=== PATIENT | male | born 1965 | race Caucasian/White ===

== ENCOUNTER → 2016-03-13 | Outpatient (CLI) | payer BC ==
[2016-03-13 12:47] LABS: Basophils % (A) 0 %; CH 30.4; CHCM 32.1; Eosinophils # (A) 0.2 k/uL (0-0.7); Eosinophils % (A) 2 %; HCT 40.6 % (39.0-53.0); HDW 2.16; HGB 12.8 gm/dL (13.0-17.5); Luc # (Auto) 0.16; Luc % (Auto) 2; Lymphocytes # (A) 2.3 k/uL (1.0-4.8); Lymphocytes % (A) 24 %; MCH 30.1 pg (25.0-35.0); MCHC 31.7 g/dL (31.0-37.0); Mean Platelet Volume 6.8; Monocytes # (A) 0.3 k/uL (0-1.0); Monocytes % (A) 4 %; Neutrophils # (A) 6.6 k/uL (1.3-7.7); Neutrophils % (A) 69 %; RBC 4.27 m/uL (4.30-5.90); RDW 13.8 % (11.5-15.5); WBC 9.5 k/uL (3.8-10.6); WBC (Perox) 9.94
[2016-03-13 13:08] LABS: Potassium 4.6 mmol/L (3.5-5.1)
== END | disposition home or self-care (01) ==
LOC: LABPAT 12:22
PROVIDERS: ATTEND Orthopaedic Surgery
DX: Z01.812 Encounter for preprocedural laboratory examination (principal); Z01.810 Encounter for preprocedural cardiovascular examination
CPT/HCPCS: 80051; 85025

== ENCOUNTER 2016-04-05 07:19 | Day surgery (SDC) | payer BC ==
[2016-04-02 15:26] VITALS: BMI 21.1
--- NOTE | 2016-04-04 15:24 | HP ---
DATE OF ADMISSION: 04/05/2016 Jonathan Rider is a 51-year-old patient seen with progressive right knee pain. After having treatment options discussed, he elected to proceed with right knee arthroscopy. Consent was obtained. Clearance provided by Dr. Fried. Past medical history is hypertension, cardiovascular disease, asthma. PAST SURGICAL HISTORY: Herniorrhaphy, left knee arthroscopy. DAILY MEDICATIONS: 1. Atenolol. 2. Flomax. 3. Loratadine. 4. Singulair. 5. [place]. Allergies are SULFA and MORPHINE SULFATE. SOCIAL HISTORY: Patient smokes cigarettes. Physical evaluation of the right knee: Range of motion is 0 to 120 degrees, there is a mild intra-articular effusion. Tenderness medial joint line. Positive medial Ninoska's. Ligaments are stable. Hip rotation is without pain. Distal neurovascular exam is intact. Radiographs of the right knee revealed mild medial compartment osteoarthritis. MRI right knee revealed medial meniscal tear and joint effusion. IMPRESSION: Internal derangement of right knee with medial meniscal tear. PLAN: Right knee arthroscopy with partial meniscectomy and debridement.
[~2016-04-05 07:19] MED LIST: DEXAMETHASONE SOD PHOSPHATE 10 MG/ML 1 ML VIAL IV ONE; HYDROmorphone 1 MG/ML 1 ML SYRINGE IVP PRN; LACTATED RINGERS 1,000 ML IV SCH; MIDAZOLAM 2 MG/2 ML VIAL IV PRN; ONDANSETRON 4 MG/2 ML VIAL IVP ONE; SCOPOLAMINE 1.5MG/72HR PATCH TRANSDERM ONE; ceFAZolin 2 GM in SODIUM CHLORIDE 0.9% 100 ML IVPB ONE
[2016-04-05 07:46] VITALS: RESP 16
[2016-04-05] MEDS ORDERED: LIDOCAINE 1% 20 ML VIAL (10MG/ML) FOR IV START INTRADERMA ONE (07:52)
[2016-04-05] MEDS ORDERED: MIDAZOLAM 2 MG/2 ML VIAL ONE (08:42)
[2016-04-05] MEDS ORDERED: fentaNYL (PF) 50 MCG/ML 2 ML AMP ONE (08:42)
[2016-04-05] MEDS ORDERED: PROPOFOL 10 MG/ML 20 ML VIAL IV ONE (08:42)
[2016-04-05] MEDS ORDERED: LIDOCAINE 1% INJ 10MG/ML (20 ML MDV) ONE (08:42)
[2016-04-05] MEDS ORDERED: SUCCINYLCHOLINE CHLORIDE 100 MG/5 ML SYR IV ONE (08:42)
[2016-04-05] MEDS ORDERED: BUPIVACAIN-EPI 0.25%-1:200,000 30 ML VIAL INTRAARTIC ONE (08:42)
--- NOTE | 2016-04-05 09:54 | P.OP ---
Date of Procedure: 04/05/16 Preoperative Diagnosis: Internal derangement right knee Postoperative Diagnosis: 1. Tear medial meniscus right knee 2. 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 Medial plica right knee 4. Reactive synovitis medial and suprapatellar compartments right knee Procedure(s) Performed: 1. Arthroscopic partial medial meniscectomy right knee 2. Arthroscopic chondroplasty medial femoral condyle right knee 3. Arthroscopic resection medial plica right knee 4. Arthroscopic partial synovectomy medial and suprapatellar compartments right knee Anesthesia: LILLYA, local Surgeon: Reza Olguin Estimated Blood Loss (ml): 10 Pathology: none sent Condition: stable Disposition: PACU Indications for Procedure: 51-year-old patient seen with progressive right knee pain. After treatment options were discussed, he elected to proceed with right knee arthroscopy. Operative Findings: See description of procedure Description of Procedure: Patient was taken to the operative suite. Patient underwent a general anesthetic by the department of anesthesia. Patient was given preoperative antibiotics. The right lower extremity was placed in a well-padded arthroscopic leg yadav. The right leg was prepped and draped in the normal sterile orthopedic fashion. A lateral parapatellar and suprapatellar incision was made. Trochars were inserted. Arthroscopy was initiated. Suprapatellar pouch revealed thick reactive synovitis. The patellofemoral joint appeared to articulate congruently with grade 1 chondromalacia changes. The scope was guided into the medial gutter. There was a medial plica noted which did impinge along the medial femoral condyle with range of motion. The scope was then guided into the medial compartment. A medial parapatellar incision was made. Trocar inserted followed by probe. There was a large tear involving the posterior horn of the medial meniscus. Grade 1 and 2 chondromalacia changes of the medial femoral condyle with some small osteochondral tears. Thick synovitis anteriorly. A partial medial meniscectomy was performed down to stable tissue. I performed a chondroplasty of the medial femoral condyle and partial synovectomy. The residual meniscus was stable. The residual osteochondral surface was stable. Scope and probe were then guided into the intercondylar notch. Cruciates were identified, probed and found to be stable. The scope and probe were then guided into lateral compartment. The lateral meniscus was probed and found to be stable. There was no chondromalacia, no loose bodies or reactive synovitis. The scope was in guided back into the suprapatellar compartment. I introduced a motorized shaver into the suprapatellar compartment. I resected that medial plica. I debrided some piecemeal fragments of meniscus I encountered. I performed a partial synovectomy. The shaver was removed. I took one more look around the entire knee, no residual debris. Instruments were now removed from the joint. The joint was infiltrated with .25% Marcaine. Steri-Strips were applied to the portal sites. Sterile dressings were applied. The patient was placed into a HILARY hose. No tourniquet was utilized. The patient was awakened, transferred to a bed and taken to recovery stable satisfactory condition.
[2016-04-05 10:02] VITALS: TEMP 97.4
[2016-04-05] MEDS: MEPERIDINE 50 MG/ML SYRINGE IVP ONE ×2 (10:16→10:26)
[2016-04-05] MEDS ORDERED: HYDROcodone/APAP 5-325MG 1 EACH TAB PO ONE (10:50)
[2016-04-05 11:56] VITALS: BP 102/62; PULSE 69
== END 2016-04-05 12:03 | disposition home or self-care (01) ==
LOC: OR 07:19
PROVIDERS: ATTEND Orthopaedic Surgery
DX: S83.241A Other tear of medial meniscus, current injury, right knee, initial encounter (principal); X58.XXXA Exposure to other specified factors, initial encounter; M94.261 Chondromalacia, right knee; M67.51 Plica syndrome, right knee; M65.861 Other synovitis and tenosynovitis, right lower leg; I10 Essential (primary) hypertension; J45.909 Unspecified asthma, uncomplicated; F17.210 Nicotine dependence, cigarettes, uncomplicated; I47.2 Ventricular tachycardia; I71.2 Thoracic aortic aneurysm, without rupture; I35.1 Nonrheumatic aortic (valve) insufficiency; Z79.899 Other long term (current) drug therapy; Z88.5 Allergy status to narcotic agent; Z88.2 Allergy status to sulfonamides
CPT/HCPCS: 29881; J2250; J1100; J2175; J0690; J2405; J2001; J3010; J0330; J2704

== ENCOUNTER 2016-08-03 15:30 | Emergency (ER) | payer BC ==
[2016-08-03 16:01] VITALS: BP 157/82; PULSE 60; RESP 18; TEMP 96.7
--- NOTE | 2016-08-03 16:10 | ED ---
General Adult HPI - General Chief complaint: Chest Pain Stated complaint: Shoulder Pain Time Seen by Provider: 08/03/16 16:03 Source: patient, RN notes reviewed Mode of arrival: ambulatory Limitations: no limitations - History of Present Illness Initial comments: 51-year-old male presents emergency Department for right shoulder, right chest wall pain. Patient states has been month last to 3 days. Patient states when he picks up parts of the been to put on the line states he has increased pain. Patient states when he bends over he has pain in his shoulder, axilla region. Patient states that he also feels pain along his ribs especially when he coughs. Patient states he has chronic sinus issues and the drainage; cough. He denies any shortness of breath at rest. Denies any exertional shortness breath. The patient does have some pain with deep inspiration on his ribs. Patient did not have a fall. He just notices increased pain with movement. - Related Data Home Medications Medication Instructions Recorded Confirmed Atenolol [Tenormin] 25 mg PO DAILY 01/14/14 04/05/16 Glucosam/Ion-Msm1/C/Daryn/Bosw 2 each PO DAILY 10/11/15 04/02/16 [Glucosamine-Chondroitin Tablet] Loratadine [Claritin] 10 mg PO DAILY 10/11/15 04/05/16 Montelukast [Singulair] 10 mg PO HS 10/11/15 04/05/16 Multivitamins, Thera [Multivitamin] 1 tab PO DAILY 10/11/15 04/02/16 Fish Oil (Unknown Dose) 1 cap PO DAILY 04/02/16 04/02/16 HYDROcodone/APAP 5-325MG [[place] 1 tab PO Q6HR PRN 04/02/16 04/05/16 5-325] Previous Rx's Medication Instructions Recorded Hydrocodone/Acetaminophen [[place] 1 each PO Q6HR PRN #20 tab 04/05/16 5-325] Hydrocodone/Acetaminophen [[place] 1 tab PO Q6HR PRN #15 tab 08/03/16 5-325] Allergies Allergy/AdvReac Type Severity Reaction Status Date / Time itraconazole [From Sporanox] Allergy Rash/Hives Verified 08/03/16 16:01 morphine Allergy Nausea & Verified 08/03/16 16:01 Vomiting Sulfa (Sulfonamide Allergy Unknown Verified 08/03/16 16:01 Antibiotics) Review of Systems ROS Statement: Those systems with pertinent positive or pertinent negative responses have been documented in the HPI. ROS Other: All systems not noted in ROS Statement are negative. Past Medical History Past Medical History: Osteoarthritis (OA) Additional Past Medical History / Comment(s): States hx "rapid heart rate, leaking heart valve, enlarged heart." History of Any Multi-Drug Resistant Organisms: None Reported Past Surgical History: Heart Catheterization, Hernia Repair, Orthopedic Surgery Additional Past Surgical History / Comment(s): Hernia repair X2, jaw surgery, left knee surgery. r knee surg Past Anesthesia/Blood Transfusion Reactions: No Reported Reaction Past Psychological History: No Psychological Hx Reported Smoking Status: Current every day smoker Past Alcohol Use History: None Reported Additional Past Alcohol Use History / Comment(s): smokes 1/2 PPD for 20 yrs Past Drug Use History: None Reported - Past Family History Father Family Medical History: Cancer Additional Family Medical History / Comment(s): colon Mother Family Medical History: Cancer General Exam Limitations: no limitations General appearance: alert, in no apparent distress Head exam: Present: atraumatic, normocephalic, normal inspection Neck exam: Present: normal inspection, full ROM. Absent: tenderness, meningismus, lymphadenopathy Respiratory exam: Present: normal lung sounds bilaterally, chest wall tenderness (Moderate tenderness with palpation over the anterior lateral mid ribs.). Absent: respiratory distress, wheezes, rales, rhonchi, stridor Cardiovascular Exam: Present: regular rate, normal rhythm, normal heart sounds. Absent: systolic murmur, diastolic murmur, rubs, gallop, clicks GI/Abdominal exam: Present: soft, normal bowel sounds. Absent: distended, tenderness, guarding, rebound, rigid Neurological exam: Present: alert, oriented X3, CN II-XII intact Skin exam: Present: warm, dry, intact, normal color. Absent: rash Course Vital Signs 08/03/16 15:58 Temperature 96.7 F L Pulse Rate 60 Respiratory 18 Rate Blood Pressure 157/82 O2 Sat by Pulse 96 Oximetry Medical Decision Making - Medical Decision Making 51-year-old male present emergency department for right rib pain. Patient has musculoskeletal strain. Patient has no obvious rib fractures and no other acute abnormality as per radiology reading. Disposition Clinical Impression: Muscle strain of chest wall, Shoulder pain Disposition: HOME SELF-CARE Condition: Stable Instructions: Chest Wall Pain (ED) Additional Instructions: Please return to the Emergency Department if symptoms worsen or any other concerns. Prescriptions: Hydrocodone/Acetaminophen [[place] 5-325] 1 tab PO Q6HR PRN #15 tab PRN Reason: Pain Referrals: Sammy Phillips MD [Primary Care Provider] - 1-2 days Time of Disposition: 16:35
--- NOTE | 2016-08-03 16:29 | XR ---
EXAMINATION TYPE: XR ribs RT w pa chest x-ray DATE OF EXAM: 08/03/2016 CLINICAL HISTORY: Right-sided pain. TECHNIQUE: Single frontal view of the chest is obtained. A frontal and oblique images of the right-si ded ribs are acquired. COMPARISON: Chest x-ray January 13, 2014. FINDINGS: There is chronic parenchymal change with right basilar linear scarring redemonstrated. Ther e is no new focal air space opacity, pleural effusion, or pneumothorax seen. The cardiac silhouette size is within normal limits. The osseous structures are intact. Dedicated images of right-sided ribs show no acute displaced fracture. Overlying soft tissue is unrem arkable. IMPRESSION: 1. No acute cardiopulmonary process. 2. No acute displaced right-sided rib fractures are seen.
== END 2016-08-03 16:43 | disposition home or self-care (01) ==
LOC: EC 15:30
DX: S29.011A Strain of muscle and tendon of front wall of thorax, initial encounter (principal); M25.511 Pain in right shoulder; F17.200 Nicotine dependence, unspecified, uncomplicated; Z88.5 Allergy status to narcotic agent; Z88.2 Allergy status to sulfonamides; Z88.8 Allergy status to other drugs, medicaments and biological substances; Z79.899 Other long term (current) drug therapy; X50.9XXA Other and unspecified overexertion or strenuous movements or postures, initial encounter
CPT/HCPCS: 99283

== ENCOUNTER → 2016-09-04 | Outpatient (CLI) | payer BC ==
[2016-09-04 11:58] LABS: Basophils % (A) 1 %; CH 30.3; CHCM 33.3; Eosinophils # (A) 0.2 k/uL (0-0.7); Eosinophils % (A) 2 %; HCT 38.8 % (39.0-53.0); HGB 13.1 gm/dL (13.0-17.5); Luc # (Auto) 0.11; Luc % (Auto) 1; Lymphocytes # (A) 1.8 k/uL (1.0-4.8); Lymphocytes % (A) 21 %; MCH 30.8 pg (25.0-35.0); MCHC 33.6 g/dL (31.0-37.0); MCV 91.6 fL (80.0-100.0); Mean Platelet Volume 6.8; Monocytes # (A) 0.5 k/uL (0-1.0); Monocytes % (A) 5 %; Neutrophils % (A) 70 %; RBC 4.24 m/uL (4.30-5.90); RDW 14.2 % (11.5-15.5); WBC 8.6 k/uL (3.8-10.6); WBC (Perox) 8.72
[2016-09-04 12:14] LABS: ALT 29 U/L (21-72); AST 16 U/L (17-59); Alkaline Phosphatase 70 U/L (38-126); Anion Gap 9 mmol/L; Blood Urea Nitrogen 11 mg/dL (9-20); Calcium 9.4 mg/dL (8.4-10.2); Carbon Dioxide 26 mmol/L (22-30); Chloride 107 mmol/L (98-107); Cholesterol 159 mg/dL (<200); Glucose 84 mg/dL (74-99); HDL Cholesterol 51 mg/dL (40-60); Non-African American GFR(MDRD) >60 (>60 ml/min/1.73 sqM); Potassium 4.2 mmol/L (3.5-5.1); Sodium 142 mmol/L (137-145); Total Bilirubin 0.5 mg/dL (0.2-1.3); Total Protein 6.1 g/dL (6.3-8.2); Triglycerides 56 mg/dL (<150)
[2016-09-04 12:45] LABS: Prostate Specific Antigen 0.55 ng/mL (0.00-4.00)
== END | disposition home or self-care (01) ==
LOC: LABWHC1 11:21
PROVIDERS: ATTEND Family Medicine
DX: Z00.00 Encounter for general adult medical examination without abnormal findings (principal); M13.0 Polyarthritis, unspecified; R51 Headache; Z98.1 Arthrodesis status
CPT/HCPCS: 36415; 80053; 80061; 84153; 84439; 84443; 85025

== ENCOUNTER → 2016-12-18 | Outpatient (CLI) | payer BC ==
--- NOTE | 2016-12-18 11:57 | XR ---
EXAMINATION TYPE: XR thoracic spine 2V DATE OF EXAM: 12/18/2016 CLINICAL HISTORY: pain TECHNIQUE: Frontal, lateral, and swimmer's view of thoracic spine are obtained. COMPARISON: None. FINDINGS: There is mild curvature convex to the left. Vertebral body heights are preserved. Disc spac es demonstrate a moderate degenerative disc space narrowing at multiple levels. Visualized ribs are unremarkable. IMPRESSION: No acute fracture or dislocation is seen in the thoracic spine. ICD 10 NO FRACTURE, INIT IAL EVALUATION
== END | disposition home or self-care (01) ==
LOC: RADXRMAIN 11:33
PROVIDERS: ATTEND Family Medicine
DX: M54.6 Pain in thoracic spine (principal)
CPT/HCPCS: 72070

== ENCOUNTER → 2017-01-04 | Outpatient (CLI) | payer BC ==
--- NOTE | 2017-01-04 16:26 | US ---
EXAMINATION TYPE: US scrotum with doppler. Grayscale and color Doppler Duplex imaging performed of vidhya armstrong scrotum. DATE OF EXAM: 01/04/2017 COMPARISON: NONE CLINICAL HISTORY: N50.811 Right Testicular Pain. Pain in right scrotum since lifting cement blocks 1- 2 weeks ago. Pain radiates up pelvis and down right leg, but patient said symptoms are subsiding. EXAM MEASUREMENTS: TESTICLES: Right Testicle: 4.0 x 2.6 x 2.0 cm Left Testicle: 4.6 x 2.7 x 2.8 cm EPIDIDYMIS HEAD: Right Epididymis: 1.1 x 1.1 x 0.7cm cm Left Epididymis: 0.8 x 1.6 x 1.1 cm Doppler performed to assess for testicular vascularity; good bilateral color flow and waveforms are s een. There is no evidence of testicular torsion. Right epididymal head cyst is noted = 0.4 x 0.4 x 0.3cm. Left epididymal head cyst is imaged = 0.9 x 0.6 x 0.5cm. Couple of hyperechoic round foci (scrotal p migel) approximately each = 0.1 x 0.1 x 0.1cm are noted in lower left hydrocele fluid. Left hydrocele is noted = 7.2 x 4.4 x 1.4cm. Homogeneous echo texture is noted bilateral testicle. IMPRESSION: 1. Epididymal cysts. 2. Mild hydrocele left side
== END | disposition home or self-care (01) ==
LOC: RADUSWWP 12:09
PROVIDERS: ATTEND Family Medicine
DX: N50.3 Cyst of epididymis (principal); N43.3 Hydrocele, unspecified; N50.811 Right testicular pain; Z88.2 Allergy status to sulfonamides; Z88.5 Allergy status to narcotic agent
CPT/HCPCS: 76870; 93975

== ENCOUNTER → 2017-05-13 | Outpatient (CLI) | payer BC ==
[2017-05-13 16:32] LABS: Thyroid Peroxidase Antibodies 3188.9 U/mL (0.0-60.0)
[2017-05-13 16:33] LABS: Thyroglobulin <0.20 ng/mL (1.60-59.90)
== END | disposition home or self-care (01) ==
LOC: LABWHC1 11:30
PROVIDERS: ATTEND Family Medicine
DX: R94.6 Abnormal results of thyroid function studies (principal)
CPT/HCPCS: 36415; 84432; 84439; 84481; 86376; 86800

== ENCOUNTER 2017-07-07 14:36 | Emergency (ER) | payer BC ==
[2017-07-07 14:43] VITALS: BP 106/72; PULSE 78; RESP 20; TEMP 96.8
[2017-07-07] MEDS ORDERED: MUPIROCIN 2% OINT 22 GM TUBE TOPICAL STA (15:08)
[2017-07-07] MEDS ORDERED: ACET/COD 300 MG/30 MG STARTER PACK 6 TAB BTL PO STA (15:09)
[2017-07-07] MEDS ORDERED: IBUPROFEN 600 MG STARTER PACK 4 TAB BTL PO STA (15:09)
--- NOTE | 2017-07-07 15:14 | ED ---
General Adult HPI - General Chief complaint: Burn/Smoke Inhalation Stated complaint: burn left hand Time Seen by Provider: 07/07/17 14:53 Source: patient, RN notes reviewed, old records reviewed Mode of arrival: ambulatory Limitations: no limitations - History of Present Illness Initial comments: This patient's a 52-year-old male presents emergency Department chief complaint of left palm pain. He reports that he tripped and caught himself by cutting himself on the Rototiller. He reports he caught himself on the muffler of the which was hot. He complains of a first-degree burn on the left palm. Full range of motion noted of the fingers. No blistering. He denies any other areas of pain or injury. - Related Data Home Medications Medication Instructions Recorded Confirmed Atenolol [Tenormin] 25 mg PO DAILY 01/14/14 04/05/16 Glucosam/Ion-Msm1/C/Daryn/Bosw 2 each PO DAILY 10/11/15 04/02/16 [Glucosamine-Chondroitin Tablet] Loratadine [Claritin] 10 mg PO DAILY 10/11/15 04/05/16 Montelukast [Singulair] 10 mg PO HS 10/11/15 04/05/16 Multivitamins, Thera [Multivitamin] 1 tab PO DAILY 10/11/15 04/02/16 Fish Oil (Unknown Dose) 1 cap PO DAILY 04/02/16 04/02/16 HYDROcodone/APAP 5-325MG [[place] 1 tab PO Q6HR PRN 04/02/16 04/05/16 5-325] Previous Rx's Medication Instructions Recorded Hydrocodone/Acetaminophen [[place] 1 each PO Q6HR PRN #20 tab 04/05/16 5-325] Hydrocodone/Acetaminophen [[place] 1 tab PO Q6HR PRN #15 tab 08/03/16 5-325] Acetaminophen-Codeine 300-30mg 1 tab PO Q6H PRN 3 Days #12 tablet 07/07/17 [Tylenol w/codeine #3] Mupirocin [Mupirocin 2%] 1 applic TOPICAL BID #1 tube 07/07/17 Allergies Allergy/AdvReac Type Severity Reaction Status Date / Time itraconazole [From Sporanox] Allergy Rash/Hives Verified 07/07/17 14:44 morphine Allergy Nausea & Verified 07/07/17 14:44 Vomiting Sulfa (Sulfonamide Allergy Unknown Verified 07/07/17 14:44 Antibiotics) Review of Systems ROS Statement: Those systems with pertinent positive or pertinent negative responses have been documented in the HPI. ROS Other: All systems not noted in ROS Statement are negative. Past Medical History Past Medical History: Osteoarthritis (OA) Additional Past Medical History / Comment(s): States hx "rapid heart rate, leaking heart valve, enlarged heart." History of Any Multi-Drug Resistant Organisms: None Reported Past Surgical History: Heart Catheterization, Hernia Repair, Orthopedic Surgery Additional Past Surgical History / Comment(s): Hernia repair X2, jaw surgery, left knee surgery. r knee surg Past Anesthesia/Blood Transfusion Reactions: No Reported Reaction Past Psychological History: No Psychological Hx Reported Smoking Status: Current every day smoker Past Alcohol Use History: None Reported Past Drug Use History: None Reported - Past Family History Father Family Medical History: Cancer Additional Family Medical History / Comment(s): colon Mother Family Medical History: Cancer General Exam - General Exam Comments Initial Comments: 52-year-old male. Alert and oriented. No acute distress. General: Well appearing, well nourished, in no distress. Oriented x 3, normal mood and affect . Ambulating without difficulty. Skin: Good turgor, no rash, unusual bruising or prominent lesions Hair: Normal texture and distribution. Pharynx: Mucosa non-inflamed, no tonsillar hypertrophy or exudate Neck: Supple, without lesions, bruits, or adenopathy, thyroid non-enlarged and non-tender Heart: No cardiomegaly or thrills; regular rate and rhythm, no murmur or gallop Lungs: Clear to auscultation and percussion Abdomen: Bowel sounds normal, no tenderness, organomegaly, masses, or hernia Back: Spine normal without deformity or tenderness, no CVA tenderness Extremities: Patient is a first-degree burn over the left palm. Musculoskeletal: Normal gait and station. No misalignment, asymmetry, crepitation, defects, tenderness, masses, effusions, decreased range of motion, instability, atrophy or abnormal strength or tone in the head, neck, spine, ribs , pelvis or extremities. Neurologic: CN 2-12 normal. Sensation to pain, touch, and proprioception normal. DTRs normal in upper and lower extremities. No pathologic reflexes. Psychiatric: Oriented X3, intact recent and remote memory, judgment and insight , normal mood and affect. Limitations: no limitations Course Vital Signs 07/07/17 14:41 Temperature 96.8 F L Pulse Rate 78 Respiratory 20 Rate Blood Pressure 106/72 O2 Sat by Pulse 99 Oximetry Medical Decision Making - Medical Decision Making 52-year-old male with a first-degree burn over the left palm. Less than 1% body surface area. No blistering. Patient's wound will be covered with mupirocin. He is ALLERGIC to sulfa. Will not give him Silvadene cream. She has full range of motion of fingers. Normal capillary refill. Reports it feels like a sunburn. Patient was given pain medication. Given a note for work. Discussed dressing changes. There is blistering later on to let him remain. Discussed following up with primary care provider. All questions answered and return parameters were discussed. Disposition Clinical Impression: Burn of hand, left, first degree Disposition: HOME SELF-CARE Condition: Good Instructions: Superficial Burn (ED) Additional Instructions: Patient denies significant Motrin Tylenol for pain. Patient should apply antibiotic ointment and change dressing 2 times a day. Drink plenty of water. Return to the emergency department if any alarming signs or symptoms occur. Prescriptions: Acetaminophen-Codeine 300-30mg [Tylenol w/codeine #3] 1 tab PO Q6H PRN 3 Days # 12 tablet PRN Reason: Pain Mupirocin [Mupirocin 2%] 1 applic TOPICAL BID #1 tube Is patient prescribed a controlled substance at d/c from ED?: No If prescribed controlled substance>3 days was MAPS reviewed?: No When asked, does pt state using other controlled substances?: No Referrals: Sammy Phillips MD [Primary Care Provider] - 1-2 days Time of Disposition: 15:20
== END 2017-07-07 15:59 | disposition home or self-care (01) ==
LOC: EC 14:36
DX: T23.152A Burn of first degree of left palm, initial encounter (principal); T31.0 Burns involving less than 10% of body surface; M19.90 Unspecified osteoarthritis, unspecified site; F17.200 Nicotine dependence, unspecified, uncomplicated; Z95.5 Presence of coronary angioplasty implant and graft; Z88.1 Allergy status to other antibiotic agents; Z88.2 Allergy status to sulfonamides; Z88.5 Allergy status to narcotic agent; Z79.899 Other long term (current) drug therapy; X19.XXXA Contact with other heat and hot substances, initial encounter
CPT/HCPCS: 16020; 99284

== ENCOUNTER → 2017-11-11 | Outpatient (CLI) | payer BC ==
[2017-11-11 07:47] LABS: Basophils % (A) 1 %; Eosinophils # (A) 0.2 k/uL (0-0.7); Eosinophils % (A) 3 %; HCT 39.9 % (39.0-53.0); HGB 13.2 gm/dL (13.0-17.5); Lymphocytes # (A) 1.9 k/uL (1.0-4.8); Lymphocytes % (A) 23 %; MCH 30.9 pg (25.0-35.0); MCHC 32.9 g/dL (31.0-37.0); MCV 93.8 fL (80.0-100.0); Mean Platelet Volume 7.1; Monocytes # (A) 0.5 k/uL (0-1.0); Monocytes % (A) 6 %; Neutrophils # (A) 5.6 k/uL (1.3-7.7); Neutrophils % (A) 67 %; Platelet Count 262 k/uL (150-450); RBC 4.26 m/uL (4.30-5.90); WBC 8.4 k/uL (3.8-10.6)
[2017-11-11 08:10] LABS: ALT 18 U/L (21-72); AST 23 U/L (17-59); Albumin 3.9 g/dL (3.5-5.0); Alkaline Phosphatase 57 U/L (38-126); Anion Gap 8 mmol/L; Blood Urea Nitrogen 14 mg/dL (9-20); Carbon Dioxide 28 mmol/L (22-30); Chloride 105 mmol/L (98-107); Cholesterol 202 mg/dL (<200); Glucose 101 mg/dL (74-99); HDL Cholesterol 60 mg/dL (40-60); LDL Cholesterol,Calculated 124 mg/dL (0-99); Potassium 4.6 mmol/L (3.5-5.1); Sodium 141 mmol/L (137-145); Total Bilirubin 0.5 mg/dL (0.2-1.3); Total Protein 6.4 g/dL (6.3-8.2); Triglycerides 90 mg/dL (<150)
[2017-11-11 08:19] LABS: T4, Free (Free Thyroxine) 1.07 ng/dL (0.78-2.19)
== END ==
LOC: LABWHC1 07:20
PROVIDERS: ATTEND Family Medicine
DX: Z00.00 Encounter for general adult medical examination without abnormal findings (principal); E07.9 Disorder of thyroid, unspecified
CPT/HCPCS: 36415; 80053; 80061; 84439; 84443; 85025

== ENCOUNTER 2017-11-30 07:47 | Observation (INO) | payer BC ==
--- NOTE | 2017-11-30 08:11 | ED ---
General Adult HPI - General Chief complaint: Chest Pain Stated complaint: Chest pain Time Seen by Provider: 11/30/17 07:50 Source: patient, RN notes reviewed Mode of arrival: ambulatory Limitations: no limitations - History of Present Illness Initial comments: This is a 52-year-old male who presents emergency Department with a past history of tachycardia and a leaky valve. Patient comes in this morning because she's had a week and a half long history of some burning sensation in his left chest for which she is seen his primary medical care doctor twice. Patient states it is worsened with leaning forward and coughing or taking a deep breath but it is always there even at rest. Patient states today he was driving to work and he still had the pain and then he got a little lightheaded and decided to come to the emergency department because he didn't want to be at work being lightheaded. Patient denies any radiation of the pain. Patient denies any shortness of breath though it hurts take a deep breath. Patient denies any diaphoresis. Patient denies any nausea vomiting. Patient's been treated for some ALLERGIES and postnasal drip by his primary because of this pain. Patient denies any recent trips or travel. Patient denies any calf pain or any leg swelling. Patient denies any recent fever chills or cough. Patient is a daily smoker. - Related Data Home Medications Medication Instructions Recorded Confirmed Loratadine [Claritin] 10 mg PO DAILY 10/11/15 11/30/17 Montelukast [Singulair] 10 mg PO HS 10/11/15 11/30/17 Fluticasone Propionate [Flonase 50 mcg NASAL DAILY 11/30/17 11/30/17 Allergy Relief] Levothyroxine Sodium [Synthroid] 50 mcg PO DAILY 11/30/17 11/30/17 Metoprolol Tartrate 25 mg PO BID 11/30/17 11/30/17 Allergies Allergy/AdvReac Type Severity Reaction Status Date / Time itraconazole [From Sporanox] Allergy Rash/Hives Verified 11/30/17 07:50 morphine Allergy Nausea & Verified 11/30/17 07:50 Vomiting Sulfa (Sulfonamide Allergy Unknown Verified 11/30/17 07:50 Antibiotics) Review of Systems ROS Statement: Those systems with pertinent positive or pertinent negative responses have been documented in the HPI. ROS Other: All systems not noted in ROS Statement are negative. Past Medical History Past Medical History: Osteoarthritis (OA) Additional Past Medical History / Comment(s): States hx "rapid heart rate, leaking heart valve, enlarged heart." History of Any Multi-Drug Resistant Organisms: None Reported Past Surgical History: Heart Catheterization, Hernia Repair, Orthopedic Surgery Additional Past Surgical History / Comment(s): Hernia repair X2, jaw surgery, left knee surgery. r knee surg Past Anesthesia/Blood Transfusion Reactions: No Reported Reaction Past Psychological History: No Psychological Hx Reported Smoking Status: Current every day smoker Past Alcohol Use History: None Reported Past Drug Use History: None Reported - Past Family History Father Family Medical History: Cancer Additional Family Medical History / Comment(s): colon Mother Family Medical History: Cancer General Exam - General Exam Comments Initial Comments: GENERAL: Patient is well-developed and well-nourished. Patient is nontoxic and well- hydrated and is in mild distress. ENT: Neck is soft and supple. No significant lymphadenopathy is noted. Oropharynx is clear. Moist mucous membranes. Neck has full range of motion without eliciting any pain. EYES: The sclera were anicteric and conjunctiva were pink and moist. Extraocular movements were intact and pupils were equal round and reactive to light. Eyelids were unremarkable. PULMONARY: Unlabored respirations. Good breath sounds bilaterally. No audible rales rhonchi or wheezing was noted. CARDIOVASCULAR: There is a regular rate and rhythm without any murmurs gallops or rubs. ABDOMEN: Soft and nontender with normal bowel sounds. No palpable organomegaly was noted. There is no palpable pulsatile mass. SKIN: Skin is clear with no lesions or rashes and otherwise unremarkable. NEUROLOGIC: Patient is alert and oriented x3. Cranial nerves II through XII are grossly intact. Motor and sensory are also intact. Normal speech, volume and content. Symmetrical smile. MUSCULOSKELETAL: Normal extremities with adequate strength and full range of motion. No lower extremity swelling or edema. No calf tenderness. LYMPHATICS: No significant lymphadenopathy is noted PSYCHIATRIC: Normal psychiatric evaluation. Normal interpersonal interactions appears functionally intact in deals appropriately with others. No signs of depression. No signs of anxiety. Limitations: no limitations Course Vital Signs 11/30/17 11/30/17 07:49 09:14 Temperature 98.0 F Pulse Rate 60 49 L Respiratory 20 18 Rate Blood Pressure 130/84 106/77 O2 Sat by Pulse 99 100 Oximetry Medical Decision Making - Medical Decision Making EKG shows sinus bradycardia with occasional PVCs at a rate of 56 bpm MN interval is 182 QRS is 92 QT interval 436 QTC is 420. Patient's EKG shows no ST segment elevation or depression or T wave abnormalities are noted. Chest x-ray shows no acute abnormality. I was in the room talking the patient his heart rate dipped down to 38 and 39 bpm. I spoke with the patient's primary medical care doctor they agreed to admit the patient admitted the patient wrote admitting orders. - Lab Data Result diagrams: 11/30/17 08:06 11/30/17 08:06 Lab Results 11/30/17 11/30/17 11/30/17 Range/Units 08:06 08:06 08:06 WBC 8.8 (3.8-10.6) k/uL RBC 4.13 L (4.30-5.90) m/uL Hgb 12.7 L (13.0-17.5) gm/dL Hct 37.4 L (39.0-53.0) % MCV 90.7 (80.0-100.0) fL MCH 30.9 (25.0-35.0) pg MCHC 34.0 (31.0-37.0) g/dL RDW 13.6 (11.5-15.5) % Plt Count 267 (150-450) k/uL Neutrophils % 68 % Lymphocytes % 24 % Monocytes % 4 % Eosinophils % 2 % Basophils % 1 % Neutrophils # 6.0 (1.3-7.7) k/uL Lymphocytes # 2.1 (1.0-4.8) k/uL Monocytes # 0.3 (0-1.0) k/uL Eosinophils # 0.2 (0-0.7) k/uL Basophils # 0.0 (0-0.2) k/uL PT (9.0-12.0) sec INR (<1.2) APTT (22.0-30.0) sec D-Dimer (<0.60) mg/L FEU Sodium 138 (137-145) mmol/L Potassium 4.3 (3.5-5.1) mmol/L Chloride 106 (98-107) mmol/L Carbon Dioxide 24 (22-30) mmol/L Anion Gap 8 mmol/L BUN 15 (9-20) mg/dL Creatinine 0.79 (0.66-1.25) mg/dL Est GFR (CKD-EPI)AfAm >90 (>60 ml/min/1.73 sqM) Est GFR (CKD-EPI)NonAf >90 (>60 ml/min/1.73 sqM) Glucose 102 H (74-99) mg/dL Calcium 9.1 (8.4-10.2) mg/dL Magnesium 2.1 (1.6-2.3) mg/dL Total Bilirubin 0.4 (0.2-1.3) mg/dL AST 24 (17-59) U/L ALT 18 L (21-72) U/L Alkaline Phosphatase 60 (38-126) U/L Total Creatine Kinase 144 (55-170) U/L CK-MB (CK-2) 1.7 (0.0-2.4) ng/mL CK-MB (CK-2) Rel Index 1.2 Troponin I <0.012 (0.000-0.034) ng/mL Total Protein 6.5 (6.3-8.2) g/dL Albumin 3.8 (3.5-5.0) g/dL 11/30/17 Range/Units 08:06 WBC (3.8-10.6) k/uL RBC (4.30-5.90) m/uL Hgb (13.0-17.5) gm/dL Hct (39.0-53.0) % MCV (80.0-100.0) fL MCH (25.0-35.0) pg MCHC (31.0-37.0) g/dL RDW (11.5-15.5) % Plt Count (150-450) k/uL Neutrophils % % Lymphocytes % % Monocytes % % Eosinophils % % Basophils % % Neutrophils # (1.3-7.7) k/uL Lymphocytes # (1.0-4.8) k/uL Monocytes # (0-1.0) k/uL Eosinophils # (0-0.7) k/uL Basophils # (0-0.2) k/uL PT 9.9 (9.0-12.0) sec INR 1.0 (<1.2) APTT 25.8 (22.0-30.0) sec D-Dimer 0.25 (<0.60) mg/L FEU Sodium (137-145) mmol/L Potassium (3.5-5.1) mmol/L Chloride (98-107) mmol/L Carbon Dioxide (22-30) mmol/L Anion Gap mmol/L BUN (9-20) mg/dL Creatinine (0.66-1.25) mg/dL Est GFR (CKD-EPI)AfAm (>60 ml/min/1.73 sqM) Est GFR (CKD-EPI)NonAf (>60 ml/min/1.73 sqM) Glucose (74-99) mg/dL Calcium (8.4-10.2) mg/dL Magnesium (1.6-2.3) mg/dL Total Bilirubin (0.2-1.3) mg/dL AST (17-59) U/L ALT (21-72) U/L Alkaline Phosphatase (38-126) U/L Total Creatine Kinase (55-170) U/L CK-MB (CK-2) (0.0-2.4) ng/mL CK-MB (CK-2) Rel Index Troponin I (0.000-0.034) ng/mL Total Protein (6.3-8.2) g/dL Albumin (3.5-5.0) g/dL Disposition Clinical Impression: Bradycardia, Chest pain, Near syncope Disposition: ADMITTED IP TO THIS [facility] Referrals: Sammy Phillips MD [Primary Care Provider] - 1-2 days Time of Disposition: 10:56
[2017-11-30 08:23] LABS: Basophils % (A) 1 %; Eosinophils # (A) 0.2 k/uL (0-0.7); Eosinophils % (A) 2 %; HCT 37.4 % (39.0-53.0); HGB 12.7 gm/dL (13.0-17.5); Lymphocytes # (A) 2.1 k/uL (1.0-4.8); Lymphocytes % (A) 24 %; MCH 30.9 pg (25.0-35.0); MCV 90.7 fL (80.0-100.0); Mean Platelet Volume 6.9; Monocytes # (A) 0.3 k/uL (0-1.0); Monocytes % (A) 4 %; Neutrophils % (A) 68 %; Platelet Count 267 k/uL (150-450); RBC 4.13 m/uL (4.30-5.90); RDW 13.6 % (11.5-15.5); WBC 8.8 k/uL (3.8-10.6)
--- NOTE | 2017-11-30 08:31 | XR ---
EXAMINATION TYPE: XR chest 2V DATE OF EXAM: 11/30/2017 HISTORY: Chest Pain. REFERENCE: Previous study dated 08/03/2016. FINDINGS: The lungs are clear. Pleural space are clear. The heart is not enlarged. IMPRESSION: NO ACTIVE INTRATHORACIC DISEASE.
[2017-11-30 08:33] LABS: ALT 18 U/L (21-72); AST 24 U/L (17-59); Albumin 3.8 g/dL (3.5-5.0); Alkaline Phosphatase 60 U/L (38-126); Anion Gap 8 mmol/L; Blood Urea Nitrogen 15 mg/dL (9-20); Calcium 9.1 mg/dL (8.4-10.2); Carbon Dioxide 24 mmol/L (22-30); Chloride 106 mmol/L (98-107); Glucose 102 mg/dL (74-99); Magnesium 2.1 mg/dL (1.6-2.3); Potassium 4.3 mmol/L (3.5-5.1); Sodium 138 mmol/L (137-145); Total Bilirubin 0.4 mg/dL (0.2-1.3); Total Protein 6.5 g/dL (6.3-8.2)
[2017-11-30 08:35] LABS: D-Dimer 0.25 mg/L FEU (<0.60); Partial Thromboplastin Time 25.8 sec (22.0-30.0); Prothrombin Time 9.9 sec (9.0-12.0)
[2017-11-30 08:48] LABS: Creatine Kinase 144 U/L (55-170)
[2017-11-30 09:02] LABS: Creatine Kinase MB 1.7 ng/mL (0.0-2.4); Troponin I <0.012 ng/mL (0.000-0.034)
--- NOTE | 2017-11-30 10:46 | CT ---
EXAMINATION TYPE: CT angio thor/abd pel aorta DATE OF EXAM: 11/30/2017 COMPARISON: None. HISTORY: Chest pains CT DLP: 535.0 mGycm. Automated Exposure Control for Dose Reduction was Utilized. CONTRAST: CT scan of the thorax, abdomen and pelvis is performed without and with IV Contrast, patient injected with 100 mL of Isovue 300. FINDINGS: There are bullous changes throughout the lungs. There is some scarring at the left lung bas e. There is no significant axillary, mediastinal or hilar adenopathy. There is no pleural or pericardial fluid. The heart is not enlarged. There is no evidence of pulmonary embolus. The aortic root is dilated measuring 4.2 cm. The proximal arch is aneurysmal measuring 3.6 cm. The re mainder of the thoracic and abdominal aorta are normal in caliber. There is no evidence of dissection . The celiac, SMA and CHUY vessels are patent. Both renal arteries are patent. The iliac and common fe moral vessels are patent. Within the abdomen, the liver, spleen and gallbladder are within normal limits. Both adrenal glands appear normal. Both kidneys demonstrate function and appear morphologically normal. The pancreas is not well-visualized. There is no significant retroperitoneal, iliac or inguinal adenopathy. The bladder is slightly distended. Lack of contrast within the bowel makes evaluation difficult. There is no free fluid and no free air. There is degenerative disc disease, facet arthropathy and minimal hypertrophic spondylosis within the spine. IMPRESSION: 1. ANEURYSMAL DILATATION OF THE ASCENDING THORACIC AORTA WITHOUT EVIDENCE OF DISSECTION. 2. BULLOUS CHANGE THROUGHOUT THE LUNGS. 3. DEGENERATIVE CHANGE WITHIN THE SPINE.
[2017-11-30] MEDS ORDERED: NITROGLYCERIN SL TABS 0.4 MG TAB SUBLINGUAL PRN (10:56)
[2017-11-30] MEDS: NITROGLYCERIN OINT 1 INCH/GM PACKET TOPICAL SCH ×2 (12:37→18:27)
[2017-11-30 14:42] VITALS: RESP 16
[2017-11-30 15:47] LABS: Creatine Kinase 113 U/L (55-170)
[2017-11-30 16:01] LABS: Creatine Kinase MB 1.6 ng/mL (0.0-2.4); Troponin I <0.012 ng/mL (0.000-0.034)
[2017-11-30] MEDS ORDERED: ASPIRIN-ACET-CAFF 250-250-65MG 1 EACH TAB PO PRN (18:13)
[2017-11-30] MEDS: MONTELUKAST 10 MG TAB PO SCH (20:13)
[2017-11-30] MEDS: guaiFENesin SYRUP 100MG/5ML 200 MG/10 ML CUP PO PRN (20:42)
[2017-11-30 20:51] LABS: Creatine Kinase 93 U/L (55-170)
[2017-11-30 21:04] LABS: Creatine Kinase MB 1.4 ng/mL (0.0-2.4); Troponin I <0.012 ng/mL (0.000-0.034)
[2017-12-01] MEDS: NITROGLYCERIN OINT 1 INCH/GM PACKET TOPICAL SCH ×4 (04:00→17:43)
[2017-12-01] MEDS: LEVOTHYROXINE 50 MCG TAB PO SCH (06:39)
[2017-12-01 07:25] LABS: Cholesterol 170 mg/dL (<200); HDL Cholesterol 47 mg/dL (40-60); LDL Cholesterol,Calculated 111 mg/dL (0-99); Triglycerides 60 mg/dL (<150)
[2017-12-01] MEDS: LORATADINE 10 MG TAB PO SCH (08:48)
[2017-12-01] MEDS: ASPIRIN 325 MG TAB PO SCH (08:48)
[2017-12-01] MEDS: FLUTICASONE 50MCG/SPRAY NASAL 16GM NASAL SCH (08:49)
[2017-12-01] MEDS: METOPROLOL TARTRATE 12.5 MG TAB PO SCH ×2 (08:49→21:49)
--- NOTE | 2017-12-01 09:10 | CONS ---
CONSULTATION CHIEF COMPLAINT: Bradycardia, chest pain, shortness of breath. HISTORY: Siva is a 52-year-old gentleman with history of ascending aortic aneurysm, aortic regurgitation, and ventricular tachycardia, who presented to hospital complaining of intermittent episodes of chest discomfort at work, mild shortness of breath, and he noticed significant sinus bradycardia. The patient takes metoprolol 25 mg b.i.d. for his ventricular tachycardia. On admission, he was found to heart rate of 40 beats per minute. There is no history of syncope, dizziness, or focal neurological deficits. Since admission, he has been doing well. Chest pain has resolved. Troponins have been negative. EKG shows sinus bradycardia without acute ST-T wave changes. PAST MEDICAL HISTORY: Significant for ventricular tachycardia, ascending aortic aneurysm and aortic regurgitation. CURRENT MEDICATIONS: 1. Lopressor 25 b.i.d. 2. Claritin. 3. Synthroid. 4. Flonase. 5. Excedrin. ALLERGIES: SULFA and MORPHINE. FAMILY HISTORY: Negative for premature coronary artery disease. SOCIAL HISTORY: Significant for smoking. There is no history of EtOH abuse or drug abuse. REVIEW OF SYSTEMS: HEENT: Unremarkable. CARDIAC: As described above. RESPIRATORY: As described above. GI: Negative. : Negative. ALLERGY/IMMUNOLOGY: Negative. MUSCULOSKELETAL: Negative. ENDOCRINE: Negative. CONSTITUTIONAL: Negative. ONCOLOGICAL: Negative. The rest of the system review is not relevant. EXAM: Patient is comfortable at rest. Afebrile. Heart rate is 50 beats per minute. Blood pressure is 120/80, respirations 18, O2 sat is 97% on room air. There is no jugular venous distention. Carotid upstroke is normal. There is no bruit. Chest exam reveals good air entry bilaterally. Heart exam reveals first and second heart sounds. No gallop. Early diastolic murmur in the aortic area. Abdomen is soft. Exam of extremities did not reveal edema. Peripheral pulses are felt. DELI MANAGER exam did not reveal focal neurological deficits. EKG shows sinus bradycardia. ASSESSMENT: 1. Chest pain atypical. 2. Asymptomatic sinus bradycardia. PLAN: I am going to obtain a stress echo on him tomorrow. If this is negative, he can be discharged home on a lower dose of metoprolol. In the outpatient setting I will do a then 24-hour Holter on him. The patient had a CT scan of the chest that shows a stable ascending aortic aneurysm that he has had for a long time, for which I would follow him regularly in my office. Thank you for giving us the privilege to participate in care of this pleasant gentleman. GAGAN / FANTASMA: [phone] /
--- NOTE | 2017-12-01 11:29 | P.HPIM ---
History of Present Illness Chief Complaint: Chest pain This is a well-known 52-year-old male patient of my practice. He indicates he has been having chest pains and burning in his chest consistent with upper respiratory tract infection. He been seen by my nurse practitioner and then again by me just recently. He was just recently started on levothyroxine for hypothyroidism. He has known history of ventricular tachycardia which she takes metoprolol 4. He indicates for the past several weeks she's had dizziness lightheadedness and fatigue. He came to the ER because his symptoms became quite severe while he was driving. In the emergency room he was found to be bradycardic. His heart rate was in the 40s that time. He is been admitted for further treatment of this. He believes his chest pain was from starting thyroid medication. Review of Systems All systems: negative Past Medical History Past Medical History: Osteoarthritis (OA) Additional Past Medical History / Comment(s): States hx "rapid heart rate, leaking heart valve, enlarged heart." History of Any Multi-Drug Resistant Organisms: None Reported Past Surgical History: Heart Catheterization, Hernia Repair, Orthopedic Surgery Additional Past Surgical History / Comment(s): Hernia repair X2, jaw surgery, left knee surgery. r knee surg Past Anesthesia/Blood Transfusion Reactions: No Reported Reaction Past Psychological History: No Psychological Hx Reported Smoking Status: Current every day smoker Past Alcohol Use History: None Reported Additional Past Alcohol Use History / Comment(s): smokes 1/2 PPD for 20 yrs Past Drug Use History: None Reported - Past Family History Father Family Medical History: Cancer Additional Family Medical History / Comment(s): colon Mother Family Medical History: Cancer Medications and Allergies Home Medications Medication Instructions Recorded Confirmed Type Loratadine [Claritin] 10 mg PO DAILY 10/11/15 11/30/17 History Montelukast [Singulair] 10 mg PO HS 10/11/15 11/30/17 History [id number] 2 tab PO Q6HR PRN 11/30/17 11/30/17 History [Excedrin] Fluticasone Propionate [Flonase 50 mcg NASAL DAILY 11/30/17 11/30/17 History Allergy Relief] Levothyroxine Sodium [Synthroid] 50 mcg PO DAILY 11/30/17 11/30/17 History Metoprolol Tartrate 25 mg PO BID 11/30/17 11/30/17 History Allergies Allergy/AdvReac Type Severity Reaction Status Date / Time itraconazole [From Sporanox] Allergy Rash/Hives Verified 11/30/17 11:33 morphine Allergy Nausea & Verified 11/30/17 11:33 Vomiting Sulfa (Sulfonamide Allergy Unknown Verified 11/30/17 11:33 Antibiotics) Physical Exam Vitals: Vital Signs Temp Pulse Pulse Resp BP BP Pulse Ox 12/01/17 08:00 97.5 F L 51 L 16 118/73 97 12/01/17 04:00 97.8 F 50 L 16 127/80 97 12/01/17 03:57 16 11/30/17 23:52 16 11/30/17 23:18 97.7 F 44 L 16 114/73 97 11/30/17 20:00 16 11/30/17 19:34 97.6 F 49 L 16 117/71 96 11/30/17 16:06 97 11/30/17 15:19 97.6 F 43 L 16 122/75 98 11/30/17 14:41 97.9 F 40 L 16 113/76 100 11/30/17 12:36 46 L 18 106/73 100 Intake and Output 11/30/17 12/01/17 12/01/17 22:59 06:59 14:59 Output Total 2 Balance -2 Output: Urine 2 Other: Voiding Method Toilet Toilet Toilet # Voids 2 Weight 65.6 kg GENERAL: Well-appearing, well-nourished and in no acute distress. HEAD: Atraumatic, normocephalic. EYES: Pupils equal round and reactive to light, extraocular movements intact, sclera anicteric, conjunctiva are normal. ENT:nares patent, oropharynx clear without exudates. Moist mucous membranes. NECK: Normal range of motion, supple without lymphadenopathy or JVD, no thyromegaly LUNGS: Breath sounds clear to auscultation bilaterally and equal. No wheezes rales or rhonchi. HEART: Regular rate and rhythm without murmurs, rubs or gallops.S1S2 Normal ABDOMEN: Soft, nontender, normoactive bowel sounds. No guarding, no rebound. No masses appreciated. EXTREMITIES: Normal range of motion, no pitting or edema. No clubbing or cyanosis. NEUROLOGICAL: Cranial nerves II through XII grossly intact. Normal speech, normal gait. PSYCH: Normal mood, normal affect. SKIN: Warm, Dry, normal turgor, no rashes or lesions noted. Results CBC & Chem 7: 11/30/17 08:06 11/30/17 08:06 Labs: Abnormal Lab Results - Last 24 Hours (Table) 12/01/17 Range/Units 06:32 LDL Cholesterol, Calc 111 H (0-99) mg/dL Chest x-ray: report reviewed CT scan - chest: report reviewed Thrombosis Risk Factor Assmnt - Choose All That Apply Each Factor Represents 1 point: Age 41-60 years Thrombosis Risk Factor Assessment Total Risk Factor Score: 1 Thrombosis Risk Factor Assessment Level: Low Risk Assessment and Plan (1) Thoracic aortic aneurysm Current Visit: Yes Status: Acute Code(s): I71.2 - THORACIC AORTIC ANEURYSM, WITHOUT RUPTURE SNOMED Code(s): 877710918 (2) Hypothyroidism Current Visit: Yes Status: Acute Code(s): E03.9 - HYPOTHYROIDISM, UNSPECIFIED SNOMED Code(s): 66847863 (3) Allergic rhinitis Current Visit: Yes Status: Acute Code(s): J30.9 - ALLERGIC RHINITIS, UNSPECIFIED SNOMED Code(s): 86217351 (4) History of ventricular tachycardia Current Visit: Yes Status: Acute Code(s): Z86.79 - PERSONAL HISTORY OF OTHER DISEASES OF THE CIRCULATORY SYSTEM SNOMED Code(s): 846527449867699 (5) Bradycardia Current Visit: Yes Status: Acute Code(s): R00.1 - BRADYCARDIA, UNSPECIFIED SNOMED Code(s): 98245586 (6) Chest pain Current Visit: Yes Status: Acute Code(s): R07.9 - CHEST PAIN, UNSPECIFIED SNOMED Code(s): 52831966 (7) Near syncope Current Visit: Yes Status: Acute Code(s): R55 - SYNCOPE AND COLLAPSE SNOMED Code(s): 941754771 Plan: I'll consult cardiology. We'll plan a continue cardiac telemetry. We'll recheck his laboratory studies in a.m. also regarding his thyroid. He will need outpatient follow-up of his aortic aneurysm. He'll be reevaluated next 24 hours.
[2017-12-01 12:32] LABS: T4, Free (Free Thyroxine) 1.28 ng/dL (0.78-2.19)
[2017-12-01] MEDS: MONTELUKAST 10 MG TAB PO SCH (20:09)
[2017-12-01] MEDS: guaiFENesin SYRUP 100MG/5ML 200 MG/10 ML CUP PO PRN (20:14)
[2017-12-02] MEDS: NITROGLYCERIN OINT 1 INCH/GM PACKET TOPICAL SCH ×2 (01:26→06:10)
[2017-12-02] MEDS: LEVOTHYROXINE 50 MCG TAB PO SCH (06:33)
[2017-12-02 08:23] LABS: Basophils % (A) 0 %; Eosinophils # (A) 0.1 k/uL (0-0.7); Eosinophils % (A) 2 %; HCT 36.6 % (39.0-53.0); HGB 11.9 gm/dL (13.0-17.5); Lymphocytes % (A) 30 %; MCHC 32.6 g/dL (31.0-37.0); Monocytes # (A) 0.3 k/uL (0-1.0); Monocytes % (A) 5 %; Neutrophils # (A) 3.9 k/uL (1.3-7.7); Neutrophils % (A) 61 %; Platelet Count 267 k/uL (150-450); RBC 3.97 m/uL (4.30-5.90); RDW 13.8 % (11.5-15.5); WBC 6.5 k/uL (3.8-10.6)
[2017-12-02 08:29] LABS: Anion Gap 6 mmol/L; Blood Urea Nitrogen 14 mg/dL (9-20); Carbon Dioxide 26 mmol/L (22-30); Chloride 107 mmol/L (98-107); Glucose 89 mg/dL (74-99); Potassium 4.6 mmol/L (3.5-5.1); Sodium 139 mmol/L (137-145)
[2017-12-02 09:41] VITALS: BMI 19.1
--- NOTE | 2017-12-02 11:42 | P.PN ---
Subjective Mr. Rider is seen and examined in no acute distress. Past medical history significant for aortic and mitral insufficiency, thoracic aortic aneurysm and history of ventricular tachycardia. He follows with Dr. Fried in the office. He is schedule for a stress echocardiogram today. His metoprolol was decreased on admission and heart rate has been in the 50's blood pressure 109/69. Laboratory data reviewed, hemoglobin 11.9, sodium 139, potassium 4.6, creatinine 0.71, cardiac enzymes negative 3, TSH 3.6, LDL 111 and HDL 47. Telemetry tracings show sinus bradycardia with no acute arrhythmia noted. Most recent echocardiogram obtained in the office October 2016 reveals preserved left ventricular systolic function with ejection fraction 55%, mild to moderate MR, mildly thickened mitral valve, mild mitral valve prolapse, mild aortic regurgitation, mild to moderate tricuspid regurgitation with mild prolapse of the tricuspid valve. Objective - Vital Signs Vital signs: Vital Signs Temp 97.9 F 12/02/17 07:23 Pulse 52 L 12/02/17 08:00 Resp 16 12/02/17 08:00 BP 109/69 12/02/17 07:23 Pulse Ox 98 12/02/17 07:23 Intake & Output 12/01/17 12/02/17 12/02/17 18:59 06:59 18:59 Weight 65.6 kg Other: Voiding Method Toilet Toilet Toilet - Exam GENERAL: Well-appearing, well-nourished and in no acute distress. NECK: Supple without JVD or thyromegaly. LUNGS: Breath sounds clear to auscultation bilaterally. Respiration equal and unlabored. No wheezes, rales or rhonchi. HEART: Regular rate and rhythm without murmurs, rubs or gallops. S1 and S2 heard. EXTREMITIES: Normal range of motion, no edema. No clubbing or cyanosis. Peripheral pulses intact. - Labs CBC & Chem 7: 12/02/17 07:36 12/02/17 07:36 Labs: Abnormal Lab Results - Last 24 Hours (Table) 12/02/17 Range/Units 07:36 RBC 3.97 L (4.30-5.90) m/uL Hgb 11.9 L (13.0-17.5) gm/dL Hct 36.6 L (39.0-53.0) % Assessment and Plan Assessment: ASSESSMENT Chest pain, atypical. Symptomatic bradycardia on admission, resolved with decreasing lopressor History of valvular heart disease History of ventricular tachycardia Chronic nicotine dependence PLAN Obtain 2D echocardiogram and doppler study to assess cardiac structure and function. Proceed with stress echocardiogram as previously ordered. 24-Holter monitor to be applied prior to discharge. Heart rate tolerating low dose beta allie. Discharge dose to be 12.5 mg BID. Follow up with Dr. Fried in 2 weeks. Smoking cessation recommended. Nurse Practitioner note has been reviewed, I agree with a documented findings and plan of care. Patient was seen and examined.
--- NOTE | 2017-12-02 12:26 | P.STRESS ---
- Stress Test Note Stress Test Results/Findings: Exam Performed: stress echo exercise Exam Date: 12/02/17 Reason for Exam: CHEST PAIN Height: 6 ft 1 in Weight: 65.6 kg Protocol: STRESS ECHO Stage: IV Duration of Exercise: 10:37 Resting Heart Rate: 61 Resting Blood Pressure: 103/74 Maximum Achieved Heart Rate: 145 Maximum Achieved Blood Pressure: 186/99 85% PMHR: 143 100% PMHR: 168 METS: 11.3 Technologist Comment: Stress Test Results/Findings: This is a 52-year-old gentleman with a history of smoking and family history of ischemic heart disease being evaluated for symptoms of chest pain and shortness of breath. Stress data: Baseline EKG showed a sinus rhythm with MT interval and QRS duration with mild diffuse ST-T abnormalities. Blood pressure at rest is 130/ 74 with pulse rate of 61. Patient walked on the Robin protocol for 10 minutes and 37 seconds achieving a maximum heart rate of 145 with a blood pressure off about 100/73. EKGs taken during and after the exercise showed more pronounced ST-T changes in the inferolateral leads. Patient did not experience any chest pain. Echo data: Baseline echo images show normal wall motion and thickening. Exercise echo images showed augmentation of wall motion and thickening in all segments. Final impression: #1. Nondiagnostic stress test because of baseline EKG changes #2. Negative stress echo.
[2017-12-02 12:33] VITALS: BP 107/74; PULSE 65; TEMP 99.1
[2017-12-02] MEDS: FLUTICASONE 50MCG/SPRAY NASAL 16GM NASAL SCH (12:43)
[2017-12-02] MEDS: METOPROLOL TARTRATE 12.5 MG TAB PO SCH (12:43)
[2017-12-02] MEDS: LORATADINE 10 MG TAB PO SCH (12:43)
--- NOTE | 2017-12-02 12:58 | ECHOF ---
Referral Reason:sob MEASUREMENTS -------- HEIGHT: 185.4 cm WEIGHT: 65.3 kg BP: 103/74 RVIDd: 2.6 cm (< 3.3) IVSd: 0.9 cm (0.6 - 1.1) LVIDd: 5.4 cm (3.9 - 5.3) LVPWd: 0.9 cm (0.6 - 1.1) IVSs: 1.1 cm LVIDs: 3.7 cm LVPWs: 1.2 cm LAESV Index (A-L): 27.61 ml/m Ao Diam: 3.8 cm (2.0 - 3.7) AV Cusp: 2.3 cm (1.5 - 2.6) LA Diam: 2.4 cm (2.7 - 3.8) EPSS: 0.3 cm MV E Blaine: 0.49 m/s MV DecT: 305 ms MV A Blaine: 0.42 m/s MV E/A Ratio: 1.15 RAP: 5.00 mmHg RVSP: 27.80 mmHg MV EF SLOPE: 121.95 mm/s (70 - 150) MV EXCURSION: 2.27 cm (> 18.000) FINDINGS -------- Sinus rhythm. This was a technically good study. The left ventricular size is normal. Left ventricular wall thickness is normal. Overall left vent ricular systolic function is normal with, an EF between 55 - 60 %. The right ventricle is normal in size and function. Normal LA size by volume 22+/-6 ml/m2. The right atrium is normal in size. Aortic valve is trileaflet and is mildly thickened. Trace to mild aortic regurgitation. There is no evidence of aortic stenosis. The mitral valve leaflets are mildly thickened. Mild mitral regurgitation is present. Mild tricuspid regurgitation present. Right ventricular systolic pressure is normal at < 35 mmHg. There is no evidence of pulmonary hypertension. Trace/mild (physiologic) pulmonic regurgitation. The aortic root is borderline dilated, up to 3.8 cm. Normal inferior vena cava with normal inspiratory collapse consistent with estimated right atrial pre ssure of 5 mmHg. There is no pericardial effusion. CONCLUSIONS -------- 1. Sinus rhythm. 2. This was a technically good study. 3. The left ventricular size is normal. 4. Left ventricular wall thickness is normal. 5. Overall left ventricular systolic function is normal with, an EF between 55 - 60 %. 6. Normal LA size by volume 22+/-6 ml/m2. 7. Aortic valve is trileaflet and is mildly thickened. 8. Trace to mild aortic regurgitation. 9. The mitral valve leaflets are mildly thickened. 10. Mild mitral regurgitation is present. 11. Mild tricuspid regurgitation present. 12. Right ventricular systolic pressure is normal at < 35 mmHg. 13. There is no evidence of pulmonary hypertension. 14. Trace/mild (physiologic) pulmonic regurgitation. 15. The aortic root is borderline dilated, up to 3.8 cm. 16. There is no pericardial effusion. INFORMATION TECHNOLOGY SECURITY ANALYST: Clarence Valadez RDCS
--- NOTE | 2017-12-02 13:01 | P.DS ---
Providers Date of admission: 11/30/17 11:10 Expected date of discharge: 12/02/17 Attending physician: Sammy Phillips Consults: 11/30/17 10:56 Consult Physician Urgent Consulting Provider: [facility] Consult Reason/Comments: Bradycardia, near syncope, chest pain Do you want consulting provider notified?: Yes Primary care physician: Sammy Phillips [facility] Course: Patient was admitted sinus bradycardia, blood pressure and pulse are currently stable General: [Patient awake, alert and oriented times 3. Patient in no acute distress.] HEENT: [PERRL. EOMI. No pharyngeal erythema or exudate.] Neck: [No adenopathy.] Cardiac: [Heart regular in rate and rhythm. No S3. No S4. No clicks, rubs. No murmur.] Lungs: [Clear to auscultation bilaterally.] Abdomen: [No mass. No organomegaly. Bowel sounds presnt and normoactive in all 4 quadrants.] Extremes: [No edema no cyanosis no claudication normal pulses] : [] Musculoskeletal: [No joint erythema, edema or tenderness.] Skin: [No rash.] Neurologic: [No lateralizing deficits. CN II - XII grossly intact.] Lymphatic: [No adenopathy.] Plan - Discharge Summary Discharge Rx Participant: No New Discharge Prescriptions: No Action Loratadine [Claritin] 10 mg PO DAILY Montelukast [Singulair] 10 mg PO HS Fluticasone Propionate [Flonase Allergy Relief] 50 mcg NASAL DAILY Levothyroxine Sodium [Synthroid] 50 mcg PO DAILY Metoprolol Tartrate 25 mg PO BID [phone] [Excedrin] 2 tab PO Q6HR PRN PRN Reason: Migraine Headache Discharge Medication List Loratadine [Claritin] 10 mg PO DAILY 10/11/15 [History] Montelukast [Singulair] 10 mg PO HS 10/11/15 [History] [phone] [Excedrin] 2 tab PO Q6HR PRN 11/30/17 [History] Fluticasone Propionate [Flonase Allergy Relief] 50 mcg NASAL DAILY 11/30/17 [ History] Levothyroxine Sodium [Synthroid] 50 mcg PO DAILY 11/30/17 [History] Metoprolol Tartrate 25 mg PO BID 11/30/17 [History] Follow up Appointment(s)/Referral(s): Sammy Phillips MD [Primary Care Provider] - 1-2 days Dudley Fried MD [STAFF PHYSICIAN] - 2 Weeks
[2017-12-02] MEDS: ASPIRIN 325 MG TAB PO SCH (13:05)
--- NOTE | 2017-12-03 10:22 | ECHOS ---
Stress Test Results/Findings: Exam Performed: stress echo exercise Exam Date: 12/02/17 Reason for Exam: CHEST PAIN Height: 6 ft 1 in Weight: 65.6 kg Protocol: STRESS ECHO Stage: IV Duration of Exercise: 10:37 Resting Heart Rate: 61 Resting Blood Pressure: 103/74 Maximum Achieved Heart Rate: 145 Maximum Achieved Blood Pressure: 186/99 85% PMHR: 143 100% PMHR: 168 METS: 11.3 Technologist Comment: Stress Test Results/Findings: This is a 52-year-old gentleman with a history of smoking and family history of ischemic heart disease being evaluated for symptoms of chest pain and shortness of breath. Stress data: Baseline EKG showed a sinus rhythm with MS interval and QRS duration with mild diffuse ST-T abnormalities. Blood pressure at rest is 130/ 74 with pulse rate of 61. Patient walked on the Robin protocol for 10 minutes and 37 seconds achieving a maximum heart rate of 145 with a blood pressure off about 100/73. EKGs taken during and after the exercise showed more pronounced ST-T changes in the inferolateral leads. Patient did not experience any chest pain. Echo data: Baseline echo images show normal wall motion and thickening. Exercise echo images showed augmentation of wall motion and thickening in all segments. Final impression: #1. Nondiagnostic stress test because of baseline EKG changes #2. Negative stress echo. TITO
--- NOTE | 2017-12-06 12:36 | HM ---
HOLTER MONITOR REPORT A 24-HOUR DCG: No diary was provided with this recording. Predominant rhythm appears to be sinus with a heart rate ranging from 36 to 127 beats per minute with average heart rate of 66 beats per minute. Isolated ventricular ectopy and supraventricular ectopy were noted. Occasional couplets were also noted. There is no evidence of any significant bradyarrhythmia. The patient's heart rate of 36 beats per minute was probably related to some artifact also and at about 8:21 a.m. patient's heart rate was 43 beats per minute. This was a sinus bradycardia. There was one episode of what seemed to be an ectopic atrial tachycardia at about 4:07 a.m. No diary was provided. There were no significant pauses noted. FINAL IMPRESSION: Predominant rhythm is sinus with sinus arrhythmia with one run of ectopic atrial tachycardia and some isolated PVCs and couplets. No significant arrhythmia was noted. MMODL / IJN: [id number] /
== END 2017-12-02 14:45 | disposition home or self-care (01) ==
LOC: EC 07:47 → 3SUR 11:10 → 3OBS 13:27
PROVIDERS: ADMIT Family Medicine; ATTEND Family Medicine
DX: R00.1 Bradycardia, unspecified (principal); R55 Syncope and collapse; E03.9 Hypothyroidism, unspecified; I47.2 Ventricular tachycardia; M19.90 Unspecified osteoarthritis, unspecified site; F17.210 Nicotine dependence, cigarettes, uncomplicated; I71.2 Thoracic aortic aneurysm, without rupture; J30.9 Allergic rhinitis, unspecified; Z88.8 Allergy status to other drugs, medicaments and biological substances; Z79.890 Hormone replacement therapy; Z79.899 Other long term (current) drug therapy; Z79.51 Long term (current) use of inhaled steroids; Z88.2 Allergy status to sulfonamides; Z88.5 Allergy status to narcotic agent; Z80.0 Family history of malignant neoplasm of digestive organs; Z82.49 Family history of ischemic heart disease and other diseases of the circulatory system
CPT/HCPCS: 99285; 36415; 93005; 93225; 93226; 93306; 93351; 85379; 84439; 84481; 80061; 80053; 80048; 84443; 82550; 82553; 83735; 84484; 85025 ×2; 85610; 85730; 71046; 71275; 74174; G0378 ×3; Q9967

== ENCOUNTER → 2018-01-17 | Outpatient (CLI) | payer BC ==
[2018-01-17 15:40] LABS: Calcium 9.1 mg/dL (8.7-10.3); Potassium 4.5 mmol/L (3.5-5.5)
[2018-01-17 15:49] LABS: T4, Free (Free Thyroxine) 1.2 ng/dL (0.80-1.80)
== END | disposition home or self-care (01) ==
LOC: LABWHC1 08:35
PROVIDERS: ATTEND Family Medicine
DX: E07.9 Disorder of thyroid, unspecified (principal); I10 Essential (primary) hypertension; R10.13 Epigastric pain
CPT/HCPCS: 36415; 80048; 84439; 84443; 86677

== ENCOUNTER → 2018-03-05 | Outpatient (CLI) | payer BC ==
[2018-03-06 05:29] LABS: T4, Free (Free Thyroxine) 1.2 ng/dL (0.80-1.80)
== END | disposition home or self-care (01) ==
LOC: LABWHC1 16:49
PROVIDERS: ATTEND Family Medicine
DX: I10 Essential (primary) hypertension (principal); E03.9 Hypothyroidism, unspecified; Z51.81 Encounter for therapeutic drug level monitoring
CPT/HCPCS: 36415; 84439; 84443; 84481

== ENCOUNTER → 2018-04-22 | Outpatient (CLI) | payer BC ==
[2018-04-23 00:01] LABS: T4, Free (Free Thyroxine) 1.2 ng/dL (0.80-1.80)
== END | disposition home or self-care (01) ==
LOC: LABWHC1 17:00
PROVIDERS: ATTEND Family Medicine
DX: E03.9 Hypothyroidism, unspecified (principal); I10 Essential (primary) hypertension; Z79.899 Other long term (current) drug therapy
CPT/HCPCS: 36415; 84439; 84443; 84481

== ENCOUNTER 2018-05-09 08:02 | Inpatient (IN) | payer BC ==
[2018-05-09] MEDS ORDERED: SODIUM CHLORIDE 0.9% 1,000 ML IV STA ×2 (08:27)
[2018-05-09] MEDS ORDERED: ASPIRIN 81 MG PO STA (08:27)
--- NOTE | 2018-05-09 08:30 | ED ---
Recheck HPI - General Chief Complaint: Recheck/Abnormal Lab/Rx Stated Complaint: Chest Tightness Time Seen by Provider: 05/09/18 08:14 Source: patient, RN notes reviewed, old records reviewed Mode of arrival: wheelchair Limitations: no limitations - History of Present Illness Initial Comments: Patient is a 53-year-old male who presents emergency department today for evaluation of chest tightness and pain. Patient follows with Dr. Dodge. Patient states that he is currently wearing a heart monitor for the past month. Today he started to have some episodes of chest tightness and dizziness and fatigue, and he was contacted by his heart monitor company to come in for evaluation. He reports at that time he felt like his heart was fluttering and an abnormal rhythm. He does not know exactly what abnormal rhythm this could've been. Patient states that the symptoms subsided within 10 minutes. Patient states that he has a history of hypothyroidism and currently on levothyroxine. They recently increased his dose. He also is taking atenolol. Patient states he feels like there is an interaction between the 2 medications causing some of his symptoms. Patient reports that he has had a cardiac evaluation in fall of last year including stress test and echocardiogram. - Related Data Home Medications Medication Instructions Recorded Confirmed Loratadine [Claritin] 10 mg PO DAILY 10/11/15 05/09/18 Montelukast [Singulair] 10 mg PO HS 10/11/15 05/09/18 Atenolol [Tenormin] 25 mg PO DAILY 05/09/18 05/09/18 Levothyroxine Sodium [Synthroid] 88 mcg PO DAILY 05/09/18 05/09/18 Pantoprazole Sodium [Protonix] 40 mg PO DAILY 05/09/18 05/09/18 Allergies Allergy/AdvReac Type Severity Reaction Status Date / Time itraconazole [From Sporanox] Allergy Rash/Hives Verified 05/09/18 08:33 morphine Allergy Nausea & Verified 05/09/18 08:33 Vomiting Sulfa (Sulfonamide Allergy Unknown Verified 05/09/18 08:33 Antibiotics) Review of Systems ROS Statement: Those systems with pertinent positive or pertinent negative responses have been documented in the HPI. ROS Other: All systems not noted in ROS Statement are negative. Past Medical History Past Medical History: Osteoarthritis (OA) Additional Past Medical History / Comment(s): States hx "rapid heart rate, leaking heart valve, enlarged heart." History of Any Multi-Drug Resistant Organisms: None Reported Past Surgical History: Heart Catheterization, Hernia Repair, Orthopedic Surgery Additional Past Surgical History / Comment(s): Hernia repair X2, jaw surgery, left knee surgery. r knee surg Past Anesthesia/Blood Transfusion Reactions: No Reported Reaction Past Psychological History: No Psychological Hx Reported Smoking Status: Former smoker Past Alcohol Use History: None Reported Past Drug Use History: None Reported - Past Family History Father Family Medical History: Cancer Additional Family Medical History / Comment(s): colon Mother Family Medical History: Cancer General Exam - General Exam Comments Initial Comments: This is an 53-year-old male. Alert and oriented 3. Patient appears in no significant distress. Limitations: no limitations General appearance: alert, in no apparent distress Eye exam: Present: normal appearance, PERRL, EOMI. Absent: scleral icterus, conjunctival injection, periorbital swelling ENT exam: Present: normal exam, mucous membranes moist Neck exam: Present: normal inspection. Absent: tenderness, meningismus, lym phadenopathy Respiratory exam: Present: normal lung sounds bilaterally. Absent: respiratory distress, wheezes, rales, rhonchi, stridor Cardiovascular Exam: Present: regular rate, normal rhythm, normal heart sounds. Absent: systolic murmur, diastolic murmur, rubs, gallop, clicks GI/Abdominal exam: Present: soft, normal bowel sounds. Absent: distended, tenderness, guarding, rebound, rigid Back exam: Present: normal inspection Neurological exam: Present: alert, oriented X3, CN II-XII intact Psychiatric exam: Present: normal affect, normal mood Skin exam: Present: warm, dry, intact, normal color. Absent: rash Course Vital Signs 05/09/18 05/09/18 05/09/18 08:07 08:50 09:00 Temperature 98.0 F Pulse Rate 90 73 Respiratory 18 17 Rate Blood Pressure 136/96 137/99 O2 Sat by Pulse 98 94 L 99 Oximetry 05/09/18 05/09/18 09:30 10:00 Temperature Pulse Rate 76 Respiratory 18 Rate Blood Pressure 145/105 114/91 O2 Sat by Pulse 99 Oximetry - Reevaluation(s) Reevaluation #1: 05/09/18 08:47 Dr. Dodge contacted staff at this time. He had a run of V. tach today. He recommends to increase atenolol 25 mg daily so we'll be taking 12.5 at this time. He also wants Dr. Gaston on consult. Medical Decision Making - Medical Decision Making 53-year-old male presents for shortness today with an episode of V. tach noted on his heart monitor. He was called by his cardio just come for evaluation. During that time he is having some chest tightness and dizziness. Upon arrival here he is had a normal heart rate. EKG shows normal sinus rhythm. Lab work was reviewed and unremarkable. He also has been following up regardless hypothyroidism and has had medication adjustment with his levothyroxine. TSH is 4.5 at this time. Patient case discussed with Dr. Tee who discussed the case with patient's PCP Dr. Phillips. [place] the Patient with consults to cardiology. - Lab Data Result diagrams: 05/09/18 08:55 05/09/18 08:55 Lab Results 05/09/18 05/09/18 05/09/18 Range/Units 08:55 08:55 08:55 WBC 7.7 (3.8-10.6) k/uL RBC 4.54 (4.30-5.90) m/uL Hgb 13.5 (13.0-17.5) gm/dL Hct 42.4 (39.0-53.0) % MCV 93.4 (80.0-100.0) fL MCH 29.7 (25.0-35.0) pg MCHC 31.9 (31.0-37.0) g/dL RDW 13.9 (11.5-15.5) % Plt Count 250 (150-450) k/uL Neutrophils % 70 % Lymphocytes % 21 % Monocytes % 5 % Eosinophils % 2 % Basophils % 1 % Neutrophils # 5.3 (1.3-7.7) k/uL Lymphocytes # 1.6 (1.0-4.8) k/uL Monocytes # 0.4 (0-1.0) k/uL Eosinophils # 0.2 (0-0.7) k/uL Basophils # 0.0 (0-0.2) k/uL PT (9.0-12.0) sec INR (<1.2) APTT (22.0-30.0) sec Sodium 139 (137-145) mmol/L Potassium 4.5 (3.5-5.1) mmol/L Chloride 107 (98-107) mmol/L Carbon Dioxide 24 (22-30) mmol/L Anion Gap 8 mmol/L BUN 14 (9-20) mg/dL Creatinine 0.72 (0.66-1.25) mg/dL Est GFR (CKD-EPI)AfAm >90 (>60 ml/min/1.73 sqM) Est GFR (CKD-EPI)NonAf >90 (>60 ml/min/1.73 sqM) Glucose 137 H (74-99) mg/dL Calcium 9.7 (8.4-10.2) mg/dL Magnesium 2.0 (1.6-2.3) mg/dL Total Bilirubin 0.7 (0.2-1.3) mg/dL AST 21 (17-59) U/L ALT 29 (21-72) U/L Alkaline Phosphatase 67 (38-126) U/L Troponin I (0.000-0.034) ng/mL NT-Pro-B Natriuret Pep 48 pg/mL Total Protein 7.0 (6.3-8.2) g/dL Albumin 4.4 (3.5-5.0) g/dL TSH 4.580 (0.465-4.680) mIU/L 05/09/18 05/09/18 Range/Units 08:55 08:55 WBC (3.8-10.6) k/uL RBC (4.30-5.90) m/uL Hgb (13.0-17.5) gm/dL Hct (39.0-53.0) % MCV (80.0-100.0) fL MCH (25.0-35.0) pg MCHC (31.0-37.0) g/dL RDW (11.5-15.5) % Plt Count (150-450) k/uL Neutrophils % % Lymphocytes % % Monocytes % % Eosinophils % % Basophils % % Neutrophils # (1.3-7.7) k/uL Lymphocytes # (1.0-4.8) k/uL Monocytes # (0-1.0) k/uL Eosinophils # (0-0.7) k/uL Basophils # (0-0.2) k/uL PT 9.8 (9.0-12.0) sec INR 0.9 (<1.2) APTT 24.7 (22.0-30.0) sec Sodium (137-145) mmol/L Potassium (3.5-5.1) mmol/L Chloride (98-107) mmol/L Carbon Dioxide (22-30) mmol/L Anion Gap mmol/L BUN (9-20) mg/dL Creatinine (0.66-1.25) mg/dL Est GFR (CKD-EPI)AfAm (>60 ml/min/1.73 sqM) Est GFR (CKD-EPI)NonAf (>60 ml/min/1.73 sqM) Glucose (74-99) mg/dL Calcium (8.4-10.2) mg/dL Magnesium (1.6-2.3) mg/dL Total Bilirubin (0.2-1.3) mg/dL AST (17-59) U/L ALT (21-72) U/L Alkaline Phosphatase (38-126) U/L Troponin I <0.012 (0.000-0.034) ng/mL NT-Pro-B Natriuret Pep pg/mL Total Protein (6.3-8.2) g/dL Albumin (3.5-5.0) g/dL TSH (0.465-4.680) mIU/L 05/09/18 08:58 EKG shows normal sinus rhythm abnormal EKG noted. Ventricular rate of 62 beats for minute. Intervals 180 ms. QRS duration 98 ms. QT QTc is 44/410 ms. No evidence of ST elevation - Radiology Data Radiology results: report reviewed Minimal left basilar and right midlung atelectasis. There is no acute cardio process. Disposition Clinical Impression: History of ventricular tachycardia, Chest pain Disposition: ADMITTED IP TO THIS HOSP Condition: Stable Is patient prescribed a controlled substance at d/c from ED?: No Referrals: Sammy Phillips MD [Primary Care Provider] - 1-2 days Time of Disposition: 11:04
[2018-05-09] MEDS ORDERED: ATENOLOL 12.5 MG TAB PO STA (08:47)
--- NOTE | 2018-05-09 09:45 | XR ---
EXAMINATION TYPE: XR chest 2V DATE OF EXAM: 05/09/2018 COMPARISON: 11/30/2017 HISTORY: Chest pain TECHNIQUE: Frontal and lateral views of the chest are obtained. FINDINGS: Minimal right midlung and left basilar atelectasis is present. No focal consolidation, ple ural effusion or pneumothorax. Lungs are hyperinflated suggesting underlying emphysema and surgical l ucency. Cardia mediastinal silhouette is upper limits of normal. Osseous structures are grossly intac t. IMPRESSION: Minimal left basilar and right midlung atelectasis. Otherwise no acute cardiopulmonary p rocess.
[2018-05-09 10:06] LABS: Basophils % (A) 1 %; Eosinophils # (A) 0.2 k/uL (0-0.7); Eosinophils % (A) 2 %; HCT 42.4 % (39.0-53.0); HGB 13.5 gm/dL (13.0-17.5); Lymphocytes # (A) 1.6 k/uL (1.0-4.8); Lymphocytes % (A) 21 %; MCH 29.7 pg (25.0-35.0); MCHC 31.9 g/dL (31.0-37.0); MCV 93.4 fL (80.0-100.0); Mean Platelet Volume 7.5; Monocytes # (A) 0.4 k/uL (0-1.0); Monocytes % (A) 5 %; Neutrophils # (A) 5.3 k/uL (1.3-7.7); Neutrophils % (A) 70 %; Platelet Count 250 k/uL (150-450); RBC 4.54 m/uL (4.30-5.90); RDW 13.9 % (11.5-15.5); WBC 7.7 k/uL (3.8-10.6)
[2018-05-09 10:19] LABS: ALT 29 U/L (21-72); AST 21 U/L (17-59); Albumin 4.4 g/dL (3.5-5.0); Alkaline Phosphatase 67 U/L (38-126); Anion Gap 8 mmol/L; Blood Urea Nitrogen 14 mg/dL (9-20); Calcium 9.7 mg/dL (8.4-10.2); Carbon Dioxide 24 mmol/L (22-30); Chloride 107 mmol/L (98-107); Glucose 137 mg/dL (74-99); INR 0.9 (<1.2); Partial Thromboplastin Time 24.7 sec (22.0-30.0); Potassium 4.5 mmol/L (3.5-5.1); Prothrombin Time 9.8 sec (9.0-12.0); Sodium 139 mmol/L (137-145); Total Bilirubin 0.7 mg/dL (0.2-1.3)
[2018-05-09] MEDS ORDERED: ACETAMINOPHEN TAB 325 MG TAB PO PRN (11:04)
[2018-05-09] MEDS ORDERED: IBUPROFEN 400 MG TAB PO PRN (11:04)
[2018-05-09] MEDS ORDERED: MORPHINE SULFATE 4 MG/ML SYRINGE IV PRN (11:04)
[2018-05-09] MEDS ORDERED: NALOXONE 0.4 MG/ML 1 ML VIAL IV PRN (11:04)
[2018-05-09] MEDS ORDERED: KETOROLAC 30 MG/ML 1 ML VIAL IVP PRN (11:04)
[2018-05-09] MEDS: SODIUM CHLORIDE 0.9% 1,000 ML IV SCH (14:05)
--- NOTE | 2018-05-09 16:22 | P.HPIM ---
History of Present Illness H&P Date: 05/09/18 Chief Complaint: Chest tightness minimal dizziness fatigue This is a 53-year-old male known to the practice who presents via the emergency room today for evaluation of chest tightness and pain patient sees Dr. Dodge for arrhythmias. Patient is currently wearing an event monitor. He states today he started having some episodes of tightness dizziness and fatigue, the [employer] [facility] [place] recommended that he present to the hospital for evaluation. Patient reports that he felt like his heart was fluttering occasionally intermittent arrhythmia. Patient has known hypothyroidism. And is currently taking a Tylenol Review of Systems Constitutional: Reports as per HPI, Reports weakness Ears, nose, mouth and throat: Reports as per HPI Cardiovascular: Reports as per HPI, Reports irregular heart beat, Reports lightheadedness, Reports palpitations, Reports rapid heart beat Respiratory: Reports as per HPI Gastrointestinal: Reports as per HPI Genitourinary: Reports as per HPI Musculoskeletal: Reports as per HPI Integumentary: Reports as per HPI Neurological: Reports as per HPI Psychiatric: Reports as per HPI, Reports anxiety Past Medical History Past Medical History: Chest Pain / Angina, Eye Disorder, Osteoarthritis (OA), Pneumonia, Vascular Disorder Additional Past Medical History / Comment(s): Vtach with ablation, bradycardia, palpitations, "leaky heart valve", cardiomegaly, currently wearing a 30 day event monitor, past medical record documents thoracic aortic aneurysm but pt unsure if he has been told that, bronchitis, arthritis in multiple joints, chronic low back pain, L sided sciatica, migraines, rhinitis, UTI, hemorrhoids, cataracts bilaterally, past fractures bilateral wrists and L foot. History of Any Multi-Drug Resistant Organisms: None Reported Past Surgical History: Cardiac Ablation, Heart Catheterization, Hernia Repair, Orthopedic Surgery Additional Past Surgical History / Comment(s): EPS with VT ablation, jaw surgery, L/R arthroscopic knee surgery for meniscus, bilateral inguinal hernia repairs, colonoscopy. Past Anesthesia/Blood Transfusion Reactions: Postoperative Nausea & Vomiting (PONV) Past Psychological History: Anxiety Additional Psychological History / Comment(s): Pt resides with his parents and assists them. He is independent. He works at [employer] and does alot of bending/lifting. Smoking Status: Former smoker Past Alcohol Use History: None Reported Additional Past Alcohol Use History / Comment(s): Pt started smoking in 1987 and was a half a ppd smoker. He quit in November of 2017. Past Drug Use History: None Reported - Past Family History Father Family Medical History: Cancer Additional Family Medical History / Comment(s): colon cancer. Mother History Unknown: Yes Family Medical History: Cancer Additional Family Medical History / Comment(s): Pt states he does not know mother's health hx. Medications and Allergies Home Medications Medication Instructions Recorded Confirmed Type Loratadine [Claritin] 10 mg PO DAILY 10/11/15 05/09/18 History Montelukast [Singulair] 10 mg PO HS 10/11/15 05/09/18 History Atenolol [Tenormin] 25 mg PO DAILY 05/09/18 05/09/18 History Levothyroxine Sodium [Synthroid] 88 mcg PO DAILY 05/09/18 05/09/18 History Pantoprazole Sodium [Protonix] 40 mg PO DAILY 05/09/18 05/09/18 History Allergies Allergy/AdvReac Type Severity Reaction Status Date / Time itraconazole [From Sporanox] Allergy Rash/Hives Verified 05/09/18 08:33 morphine Allergy Nausea & Verified 05/09/18 08:33 Vomiting Sulfa (Sulfonamide Allergy Unknown Verified 05/09/18 08:33 Antibiotics) Physical Exam Osteopathic Statement: *. No significant issues noted on an osteopathic structural exam other than those noted in the History and Physical/Consult. Vitals: Vital Signs Temp Pulse Resp BP Pulse Ox 05/09/18 15:28 59 L 16 123/84 100 05/09/18 14:05 66 18 116/94 99 05/09/18 12:01 94 20 134/97 100 05/09/18 11:00 54 L 114/92 80 L 05/09/18 10:30 58 L 114/91 98 05/09/18 10:00 76 18 114/91 99 05/09/18 09:30 145/105 05/09/18 09:00 73 17 137/99 99 05/09/18 08:50 94 L 05/09/18 08:07 98.0 F 90 18 136/96 98 Intake and Output 05/09/18 05/09/18 05/09/18 06:59 14:59 22:59 Other: Weight 76.204 kg General: [Patient awake, alert and oriented times 3. Patient in no acute distress.] HEENT: [PERRL. EOMI. No pharyngeal erythema or exudate.] Neck: [No adenopathy.] Cardiac: [Heart regular in rate and rhythm. No S3. No S4. No clicks, rubs. No murmur.] Lungs: [Clear to auscultation bilaterally.] Abdomen: [No mass. No organomegaly. Bowel sounds presnt and normoactive in all 4 quadrants.] Extremes: [No edema no cyanosis no claudication normal pulses] : [] Musculoskeletal: [No joint erythema, edema or tenderness.] Skin: [No rash.] Neurologic: [No lateralizing deficits. CN II - XII grossly intact.] Lymphatic: [No adenopathy.] Results CBC & Chem 7: 05/09/18 08:55 05/09/18 08:55 Labs: Abnormal Lab Results - Last 24 Hours (Table) 05/09/18 Range/Units 08:55 Glucose 137 H (74-99) mg/dL Thrombosis Risk Factor Assmnt - Choose All That Apply Any of the Below Risk Factors Present?: Yes Each Factor Represents 1 point: Age 41-60 years Other Risk Factors: No Other congenital or acquired thrombophilia - If yes, enter type in comment: No Thrombosis Risk Factor Assessment Total Risk Factor Score: 1 Thrombosis Risk Factor Assessment Level: Low Risk Assessment and Plan (1) Chest pain Current Visit: Yes Status: Acute Code(s): R07.9 - CHEST PAIN, UNSPECIFIED SNOMED Code(s): 23422828 (2) History of ventricular tachycardia Current Visit: Yes Status: Acute Code(s): Z86.79 - PERSONAL HISTORY OF OTHER DISEASES OF THE CIRCULATORY SYSTEM SNOMED Code(s): 437603529252464 (3) Hypothyroidism Current Visit: No Status: Acute Code(s): E03.9 - HYPOTHYROIDISM, UNSPECIFIED SNOMED Code(s): 66313067 Plan: Increase dose of beta allie from 12.5 the atenolol to 25 mg atenolol per car diology Thyroids stable Troponins are stable Event monitor pending Consultation with clinical informatics specialist Luis Felipe Consultation with Dr. Aidan Gaston cardiology
[2018-05-09] MEDS: MONTELUKAST 10 MG TAB PO SCH (22:50)
[2018-05-10] MEDS: LEVOTHYROXINE 88 MCG TAB PO SCH (05:59)
[2018-05-10] MEDS: PANTOPRAZOLE 40 MG TABLET PO SCH (05:59)
[2018-05-10] MEDS ORDERED: ONDANSETRON 4 MG/2 ML VIAL IVP PRN (07:03)
[2018-05-10] MEDS ORDERED: ATENOLOL 25 MG TAB PO SCH (09:00)
[2018-05-10] MEDS: LORATADINE 10 MG TAB PO SCH (09:12)
[2018-05-10] MEDS ORDERED: ONDANSETRON 4 MG/2 ML VIAL IVP STA (10:49)
[2018-05-10] MEDS ORDERED: ONDANSETRON ODT 8 MG TAB.RAPDIS PO PRN (10:53)
[2018-05-10] MEDS ORDERED: ONDANSETRON ODT 4 MG TAB PO PRN (11:00)
--- NOTE | 2018-05-10 11:09 | P.PN ---
Subjective Progress Note Date: 05/10/18 Principal diagnosis: Chest tightness/dizziness Patient's awake alert oriented 3, patient's currently experiencing a full-blown migraine, patient has 1-2 migraines a week, up until this point he only takes Excedrin migraine for his headaches and he states that 50% of the time it takes. Patient has thrown up twice and he often gets nauseous and experiences vomiting with migraines, he has not taken his beta allie because he is afraid he brought up recommended a second dose of 4 mg . Once nausea stops recommend patient takes the beta allie will also start patient on 50 mg Topamax Objective - Vital Signs Vital signs: Vital Signs Temp 97.6 F 05/10/18 07:50 Pulse 63 05/10/18 07:50 Resp 18 05/10/18 07:50 BP 111/63 05/10/18 07:50 Pulse Ox 98 05/10/18 07:50 Intake & Output 05/09/18 05/10/18 05/10/18 18:59 06:59 18:59 Intake Total 240 160 Balance 240 160 Weight 76.204 kg 75.1 kg Intake: Intake, IV Titration 160 Amount Sodium Chloride 0.9% 1, 160 000 ml @ 20 mls/hr IV . Q24H [facility] Rx#:[id number] Oral 240 Other: # Voids 2 - Exam General: [Patient awake, alert and oriented times 3. Patient in no acute distress.] HEENT: [PERRL. EOMI. No pharyngeal erythema or exudate.] Neck: [No adenopathy.] Cardiac: [Heart regular in rate and rhythm. No S3. No S4. No clicks, rubs. No murmur.] Lungs: [Clear to auscultation bilaterally.] Abdomen: [No mass. No organomegaly. Bowel sounds presnt and normoactive in all 4 quadrants.] Extremes: [No edema no cyanosis no claudication normal pulses] : Normal male genitalia Musculoskeletal: [No joint erythema, edema or tenderness.] Skin: [No rash.] Neurologic: [No lateralizing deficits. CN II - XII grossly intact.] Lymphatic: [No adenopathy.] - Labs CBC & Chem 7: 05/09/18 08:55 05/09/18 08:55 Assessment and Plan (1) Chest pain Current Visit: Yes Status: Acute Code(s): R07.9 - CHEST PAIN, UNSPECIFIED SNOMED Code(s): 79940255 (2) History of ventricular tachycardia Current Visit: Yes Status: Acute Code(s): Z86.79 - PERSONAL HISTORY OF OTHER DISEASES OF THE CIRCULATORY SYSTEM SNOMED Code(s): 330253711974363 (3) Hypothyroidism Current Visit: No Status: Acute Code(s): E03.9 - HYPOTHYROIDISM, UNSPECIFIED SNOMED Code(s): 62161981 Plan: Increase dose of beta allie from 12.5 the atenolol to 25 mg atenolol per cardiology Thyroids stable Troponins are stable Event monitor pending Consultation with podiatric foot and ankle specialist Luis Felipe Consultation with Dr. Aidan Gaston cardiology At approximately 6 this morning patient developed full-blown migraine, was given 4 mg Zofran apparently patient became nauseous and threw up will give second dose of Zofran and start Topamax 50 mg once daily We will reevaluate patient in an hour Time with Patient: Greater than 30
[2018-05-10] MEDS: TOPIRAMATE 25 MG TAB PO SCH (11:57)
--- NOTE | 2018-05-10 19:11 | CONS ---
CONSULTATION This is a 53-year-old gentleman who sees Dr. Loving. He is known to have ventricular tachycardia and underwent previous ablation. However, he has been having recurrent episodes of ventricular tachycardia and Dr. Loving placed an event monitor. In November of last year, he had a stress echo and Holter all of which were unremarkable. His ejection fraction is well preserved. However, on the event monitor yesterday morning around 6:00 am he felt a little lightheaded and dizzy and he was called by the event monitor company and questioned regarding symptoms. Subsequently was contacted by Dr. Loving. Advised to come into the emergency room. The patient had a long run of nonsustained VT with symptoms, but now he is in sinus rhythm. Since arrival, he has been in sinus rhythm without any issues. His magnesium and potassium levels are normal. He is resting comfortably without symptoms. PAST MEDICAL HISTORY: 1. History of ventricular tachycardia, previous ablation performed. 2. Bronchial asthma. 3. Hypertension. 4. Hypothyroidism on replacement therapy. MEDICATIONS: At home include Synthroid 88 mcg daily, Protonix 40 mg daily, atenolol 25 mg daily, Claritin and Singulair. ALLERGIES: MORPHINE, SULFA, AND SPORANOX. EXAMINATION: Vital signs stable. Blood pressure is 118/70, pulse rate is 64 per minute and regular. HEENT: Unremarkable. Fundus was not examined by me. Neck is supple. No JVD. I do not hear a carotid bruit. There is no thyromegaly. Heart exam reveals S1, S2 heard normally. No rub, murmur or gallop. Lungs are clear. Abdomen is soft, nontender. Lower extremity reveals normal pulses. No edema. Central nervous system is normal. EKG revealed sinus mechanism is within normal limits. IMPRESSION: 1. Episode of nonsustained symptomatic ventricular tachycardia in a patient with known previous VT ablation. 2. Workup was negative for ischemia by way of stress echo, required Holter performed in November 2017. RECOMMENDATIONS: Patient will be seen by Dr. Loving. He will have an EP study. Dr. Loving plans to switch him from atenolol to Coreg and based on clinical course, I will make further recommendations but if the patient is stable, he may be discharged and come back for a repeat EP study and possible repeat VT ablation by Dr. Loving shortly. MMODL / IJN: [id number] /
[2018-05-10] MEDS: CARVEDILOL 3.125 MG TAB PO SCH (19:12)
[2018-05-10] MEDS: SODIUM CHLORIDE 0.9% 1,000 ML IV SCH (20:24)
[2018-05-10] MEDS: MONTELUKAST 10 MG TAB PO SCH (20:29)
[2018-05-11] MEDS: PANTOPRAZOLE 40 MG TABLET PO SCH (06:13)
[2018-05-11] MEDS: LEVOTHYROXINE 88 MCG TAB PO SCH (06:13)
[2018-05-11] MEDS: CARVEDILOL 3.125 MG TAB PO SCH (06:13)
[2018-05-11 10:44] VITALS: RESP 18
[2018-05-11] MEDS: LORATADINE 10 MG TAB PO SCH (11:53)
[2018-05-11] MEDS: TOPIRAMATE 25 MG TAB PO SCH (11:54)
[2018-05-11 14:04] VITALS: BP 109/76; PULSE 56; TEMP 98.3
--- NOTE | 2018-05-11 14:17 | P.DS ---
Providers Date of admission: 05/09/18 11:05 Expected date of discharge: 05/11/18 Attending physician: Sammy Phillips Consults: 05/09/18 11:04 Consult Physician Stat Consulting Provider: Evonne Gaston Consult Reason/Comments: History of Vtach, Chest pain Do you want consulting provider notified?: Yes Primary care physician: Sammy Phillips - Discharge Diagnosis(es) (1) Chest pain Intermittent ventricular tachycardia captured on an event monitor Occasional multifocal PVCs Current Visit: Yes Status: Acute (2) History of ventricular tachycardia Current Visit: Yes Status: Acute (3) Hypothyroidism Current Visit: No Status: Acute Hospital Course: General: [Patient awake, alert and oriented times 3. Patient in no acute distress.] HEENT: [PERRL. EOMI. No pharyngeal erythema or exudate.] Neck: [No adenopathy.] Cardiac: [Heart regular in rate and rhythm. No S3. No S4. No clicks, rubs. No murmur.] Lungs: [Clear to auscultation bilaterally.] Abdomen: [No mass. No organomegaly. Bowel sounds presnt and normoactive in all 4 quadrants.] Extremes: [No edema no cyanosis no claudication normal pulses] : [] Musculoskeletal: [No joint erythema, edema or tenderness.] Skin: [No rash.] Neurologic: [No lateralizing deficits. CN II - XII grossly intact.] Lymphatic: [No adenopathy.] One episode of V. tach on event monitor Intermittent occasional multifocal PVCs Cardiology increased beta allie Patient to be discharged home Follow up with Dr. Sánchez to schedule possible ablation therapy Patient Condition at Discharge: Stable Plan - Discharge Summary Discharge Rx Participant: Yes New Discharge Prescriptions: No Action Loratadine [Claritin] 10 mg PO DAILY Montelukast [Singulair] 10 mg PO HS Levothyroxine Sodium [Synthroid] 88 mcg PO DAILY Atenolol [Tenormin] 25 mg PO DAILY Pantoprazole Sodium [Protonix] 40 mg PO DAILY Discharge Medication List Loratadine [Claritin] 10 mg PO DAILY 10/11/15 [History] Montelukast [Singulair] 10 mg PO HS 10/11/15 [History] Atenolol [Tenormin] 25 mg PO DAILY 05/09/18 [History] Levothyroxine Sodium [Synthroid] 88 mcg PO DAILY 05/09/18 [History] Pantoprazole Sodium [Protonix] 40 mg PO DAILY 05/09/18 [History] Follow up Appointment(s)/Referral(s): Sammy Phillips MD [Primary Care Provider] - 1-2 days Discharge Disposition: HOME SELF-CARE
== END 2018-05-11 15:33 | disposition home or self-care (01) | DRG 313 ==
LOC: EC 08:02 → 3SCARD 11:05
PROVIDERS: ADMIT Family Medicine; ATTEND Family Medicine
DX: R07.9 Chest pain, unspecified (principal); I47.2 Ventricular tachycardia; I71.2 Thoracic aortic aneurysm, without rupture; I11.9 Hypertensive heart disease without heart failure; E03.9 Hypothyroidism, unspecified; I49.3 Ventricular premature depolarization; F41.9 Anxiety disorder, unspecified; G43.909 Migraine, unspecified, not intractable, without status migrainosus; J45.909 Unspecified asthma, uncomplicated; R07.89 Other chest pain; G89.29 Other chronic pain; M54.42 Lumbago with sciatica, left side; M15.9 Polyosteoarthritis, unspecified; K64.9 Unspecified hemorrhoids; H26.9 Unspecified cataract; Z79.890 Hormone replacement therapy; Z79.899 Other long term (current) drug therapy; Z87.891 Personal history of nicotine dependence; Z88.5 Allergy status to narcotic agent; Z88.2 Allergy status to sulfonamides; Z88.8 Allergy status to other drugs, medicaments and biological substances; Z80.0 Family history of malignant neoplasm of digestive organs
CPT/HCPCS: 36415; 71046; 80053; 83735; 83880; 84443; 84484; 85025; 85610; 85730; 93005; 94760; 96360; 99285

== ENCOUNTER → 2018-06-02 | Outpatient (CLI) | payer BC ==
[2018-06-02 11:06] LABS: HCT 41.5 % (39.0-53.0); HGB 14.2 gm/dL (13.0-17.5); MCH 30.4 pg (25.0-35.0); MCHC 34.2 g/dL (31.0-37.0); MCV 88.8 fL (80.0-100.0); Mean Platelet Volume 7.4; Platelet Count 268 k/uL (150-450); RBC 4.68 m/uL (4.30-5.90); RDW 14.3 % (11.5-15.5); WBC 6.6 k/uL (3.8-10.6)
[2018-06-02 11:14] LABS: Anion Gap 9 mmol/L; Blood Urea Nitrogen 16 mg/dL (9-20); Carbon Dioxide 23 mmol/L (22-30); Chloride 109 mmol/L (98-107); Glucose 95 mg/dL (74-99); Potassium 4.6 mmol/L (3.5-5.1); Sodium 141 mmol/L (137-145)
== END ==
LOC: LABPAT 09:30
PROVIDERS: ATTEND Internal Medicine Clinical Cardiac Electrophysiology
DX: Z01.812 Encounter for preprocedural laboratory examination (principal); I47.2 Ventricular tachycardia; I49.5 Sick sinus syndrome
CPT/HCPCS: 80051; 82565; 82947; 84520; 85027

== ENCOUNTER 2018-06-12 11:07 | Observation (INO) | payer BC ==
[2018-06-06 15:57] VITALS: BMI 22.1
[2018-06-12] MEDS ORDERED: SODIUM CHLORIDE 0.9% 1,000 ML IV SCH (11:38)
[2018-06-12] MEDS ORDERED: SUCCINYLCHOLINE CHLORIDE 100 MG/5 ML SYR IV ONE (13:18)
[2018-06-12] MEDS ORDERED: PROTAMINE SULFATE 10 MG/ML 5 ML VIAL IV ONE (13:18)
[2018-06-12] MEDS ORDERED: HEPARIN SODIUM,PORCINE 10,000 UNIT/ML 1 ML VIAL ONE (13:18)
[2018-06-12] MEDS ORDERED: fentaNYL (PF) 50 MCG/ML 2 ML AMP ONE (13:18)
[2018-06-12] MEDS ORDERED: NEOSTIGMINE 1 MG/ML 10 ML VIAL ONE (13:18)
[2018-06-12] MEDS ORDERED: PROPOFOL 10 MG/ML 20 ML VIAL IV ONE (13:18)
[2018-06-12] MEDS ORDERED: ISOPROTERENOL 250 MCG/1.25 ML SYR IV ONE (13:18)
[2018-06-12] MEDS ORDERED: ROCURONIUM BROMIDE 10 MG/ML 10 ML VIAL IV ONE (13:18)
[2018-06-12] MEDS ORDERED: GLYCOPYRROLATE 0.2 MG/ML 2 ML VIAL ONE (13:18)
[2018-06-12] MEDS ORDERED: MIDAZOLAM 2 MG/2 ML VIAL ONE (13:18)
[2018-06-12] MEDS ORDERED: LIDOCAINE 1% INJ 10MG/ML (20 ML MDV) ONE (13:36)
[2018-06-12] MEDS ORDERED: HEPARIN SODIUM 1,000 UN/ML (10ML VL) ONE (13:39)
[2018-06-12] MEDS ORDERED: LIDOCAINE 1% INJ 10MG/ML (20 ML MDV) SQ ONE (13:49)
[2018-06-12] MEDS ORDERED: HEPARIN SODIUM (1,000 UNIT/ML) 1,000 UNIT in SODIUM CHLORIDE 0.9% 1,000 ML IRRIGATION ONE (14:01)
[2018-06-12] MEDS ORDERED: SODIUM CHLORIDE 0.9% 1,000 ML IV ONE (16:52)
[2018-06-12] MEDS ORDERED: LACTATED RINGERS 1,000 ML IV ONE (16:52)
[2018-06-12] MEDS ORDERED: HYDROcodone/APAP 5-325MG 1 EACH TAB PO PRN (18:38)
[2018-06-12] MEDS ORDERED: ACETAMINOPHEN IV (For NPO) 1,000 MG/100 ML VIAL IVPB ONE (18:51)
[2018-06-12] MEDS: HYDROmorphone 1 MG/ML 1 ML SYRINGE IVP ONE ×2 (18:52→19:06)
[2018-06-12] MEDS: CARVEDILOL 3.125 MG TAB PO SCH (21:51)
[2018-06-13] MEDS ORDERED: ACETAMINOPHEN IV (For NPO) 1,000 MG in EMPTY BAG 1 BAG IVPB ONE (01:00)
[2018-06-13] MEDS: ACETAMINOPHEN TAB 325 MG TAB PO PRN ×2 (02:55→13:13)
--- NOTE | 2018-06-13 06:14 | CE ---
CARDIAC ELECTROPHYSIOLOGY REPORT This is a 53-year-old male patient who has had long runs of ventricular tachycardia on the event monitor after reducing the dose of atenolol for sinus bradycardia. He was readmitted to the hospital and started on carvedilol. He continues to have episodes of palpitations, especially with exercise but avoids exercise since it precipitates a ventricular tachycardia. 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 Successful ablation had been performed at that time. He has had recurrences now 2 years later. He is brought to the EP lab for EP study for mapping and ablation of ventricular tachycardia. Patient was brought to the EP lab in a fasting state. Written informed consent was obtained prior to the procedure. The right left groins were prepped and draped as per protocol. A 5-Tongan sheath was placed in the right femoral artery for hemodynamic monitoring and sampling. Later this was upgraded and this was changed to a long sheath 8-Tongan for LV mapping. Venous sheaths were placed in the right and left femoral veins and diagnostic catheters were positioned in the right heart in the high right atrium, His bundle area, RV and coronary sinus. The sinus cycle length was 982 milliseconds, WA interval normal, QRS normal, AH interval 90 milliseconds, HV interval 48 milliseconds. Sinus node recovery times of 600, 500 and 400 milliseconds were 1474, 1361 and 1096 milliseconds. Corresponding corrected sinus node recovery times were mildly prolonged at a paced cycle length of 600 milliseconds consistent with his sick sinus syndrome. AV node Wenckebach block 330 milliseconds. No delta waves. No slow pathway conduction and no VA conduction at baseline. Burst stimulation was performed at the baseline state. Extra stimulation at 2 [address] trains with double extra stimuli performed from the RV apex. No VT was induced. Isuprel was started and on Isuprel, VT was very easily inducible both with burst stimulation as well as simply on high-dose Isuprel. The VT cycle length was 305 milliseconds and it was very dependent upon the amount and the rate of Isuprel infusion. In the supine position, his blood pressure would plummet with fast VT down to 60 mmHg. His blood pressure was supported and this VT was mapped. An irrigated-tip catheter was placed in the left ventricle retrogradely. The aortic root was mapped. Activation mapping was performed in the right coronary cusp as well as left coronary cusp and the activation maps were late. The earliest activation site was just under the aortic root anterior LVOT, but definitely anterior to the aortomitral continuity which was the site of the ablation 2 years back. Later, even the coronary sinus was mapped, but the catheter would not reach the earlier site in the LVOT since this was just below the right coronary cusp. A 3-D electroanatomic activation mapping was performed. Intracardiac echo catheter was placed and the 3-D anatomic mapping of the cusps identified, left main was identified and tagged and the LVOT was tagged. The aortomitral continuity was identified and tagged. Activation mapping revealed the earliest area of activation about a centimeter or so just below the right coronary cusp. As noted above, the activation mapping of the coronary cusps were late. RF ablation was applied in sinus rhythm. The patient was experiencing both PVCs which had a 99% concordance with the induced ventricular tachycardia and at the earliest site of activation with a good unipolar electrograms and a bipolar electrogram that was 21 milliseconds before the onset of the QRS of the VT as well as the PVC, complete suppression of PVCs was achieved for quite some time until Isuprel was given once again. However, the QRS morphology of the VT was consistent with deep focus. The MDI was almost 63% even though the overall QRS width was 143 milliseconds. This is particularly evident in the precordial leads slow delayed upstroke in the precordial leads. However, Isuprel was started once again VT was once again very easily inducible with drop in blood pressure to 60 mmHg. Activation mapping was continued in the anterior LV wall as well as in the sites closer to the coronary cusp. Pace mapping was then performed in sinus rhythm and the best pace map achieved had a 97% concordance. This was about 1.3 cm proximal to the earliest site of the activation map. RF ablation was applied around the earliest site as well as exactly at the early site for activation map. The pace map was 1.3 cm from the earlier site of the activation map. RF ablation was applied at the best pace map site of 96% to 975%. A contact force of 34 grams was used. Power of up to 30 to 35 davis was used in both sites. However, the VT was still very easily inducible on Isuprel. At the end of the procedure, all catheters were removed and Isuprel was stopped. The coronary sinus was also mapped, but ablation catheter would not reach any where close to the coronary cusps given the anatomy and the dimensions of the coronary sinus. All catheters were removed. Angio-Seal was applied and the patient was transferred back to telemetry. RESULT: Diagnostic EP study revealing catecholamine sensitive ventricular tachycardia originating in the anterior LVOT below the cusps. The cusps did not show early activation. The QRS morphology suggested deep myocardial focus. Activation mapping ablation at the earliest activation site with a good unipolar electrogram and early bipolar electrograms by 21 milliseconds and good contact force of up to 15 grams resulted in transient suppression, but ventricular tachycardia came back after Isuprel was started, Pace mapping was performed just proximal to that site and 97% concordance was achieved. RF ablation was applied with good contact force of 34 grams at the site of 97% concordance of pace map as well as sites which showed 96%, 97% and 94% concordance. However, the ventricular tachycardia continued to be induced. This is a deep myocardial focus in the anterior LVOT. This is very fast ventricular tachycardia at greater than 200 beats a minute even with the slightest provocation with Isuprel. This gentleman is unable to tolerate beta blockers because of significant sick sinus syndrome with heart rates in the 30s. His resting heart rates run in the 50s. His palpitations continue despite beta blockers and the he avoids exercise since exercise provokes this. On high-dose Isuprel, this ventricular tachycardia had an had varying morphology (polymorphic component also to it). Therefore, I would recommend a dual-chamber ICD for sustained hemodynamically significant ventricular tachycardia which is catecholamine sensitive and induced with catecholamine stimulation (exercise induced and catecholamine induced) ventricular tachycardia sustained monomorphic and drug refractory in a deep myocardial focus with a polymorphic component of some induced ventricular tachycardias. Impression Sustained ventricular tachycardia with a polymorphic component and associated significant hypotension, very easily inducible Symptomatic Refractory to drug therapy Refractory to ablation SUGGEST: Dual chamber ICD implantation to allow for beta allie therapy since he had underlying sick sinus syndrome, antitachycardia pacing for the ventricular tachycardia and if needed defibrillation for polymorphic VT. ICD implantation for secondary prevention of sudden cardiac MMODL / IJN: [id number] / MTDNidhi
[2018-06-13] MEDS: LEVOTHYROXINE 88 MCG TAB PO SCH (06:17)
--- NOTE | 2018-06-13 07:53 | P.PN ---
Subjective Patient is doing well this morning. Blood pressure 9600 mmHg heart rate in the 60s and 70s Breath sounds are clear no rhonchi no crackles No JVD no hepatojugular reflux alert and oriented no respiratory distress Heart sounds sounds are normal no murmurs or gallops no rub Abdomen soft nontender Extremities warm right groin is tender there is no hematoma no swelling Impression Recurrent sustained VT with presyncope Drug refractory Catecholamine sensitive Very easily inducible in the EP lab Deep myocardial focus refractory to ablation Associated with significant hypotension Fast V. tach with polymorphic component Underlying sick sinus syndrome, patient intolerant of even small doses of beta blockers Suggest Dual-chamber ICD and thereafter maximize beta blockers and provide a backup antitachycardia pacing and defibrillation if needed Secondary prevention of sudden cardiac Discussed with the patient and his family in detail and they're agreeable with the plan Objective - Vital Signs Vital signs: Vital Signs Temp 97.7 F 06/13/18 03:41 Pulse 62 06/13/18 03:41 Resp 16 06/13/18 04:00 BP 96/63 06/13/18 03:41 Pulse Ox 97 06/13/18 03:41 Intake & Output 06/12/18 06/13/18 06/13/18 18:59 06:59 18:59 Intake Total 1753 300 Output Total 125 1800 Balance 1628 -1500 Weight 73 kg Intake: IV 1753 300 Output: Urine 125 1800 Other: Voiding Method Indwelling Catheter
[2018-06-13] MEDS: CARVEDILOL 3.125 MG TAB PO SCH ×2 (08:53→17:18)
[2018-06-13] MEDS ORDERED: ceFAZolin IN SWFI 2 GM/20 ML SYRINGE IVP ONE (09:23)
[2018-06-13] MEDS ORDERED: ceFAZolin 1,000 MG in SODIUM CHLORIDE 0.9% IRRIGATIO 250 ML IRRIGATION ONE (09:23)
[2018-06-13] MEDS: SODIUM CHLORIDE 0.9% 1,000 ML IV SCH ×3 (11:50→13:16)
[2018-06-13] MEDS ORDERED: LIDOCAINE 1% 20 ML VIAL (10MG/ML) FOR IV START INTRADERMA PRN (12:03)
[2018-06-13] MEDS ORDERED: fentaNYL (PF) 50 MCG/ML 2 ML AMP IV PRN (12:03)
[2018-06-13] MEDS: LACTATED RINGERS 1,000 ML IV SCH (13:16)
[2018-06-13] MEDS ORDERED: ONDANSETRON 4 MG/2 ML VIAL IVP PRN (18:08)
[2018-06-13] MEDS: IBUPROFEN 800 MG TAB PO PRN (18:32)
[2018-06-14] MEDS ORDERED: ceFAZolin 1,000 MG in SODIUM CHLORIDE 0.9% IRRIGATIO 250 ML IRRIGATION ONE (06:00)
[2018-06-14] MEDS ORDERED: ceFAZolin IN SWFI 2 GM/20 ML SYRINGE IVP ONE (06:00)
[2018-06-14] MEDS: LEVOTHYROXINE 88 MCG TAB PO SCH (06:08)
[2018-06-14] MEDS: SODIUM CHLORIDE 0.9% 1,000 ML IV SCH ×2 (06:09→09:54)
[2018-06-14] MEDS ORDERED: LIDOCAINE 1% INJ 10MG/ML (20 ML MDV) ONE (07:10)
[2018-06-14] MEDS ORDERED: SODIUM CHLORIDE 0.9% 500 ML 500 ML IV ONE (07:17)
[2018-06-14] MEDS ORDERED: IV FLUID CONTINUATION 950 ML IV ONE (07:17)
[2018-06-14] MEDS ORDERED: fentaNYL (PF) 50 MCG/ML 2 ML AMP ONE (07:23)
[2018-06-14] MEDS ORDERED: PROPOFOL 10 MG/ML 20 ML VIAL IV ONE (07:23)
[2018-06-14] MEDS ORDERED: MIDAZOLAM 2 MG/2 ML VIAL ONE (07:23)
[2018-06-14] MEDS ORDERED: HYDROcodone/APAP 5-325MG 1 EACH TAB PO PRN (07:45)
[2018-06-14] MEDS ORDERED: IOPAMIDOL-250 50ML BTL IV ONE (07:45)
[2018-06-14] MEDS ORDERED: ACETAMINOPHEN TAB 325 MG TAB PO PRN (07:45)
[2018-06-14] MEDS ORDERED: LIDOCAINE 1% INJ 10MG/ML (20 ML MDV) SQ ONE ×2 (08:09→08:23)
[2018-06-14] MEDS ORDERED: ACETAMINOPHEN IV (For NPO) 1,000 MG in EMPTY BAG 1 BAG IVPB ONE (09:00)
[2018-06-14] MEDS: TOPIRAMATE 25 MG TAB PO SCH ×2 (10:02→19:56)
[2018-06-14] MEDS: LORATADINE 10 MG TAB PO SCH (10:02)
[2018-06-14] MEDS: PROPRANOLOL LA 60 MG CAP.SA.24H PO SCH (10:02)
[2018-06-14] MEDS: LACTATED RINGERS 1,000 ML IV SCH (10:02)
[2018-06-14] MEDS: CARVEDILOL 3.125 MG TAB PO SCH (10:27)
--- NOTE | 2018-06-14 10:46 | CE ---
CARDIAC ELECTROPHYSIOLOGY REPORT This is a 53-year-old male patient who has a history of recurrent dizziness associated with relatively long episodes of sustained ventricular tachycardia clinically. He is brought in for an EP study and ablation. He has a deep myocardial focus, anterior LVOT, late activation in arortic cusps. The ventricular tachycardia was very easily inducible. It is associated with hemodynamic instability with blood pressures dropping low into the 60-90's systolic in the supine position consistent with his history of presyncope. He is unable to tolerate beta blockers or calcium channel allie on account of significant bradycardia and the dose of beta blockers had to be reduced significantly. His VT is also exercise induced and this gentleman avoids doing exercise even on very low-dose beta blockers because it induces his palpitations/dizzy spells. In the EP study, he was found to have very easily inducible monomorphic VT but during the episodes of monomorphic VT there is a polymorphic component. The VT would turn polymorphic also and hence an ICD was recommended. A dual-chamber ICD was recommended to allow for beta allie therapy since the VT is isoproterenol inducible. In addition, dual-chamber ICD was recommended so as to allow for atrial pacing and prevent bradycardia associated with the drugs and the ability to use high-dose beta blockers to suppress the ventricular tachycardia. This is also a deep myocardial focus on the anterior LVOT that despite ablation at a pace mapping concordance site of 97% was unsuccessful and the activation map was 1.3 cm away from this and successful ablation with good contact force and a power of 35 davis also did not result in elimination of the VT. In fact remapping of the VT resulted in shifting of the exit point consistent with a deep myocardial focus. The aortic root was also mapped. The right coronary cusp and the left coronary cusp were mapped and the activation map did not reveal an early focus here. The coronary sinus anteriorly was also mapped and this did not reach up to the area under the right coronary cusp. The patient brought to the EP lab in a fasting state and informed consent was obtained prior to the procedure. The left shoulder area was prepped and draped as per protocol and 1% lidocaine was used for local anesthesia. A 4 cm incision was made parallel to the deltopectoral groove, about 1.5 cm medial to it the incision was carried down to the level of the pectoralis muscle. A subfascial pocket was made. Hemostasis was assured. The left axillary vein was accessed at 2 separate points and via appropriately-sized introducer sheaths 2 leads were positioned in the right heart. The atrial lead was a [employer]onic CapSureFix MRI model #5076, serial #[id number]. This was screwed in the right atrial appendage. P waves were 2.4 mV. Pacing threshold was 0.5 V at 0.4 milliseconds. Ten volt test negative. The RV lead was positioned in the RV apex just in the very low RV septum just above the RV apex. R-waves were 2.4 mV, but when measured on paper and when measured on the PRUKA system measured between 4 to 5 mV. There was a current of injury associated with this and in the undeployed state, when the screw was undeployed, the pacing threshold was 0.6 V at 0.5 milliseconds indicating excellent contact. Post screw deployment in the thresholds are excellent at 0.5 V at 0.4 milliseconds along with the current of injury present. This was a [employer] Sprint Quattro MRI model #6935M, serial #[id number]. The sheaths were removed. The lead was secured to the underlying pectoralis fascia using 2 nonabsorbable sutures each and then connected to the generator ([employer] MRI S [id number] and serial #[id number]). Leads and the generator were then placed in subfascial pocket. The device was secured pectoralis muscle. The wound was closed in 3 layers and dressed per protocol. DFT TESTING: DFT testing under anesthesia was performed shock and T-wave protocol was used to induce ventricular fibrillation this was adequately and appropriately detected at least sensitivity without dropouts, but a 10-joule shock was unsuccessful. A 20 joule shock was unsuccessful and an external shock had to be used to defibrillate the patient successfully in the vector B XA. Therefore, after waiting for 2 minutes, this was repeated in reverse polarity of the AX B. This time once again in the ventricular fibrillation was appropriately and adequately sensed at least sensitivity. 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 The device was then programmed to DDDR mode with MVP on to avoid RV pacing. Pacing rate 50 to 140 ppm. A slow VT detection zone of 150 beats per minute, VT therapy zone of 176 beats per minute and a VF zone of 214 beats per minute. Appropriate antitachycardia pacing cardioversion defibrillation programmed. First cardioversion and first defibrillation at max output. RESULTS: Successful dual-chamber ICD in this gentleman who has sustained monomorphic VT which intermittently has shown polymorphic component and with hemodynamic instability. He is symptomatic from these episodes which are either long nonsustained clinically or long sustained with presyncopal spells. He is intolerant of beta blockers and now with atrial pacing this will allow us to treat him medically with high-dose beta blockers with a backup antitachycardia pacing as well as defibrillation if needed. Despite an apparently normal echo and cardiac MRI, his DFT is high, indicative of ultrastructural/electrophysiologic disease. VT is exercise and beta-agonist sensitive This gentleman will be monitored for his DFTs on a yearly basis. PLAN: Start Inderal LA 120 mg p.o. daily. MMODL / RAYMONDN: [id number] / MTDD
[2018-06-14] MEDS: IBUPROFEN 800 MG TAB PO PRN (11:04)
[2018-06-14] MEDS: ACETAMINOPHEN TAB 325 MG TAB PO PRN (11:05)
[2018-06-14] MEDS: ceFAZolin IN SWFI 2 GM/20 ML SYRINGE IVP SCH ×2 (14:09→19:56)
[2018-06-14] MEDS ORDERED: MONTELUKAST 10 MG TAB PO SCH (21:00)
[2018-06-14] MEDS ORDERED: PANTOPRAZOLE 40 MG TABLET PO SCH (21:00)
[2018-06-15] MEDS: SODIUM CHLORIDE 0.9% 1,000 ML IV SCH ×2 (00:43)
[2018-06-15] MEDS: ceFAZolin IN SWFI 2 GM/20 ML SYRINGE IVP SCH ×2 (02:01→08:04)
[2018-06-15] MEDS: LEVOTHYROXINE 88 MCG TAB PO SCH (05:51)
--- NOTE | 2018-06-15 07:18 | XR ---
EXAMINATION TYPE: XR chest 2V DATE OF EXAM: 06/15/2018 COMPARISON: 05/09/2018 HISTORY: Shortness of breath TECHNIQUE: Frontal and lateral views of the chest are obtained. FINDINGS: Scattered senescent parenchymal changes noted. Hyperinflation compatible with COPD. No evidence for infiltrate. No evidence for atelectasis. Heart size is stable. Mediastinal structures are stable and grossly unremarkable. No evidence for hilar prominence. Degenerative changes dorsal spine. IMPRESSION: 1. No evidence for acute pulmonary disease.
[2018-06-15] MEDS: TOPIRAMATE 25 MG TAB PO SCH (08:04)
[2018-06-15] MEDS: PROPRANOLOL LA 60 MG CAP.SA.24H PO SCH (08:04)
[2018-06-15] MEDS: LORATADINE 10 MG TAB PO SCH (08:04)
--- NOTE | 2018-06-15 08:50 | P.DS ---
Providers Date of admission: 06/13/18 23:43 Attending physician: Kenan Loving Primary care physician: Sammy [facility] Course: Patient is doing well. His ICD site is healed well. There is no hematoma no bruising Is currently single well. He has some discomfort in the left pectoral area was very comfortable comfortable and is walking around the hallways no dizziness no lightheadedness. Yesterday I stopped carvedilol and started Inderal long-acting 120 mg by mouth daily which is tolerated well. He did have one breakthrough episode of ventricular tachycardia but and this was successfully paced with antitachycardia pacing Vitals are stable blood pressure 122/86. 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 associated with hemodynamic instability At EP study he had both monomorphic as well as intermittent be polymorphic components associated with significant hypertension The aortic cusps were mapped and the activation was late The coronary sinus was mapped and this does not extend into the area of the anterior LV OT just below the aortic cusps Activation mapping at the earliest site with a good unipolar electrograms and a bipolar electrogram of 21 ms before the onset of the QRS did not result in successful termination of VT There was a shift in the earliest activation thereafter Pace mapping was performed and a 97% concordant site was obtained and RF ablation here with excellent contact of Greater than 30 g did not result in elimination of ventricular tachycardia Twelve-lead ECG of ventricular tachycardia shows a very broad slow onset with a MDI of greater than 60% Sick Sinus Syndrome and intolerance to beta blockers and inability to treat this gentleman with medications at an adequate dose that'll suppress her symptoms. He can tolerate only very small doses of beta blockers and he can induce his ventricular tachycardia but he is mild exertion Cardiac MRI normal, 2-D echo normal Dual-chamber ICD was implanted successfully. High DFTs noted especially BX >A of > 20J as well as BX >B, with a of greater than 10 J, consistent with ultrasructural disease Suggest Dual-chamber pacing with MVP mode turned on Antitachycardia pacing and cardioversions and defibrillations programmed Stopped carvedilol and start Inderal long-acting 120 mg by mouth daily and maximize as tolerated Patient be discharged home today and we'll see him in the office in about 7 days Patient Condition at Discharge: Stable Plan - Discharge Summary Discharge Rx Participant: No New Discharge Prescriptions: No Action Loratadine [Claritin] 10 mg PO DAILY Montelukast [Singulair] 10 mg PO HS Levothyroxine Sodium [Synthroid] 88 mcg PO DAILY Pantoprazole Sodium [Protonix] 40 mg PO HS Topiramate [Topamax] 25 mg PO BID #60 tab Carvedilol [Coreg] 3.125 mg PO BID Discharge Medication List Loratadine [Claritin] 10 mg PO DAILY 10/11/15 [History] Montelukast [Singulair] 10 mg PO HS 10/11/15 [History] Levothyroxine Sodium [Synthroid] 88 mcg PO DAILY 05/09/18 [History] Pantoprazole Sodium [Protonix] 40 mg PO HS 05/09/18 [History] Topiramate [Topamax] 25 mg PO BID #60 tab 05/11/18 [Rx] Carvedilol [Coreg] 3.125 mg PO BID 06/12/18 [History] Follow up Appointment(s)/Referral(s): Kenan Loving MD [STAFF PHYSICIAN] - 1 Week Sammy Phillips MD [Primary Care Provider] - 1-2 Days Patient Instructions/Handouts: Implantable Cardioverter Defibrillator (DC)
[2018-06-15 09:02] VITALS: BP 131/91; PULSE 81; RESP 18; TEMP 97.7
== END 2018-06-15 09:01 | disposition home or self-care (01) ==
LOC: CATHEP 11:07 → 1SOBS 18:00 → CATHEP 06-13 23:53
PROVIDERS: ADMIT Internal Medicine Clinical Cardiac Electrophysiology; ATTEND Internal Medicine Clinical Cardiac Electrophysiology
DX: I47.2 Ventricular tachycardia (principal); I49.5 Sick sinus syndrome; I10 Essential (primary) hypertension; K21.9 Gastro-esophageal reflux disease without esophagitis; E07.9 Disorder of thyroid, unspecified; I71.2 Thoracic aortic aneurysm, without rupture; F17.210 Nicotine dependence, cigarettes, uncomplicated; Z79.899 Other long term (current) drug therapy; Z79.890 Hormone replacement therapy; Z88.2 Allergy status to sulfonamides; Z88.5 Allergy status to narcotic agent
CPT/HCPCS: 85347; 93641; 33249; 93623; 93662; 93654; 71046; G0378 ×3; C1760; C1894 ×2; C1769 ×4; C1892 ×2; C1730 ×3; C1898; C1895; C1759; C1893; C1721; C1732; J2250 ×2; J2720; J1644 ×2; J2710; J2405; J0690 ×3; J2001 ×2; J3010 ×2; J1170; J0131 ×2; J0330; J2704 ×2; Q9966

== ENCOUNTER → 2018-07-31 | Outpatient (CLI) | payer BC ==
[2018-08-01 03:04] LABS: T4, Free (Free Thyroxine) 1.5 ng/dL (0.80-1.80)
== END | disposition home or self-care (01) ==
LOC: LABWHC1 17:03
PROVIDERS: ATTEND Family Medicine
DX: R00.2 Palpitations (principal); I47.2 Ventricular tachycardia; I11.0 Hypertensive heart disease with heart failure; E03.9 Hypothyroidism, unspecified; Z95.0 Presence of cardiac pacemaker
CPT/HCPCS: 36415; 84439; 84443; 84481

== ENCOUNTER → 2018-11-01 | Outpatient (CLI) | payer BC ==
[2018-11-01 11:04] LABS: Basophils # (A) 0.1 k/uL (0-0.2); Basophils % (A) 1 %; Eosinophils # (A) 0.2 k/uL (0-0.7); Eosinophils % (A) 3 %; HCT 40.8 % (39.0-53.0); HGB 13.5 gm/dL (13.0-17.5); Lymphocytes % (A) 25 %; MCH 30.6 pg (25.0-35.0); MCHC 33.1 g/dL (31.0-37.0); MCV 92.4 fL (80.0-100.0); Mean Platelet Volume 7.4; Monocytes # (A) 0.4 k/uL (0-1.0); Monocytes % (A) 5 %; Neutrophils # (A) 5.2 k/uL (1.3-7.7); Neutrophils % (A) 64 %; Platelet Count 291 k/uL (150-450); RBC 4.42 m/uL (4.30-5.90); RDW 15.2 % (11.5-15.5); WBC 8.1 k/uL (3.8-10.6)
[2018-11-01 16:18] LABS: African American GFR (CKD) 88.4 (60.0-200.0); Albumin 4.6 g/dL (3.80-4.90); Albumin/Globulin Ratio 2.3 (1.60-3.17); Anion Gap 9.7 mmol/L (4.00-12.00); BUN/Creat Ratio 13.64 Ratio (12.00-20.00); Calcium 9.3 mg/dL (8.7-10.3); Carbon Dioxide 21.3 mmol/L (21.6-31.8); Potassium 4.6 mmol/L (3.5-5.5); Total Bilirubin 0.9 mg/dL (0.2-1.2); Total Protein 6.6 g/dL (6.2-8.2)
[2018-11-01 16:25] LABS: T4, Free (Free Thyroxine) 1.5 ng/dL (0.80-1.80)
== END | disposition home or self-care (01) ==
LOC: LABWHC1 10:29
PROVIDERS: ATTEND Family Medicine
DX: I10 Essential (primary) hypertension (principal); I47.2 Ventricular tachycardia; E03.9 Hypothyroidism, unspecified
CPT/HCPCS: 36415; 80053; 84439; 84443; 84481; 85025

== ENCOUNTER 2018-12-29 16:41 | Observation (INO) | payer BC ==
[2018-12-29 17:23] LABS: Basophils % (A) 0 %; Eosinophils # (A) 0.2 k/uL (0-0.7); Eosinophils % (A) 2 %; HCT 38.6 % (39.0-53.0); HGB 13.2 gm/dL (13.0-17.5); Lymphocytes # (A) 2.6 k/uL (1.0-4.8); Lymphocytes % (A) 37 %; MCH 31.2 pg (25.0-35.0); MCHC 34.1 g/dL (31.0-37.0); MCV 91.3 fL (80.0-100.0); Mean Platelet Volume 6.2; Monocytes # (A) 0.4 k/uL (0-1.0); Monocytes % (A) 5 %; Neutrophils # (A) 3.7 k/uL (1.3-7.7); Neutrophils % (A) 53 %; Platelet Count 253 k/uL (150-450); RBC 4.23 m/uL (4.30-5.90); RDW 13.7 % (11.5-15.5); WBC 7.1 k/uL (3.8-10.6)
[2018-12-29 17:32] LABS: ALT 51 U/L (21-72); AST 38 U/L (17-59); African American GFR (CKD) >90 (>60 ml/min/1.73 sqM); Albumin 4.5 g/dL (3.5-5.0); Alkaline Phosphatase 67 U/L (38-126); Anion Gap 9 mmol/L; Blood Urea Nitrogen 12 mg/dL (9-20); Calcium 9.4 mg/dL (8.4-10.2); Carbon Dioxide 21 mmol/L (22-30); Chloride 105 mmol/L (98-107); Creatine Kinase 212 U/L (55-170); Glucose 88 mg/dL (74-99); Non-African American GFR(CKD) >90 (>60 ml/min/1.73 sqM); Partial Thromboplastin Time 24.9 sec (22.0-30.0); Potassium 4.1 mmol/L (3.5-5.1); Prothrombin Time 10.3 sec (9.0-12.0); Sodium 135 mmol/L (137-145); Total Bilirubin 0.8 mg/dL (0.2-1.3); Total Protein 7.4 g/dL (6.3-8.2)
--- NOTE | 2018-12-29 17:42 | XR ---
EXAMINATION TYPE: XR chest 2V DATE OF EXAM: 12/29/2018 COMPARISON: 06/15/2018 TECHNIQUE: PA and lateral views submitted. HISTORY: Chest pain FINDINGS: The lungs are clear and there is no pneumothorax, pleural effusion, or focal pneumonia. Hyperinflat ion suggests COPD and there is a cardiac device. No overt failure. Basilar atelectasis at the left manish ng base stable from prior exam. IMPRESSION: 1. No acute process. Correlate for COPD
--- NOTE | 2018-12-29 18:03 | ED ---
Chest Pain HPI - General Chief Complaint: Chest Pain Stated Complaint: defibrillator went off Time Seen by Provider: 12/29/18 16:53 Source: patient Mode of arrival: ambulatory Limitations: no limitations - History of Present Illness Initial Comments: The patient is a 53-year-old male with past history of V. tach who presents to the emergency department with chest pain. He reports that the pain started last night around 9 PM. States he was sitting in a chair watching TV when it came on. He denies relation to exertion or breathing. He does have an ICD for his history of recurrent V. tach. This was placed by Dr. Howe earlier this year. States that it fired on him once last night. He currently has shortness of breath. Denies a history of DVT or PE. No ripping or sensation to his back. He is not on any anticoagulation. Denies cough or hemoptysis. No fevers or chills. Denies any nausea or vomiting. No history of coronary artery disease. No lower extremity edema. No recent medication changes. There are no other alleviating, precipitating or modifying factors - Related Data Home Medications Medication Instructions Recorded Confirmed Loratadine [Claritin] 10 mg PO DAILY 10/11/15 12/29/18 Montelukast [Singulair] 10 mg PO HS 10/11/15 12/29/18 Levothyroxine Sodium [Synthroid] 88 mcg PO DAILY 05/09/18 12/29/18 ALPRAZolam [Xanax] 0.25 mg PO HS PRN 12/29/18 12/29/18 Propranolol HCl [Propranolol HCl 120 mg PO DAILY 12/29/18 12/29/18 ER] Previous Rx's Medication Instructions Recorded Topiramate [Topamax] 25 mg PO BID #60 tab 05/11/18 Allergies Allergy/AdvReac Type Severity Reaction Status Date / Time itraconazole [From Sporanox] Allergy Rash/Hives Verified 12/29/18 17:12 morphine Allergy Nausea & Verified 12/29/18 17:12 Vomiting Sulfa (Sulfonamide Allergy Unknown Verified 12/29/18 17:12 Antibiotics) Review of Systems ROS Statement: Those systems with pertinent positive or pertinent negative responses have been documented in the HPI. ROS Other: All systems not noted in ROS Statement are negative. EKG Findings - EKG Comments: EKG Findings:: EKG demonstrates atrial paced rhythm with prolonged AV conduction. KS interval 242. QRS 94. QTC 438. CT depression in leads 2, 3, aVF. No acute ST segment elevations. Past Medical History Past Medical History: Chest Pain / Angina, Eye Disorder, Osteoarthritis (OA), Pneumonia, Vascular Disorder Additional Past Medical History / Comment(s): Vtach with ablation, bradycardia, palpitations, "leaky heart valve", cardiomegaly, currently wearing a 30 day event monitor, past medical record documents thoracic aortic aneurysm but pt unsure if he has been told that, bronchitis, arthritis in multiple joints, chronic low back pain, L sided sciatica, migraines, rhinitis, UTI, hemorrhoids, cataracts bilaterally, past fractures bilateral wrists and L foot. History of Any Multi-Drug Resistant Organisms: None Reported Past Surgical History: Cardiac Ablation, Heart Catheterization, Hernia Repair, Orthopedic Surgery Additional Past Surgical History / Comment(s): EPS with VT ablation, jaw surgery, L/R arthroscopic knee surgery for meniscus, bilateral inguinal hernia repairs, colonoscopy. Past Anesthesia/Blood Transfusion Reactions: Postoperative Nausea & Vomiting (PONV) Past Psychological History: Anxiety Smoking Status: Former smoker Past Alcohol Use History: None Reported Past Drug Use History: None Reported - Past Family History Father Family Medical History: Cancer Additional Family Medical History / Comment(s): colon cancer. Mother History Unknown: Yes Family Medical History: Cancer Additional Family Medical History / Comment(s): melanoma General Exam Limitations: no limitations General appearance: alert, in no apparent distress Head exam: Present: atraumatic, normocephalic, normal inspection Eye exam: Present: normal appearance, PERRL, EOMI. Absent: scleral icterus, conjunctival injection, periorbital swelling ENT exam: Present: normal exam, mucous membranes moist Neck exam: Present: normal inspection. Absent: tenderness, meningismus, lymphadenopathy Respiratory exam: Present: normal lung sounds bilaterally. Absent: respiratory distress, wheezes, rales, rhonchi, stridor Cardiovascular Exam: Present: regular rate, normal rhythm, normal heart sounds. Absent: systolic murmur, diastolic murmur, rubs, gallop, clicks GI/Abdominal exam: Present: soft, normal bowel sounds. Absent: distended, tenderness, guarding, rebound, rigid Extremities exam: Present: normal inspection, full ROM, normal capillary refill. Absent: tenderness, pedal edema, joint swelling, calf tenderness Back exam: Present: normal inspection Neurological exam: Present: alert, oriented X3, CN II-XII intact Psychiatric exam: Present: normal affect, normal mood Skin exam: Present: warm, dry, intact, normal color. Absent: rash Course Vital Signs 12/29/18 12/29/18 16:47 19:22 Temperature 97.8 F 98 F Pulse Rate 68 63 Respiratory 20 18 Rate Blood Pressure 128/89 134/97 O2 Sat by Pulse 100 98 Oximetry Chest Pain MDM - MDM Upon arrival the patient is placed into room 1. A thorough history and physical exam was performed. I did recommend laboratory studies, an EKG and chest x-ray. CBC, coags and CMP are unremarkable. CK is 212. Troponin is less than 0.012. Mag is 2. Chest x-ray is read as negative for acute process. 12-lead EKG demonstrates an atrial paced rhythm. I discussed these results with the patient. His [employer] pacemaker is interrogated. Report is faxed and does not demonstrate firing of the patient's ICD device. I called and discussed the case with Dr. Mcgrath. He does accept admission for the patient if he wishes to stay. Otherwise he states that he could accommodate the patient in office tomorrow. I do propose this to the patient and the patient requests hospital admission. I will consult cardiology. The patient was transported to the floor in stable condition Disposition Clinical Impression: History of ventricular tachycardia, Chest pain Disposition: ADMITTED IP TO THIS HOSP Condition: Stable Is patient prescribed a controlled substance at d/c from ED?: No Decision to Admit Reason: Admit from EC Decision Date: 12/29/18 Decision Time: 19:26
[2018-12-29 19:23] VITALS: RESP 18
[2018-12-29] MEDS ORDERED: NALOXONE 0.4 MG/ML 1 ML VIAL IV PRN (19:42)
[2018-12-29] MEDS ORDERED: ALPRAZolam 0.25 MG TAB PO PRN (19:49)
[2018-12-29 20:32] VITALS: BMI 21.9
[2018-12-29] MEDS: TOPIRAMATE 25 MG TAB PO SCH (20:45)
[2018-12-29] MEDS ORDERED: MONTELUKAST 10 MG TAB PO SCH (21:00)
[2018-12-30] MEDS ORDERED: LEVOTHYROXINE 88 MCG TAB PO SCH (06:30)
[2018-12-30 07:56] VITALS: TEMP 97.6
[2018-12-30] MEDS: TOPIRAMATE 25 MG TAB PO SCH (07:57)
[2018-12-30] MEDS ORDERED: PROPRANOLOL LA 60 MG CAP.SA.24H PO SCH (09:00)
[2018-12-30] MEDS ORDERED: LORATADINE 10 MG TAB PO SCH (09:00)
[2018-12-30 09:26] LABS: Basophils # (A) 0.1 k/uL (0-0.2); Basophils % (A) 1 %; Eosinophils # (A) 0.1 k/uL (0-0.7); Eosinophils % (A) 2 %; HCT 37.8 % (39.0-53.0); HGB 12.5 gm/dL (13.0-17.5); Lymphocytes # (A) 1.8 k/uL (1.0-4.8); Lymphocytes % (A) 32 %; MCH 30.9 pg (25.0-35.0); MCV 93.5 fL (80.0-100.0); Mean Platelet Volume 6.5; Monocytes # (A) 0.4 k/uL (0-1.0); Monocytes % (A) 6 %; Neutrophils # (A) 3.2 k/uL (1.3-7.7); Neutrophils % (A) 56 %; Platelet Count 251 k/uL (150-450); RBC 4.04 m/uL (4.30-5.90); RDW 13.7 % (11.5-15.5); WBC 5.7 k/uL (3.8-10.6)
[2018-12-30 09:31] LABS: African American GFR (CKD) >90 (>60 ml/min/1.73 sqM); Anion Gap 9 mmol/L; Blood Urea Nitrogen 14 mg/dL (9-20); Calcium 9.3 mg/dL (8.4-10.2); Carbon Dioxide 21 mmol/L (22-30); Chloride 110 mmol/L (98-107); Glucose 91 mg/dL (74-99); Magnesium 2.2 mg/dL (1.6-2.3); Non-African American GFR(CKD) >90 (>60 ml/min/1.73 sqM); Potassium 4.1 mmol/L (3.5-5.1); Sodium 140 mmol/L (137-145)
[2018-12-30] MEDS ORDERED: DOBUTamine DRIP for NUC MED 500 MG in DEXTROSE/WATER 1 250ML.BAG IV ONE (10:40)
[2018-12-30] MEDS ORDERED: ATROPINE SULFATE 0.1 MG/ML 10ML SYRINGE ONE (12:08)
--- NOTE | 2018-12-30 12:25 | ECHOF ---
Referral Reason:chest pain MEASUREMENTS -------- HEIGHT: 180.3 cm WEIGHT: 71.2 kg BP: RVIDd: 3.0 cm (< 3.3) IVSd: 0.9 cm (0.6 - 1.1) LVIDd: 4.3 cm (3.9 - 5.3) LVPWd: 1.1 cm (0.6 - 1.1) IVSs: 1.5 cm LVIDs: 2.9 cm LVPWs: 1.5 cm LAESV Index (A-L): 21.65 ml/m Ao Diam: 4.4 cm (2.0 - 3.7) AV Cusp: 2.6 cm (1.5 - 2.6) LA Diam: 2.8 cm (2.7 - 3.8) MV EXCURSION: 23.254 mm (> 18.000) MV EF SLOPE: 103 mm/s (70 - 150) EPSS: 0.4 cm MV E Blaine: 0.52 m/s MV DecT: 186 ms MV A Blaine: 0.31 m/s MV E/A Ratio: 1.67 AR PHT: 506 ms RAP: 5.00 mmHg RVSP: 25.71 mmHg FINDINGS -------- AICD This was a technically good study. The left ventricular size is normal. Left ventricular wall thickness is normal. Overall left vent ricular systolic function is low-normal with, an EF between 50 - 55 %. The right ventricle is normal in size. The left atrial size is normal. Normal LA size by volume 22+/-6 ml/m2. The right atrial size is normal. Interatrial and interventricular septum intact. The aortic valve is trileaflet and appears structurally normal. There is mild aortic regurgitation. The mitral valve is normal. Mild mitral regurgitation is present. The tricuspid valve appears structurally normal. Mild tricuspid regurgitation present. Right vent ricular systolic pressure is normal at < 35 mmHg. Trace/mild (physiologic) pulmonic regurgitation. The aortic root and ascending aorta are dilated measuring up to 4.4 cm. Normal inferior vena cava with normal inspiratory collapse consistent with estimated right atrial pre ssure of 5 mmHg. There is no pericardial effusion. CONCLUSIONS -------- 1. AICD 2. This was a technically good study. 3. The left ventricular size is normal. 4. Left ventricular wall thickness is normal. 5. Overall left ventricular systolic function is low-normal with, an EF between 50 - 55 %. 6. The right ventricle is normal in size. 7. The left atrial size is normal. 8. Normal LA size by volume 22+/-6 ml/m2. 9. The right atrial size is normal. 10. Interatrial and interventricular septum intact. 11. The aortic valve is trileaflet and appears structurally normal. 12. There is mild aortic regurgitation. 13. The mitral valve is normal. 14. Mild mitral regurgitation is present. 15. The tricuspid valve appears structurally normal. 16. Mild tricuspid regurgitation present. 17. Right ventricular systolic pressure is normal at < 35 mmHg. 18. Trace/mild (physiologic) pulmonic regurgitation. 19. The aortic root and ascending aorta are dilated measuring up to 4.4 cm. 20. Normal inferior vena cava with normal inspiratory collapse consistent with estimated right atrial pressure of 5 mmHg. 21. There is no pericardial effusion. DIRECTOR DISTRIBUTION: Chloe Overton RDCS
[2018-12-30 12:38] VITALS: BP 111/72; PULSE 98
--- NOTE | 2018-12-30 12:41 | CONS ---
CONSULTATION CHIEF COMPLAINT: Chest pain. Siva is a 53-year-old gentleman with history of ventricular tachycardia, status post ablation, aortic regurgitation and ascending aortic aneurysm, who presented to hospital complaining of chest pain. Patient complains of sharp pericardial chest pain unrelated to exertion, unassociated with diaphoresis. He had this chest pain on Saturday, went to work on Saturday and then called our office where he was advised to come to the ER where he is admitted. Since being admitted to hospital, patient has remained chest pain-free and hemodynamically stable and did not have any episodes of ventricular tachycardia. I am told that his device had been evaluated and there were no tachyarrhythmias. Since admission, he has had 3 sets of cardiac enzymes which are all within normal limits. He had an EKG that showed a paced rhythm with nonspecific ST-T wave changes and patient had an echo last year that showed dilated aortic root with mild aortic regurgitation, had a thoracic aorta CT scan last year that showed an aortic root that measures 4.2 cm. PAST MEDICAL HISTORY: Significant for ventricular tachycardia, status post AICD, history of ablation. MEDICATIONS: Include Xanax, Topamax, Inderal, Singulair, Claritin, and Synthroid. Patient is allergic to MORPHINE and SULFA. FAMILY HISTORY: Negative for premature coronary artery disease. SOCIAL HISTORY: Negative for smoking, EtOH abuse, or drug abuse. REVIEW OF SYSTEMS: HEENT: Unremarkable. CARDIAC: As described above. RESPIRATORY: As described above. GI: Negative. GENITOURINARY: Negative. ALLERGY/IMMUNOLOGY: Negative. SKIN: Negative. MUSCULOSKELETAL: Significant for arthritis. PSYCHOSOCIAL: Negative. ENDOCRINE: Negative. DERM: Negative. CONSTITUTIONAL: Negative. ONCOLOGICAL: Negative. Rest of the system review is not relevant. PHYSICAL EXAM: Comfortable at rest. Vital signs are stable. There is no jugular venous distention. Carotid upstroke is normal. There is no bruit. Chest exam reveals good air entry bilaterally. Heart exam reveals first and second heart sounds and early diastolic murmur in the aortic area. Abdomen is soft. Exam of extremities did not reveal edema. Peripheral pulses are felt. LABS: Show a hemoglobin of 12.5, platelet count is 250. Potassium is 4.1 and creatinine is 0.9. Three sets of troponins are negative. ASSESSMENT: 1. Precordial chest pain, atypical. 2. Ventricular tachycardia, status post ablation, status post AICD. 3. Ascending aortic aneurysm, chronic, stable. PLAN: I am going to schedule the patient for a stress test. If this is negative, he will be discharged home and followed up in our office. GAGAN / RAYMONDN: [id number] /
--- NOTE | 2018-12-30 12:56 | ECHOS ---
STRESS ECHOCARDIOGRAM INDICATIONS: Chest pain. BASELINE HEART RATE: 57 BASELINE BLOOD PRESSURE: 88/67 MAXIMUM HEART RATE: 140 MAXIMUM BLOOD PRESSURE: 149/89 85% MPHR: 142 100% MPHR: 167 MAXIMUM STAGE REACHED: 5 TOTAL EXERCISE TIME: 13:30 CLINICAL INFORMATION: Baseline EKG revealed normal sinus rhythm with inferolateral ST-segment depression and T-wave abnormality. With the dobutamine administration as per protocol. Patient's heart rate went up to 140 beats per minute. An additional 1 mg of atropine was necessary to achieve this heart rate. The patient had rare isolated PVCs and he continued to demonstrate the inferolateral ST-segment depression making this an inconclusive stress test by EKG criteria with dobutamine administration. Baseline echo images revealed normal wall motion wall thickening of all segments. At peak exercise there was good augmentation of left and wall motion wall thickening of all segments suggesting that there is no evidence of stress-induced ischemia on this study. IMPRESSION: 1. By EKG criteria this is an inconclusive dobutamine stress test with inferolateral ST-segment abnormality that persisted with dobutamine administration. 2. Normal dobutamine stress echocardiogram without evidence of ischemia based on echocardiographic criteria. Patient achieved a heart rate of 140 beats per minute which is almost 85% of predicted maximal. He received 1 mg via for atropine in addition to 40 mcg/kg per minute of dobutamine. MMODL / IJN: [id number] /
--- NOTE | 2018-12-31 13:03 | P.HPIM ---
History of Present Illness H&P Date: 12/30/18 Chief Complaint: AICD firing History and physical and Discharge Summary This is a 53-year-old gentleman with history of V. tach, status post ablation ,presented to the ER with complaints of left-sided sharp nonradiating chest pain, AICD firing lasting 2-3 seconds 1 episode accompanied by shortness of breath with chest tightness on Saturday night, nonexertional. Pacer interrogated in the ER and reported as negative for tachyarrhythmias. Evaluated by cardiology, completed stress echo, results pending. Denies any further chest pain, shortness of breath or palpitations. Telemetry sinus rhythm. Denies lightheadedness, dizziness or focal deficits. Denies any nausea vomiting or diarrhea. Denies any back or abdominal pain. Chest x-ray reporting nonacute. EKG reporting atrial paced rhythm with prolonged AV conduction, ST and T wave abnormality. Troponin negative 3. Electrolytes within normal limits. VSS. Review of Systems ROS Statement: Those systems with pertinent positive or pertinent negative responses have been documented in the HPI. ROS Other: All systems not noted in ROS Statement are negative. Past Medical History Past Medical History: Chest Pain / Angina, Eye Disorder, Osteoarthritis (OA), Pneumonia, Vascular Disorder Additional Past Medical History / Comment(s): Vtach with ablation, bradycardia, palpitations, "leaky heart valve", cardiomegaly, currently wearing a 30 day event monitor, past medical record documents thoracic aortic aneurysm but pt unsure if he has been told that, bronchitis, arthritis in multiple joints, chronic low back pain, L sided sciatica, migraines, rhinitis, UTI, hemorrhoids, cataracts bilaterally, past fractures bilateral wrists and L foot. History of Any Multi-Drug Resistant Organisms: None Reported Past Surgical History: Cardiac Ablation, Heart Catheterization, Hernia Repair, Orthopedic Surgery Additional Past Surgical History / Comment(s): EPS with VT ablation, jaw surgery, L/R arthroscopic knee surgery for meniscus, bilateral inguinal hernia repairs, colonoscopy. Past Anesthesia/Blood Transfusion Reactions: Postoperative Nausea & Vomiting (PONV) Type of Cardiac Device: AICD Device Placement Date:: 2018 Past Psychological History: Anxiety Smoking Status: Former smoker Past Alcohol Use History: None Reported Past Drug Use History: None Reported - Past Family History Father Family Medical History: Cancer Additional Family Medical History / Comment(s): colon cancer. Mother History Unknown: Yes Family Medical History: Cancer Additional Family Medical History / Comment(s): melanoma Medications and Allergies Home Medications Medication Instructions Recorded Confirmed Type Loratadine [Claritin] 10 mg PO DAILY 10/11/15 12/29/18 History Montelukast [Singulair] 10 mg PO HS 10/11/15 12/29/18 History Levothyroxine Sodium [Synthroid] 88 mcg PO DAILY 05/09/18 12/29/18 History Topiramate [Topamax] 25 mg PO BID #60 tab 05/11/18 12/29/18 Rx ALPRAZolam [Xanax] 0.25 mg PO HS PRN 12/29/18 12/29/18 History Propranolol HCl [Propranolol HCl 120 mg PO DAILY 12/29/18 12/29/18 History ER] Allergies Allergy/AdvReac Type Severity Reaction Status Date / Time itraconazole [From Sporanox] Allergy Rash/Hives Verified 12/29/18 17:12 morphine Allergy Nausea & Verified 12/29/18 17:12 Vomiting Sulfa (Sulfonamide Allergy Unknown Verified 12/29/18 17:12 Antibiotics) Physical Exam Vitals: Vital Signs Temp Pulse Pulse Resp BP BP Pulse Ox 12/30/18 07:54 97.6 F 56 L 18 106/73 98 12/30/18 04:35 56 L 18 96/55 99 12/29/18 23:21 97.2 F L 64 18 103/62 97 12/29/18 21:22 97.1 F L 53 L 18 118/79 98 12/29/18 19:22 98 F 63 18 134/97 98 12/29/18 16:47 97.8 F 68 20 128/89 100 Intake and Output 12/29/18 12/30/18 12/30/18 22:59 06:59 14:59 Other: # Voids 1 Weight 75.251 kg 71.4 kg PHYSICAL EXAM: VITAL SIGNS: As above GENERAL: Sitting up in bed, no acute distress HEENT: Conjunctivae normal. eyes normal. Oral mucosa moist NECK: No JVD. No thyroid enlargement. No LNs CARDIOVASCULAR: S1, S2 regular.Diastolic murmur RESPIRATION: Breath sounds diminished in the bases. No rhonchi or crackles. No bronchial breathing. ABDOMEN: Soft, nontender . No guarding. no masses palpable. No ascites, No hepatosplenomegaly.Bowel sounds heard. LEGS: No edema. no swelling PSYCHIATRY: Alert and oriented X3, mood and affect normal. NERVOUS SYSTEM: Cranial N 2-12 grossly normal. Moves all 4 limbs. Diffuse weakness No focal deficits. Strength and sensation grossly intact.. Skin: no lesions, no rash Joints: No active swelling. No inflammation. Lymphatic system. No LN neck axilla or groin. Results CBC & Chem 7: 12/30/18 05:28 12/30/18 05:28 Labs: Abnormal Lab Results - Last 24 Hours (Table) 12/29/18 12/29/18 Range/Units 17:06 17:06 RBC 4.23 L (4.30-5.90) m/uL Hct 38.6 L (39.0-53.0) % Sodium 135 L (137-145) mmol/L Carbon Dioxide 21 L (22-30) mmol/L Creatine Kinase 212 H (55-170) U/L Thrombosis Risk Factor Assmnt - Choose All That Apply Each Factor Represents 1 point: Age 41-60 years Thrombosis Risk Factor Assessment Total Risk Factor Score: 1 Thrombosis Risk Factor Assessment Level: Low Risk Assessment and Plan Assessment: (1) Chest pain, atypical, stress echo pending. Current Visit: Yes Status: Acute Code(s): R07.9 - CHEST PAIN, UNSPECIFIED SNOMED Code(s): 16744805 (2) History of ventricular tachycardia, status post ablation with AICD placement.Negative Interrogation reported from ER Current Visit: Yes Status: Acute Code(s): Z86.79 - PERSONAL HISTORY OF OTHER DISEASES OF THE CIRCULATORY SYSTEM SNOMED Code(s): 119273398042453 (3) Hypothyroidism Current Visit: No Status: Acute Code(s): E03.9 - HYPOTHYROIDISM, UNSPECIFIED SNOMED Code(s): 86349717 (4) Chronic ascending aortic aneurysm, outpatient routine vascular follow-up recommended. Plan: Continue on current medication regime ,monitoring and symptomatic treatment. Significant clinical improvement. Patient is scheduled for dobutamine stress echo as per cardiology. Patient will be discharged home in a stable condition with guarded prognosis, pending stress test results, once cleared by cardiology. Patient is scheduled to see Dr. Phillips tomorrow and Dr. Loving on the of this month. Discharge Medication List Loratadine [Claritin] 10 mg PO DAILY 10/11/15 [History] Montelukast [Singulair] 10 mg PO HS 10/11/15 [History] Levothyroxine Sodium [Synthroid] 88 mcg PO DAILY 05/09/18 [History] Topiramate [Topamax] 25 mg PO BID #60 tab 05/11/18 [Rx] ALPRAZolam [Xanax] 0.25 mg PO HS PRN 12/29/18 [History] Propranolol HCl [Propranolol HCl ER] 120 mg PO DAILY 12/29/18 [History] The impression and plan of care has been dictated as directed. : I performed a history and examination of this patient, discussed the same with the dictator. I agree with the dictator's note ,documented as a scribe. Any additional findings or plans will be noted.
--- NOTE | 2018-12-31 13:04 | P.DS ---
Providers Date of admission: 12/29/18 20:03 Attending physician: Jai Mcgrath Consults: 12/29/18 19:46 Consult Physician Urgent Consulting Provider: [facility] Consult Reason/Comments: acute chest pain, reported ICD firing Do you want consulting provider notified?: Yes Primary care physician: Sammy Phillips Hospital Course: Refer to H&P for all specific details. Patient Condition at Discharge: Stable Plan - Discharge Summary New Discharge Prescriptions: Continue Loratadine [Claritin] 10 mg PO DAILY Montelukast [Singulair] 10 mg PO HS Levothyroxine Sodium [Synthroid] 88 mcg PO DAILY Topiramate [Topamax] 25 mg PO BID #60 tab ALPRAZolam [Xanax] 0.25 mg PO HS PRN PRN Reason: Anxiety/INSOMNIA Propranolol HCl [Propranolol HCl ER] 120 mg PO DAILY Discharge Medication List Loratadine [Claritin] 10 mg PO DAILY 10/11/15 [History] Montelukast [Singulair] 10 mg PO HS 10/11/15 [History] Levothyroxine Sodium [Synthroid] 88 mcg PO DAILY 05/09/18 [History] Topiramate [Topamax] 25 mg PO BID #60 tab 05/11/18 [Rx] ALPRAZolam [Xanax] 0.25 mg PO HS PRN 12/29/18 [History] Propranolol HCl [Propranolol HCl ER] 120 mg PO DAILY 12/29/18 [History] Follow up Appointment(s)/Referral(s): Kenan Loving MD [Family Provider] - 01/07/19 Sammy Phillips MD [Primary Care Provider] - 12/31/18 Patient Instructions/Handouts: Supraventricular Tachycardia (DC), Implantable Cardioverter Defibrillator (DC) Activity/Diet/Wound Care/Special Instructions: Pending Cardiology Clearance Discharge Disposition: HOME SELF-CARE
== END 2018-12-30 15:21 | disposition home or self-care (01) ==
LOC: EC 16:41 → 3SCARD 20:03
PROVIDERS: ADMIT Family Medicine; ATTEND Family Medicine
DX: R07.9 Chest pain, unspecified (principal); I47.1 Supraventricular tachycardia; I35.1 Nonrheumatic aortic (valve) insufficiency; I71.2 Thoracic aortic aneurysm, without rupture
CPT/HCPCS: 93288; 99285; 36415; 93005; 93306; 93351; 83880; 80053; 80048; 82550; 83735 ×2; 84484 ×2; 85025 ×2; 85610; 85730; 71046; G0378 ×2; J1250; J0461

== ENCOUNTER → 2019-03-03 | Outpatient (CLI) | payer BC ==
--- NOTE | 2019-03-03 10:23 | XR ---
EXAMINATION TYPE: XR abdomen acute w cxr DATE OF EXAM: 03/03/2019 COMPARISON: Chest x-ray 12/29/2018 HISTORY: Gastroenteritis history of diarrhea and lower abdominal pain TECHNIQUE: Abdomen is examined in the upright and supine views and supplemented with a frontal chest. FINDINGS: The heart size is normal. The pulmonary vasculature is normal. The lungs are clear. Pacemak er overlies left chest. No free air is under the diaphragm. Normal colonic bowel gas is present. A small amount of nonspecific small bowel gas is present. No abbey picious air-fluid levels or differential air-fluid levels are present. IMPRESSION: 1. Nonspecific abdomen.
== END | disposition home or self-care (01) ==
LOC: RADXRMAIN 09:00
PROVIDERS: ATTEND Family Medicine
DX: K52.9 Noninfective gastroenteritis and colitis, unspecified (principal)
CPT/HCPCS: 74022

== ENCOUNTER → 2019-03-03 | Outpatient (CLI) | payer BC ==
[2019-03-03 10:03] LABS: Basophils # (A) 0.1 k/uL (0-0.2); Basophils % (A) 2 %; Eosinophils # (A) 0.1 k/uL (0-0.7); Eosinophils % (A) 2 %; HCT 38.3 % (39.0-53.0); HGB 12.3 gm/dL (13.0-17.5); Lymphocytes # (A) 1.6 k/uL (1.0-4.8); Lymphocytes % (A) 24 %; MCH 30.8 pg (25.0-35.0); MCV 96.3 fL (80.0-100.0); Mean Platelet Volume 7.7; Monocytes # (A) 0.5 k/uL (0-1.0); Monocytes % (A) 7 %; Neutrophils # (A) 4.1 k/uL (1.3-7.7); Neutrophils % (A) 62 %; Platelet Count 218 k/uL (150-450); RBC 3.98 m/uL (4.30-5.90); WBC 6.6 k/uL (3.8-10.6)
[2019-03-03 15:58] LABS: ALT 60 U/L (10-49); AST <7 U/L (14-35); African American GFR (CKD) 111.8 (60.0-200.0); Alkaline Phosphatase 81 U/L (41-126); Amylase 46 U/L (23-121); BUN/Creat Ratio 15.56 Ratio (12.00-20.00); Calcium 8.7 mg/dL (8.7-10.3); Carbon Dioxide 27.9 mmol/L (21.6-31.8); Chloride 107 mmol/L (96-109); Globulin 1.5 g/dL (1.6-3.3); Glucose 89 mg/dL (70-110); Non-African American GFR(CKD) 96.5 (60.0-200.0); Potassium 4.3 mmol/L (3.5-5.5); Sodium 140 mmol/L (135-145); Total Bilirubin 0.4 mg/dL (0.2-1.2)
== END | disposition home or self-care (01) ==
LOC: LABWHC1 08:44
PROVIDERS: ATTEND Family Medicine
DX: A09 Infectious gastroenteritis and colitis, unspecified (principal)
CPT/HCPCS: 36415; 80053; 82150; 83690; 85025

== ENCOUNTER 2019-04-13 17:29 | Emergency (ER) | payer BC ==
[2019-04-13 17:48] VITALS: TEMP 98.1
--- NOTE | 2019-04-13 18:03 | ED ---
URI HPI - General Chief Complaint: Upper Respiratory Infection Stated Complaint: chest congestion/sinus issues Time Seen by Provider: 04/13/19 17:50 Source: patient Mode of arrival: ambulatory Limitations: no limitations - History of Present Illness Initial Comments: 54-year-old male patient presents to the emergency department today for evaluation of cough and congestion. He is reporting symptoms for the last 6-7 days. States he is producing green nasal drainage as well as coughing up green sputum. He denies any hemoptysis. States that his cough worsens at night. Patient states that he does have a sore throat with coughing. He states that he does have occasional chills and sweats. Denies any chest pain. Denies any shortness of breath or wheezing. He has been using Flonase and cough syrup without much relief. Denies any recent travel. Patient does have cardiac history with implanted AICD. Denies any dysrhythmias, recent shocks, or dizziness. Patient denies any recent rash, abdominal pain, nausea, vomiting, diarrhea, constipation, back pain, numbness, tingling, weakness, hematuria, dysuria, urinary urgency, urinary frequency, headache, visual changes, or any other complaints. - Related Data Home Medications Medication Instructions Recorded Confirmed Loratadine [Claritin] 10 mg PO DAILY 10/11/15 12/29/18 Montelukast [Singulair] 10 mg PO HS 10/11/15 12/29/18 Levothyroxine Sodium [Synthroid] 88 mcg PO DAILY 05/09/18 12/29/18 ALPRAZolam [Xanax] 0.25 mg PO HS PRN 12/29/18 12/29/18 Propranolol HCl [Propranolol HCl 120 mg PO DAILY 12/29/18 12/29/18 ER] Previous Rx's Medication Instructions Recorded Topiramate [Topamax] 25 mg PO BID #60 tab 05/11/18 Azithromycin 250 mg PO DAILY 4 Days #4 tab 04/13/19 predniSONE 50 mg PO DAILY #5 tablet 04/13/19 Allergies Allergy/AdvReac Type Severity Reaction Status Date / Time itraconazole [From Sporanox] Allergy Rash/Hives Verified 04/13/19 17:49 morphine Allergy Nausea & Verified 04/13/19 17:49 Vomiting Sulfa (Sulfonamide Allergy Unknown Verified 04/13/19 17:49 Antibiotics) Review of Systems ROS Statement: Those systems with pertinent positive or pertinent negative responses have been documented in the HPI. ROS Other: All systems not noted in ROS Statement are negative. Past Medical History Past Medical History: Chest Pain / Angina, Eye Disorder, Osteoarthritis (OA), Pneumonia, Vascular Disorder Additional Past Medical History / Comment(s): Vtach with ablation, bradycardia, palpitations, "leaky heart valve", cardiomegaly, currently wearing a 30 day event monitor, past medical record documents thoracic aortic aneurysm but pt unsure if he has been told that, bronchitis, arthritis in multiple joints, chronic low back pain, L sided sciatica, migraines, rhinitis, UTI, hemorrhoids, cataracts bilaterally, past fractures bilateral wrists and L foot. History of Any Multi-Drug Resistant Organisms: None Reported Past Surgical History: Cardiac Ablation, Heart Catheterization, Hernia Repair, Orthopedic Surgery Additional Past Surgical History / Comment(s): EPS with VT ablation, jaw surgery, L/R arthroscopic knee surgery for meniscus, bilateral inguinal hernia repairs, colonoscopy. Past Anesthesia/Blood Transfusion Reactions: Postoperative Nausea & Vomiting (PONV) Type of Cardiac Device: AICD Device Placement Date:: 2018 Past Psychological History: Anxiety Smoking Status: Former smoker Past Alcohol Use History: None Reported Past Drug Use History: None Reported - Past Family History Father Family Medical History: Cancer Additional Family Medical History / Comment(s): colon cancer. Mother History Unknown: Yes Family Medical History: Cancer Additional Family Medical History / Comment(s): melanoma General Exam Limitations: no limitations General appearance: alert, in no apparent distress, other (This is a well- developed, well-nourished adult male patient in no acute distress. Vital signs upon presentation are temperature 98.1F, respirations 20, blood pressure 151/93, pulse ox 98% on room air.) Eye exam: Present: normal appearance, PERRL, EOMI. Absent: scleral icterus, conjunctival injection, periorbital swelling ENT exam: Present: normal exam, normal oropharynx, mucous membranes moist Respiratory exam: Present: normal lung sounds bilaterally. Absent: respiratory distress, wheezes, rales, rhonchi, stridor Cardiovascular Exam: Present: regular rate, normal rhythm, normal heart sounds. Absent: systolic murmur, diastolic murmur, rubs, gallop, clicks GI/Abdominal exam: Present: soft, normal bowel sounds. Absent: distended, tenderness, guarding, rebound, rigid Neurological exam: Present: alert, oriented X3, CN II-XII intact Psychiatric exam: Present: normal affect, normal mood Skin exam: Present: warm, dry, intact, normal color. Absent: rash Course Vital Signs 04/13/19 04/13/19 04/13/19 17:46 18:06 19:28 Temperature 98.1 F Pulse Rate 73 94 Respiratory 20 18 Rate Blood Pressure 151/93 109/87 O2 Sat by Pulse 98 96 Oximetry Medical Decision Making - Medical Decision Making 54-year-old male patient presented to the emergency department today for evaluation of cough and nasal congestion. He is reporting green sputum production and arias nasal drainage. Lungs are clear to auscultation with good air movement. He is afebrile. Vital signs showed no major abnormalities. Chest x-ray was obtained and showed no acute cardiopulmonary process. We will treat with a azithromycin for sinusitis and acute bronchitis. He'll be given a burst dose of steroids. Is instructed to follow up this primary care physician for recheck in 1-2 days. Return parameters were discussed in detail. He verbalizes understanding and agrees with this plan. - Radiology Data Radiology results: report reviewed, image reviewed Two-view x-ray of the chest is obtained. Report was reviewed in its entirety. Impression by Dr. Gamino does not active cardiopulmonary disease. Normal heart. No change. Disposition Clinical Impression: Upper respiratory infection, Sinusitis, Bronchitis Disposition: HOME SELF-CARE Condition: Good Instructions (If sedation given, give patient instructions): Sinusitis (ED), Acute Bronchitis (ED) Additional Instructions: Increase fluids. Take medication as instructed. Follow up through primary care physician for recheck in 1-2 days. Return to the emergency department immediately for any new, worsening, or concerning symptoms. Prescriptions: Azithromycin 250 mg PO DAILY 4 Days #4 tab predniSONE 50 mg PO DAILY #5 tablet Is patient prescribed a controlled substance at d/c from ED?: No Referrals: Sammy Phillips MD [Primary Care Provider] - 1-2 days Time of Disposition: 19:03
--- NOTE | 2019-04-13 18:51 | XR ---
EXAMINATION TYPE: XR chest 2V DATE OF EXAM: 04/13/2019 COMPARISON: March 03, 2019 HISTORY: Cough TECHNIQUE: FINDINGS: Heart and mediastinum are normal. Lungs are clear. Diaphragm is normal. There is a left axi llary pacemaker. Bony thorax is intact. IMPRESSION: No active cardiopulmonary disease. Normal heart. No change.
[2019-04-13] MEDS ORDERED: AZITHROMYCIN 500 MG TAB PO STA (19:02)
[2019-04-13] MEDS ORDERED: predniSONE 50 MG TAB PO STA (19:02)
[2019-04-13 19:29] VITALS: BP 109/87; PULSE 94; RESP 18
== END 2019-04-13 19:29 | disposition home or self-care (01) ==
LOC: EC 17:29
DX: J40 Bronchitis, not specified as acute or chronic (principal); J02.9 Acute pharyngitis, unspecified; J32.9 Chronic sinusitis, unspecified; I25.2 Old myocardial infarction; I51.7 Cardiomegaly; Z79.890 Hormone replacement therapy; Z79.899 Other long term (current) drug therapy; Z88.2 Allergy status to sulfonamides; Z88.5 Allergy status to narcotic agent; Z88.3 Allergy status to other anti-infective agents; Z95.810 Presence of automatic (implantable) cardiac defibrillator; Z95.5 Presence of coronary angioplasty implant and graft; Z86.79 Personal history of other diseases of the circulatory system; Z87.891 Personal history of nicotine dependence; Z98.890 Other specified postprocedural states
CPT/HCPCS: 71046; 99283; J7512

== ENCOUNTER 2020-02-29 17:30 | Emergency (ER) | payer BC ==
[2020-02-29 17:34] VITALS: TEMP 98.5
[2020-02-29] MEDS ORDERED: ONDANSETRON 4 MG/2 ML VIAL IVP STA (19:16)
[2020-02-29] MEDS ORDERED: SODIUM CHLORIDE 0.9% 1,000 ML IV ONE (19:16)
[2020-02-29] MEDS ORDERED: SODIUM CHLORIDE 0.9% 500 ML 500 ML IV ONE (19:16)
[2020-02-29] MEDS ORDERED: DIPHENOX-ATROP 2.5-0.025 MG 1 EACH TAB PO STA (19:17)
--- NOTE | 2020-02-29 19:19 | ED ---
General Adult HPI - General Chief complaint: Nausea/Vomiting/Diarrhea Stated complaint: fever/vomiting Time Seen by Provider: 02/29/20 17:30 Source: patient, RN notes reviewed, old records reviewed Mode of arrival: ambulatory Limitations: no limitations - History of Present Illness Initial comments: This is a 55-year-old male who presents emergency Department stating this morning he woke up and started having nausea and vomiting and has not been able to keep anything down all day. Patient states she's also started having diarrhea and that continues. Patient is a little diffuse mid abdominal pain but no specific area of tenderness. Patient denies any fever or chills. Nursing notes indicate a fever patient denies any history of fever Patient denies any chest pain difficulty breathing shortness of breath. Patient denies any headache patient denies numbness weakness. Patient denies lightheadedness or dizziness. - Related Data Home Medications Medication Instructions Recorded Confirmed Loratadine [Claritin] 10 mg PO DAILY 10/11/15 12/29/18 Montelukast [Singulair] 10 mg PO HS 10/11/15 12/29/18 Levothyroxine Sodium [Synthroid] 88 mcg PO DAILY 05/09/18 12/29/18 ALPRAZolam [Xanax] 0.25 mg PO HS PRN 12/29/18 12/29/18 Propranolol HCl [Propranolol HCl 120 mg PO DAILY 12/29/18 12/29/18 ER] Previous Rx's Medication Instructions Recorded Topiramate [Topamax] 25 mg PO BID #60 tab 05/11/18 Azithromycin 250 mg PO DAILY 4 Days #4 tab 04/13/19 predniSONE 50 mg PO DAILY #5 tablet 04/13/19 Allergies Allergy/AdvReac Type Severity Reaction Status Date / Time itraconazole [From Sporanox] Allergy Rash/Hives Verified 02/29/20 17:34 morphine Allergy Nausea & Verified 02/29/20 17:34 Vomiting Sulfa (Sulfonamide Allergy Unknown Verified 02/29/20 17:34 Antibiotics) Review of Systems ROS Statement: Those systems with pertinent positive or pertinent negative responses have been documented in the HPI. ROS Other: All systems not noted in ROS Statement are negative. Past Medical History Past Medical History: Chest Pain / Angina, Eye Disorder, Osteoarthritis (OA), Pneumonia, Vascular Disorder Additional Past Medical History / Comment(s): Vtach with ablation, bradycardia, palpitations, "leaky heart valve", cardiomegaly, currently wearing a 30 day event monitor, past medical record documents thoracic aortic aneurysm but pt unsure if he has been told that, bronchitis, arthritis in multiple joints, chronic low back pain, L sided sciatica, migraines, rhinitis, UTI, hemorrhoids, cataracts bilaterally, past fractures bilateral wrists and L foot. History of Any Multi-Drug Resistant Organisms: None Reported Past Surgical History: Cardiac Ablation, Heart Catheterization, Hernia Repair, Orthopedic Surgery Additional Past Surgical History / Comment(s): EPS with VT ablation, jaw surgery, L/R arthroscopic knee surgery for meniscus, bilateral inguinal hernia repairs, colonoscopy. Past Anesthesia/Blood Transfusion Reactions: Postoperative Nausea & Vomiting (PONV) Type of Cardiac Device: AICD Device Placement Date:: 2018 Past Psychological History: Anxiety Smoking Status: Never smoker Past Alcohol Use History: None Reported Past Drug Use History: None Reported - Past Family History Father Family Medical History: Cancer Additional Family Medical History / Comment(s): colon cancer. Mother History Unknown: Yes Family Medical History: Cancer Additional Family Medical History / Comment(s): melanoma General Exam - General Exam Comments Initial Comments: GENERAL: Patient is well-developed and well-nourished. Patient is nontoxic and well- hydrated and is in mild EYES: The sclera were anicteric and conjunctiva were pink and moist. Extraocular movements were intact and pupils were equal round and reactive to light. Eyelids were unremarkable. PULMONARY: Unlabored respirations. Good breath sounds bilaterally. No audible rales rhonchi or wheezing was noted. CARDIOVASCULAR: There is a regular rate and rhythm without any murmurs gallops or rubs. ABDOMEN: Soft and nontender with normal bowel sounds. No palpable organomegaly was noted. There is no palpable pulsatile mass. SKIN: Skin is clear with no lesions or rashes and otherwise unremarkable. NEUROLOGIC: Patient is alert and oriented x3. Cranial nerves II through XII are grossly intact. Motor and sensory are also intact. Normal speech, volume and content. Symmetrical smile. MUSCULOSKELETAL: Normal extremities with adequate strength and full range of motion. No lower extremity swelling or edema. No calf tenderness. LYMPHATICS: No significant lymphadenopathy is noted PSYCHIATRIC: Normal psychiatric evaluation. Limitations: no limitations Course Vital Signs 02/29/20 17:31 Temperature 98.5 F Pulse Rate 70 Respiratory 18 Rate Blood Pressure 130/85 O2 Sat by Pulse 99 Oximetry Medical Decision Making - Medical Decision Making EKG shows sinus bradycardia 56 bpm MN interval is 180 QRSs 86 QT interval 432 QTC is 416. Patient's EKG shows no ST segment elevation or depression. Patient had a liter and half of fluid Zofran and Lomotil. Patient had no vomiting in the emergency department and was feeling better on discharge. Patient will be sent home with Lomotil - Lab Data Result diagrams: 02/29/20 19:21 02/29/20 19:21 Lab Results 02/29/20 02/29/20 Range/Units 19:21 19:21 WBC 10.6 (3.8-10.6) k/uL RBC 4.58 (4.30-5.90) m/uL Hgb 13.6 (13.0-17.5) gm/dL Hct 42.0 (39.0-53.0) % MCV 91.7 (80.0-100.0) fL MCH 29.7 (25.0-35.0) pg MCHC 32.4 (31.0-37.0) g/dL RDW 13.8 (11.5-15.5) % Plt Count 275 (150-450) k/uL MPV 7.8 Neutrophils % 84 % Lymphocytes % 12 % Monocytes % 3 % Eosinophils % 0 % Basophils % 0 % Neutrophils # 8.9 H (1.3-7.7) k/uL Lymphocytes # 1.3 (1.0-4.8) k/uL Monocytes # 0.3 (0-1.0) k/uL Eosinophils # 0.1 (0-0.7) k/uL Basophils # 0.0 (0-0.2) k/uL Sodium 135 L (137-145) mmol/L Potassium 4.5 (3.5-5.1) mmol/L Chloride 102 (98-107) mmol/L Carbon Dioxide 27 (22-30) mmol/L Anion Gap 6 mmol/L BUN 18 (9-20) mg/dL Creatinine 0.69 (0.66-1.25) mg/dL Est GFR (CKD-EPI)AfAm >90 (>60 ml/min/1.73 sqM) Est GFR (CKD-EPI)NonAf >90 (>60 ml/min/1.73 sqM) Glucose 121 H (74-99) mg/dL Calcium 9.4 (8.4-10.2) mg/dL Total Bilirubin 0.6 (0.2-1.3) mg/dL AST 26 (17-59) U/L ALT 19 (4-49) U/L Alkaline Phosphatase 76 (38-126) U/L Total Protein 7.2 (6.3-8.2) g/dL Albumin 4.4 (3.5-5.0) g/dL Amylase 65 (30-110) U/L Lipase 45 (23-300) U/L Disposition Clinical Impression: Gastroenteritis Disposition: HOME SELF-CARE Condition: Good Instructions (If sedation given, give patient instructions): Gastroenteritis (ED) Is patient prescribed a controlled substance at d/c from ED?: No Referrals: Sammy Phillips MD [Primary Care Provider] - 1-2 days Time of Disposition: 20:24
[2020-02-29 19:48] LABS: Basophils % (A) 0 %; Eosinophils # (A) 0.1 k/uL (0-0.7); Eosinophils % (A) 0 %; HGB 13.6 gm/dL (13.0-17.5); Lymphocytes # (A) 1.3 k/uL (1.0-4.8); Lymphocytes % (A) 12 %; MCH 29.7 pg (25.0-35.0); MCHC 32.4 g/dL (31.0-37.0); MCV 91.7 fL (80.0-100.0); Mean Platelet Volume 7.8; Monocytes # (A) 0.3 k/uL (0-1.0); Monocytes % (A) 3 %; Neutrophils # (A) 8.9 k/uL (1.3-7.7); Neutrophils % (A) 84 %; Platelet Count 275 k/uL (150-450); RBC 4.58 m/uL (4.30-5.90); RDW 13.8 % (11.5-15.5); WBC 10.6 k/uL (3.8-10.6)
[2020-02-29 19:55] LABS: ALT 19 U/L (4-49); AST 26 U/L (17-59); African American GFR (CKD) >90 (>60 ml/min/1.73 sqM); Albumin 4.4 g/dL (3.5-5.0); Alkaline Phosphatase 76 U/L (38-126); Amylase 65 U/L (30-110); Anion Gap 6 mmol/L; Blood Urea Nitrogen 18 mg/dL (9-20); Calcium 9.4 mg/dL (8.4-10.2); Carbon Dioxide 27 mmol/L (22-30); Chloride 102 mmol/L (98-107); Glucose 121 mg/dL (74-99); Lipase 45 U/L (23-300); Non-African American GFR(CKD) >90 (>60 ml/min/1.73 sqM); Potassium 4.5 mmol/L (3.5-5.1); Sodium 135 mmol/L (137-145); Total Bilirubin 0.6 mg/dL (0.2-1.3); Total Protein 7.2 g/dL (6.3-8.2)
[2020-02-29] MEDS ORDERED: DIPHENOX-ATROP STARTER PACK 8 TAB BTL PO STA (20:25)
[2020-02-29 20:41] VITALS: BP 149/79; PULSE 78; RESP 20
== END 2020-02-29 20:40 | disposition home or self-care (01) ==
LOC: EC 17:30
DX: K52.9 Noninfective gastroenteritis and colitis, unspecified (principal); F41.9 Anxiety disorder, unspecified; Z79.51 Long term (current) use of inhaled steroids; Z79.890 Hormone replacement therapy; Z79.899 Other long term (current) drug therapy; Z88.5 Allergy status to narcotic agent; Z88.2 Allergy status to sulfonamides; Z88.8 Allergy status to other drugs, medicaments and biological substances; Z95.810 Presence of automatic (implantable) cardiac defibrillator
CPT/HCPCS: 36415; 93005; 80053; 82150; 83690; 85025; 99284; 96374; 96361; J2405

== ENCOUNTER → 2020-03-14 | Outpatient (CLI) | payer BC ==
--- NOTE | 2020-03-14 14:36 | XR ---
EXAMINATION TYPE: XR sinus DATE OF EXAM: 03/14/2020 CLINICAL HISTORY: Sinus pain and chronic headaches. TECHNIQUE: Forte, Padilla, and lateral image of the skull are obtained. COMPARISON: None. FINDINGS: The paranasal sinuses including the frontal and maxillary sinuses appear well aerated witho ut suspicious opacification or air-fluid levels. There is evidence of prior surgery on the anterolate ral and medial maxillary sinus peter. There is partial visualization of surgical change in the mandib le bilaterally Orbital floors and peter are intact. Facial bones appear intact. Mastoid air cells show opacification of sclerosis bilaterally suggesting chronic mastoiditis. IMPRESSION: No convincing radiographic evidence for significant acute sinusitis. Advise CT evaluatio n if clinical suspicion persists.
== END | disposition home or self-care (01) ==
LOC: RADXRMAIN 14:02
PROVIDERS: ATTEND Family Medicine
DX: J34.89 Other specified disorders of nose and nasal sinuses (principal)
CPT/HCPCS: 70220

== ENCOUNTER → 2020-03-22 | Outpatient (CLI) | payer BC ==
--- NOTE | 2020-03-22 21:05 | CT ---
EXAMINATION TYPE: CT sinus wo con DATE OF EXAM: 03/22/2020 COMPARISON: Sinus x-ray March 14, 2020. HISTORY: Chronic migraines and sinus pain. CT DLP: 599.8 mGycm. Automated Exposure Control for Dose Reduction was Utilized. TECHNIQUE: CT scan of the sinuses is performed without contrast, axial images are obtained, coronal r eformatted images are also reviewed. FINDINGS: Prior surgical change at level of the anterior wall of the bilateral maxillary sinuses. No suspicious new opacification or air-fluid levels The ostiomeatal complex is patent bilaterally on cor onal image 17. Mild to moderate antral mucosal thickening is present. Visualized portion of mastoid air cells show no abnormal opacification. The globes are intact bilate rally. Neither lens is well visualized. IMPRESSION: The sinuses are clear and the ostiomeatal complex is narrowed but patent bilaterally.
== END | disposition home or self-care (01) ==
LOC: RADCTMAIN 16:32
PROVIDERS: ATTEND Family Medicine
DX: J34.89 Other specified disorders of nose and nasal sinuses (principal); G43.009 Migraine without aura, not intractable, without status migrainosus; J32.1 Chronic frontal sinusitis
CPT/HCPCS: 70486

== ENCOUNTER 2020-04-19 15:11 | Emergency (ER) | payer BC ==
[2020-04-19] MEDS ORDERED: SODIUM CHLORIDE 0.9% 1,000 ML IV STA (16:20)
[2020-04-19 16:46] LABS: Basophils % (A) 0 %; Eosinophils # (A) 0.2 k/uL (0-0.7); Eosinophils % (A) 3 %; HCT 38.1 % (39.0-53.0); HGB 12.4 gm/dL (13.0-17.5); Lymphocytes # (A) 1.2 k/uL (1.0-4.8); Lymphocytes % (A) 14 %; MCH 29.9 pg (25.0-35.0); MCHC 32.6 g/dL (31.0-37.0); MCV 91.7 fL (80.0-100.0); Mean Platelet Volume 7.3; Monocytes # (A) 0.2 k/uL (0-1.0); Monocytes % (A) 2 %; Neutrophils # (A) 6.9 k/uL (1.3-7.7); Neutrophils % (A) 80 %; Platelet Count 270 k/uL (150-450); RBC 4.16 m/uL (4.30-5.90); RDW 14.1 % (11.5-15.5); WBC 8.6 k/uL (3.8-10.6)
[2020-04-19 16:55] LABS: INR 0.9 (<1.2); Partial Thromboplastin Time 23.3 sec (22.0-30.0)
[2020-04-19 16:57] LABS: ALT 16 U/L (4-49); AST 28 U/L (17-59); African American GFR (CKD) >90 (>60 ml/min/1.73 sqM); Albumin 4.4 g/dL (3.5-5.0); Alkaline Phosphatase 67 U/L (38-126); Anion Gap 10 mmol/L; Blood Urea Nitrogen 12 mg/dL (9-20); Calcium 9.2 mg/dL (8.4-10.2); Carbon Dioxide 22 mmol/L (22-30); Chloride 104 mmol/L (98-107); Glucose 97 mg/dL (74-99); Non-African American GFR(CKD) >90 (>60 ml/min/1.73 sqM); Potassium 4.8 mmol/L (3.5-5.1); Sodium 136 mmol/L (137-145); Total Bilirubin 0.7 mg/dL (0.2-1.3); Total Protein 7.1 g/dL (6.3-8.2)
--- NOTE | 2020-04-19 17:00 | XR ---
EXAMINATION TYPE: XR chest 2V DATE OF EXAM: 04/19/2020 COMPARISON: 04/13/2019. HISTORY: Dizziness and palpitations. TECHNIQUE: Frontal and lateral views of the chest are obtained. FINDINGS: There is bibasilar chronic interstitial opacity. No significant new airspace opacity, pleu ral effusion, or pneumothorax seen. The cardiac silhouette size is within normal limits. The osseo us structures are intact. Stable left AICD. IMPRESSION: Chronic interstitial opacity. Otherwise no definite acute process.
--- NOTE | 2020-04-19 17:27 | ED ---
Dizziness HPI - General Chief Complaint: Dizziness Stated Complaint: Dizzy Time Seen by Provider: 04/19/20 15:52 Source: patient, family Mode of arrival: ambulatory Limitations: no limitations - History of Present Illness Initial Comments: 55-year-old male presents to emergency Department with chief complaint of dizziness and palpitations. Patient states around noon he noticed palpitations while he was at work and an elevated heart rate. However, states this was not high enough to activate his defibrillator pacemaker. Following the episode of palpitations, he developed lightheadedness and slight dizziness that lasted for about 5-10 minutes. Patient reports afterwards she went to sit in his car And had one episode of nonbilious and nonbloody vomiting. States there is occasionally happens to him whenever he develops palpitations. He denies any chest pain shortness of breath at this time. Denies headaches, blurry vision, one-sided weakness or paresthesias. He diaphoretic episodes. Denies taking medication to alleviate the symptoms. - Related Data Home Medications Medication Instructions Recorded Confirmed Loratadine [Claritin] 10 mg PO DAILY 10/11/15 12/29/18 Montelukast [Singulair] 10 mg PO HS 10/11/15 12/29/18 Levothyroxine Sodium [Synthroid] 88 mcg PO DAILY 05/09/18 12/29/18 ALPRAZolam [Xanax] 0.25 mg PO HS PRN 12/29/18 12/29/18 Propranolol HCl [Propranolol HCl 120 mg PO DAILY 12/29/18 12/29/18 ER] Previous Rx's Medication Instructions Recorded Topiramate [Topamax] 25 mg PO BID #60 tab 05/11/18 Azithromycin 250 mg PO DAILY 4 Days #4 tab 04/13/19 predniSONE 50 mg PO DAILY #5 tablet 04/13/19 Allergies Allergy/AdvReac Type Severity Reaction Status Date / Time itraconazole [From Sporanox] Allergy Rash/Hives Verified 04/19/20 15:43 morphine Allergy Nausea & Verified 04/19/20 15:43 Vomiting Sulfa (Sulfonamide Allergy Unknown Verified 04/19/20 15:43 Antibiotics) Review of Systems ROS Statement: Those systems with pertinent positive or pertinent negative responses have been documented in the HPI. ROS Other: All systems not noted in ROS Statement are negative. Past Medical History Past Medical History: Chest Pain / Angina, Eye Disorder, Osteoarthritis (OA), Pneumonia, Vascular Disorder Additional Past Medical History / Comment(s): Vtach with ablation, bradycardia, palpitations, "leaky heart valve", cardiomegaly, currently wearing a 30 day event monitor, past medical record documents thoracic aortic aneurysm but pt unsure if he has been told that, bronchitis, arthritis in multiple joints, chronic low back pain, L sided sciatica, migraines, rhinitis, UTI, hemorrhoids, cataracts bilaterally, past fractures bilateral wrists and L foot. History of Any Multi-Drug Resistant Organisms: None Reported Past Surgical History: Cardiac Ablation, Heart Catheterization, Hernia Repair, Orthopedic Surgery Additional Past Surgical History / Comment(s): EPS with VT ablation, jaw surgery, L/R arthroscopic knee surgery for meniscus, bilateral inguinal hernia repairs, colonoscopy. Past Anesthesia/Blood Transfusion Reactions: Postoperative Nausea & Vomiting (PONV) Type of Cardiac Device: AICD Device Placement Date:: 2018 Past Psychological History: Anxiety Smoking Status: Never smoker Past Alcohol Use History: None Reported Past Drug Use History: None Reported - Past Family History Father Family Medical History: Cancer Additional Family Medical History / Comment(s): colon cancer. Mother History Unknown: Yes Family Medical History: Cancer Additional Family Medical History / Comment(s): melanoma General Exam Limitations: no limitations General appearance: alert, in no apparent distress Head exam: Present: atraumatic, normocephalic, normal inspection Eye exam: Present: normal appearance, PERRL, EOMI. Absent: scleral icterus, conjunctival injection, nystagmus, periorbital swelling, periorbital tenderness Pupils: Present: normal accommodation ENT exam: Present: normal exam, normal oropharynx, mucous membranes moist Neck exam: Present: normal inspection, full ROM. Absent: tenderness Respiratory exam: Present: normal lung sounds bilaterally. Absent: respiratory distress Cardiovascular Exam: Present: regular rate, normal rhythm, normal heart sounds GI/Abdominal exam: Present: soft. Absent: distended, tenderness, guarding Extremities exam: Present: normal inspection, full ROM, normal capillary refill, other (Palpable DP and PT bilaterally.). Absent: tenderness Back exam: Present: normal inspection, full ROM. Absent: tenderness Neurological exam: Present: alert, oriented X3, normal gait Psychiatric exam: Present: normal affect, normal mood Skin exam: Present: warm, dry, intact, normal color Course Vital Signs 04/19/20 04/19/20 04/19/20 15:43 17:32 18:46 Temperature 98.2 F 97.9 F Pulse Rate 69 51 L 56 L Respiratory 16 18 16 Rate Blood Pressure 131/77 114/80 127/82 O2 Sat by Pulse 96 98 98 Oximetry EKG Findings - EKG Comments: EKG Findings:: Sinus bradycardia. Ischemic changes in V3 and V4. Similar EKG to 02/29/20. Ventricular rate 54, OK 176, QRS 96, QTC 430. Medical Decision Making - Medical Decision Making 55-year-old male presents to the emergency department with a chief complaint of palpitations and dizziness. On physical examination, no focal neurological deficits. Patient is a symptomatically at this time. Vitals are within normal limits. Patient does have a pacemaker defibrillator. He saw his cylinder press operator apprentice one month ago with no acute findings on stress test. EKG showing sinus bradycardia with ischemic changes in V3 and V4. This is similar EKG to her most recent one. CBC CMP and a Jake. Chest x-ray shows no acute findings. Initial troponins are negative. On reevaluation, patient feels comfortable and wants to go home. He will follow with the cylinder press operator apprentice outpatient. Return parameters discussed the patient was understanding and agreeable. Case discussed with Dr. Soliman. - Lab Data Result diagrams: 04/19/20 16:41 04/19/20 16:41 Lab Results 04/19/20 04/19/20 04/19/20 Range/Units 16:41 16:41 16:41 WBC 8.6 (3.8-10.6) k/uL RBC 4.16 L (4.30-5.90) m/uL Hgb 12.4 L (13.0-17.5) gm/dL Hct 38.1 L (39.0-53.0) % MCV 91.7 (80.0-100.0) fL MCH 29.9 (25.0-35.0) pg MCHC 32.6 (31.0-37.0) g/dL RDW 14.1 (11.5-15.5) % Plt Count 270 (150-450) k/uL MPV 7.3 Neutrophils % 80 % Lymphocytes % 14 % Monocytes % 2 % Eosinophils % 3 % Basophils % 0 % Neutrophils # 6.9 (1.3-7.7) k/uL Lymphocytes # 1.2 (1.0-4.8) k/uL Monocytes # 0.2 (0-1.0) k/uL Eosinophils # 0.2 (0-0.7) k/uL Basophils # 0.0 (0-0.2) k/uL PT (9.0-12.0) sec INR (<1.2) APTT (22.0-30.0) sec Sodium 136 L (137-145) mmol/L Potassium 4.8 (3.5-5.1) mmol/L Chloride 104 (98-107) mmol/L Carbon Dioxide 22 (22-30) mmol/L Anion Gap 10 mmol/L BUN 12 (9-20) mg/dL Creatinine 0.73 (0.66-1.25) mg/dL Est GFR (CKD-EPI)AfAm >90 (>60 ml/min/1.73 sqM) Est GFR (CKD-EPI)NonAf >90 (>60 ml/min/1.73 sqM) Glucose 97 (74-99) mg/dL Calcium 9.2 (8.4-10.2) mg/dL Total Bilirubin 0.7 (0.2-1.3) mg/dL AST 28 (17-59) U/L ALT 16 (4-49) U/L Alkaline Phosphatase 67 (38-126) U/L Troponin I <0.012 (0.000-0.034) ng/mL Total Protein 7.1 (6.3-8.2) g/dL Albumin 4.4 (3.5-5.0) g/dL 04/19/20 Range/Units 16:41 WBC (3.8-10.6) k/uL RBC (4.30-5.90) m/uL Hgb (13.0-17.5) gm/dL Hct (39.0-53.0) % MCV (80.0-100.0) fL MCH (25.0-35.0) pg MCHC (31.0-37.0) g/dL RDW (11.5-15.5) % Plt Count (150-450) k/uL MPV Neutrophils % % Lymphocytes % % Monocytes % % Eosinophils % % Basophils % % Neutrophils # (1.3-7.7) k/uL Lymphocytes # (1.0-4.8) k/uL Monocytes # (0-1.0) k/uL Eosinophils # (0-0.7) k/uL Basophils # (0-0.2) k/uL PT 10.0 (9.0-12.0) sec INR 0.9 (<1.2) APTT 23.3 (22.0-30.0) sec Sodium (137-145) mmol/L Potassium (3.5-5.1) mmol/L Chloride (98-107) mmol/L Carbon Dioxide (22-30) mmol/L Anion Gap mmol/L BUN (9-20) mg/dL Creatinine (0.66-1.25) mg/dL Est GFR (CKD-EPI)AfAm (>60 ml/min/1.73 sqM) Est GFR (CKD-EPI)NonAf (>60 ml/min/1.73 sqM) Glucose (74-99) mg/dL Calcium (8.4-10.2) mg/dL Total Bilirubin (0.2-1.3) mg/dL AST (17-59) U/L ALT (4-49) U/L Alkaline Phosphatase (38-126) U/L Troponin I (0.000-0.034) ng/mL Total Protein (6.3-8.2) g/dL Albumin (3.5-5.0) g/dL Disposition Clinical Impression: Palpitations, Dizziness Disposition: HOME SELF-CARE Condition: Stable Instructions (If sedation given, give patient instructions): Dizziness (ED) Additional Instructions: Follow-up with her cylinder press operator apprentice. Please return to the Emergency Department if symptoms worsen or any other concerns. Is patient prescribed a controlled substance at d/c from ED?: No Referrals: Sammy Phillips MD [Primary Care Provider] - 1-2 days Time of Disposition: 18:31
[2020-04-19 18:48] VITALS: BP 127/82; PULSE 56; RESP 16; TEMP 97.9
== END 2020-04-19 18:47 | disposition home or self-care (01) ==
LOC: EC 15:11
DX: R42 Dizziness and giddiness (principal); R00.2 Palpitations; R00.1 Bradycardia, unspecified; R94.31 Abnormal electrocardiogram [ECG] [EKG]; F41.9 Anxiety disorder, unspecified; M19.90 Unspecified osteoarthritis, unspecified site; I51.7 Cardiomegaly; Z79.899 Other long term (current) drug therapy; Z88.2 Allergy status to sulfonamides; Z88.5 Allergy status to narcotic agent; Z88.3 Allergy status to other anti-infective agents; Z95.810 Presence of automatic (implantable) cardiac defibrillator; Z95.5 Presence of coronary angioplasty implant and graft
CPT/HCPCS: 36415; 71046; 80053; 84484; 85025; 85610; 85730; 93005; 96360; 99284

== ENCOUNTER → 2020-05-03 | Outpatient (CLI) | payer OTHER ==
--- NOTE | 2020-05-03 11:34 | XR ---
Lumbar spine HISTORY: Back pain 3 views lumbar spine There is loss of disc height at intervertebral levels L4-5 and L5-S1. Suspect T12 is nonrib-bearing. Vacuum phenomenon present at L4-5, L5-S1, there is associated spondylosis. Sclerosis present in the p osterior elements. Lumbar vertebral bodies show preserved height and bone mineralization. Apical scar ring vascular calcifications present within the aorta. IMPRESSION: Degenerative disc disease and facet arthropathy.
== END ==
LOC: RADXRMAIN 10:51
PROVIDERS: ATTEND Emergency Medicine
DX: M51.36 Other intervertebral disc degeneration, lumbar region (principal); M47.816 Spondylosis without myelopathy or radiculopathy, lumbar region
CPT/HCPCS: 72100

== ENCOUNTER → 2020-05-04 | Outpatient (CLI) | payer BC ==
[2020-05-04 23:54] LABS: Basophils # (A) 0.05 X 10*3/uL (0.00-0.10); Basophils % (A) 0.7 %; Eosinophils # (A) 0.21 X 10*3/uL (0.04-0.35); Eosinophils % (A) 2.7 %; HCT 36.4 % (39.6-50.0); HGB 11.9 g/dL (13.0-17.0); Lymphocytes # (A) 2.35 X 10*3/uL (0.90-5.00); Lymphocytes % (A) 30.6 %; MCH 30.8 pg (27.0-32.0); MCHC 32.7 g/dL (32.0-37.0); MCV 94.3 fL (80.0-97.0); Mean Platelet Volume 11.2 fL (9.5-12.2); Monocytes # (A) 0.67 X 10*3/uL (0.20-1.00); Monocytes % (A) 8.7 %; Neutrophils # (A) 4.39 X 10*3/uL (1.80-7.70); Platelet Count 269 X 10*3/uL (140-440); RBC 3.86 X 10*6/uL (4.40-5.60); RDW 13.6 % (11.5-14.5); WBC 7.69 X 10*3/uL (4.50-10.00)
[2020-05-05 18:14] LABS: Anion Gap 10.2 mmol/L (4.00-12.00); BUN/Creat Ratio 15.56 Ratio (12.00-20.00); Calcium 9.4 mg/dL (8.7-10.3); Carbon Dioxide 23.8 mmol/L (21.6-31.8); Non-African American GFR(CKD) 95.8 (60.0-200.0); Potassium 4.2 mmol/L (3.5-5.5)
[2020-05-05 18:18] LABS: T4, Free (Free Thyroxine) 1.3 ng/dL (0.80-1.80)
== END | disposition home or self-care (01) ==
LOC: LABWHC1 16:20
PROVIDERS: ATTEND Family Medicine
DX: E03.9 Hypothyroidism, unspecified (principal); K92.1 Melena; K21.9 Gastro-esophageal reflux disease without esophagitis
CPT/HCPCS: 36415; 80048; 84439; 84443; 84481; 85025

== ENCOUNTER → 2020-05-05 | Outpatient (CLI) | payer OTHER ==
--- NOTE | 2020-05-05 12:11 | XR ---
EXAMINATION TYPE: XR Hip Complete RT DATE OF EXAM: 05/05/2020 Comparison: None Clinical History: 55 year-old male right-sided hip pain, S76.211D Findings: Right hip joint space relatively maintained. No acute fracture, subluxation, or dislocation seen. Impression: No acute osseous abnormality seen. If pain persists, MRI can be considered.
== END ==
LOC: RADXRMAIN 11:17
PROVIDERS: ATTEND Emergency Medicine
DX: S76.211D Strain of adductor muscle, fascia and tendon of right thigh, subsequent encounter (principal)
CPT/HCPCS: 73502

== ENCOUNTER → 2020-05-24 | Outpatient (CLI) | payer OTHER ==
--- NOTE | 2020-05-24 13:10 | US ---
EXAMINATION TYPE: US scrotum with doppler. DATE OF EXAM: 05/24/2020 COMPARISON: US 01/04/17 CLINICAL HISTORY: 55-year-old male Testicular pain N50.819. Pt hurt himself at work Pain in back radi ating to right testicle. Injury 04-27-20 TECHNIQUE: Grayscale and color Doppler Duplex imaging performed of the scrotum. FINDINGS: EXAM MEASUREMENTS: TESTICLES: Right Testicle: 4.9 x 3.5 x 1.9 cm for a volume of 17.0 mL. Left Testicle: 5.2 x 3.2 x 2.4 cm for a volume of 20.8. The testicles show normal homogeneous appearance without hyperemia and normal color flow. EPIDIDYMIS HEAD: Right Epididymis: 1.2 x 0.7 x 0.5 cm with a cyst measuring 8 mm. Left Epididymis: 2.1 x 1.4 x 0.7 cm with a cyst measuring 7 mm. Doppler performed to assess for testicular vascularity; on the right, venous flow is demonstrated. On the left, both venous and arterial flow is demonstrated. Good bilateral color flow. Presence of hydroceles: Yes Left side Presence of varicoceles: No IMPRESSION: 1. While only venous flow was demonstrated on the right, the overall morphology, size, and echotextur e of the testicles is symmetric and normal. No supporting evidence for testicular torsion or epididym oorchitis. 2. Moderate sized hydrocele on the left.
== END | disposition home or self-care (01) ==
LOC: RADUSWWP 11:12
PROVIDERS: ATTEND Emergency Medicine
DX: N43.3 Hydrocele, unspecified (principal)
CPT/HCPCS: 76870; 93975

== ENCOUNTER → 2020-07-01 | Day surgery (SDC) | payer OTHER ==
[~2020-07-01] MED LIST changes: -DEXAMETHASONE SOD PHOSPHATE 10 MG/ML 1 ML VIAL IV ONE; +HYDROcodone/APAP 5-325MG 1 EACH TAB PO PRN; -HYDROmorphone 1 MG/ML 1 ML SYRINGE IVP PRN; -LACTATED RINGERS 1,000 ML IV SCH; -MIDAZOLAM 2 MG/2 ML VIAL IV PRN; -ONDANSETRON 4 MG/2 ML VIAL IVP ONE; +PREMYELOGRAM MEDICATION REVIEW 1 EACH MISC PO NR; -SCOPOLAMINE 1.5MG/72HR PATCH TRANSDERM ONE; -ceFAZolin 2 GM in SODIUM CHLORIDE 0.9% 100 ML IVPB ONE; +diazePAM 5 MG TAB PO STA
[2020-07-01 09:02] VITALS: TEMP 98.1
--- NOTE | 2020-07-01 11:03 | CT ---
EXAMINATION TYPE: CT lumbar spine w con DATE OF EXAM: 07/01/2020 COMPARISON: None. HISTORY: Lumbago CT DLP: 1000 mGycm Automated exposure control for dose reduction was used. CONTRAST: CT scan of the lumbar is performed after intrathecal injection of contrast Enhanced CT of the lumbar spine was performed. Bone and soft tissue window settings are submitted as well as coronal and sagittal reconstructions. There are 5 lumbar-type vertebra. Lumbar spine shows grade 1 retrolisthesis L4 on L5. There is modera te disc space narrowing and anterior spurring L4-L5 level. Successful contrast injection thecal sac. No large disc herniations identified. Vertebral body heights are maintained. Mild disc space L5-S1 le hilaria. Axial images show no large disc herniation or spinal canal effacement at T11-T12, T12-L1, and L1-L2 l evels. Axial images at L2-L3 level show mild/moderate broad disc bulge and facet arthropathy with effacement of the anterior thecal sac and mild to moderate bilateral neural foraminal narrowing. Axial images at the L3-L4 level shows moderate broad-based posterior disc protrusion and mild to mode rate facet arthropathy bilaterally. There is mild bilateral anterior inferior neural foraminal narrow ing. Axial images at L4-L5 level show mild/moderate facet arthropathy bilaterally. Spinal canal is preserv ed. Moderate bilateral neural foraminal narrowing due to marginal spurring. No disc herniation. Axial images at L5-S1 level appear within normal limits. [id number] calcified plaque of the infrarenal abdominal aorta. Mild to moderately distended nevin dder partially imaged. IMPRESSION: Multilevel degenerative changes as detailed above.
[2020-07-01 12:54] VITALS: RESP 16
[2020-07-01 13:26] VITALS: BP 106/72; PULSE 64
--- NOTE | 2020-07-01 14:44 | FL ---
Lumbar puncture and Myelogram. INDICATION: Pain FINDINGS: Fluoroscopy time: 51 seconds. Images obtained: 5. The procedure was explained to the patient. Risks complications and benefits were discussed. Alternat magalsi were discussed. All questions were answered. Informed consent was obtained. A timeout was performed. The L4-5 level was chosen for access. Maximum barrier sterile technique was utilized. The skin was cl eansed with Betadine and the patient sterilely prepped and draped in the usual manner. The skin and d eeper tissue was anesthetized with 1% Lidocaine. Utilizing a 22-gauge spinal needle the spinal canal was accessed. Good CSF return was evident. Isovue 180 was utilized, 7 milliliters was administered u nder fluoroscopic observation. The stylette was replaced and the needle withdrawn. Fluoroscopic spot images were obtained. The patient tolerated the procedure well. Discharge instructions were discussed with the patient. Th e patient was transferred to CT for additional evaluation. Findings: Limited views of the lumbar spinal canal with contrast were obtained. No significant copeland es are evident. IMPRESSIONS: 1. Successful Lumbar Puncture.
== END ==
LOC: RADPROMAIN 07:58
PROVIDERS: ATTEND Orthopaedic Surgery
DX: Z88.2 Allergy status to sulfonamides (principal); F17.210 Nicotine dependence, cigarettes, uncomplicated; M54.16 Radiculopathy, lumbar region; Z80.0 Family history of malignant neoplasm of digestive organs; Z80.8 Family history of malignant neoplasm of other organs or systems
CPT/HCPCS: 62304; 72132; Q9966

== ENCOUNTER → 2020-07-05 | Outpatient (CLI) | payer BC | END | disposition home or self-care (01) | LOC: LABWHC1 10:08 | PROVIDERS: ATTEND Family Medicine | DX: E03.9 Hypothyroidism, unspecified (principal) | CPT/HCPCS: 36415; 84443 ==

== ENCOUNTER 2020-07-28 07:59 | Day surgery (SDC) | payer BC, OTHER ==
[2020-07-26 17:25] VITALS: BMI 24.1
[~2020-07-28 07:59] MED LIST changes: -HYDROcodone/APAP 5-325MG 1 EACH TAB PO PRN; +LACTATED RINGERS 1,000 ML IV SCH; -PREMYELOGRAM MEDICATION REVIEW 1 EACH MISC PO NR; -diazePAM 5 MG TAB PO STA
[2020-07-28 08:18] VITALS: RESP 16; TEMP 95.8
[2020-07-28] MEDS ORDERED: LIDOCAINE 1% (10MG/ML) FOR IV START INTRADERMA ONE (08:24)
[2020-07-28] MEDS ORDERED: fentaNYL (PF) 50 MCG/ML 2 ML AMP ONE (08:39)
[2020-07-28] MEDS ORDERED: IOPAMIDOL M200 10 ML VIAL ONE (08:39)
[2020-07-28] MEDS ORDERED: methylPREDNISolone ACETATE 40 MG/ML 1 ML VIAL ONE (08:39)
[2020-07-28] MEDS ORDERED: MIDAZOLAM 2 MG/2 ML VIAL ONE (08:39)
--- NOTE | 2020-07-28 08:55 | P.PCN ---
Date of Procedure: 07/28/20 Procedure(s) Performed: PREOPERATIVE DIAGNOSIS:1- Lumbar radiculopathy . 2- lumbar spinal stenosis. 3-lumbar spondylosis with lumbar facet arthropathy POSTOPERATIVE DIAGNOSIS: Same as preoperative diagnoses. PROCEDURE 1. Transforaminal epidural steroid injection under fluoroscopic guidance at right L3-4 ,and L4-5 level. (Fluoroscopy images stored on file in the radiology Department ) 2. Lumbar epidurogram . ANESTHESIA: Local with 1% lidocaine 3 ml , moderate sedation with intravenous Versed 2 mg and fentanyle 50 micrograms. EBL: Minimal PROCEDURE INDICATION: The patient with low back pain and radiculopathy symptoms unresponsive to conservative treatment. PROCEDURE DESCRIPTION / TECHNIQUE: The patient was seen and identified in the preoperative area. Risks, benefits, complications, and alternatives were discussed with the patient. The patient agreed to proceed with the procedure and signed the consent. IV was started, and vital signs were stable. Patient was taken to the OR and time out was completed. The patient was placed in the prone position on procedure table and a pillow was placed under the abdomen to reduce lumbar lordosis. The lumbosacral area was prepped and draped in the usual sterile fashion. Critical pause was taken. Vital signs were closely monitored during the procedure. Conscious sedation was used during the procedure to decrease patient s anxiety. Using oblique fluoroscopy, the chin of the `JoannParvez dog at Right L3-4 level was identified, and the skin and deeper tissues just below was localized with 1% lidocaine. Subsequently, a 22-gauge 3.5-inch spinal needle was advanced under a tunneled view fluoroscopic guidance just underneath the chin of the `Rupaliy dog at the right L3-4 Under lateral fluoroscopy, the needle was then advanced to the posterior border of the interforaminal space. After negative aspiration of CSF and blood and with no paresthesias, 1 mL Isovue 200 contrast dye was injected excellent epidurogram and outlining of the nerve root Subsequently, 3 mL of block solution containing 40 mg Depo-Medrol and 2 mL of 0.9% normal saline PF was injected. Needle was removed and the same procedure was repeated at the right L4-5 level (s). At the end of the procedure, skin was cleansed, and bandages were applied. COMPLICATIONS:none DISPOSITION / PLANS: The patient was placed in a supine position and transferred to the recovery area in a stable condition for observation. There was no evidence of lower extremity motor or sensory deficit after the procedure. Patient was discharged from the recovery room after meeting discharge criteria. Home discharge instructions were given to the patient by the staff. The patient was reexamined prior to discharge.
[2020-07-28] MEDS ORDERED: IV FLUID CONTINUATION 1,000 ML IV ONE (08:57)
--- NOTE | 2020-07-28 09:05 | FL ---
Fluoroscopy INDICATION: Pain FINDINGS: Fluoroscopy time: 10 seconds. Images obtained: 2. IMPRESSIONS: 1. Documentation of fluoroscopy.
[2020-07-28 09:10] VITALS: BP 113/76; PULSE 68
== END 2020-07-28 09:30 | disposition home or self-care (01) ==
LOC: ORPAIN 07:59
PROVIDERS: ATTEND Specialist
DX: M47.26 Other spondylosis with radiculopathy, lumbar region (principal); M48.061 Spinal stenosis, lumbar region without neurogenic claudication; Z95.0 Presence of cardiac pacemaker; Z95.810 Presence of automatic (implantable) cardiac defibrillator; Z88.3 Allergy status to other anti-infective agents; Z88.5 Allergy status to narcotic agent; Z88.2 Allergy status to sulfonamides
CPT/HCPCS: 64483; 64484; J2250; J1030; J3010; Q9966

== ENCOUNTER → 2020-08-11 | Day surgery (SDC) | payer BC, OTHER ==
[2020-08-09 15:35] VITALS: BMI 24.4
[~2020-08-11] MED LIST changes: +DEXAMETHASONE SOD PHOSPHATE 10 MG/ML 1 ML VIAL ONE; +IOPAMIDOL M200 10 ML VIAL ONE; +IV FLUID CONTINUATION 1,000 ML IV ONE; +LACTATED RINGERS 1,000 ML IV ONE; +LIDOCAINE 1% INJ 10MG/ML (20 ML MDV) ONE; +MIDAZOLAM 2 MG/2 ML VIAL ONE; +fentaNYL (PF) 50 MCG/ML 2 ML AMP ONE
[2020-08-11 08:19] VITALS: TEMP 97.7
--- NOTE | 2020-08-11 09:27 | P.PCN ---
Date of Procedure: 08/11/20 Surgeon: Estevan Trinh Pathology: none sent Condition: stable Disposition: PACU Description of Procedure: PREOPERATIVE DIAGNOSIS: Lumbar radiculopathy POSTOPERATIVE DIAGNOSIS: Lumbar radiculopathy PROCEDURE 1. Transforaminal epidural steroid injection under fluoroscopic guidance at right L3 4 and L4 5 levels 2. Lumbar epidurogram. SURGEON: Estevan Trinh MD ANESTHESIA: Local with 1% lidocaine; IV sedation with Versed and fentanyl. EBL: Minimal PROCEDURE INDICATION: The patient with low back pain and radiculopathy symptoms unresponsive to conservative treatment. PROCEDURE DESCRIPTION / TECHNIQUE: The patient was seen and identified in the preoperative area. Risks, benefits, complications, and alternatives were discussed with the patient. The patient agreed to proceed with the procedure and signed the consent. IV was started, and vital signs were stable. Patient was taken to the OR and time out was completed. The patient was placed in the prone position on procedure table and a pillow was placed under the abdomen to reduce lumbar lordosis. The lumbosacral area was prepped and draped in the usual sterile fashion. Critical pause was taken. Vital signs were closely monitored during the procedure. Conscious sedation was used during the procedure to decrease patients anxiety. The vertebral body of the lumbar vertebra L3 was squared off by tilting the C-arm cephalad then the C-arm was tilted to the oblique position and the target point was at the 6 o'clock position of the pedicle of then skin and deeper tissues were localized with 1% lidocaine. Subsequently, a 22-gauge 3.5- inch spinal needle was advanced under a tunneled view fluoroscopic guidance just underneath the chin of the Parvez dog at the . Under lateral fluoroscopy, the needle was then advanced to the middle of the upper one third of the foramen between( L3-L4). After negative aspiration of CSF and blood and with no paresthesias, 1 mL of omnipaque contrast dye was injected excellent epidurogram and outlining of the L3 nerve root was identified. Subsequently, 2 mL of block solution containing 5 mg of Decadron and 1 mL of Lidocaine 1% PF was injected. Needle was removed intact . the same procedure was repeated at the L4-5 level in the same manner. The total dose of steroids used for this procedure is 10 mg of Decadron.At the end of the procedure, skin was cleansed, and bandages were applied. COMPLICATIONS: None COMMENTS: DISPOSITION / PLANS: The patient was placed in a supine position and transferred to the recovery area in a stable condition for observation. There was no evidence of lower extremity motor or sensory deficit after the procedure. Patient was discharged from the recovery room after meeting discharge criteria. Home discharge instructions were given to the patient by the staff.
[2020-08-11 09:34] VITALS: RESP 16
[2020-08-11 09:47] VITALS: BP 119/77; PULSE 82
--- NOTE | 2020-08-11 10:20 | FL ---
Fluoroscopy HISTORY: Pain 10 seconds fluoroscopy time supplied to the referring clinician. 2 intraoperative C-arm images docum ent the procedure. See dictated report from anesthesia.
== END ==
LOC: ORPAIN 07:52
PROVIDERS: ATTEND Anesthesiology
DX: M54.16 Radiculopathy, lumbar region (principal)
CPT/HCPCS: 64483; 64484; J2250; J1100; J2001; J3010; Q9966; 99152

== ENCOUNTER → 2020-10-03 | Outpatient (CLI) | payer BC ==
--- NOTE | 2020-10-03 14:32 | P.PAINPG ---
Subjective Progress Note Date: 10/03/20 This is a 55-year-old patient here for followup after right L3-4 and L4-5 TFESI x2. Received about 60% relief. Did physical therapy in May and continues to do home exercises. Patient having pain in the low back with radiation down the right lower extremity. He did see Dr. Way and who at this time said surgeries the likely outcome. At this time patient would like to maximize injection therapy or more times he can't have any better and long-lasting relief as he is scheduled to go back to work tomorrow. Patient denies adverse drug effects from medications. Patient also denies new- onset weakness, bowel/bladder incontinence, or any other signs or symptoms of cauda equina syndrome. There are no signs of acute intoxication, and no indications of medication diversion or overuse. In addition to above, 13-point review of systems is also negative for chest pain, shortness of breath, changes in vision, changes in hearing, new onset weakness, abdominal pain, diarrhea, extreme fatigue, malaise, fever, skin changes, homicidal or suicidal ideation, or bowel or bladder incontinence. Physical exam: Vital Signs: Reviewed in EMR GENERAL: Well appearing, in no acute distress PSYCH: Mood and affect is appropriate. Awake, alert, and oriented SKIN: Skin color, texture, turgor normal, no rashes or lesions HEENT: Normocephalic, atraumatic. EOM intact CV: No pedal edema RESP: Respirations are unlabored, no audible wheezing GI: Abdomen non-distended MUSCULOSKELETAL: Bilateral upper and lower extremity strength is normal and symmetric. No atrophy or tone abnormalities are noted. Lumbar spine: Straight leg raising in the sitting position is positive bilaterally No pain to palpation over the lumbar spine and paraspinous muscles. Negative for pain with facet loading and back extension/rotation. Extremities: Peripheral joint ROM is full and pain free without obvious in stability or laxity in all four extremities. No edema or skin discolorations noted. Gait: Gait is normal NEUR: Bilateral upper and lower extremity coordination and muscle stretch reflexes are physiologic and symmetric. Negative clonus. No loss of sensation is noted. Cranial nerves are grossly intact. Assessment: 1. Lumbar radicular pain Plan: - Repeat R L3-4 and L4-5 TFESI, if no beenfit refer back to Dr Way I spent 26 minutes on patient care today. The time was used to review medical records including relevant urine studies and prescription history (MAPs), review of the available imaging, evaluation and examination the patient, coordination of care at the medical staff and if applicable referring physicians, as well as creation of the medical record. PQRS Measure Charge Sheet PQRS Narrative: Smoking Status Former smoker Pain Intensity [Lower Back] 3 Scale Used Numeric (1 - 10) Hx Alcohol Use (MH) No Home Medications: Ambulatory Orders Loratadine [Claritin] 10 mg PO DAILY 10/11/15 Montelukast [Singulair] 10 mg PO HS 10/11/15 Acetaminophen/Diphenhydramine [Tylenol PM 500-25mg] 1 tab PO DAILY PRN 06/22/20 Atorvastatin [Lipitor] 20 mg PO HS 06/22/20 Divalproex ER [Depakote ER] 250 mg PO DAILY 06/22/20 Levothyroxine Sodium 100 mcg PO DAILY 06/22/20 Magnesium Chloride [Slow-Mag] 1 tab PO DAILY 06/22/20 Pantoprazole [Protonix] 40 mg PO DAILY 06/22/20 Propranolol HCl [Inderal Xl] 80 mg PO BID 06/22/20 Sotalol [Betapace] 80 mg PO TID 06/22/20 Triamcinolone Acetonide [Triamcinolone Acetonide 0.055MG Nasal] 1 spray NASAL HS 06/22/20 Cyclobenzaprine [Flexeril] 10 mg PO BID PRN 07/26/20 Gabapentin 300 mg PO HS 09/28/20 Controlled Substance Measures - Controlled Substance Measures Is patient prescribed a controlled substance at discharge?: No
[2020-10-03 14:37] VITALS: BP 119/81; PULSE 78; RESP 16; TEMP 98.4
== END ==
LOC: PNWHC3 14:00
PROVIDERS: ATTEND Anesthesiology
DX: M54.16 Radiculopathy, lumbar region (principal); Z87.891 Personal history of nicotine dependence; Z88.2 Allergy status to sulfonamides; Z88.5 Allergy status to narcotic agent
CPT/HCPCS: 99211

== ENCOUNTER → 2020-10-13 | Outpatient (CLI) | payer BC ==
[2020-10-14 01:33] LABS: African American GFR (CKD) 97.8 (60.0-200.0); Calcium 8.6 mg/dL (8.7-10.3); Magnesium 1.9 mg/dL (1.5-2.4); Non-African American GFR(CKD) 84.4 (60.0-200.0); Potassium 4.7 mmol/L (3.5-5.5)
[2020-10-14 01:41] LABS: T4, Free (Free Thyroxine) 1.4 ng/dL (0.80-1.80)
== END | disposition home or self-care (01) ==
LOC: LABWHC1 16:16
PROVIDERS: ATTEND Nurse Practitioner Adult Health
DX: E03.9 Hypothyroidism, unspecified (principal)
CPT/HCPCS: 36415; 80048; 83735; 84439; 84443

== ENCOUNTER 2020-11-03 07:37 | Day surgery (SDC) | payer BC ==
[2020-10-25 12:37] VITALS: BMI 24.4
[~2020-11-03 07:37] MED LIST changes: -DEXAMETHASONE SOD PHOSPHATE 10 MG/ML 1 ML VIAL ONE; -IOPAMIDOL M200 10 ML VIAL ONE; -IV FLUID CONTINUATION 1,000 ML IV ONE; -LACTATED RINGERS 1,000 ML IV ONE; -LIDOCAINE 1% INJ 10MG/ML (20 ML MDV) ONE; -MIDAZOLAM 2 MG/2 ML VIAL ONE; -fentaNYL (PF) 50 MCG/ML 2 ML AMP ONE
[2020-11-03 08:03] VITALS: TEMP 96
[2020-11-03] MEDS ORDERED: MIDAZOLAM 2 MG/2 ML VIAL ONE (08:40)
[2020-11-03] MEDS ORDERED: methylPREDNISolone ACETATE 40 MG/ML 1 ML VIAL ONE (08:40)
[2020-11-03] MEDS ORDERED: IOPAMIDOL M200 10 ML VIAL ONE (08:40)
[2020-11-03] MEDS ORDERED: fentaNYL (PF) 50 MCG/ML 2 ML AMP ONE (08:40)
--- NOTE | 2020-11-03 08:52 | P.PCN ---
Date of Procedure: 11/03/20 Procedure(s) Performed: PREOPERATIVE DIAGNOSIS:1- Lumbar radiculopathy . 2- lumbar spinal stenosis. 3-lumbar spondylosis with lumbar facet arthropathy POSTOPERATIVE DIAGNOSIS: Same as preoperative diagnoses. PROCEDURE 1. Transforaminal epidural steroid injection under fluoroscopic guidance at right L3-4 ,and L4-5 level. (Fluoroscopy images stored on file in the radiology Department ) 2. Lumbar epidurogram . ( 3rd ) ANESTHESIA: Local with 1% lidocaine 3 ml , moderate sedation with intravenous Versed 2 mg and fentanyle 50 micrograms. EBL: Minimal PROCEDURE INDICATION: The patient with low back pain and radiculopathy symptoms unresponsive to conservative treatment. PROCEDURE DESCRIPTION / TECHNIQUE: The patient was seen and identified in the preoperative area. Risks, benefits, complications, and alternatives were discussed with the patient. The patient agreed to proceed with the procedure and signed the consent. IV was started, and vital signs were stable. Patient was taken to the OR and time out was completed. The patient was placed in the prone position on procedure table and a pillow was placed under the abdomen to reduce lumbar lordosis. The lumbosacral area was prepped and draped in the usual sterile fashion. Critical pause was taken. Vital signs were closely monitored during the procedure. Conscious sedation was used during the procedure to decrease patient s anxiety. Using oblique fluoroscopy, the chin of the `JoannParvez dog at Right L3-4 level was identified, and the skin and deeper tissues just below was localized with 1% lidocaine. Subsequently, a 22-gauge 3.5-inch spinal needle was advanced under a tunneled view fluoroscopic guidance just underneath the chin of the `Rupaliy dog at the right L3-4 Under lateral fluoroscopy, the needle was then advanced to the posterior border of the interforaminal space. After negative aspiration of CSF and blood and with no paresthesias, 1 mL Isovue 200 contrast dye was injected excellent epidurogram and outlining of the nerve root Subsequently, 3 mL of block solution containing 40 mg Depo-Medrol and 2 mL of 0.9% normal saline PF was injected. Needle was removed and the same procedure was repeated at the right L4-5 level. At the end of the procedure, skin was cleansed, and bandages were applied. COMPLICATIONS:none DISPOSITION / PLANS: The patient was placed in a supine position and transferred to the recovery area in a stable condition for observation. There was no evidence of lower extremity motor or sensory deficit after the procedure. Patient was discharged from the recovery room after meeting discharge criteria. Home discharge instructions were given to the patient by the staff. The patient was reexamined prior to discharge.
[2020-11-03] MEDS ORDERED: IV FLUID CONTINUATION 1,000 ML IV ONE (08:58)
[2020-11-03 09:04] VITALS: RESP 16
[2020-11-03] MEDS ORDERED: KETOROLAC 15 MG/ML 1 ML VIAL IVP STA (09:07)
--- NOTE | 2020-11-03 09:11 | FL ---
EXAMINATION TYPE: FL guided pain mgmt statistic DATE OF EXAM: 11/03/2020 CLINICAL HISTORY: Low back pain. TECHNIQUE: Fluoroscopy. COMPARISON: None. FINDINGS: Fluoroscopic guidance was provided during pain relief procedure performed by Dr. Mishra . A total of 5 seconds of fluoroscopic time was utilized during the procedure and 4 spot images are acquired. Images acquired shows needle localization at several levels in the lumbar spine. IMPRESSION: As Above.
[2020-11-03 09:17] VITALS: BP 124/83; PULSE 66
== END 2020-11-03 09:46 | disposition home or self-care (01) ==
LOC: ORPAIN 07:37
PROVIDERS: ATTEND Specialist
DX: M47.26 Other spondylosis with radiculopathy, lumbar region (principal); M48.061 Spinal stenosis, lumbar region without neurogenic claudication
CPT/HCPCS: 64483; 64484; J2250; J1030; J3010; J1885; Q9966

== ENCOUNTER → 2021-01-11 | Outpatient (CLI) | payer BC ==
[2021-01-12 01:37] LABS: T4, Free (Free Thyroxine) 1.75 ng/dL (0.800-1.800)
== END | disposition home or self-care (01) ==
LOC: LABWHC1 15:59
PROVIDERS: ATTEND Family Medicine
DX: E03.9 Hypothyroidism, unspecified (principal)
CPT/HCPCS: 36415; 84439; 84443

== ENCOUNTER 2021-02-09 08:06 | Day surgery (SDC) | payer BC ==
[2021-02-09 08:24] VITALS: TEMP 98.3
[2021-02-09] MEDS ORDERED: LACTATED RINGERS 1,000 ML IV ONE ×2 (08:35)
[2021-02-09] MEDS ORDERED: LIDOCAINE 1% (10MG/ML) FOR IV START INTRADERMA ONE (08:35)
[2021-02-09] MEDS ORDERED: LACTATED RINGERS 1,000 ML IV SCH (09:28)
--- NOTE | 2021-02-09 09:28 | P.PCN ---
Date of Procedure: 02/09/21 Procedure(s) Performed: PREOPERATIVE DIAGNOSIS: 1- Lumbar spinal stenosis 2-Lumbar spondylosis with Facet arthropathy without myelopathy. 3-lumbar radiculopathy POSTOPERATIVE DIAGNOSIS: Same as preop diagnosis. PROCEDURE 1. Lumbar epidural steroid injection under fluoroscopic guidance at the L4-5 level. (Fluoroscopy imaging was available in radiology department) 2. Lumbar epidurogram. ANESTHESIA: Local with 1% lidocaine 3 ml and , moderate sedation with intravenous Versed 2 mg ,and fentanyle 50 Mcg EBL: Minimal PROCEDURE INDICATION: The patient with low back pain and radiculitis symptoms unresponsive to conservative treatment. Fluoroscopy was used to optimize visualization of the needle placement and to maximize safety. PROCEDURE DESCRIPTION / TECHNIQUE: The patient was seen and identified in the preoperative area. Risks, benefits, complications including but not limited to infections ,bleeding ,allergic reaction to the medications ,nerve damage and not complete pain releife , and alternatives were discussed with the patient. The patient agreed to proceed with the procedure and signed the consent. IV was started, and vital signs were stable. Patient was taken to the OR and time out was completed. The patient was placed in the prone position on procedure table and a pillow was placed under the abdomen to reduce lumbar lordosis. The lumbosacral area was prepped and draped in the usual sterile fashion.ere closely monitored during the procedure. Conscious sedation was used during the procedure to decrease patients anxiety. Vital signs was monitered during the entire procedure. Using anterior-posterior fluoroscopy, the L4-5 interlaminar space was identified and the skin over this site was marked and then infiltrated with 1% lidocaine subcutaneously. Subsequently, a 20-gauge Tuohy epidural needle was inserted and advanced toward the epidural space using the ``Loss of resistance technique and guided by AP and lateral fluoroscopy. The correct needle position in the epidural space was verified with the injection of 2 mL of the water soluble contrast dye Isovue 200 contrast and observing an excellent epidurogram with the epidural spread of the dye, after negative aspiration for blood and CSF and in the absence of paresthesias. Again after negative aspiration, a 6 ml mixture containing 80 mg of Depo-medrol , and 2 ml of preservative free Normal Saline, and 2 ml of preservative free lidocaine 1% solution was injected and a washout of epidurogram was seen. Needle was withdrawn intact, skin was cleansed, and bandages were applied. COMPLICATIONS: None DISPOSITION / PLANS: The patient was placed in a supine position and transferred to the recovery area in a stable condition for observation. There was no evidence of lower extremity motor or sensory deficit after the procedure. Patient was discharged from the recovery room after meeting discharge criteria. Home discharge instructions were given to the patient by the staff. The patient was reexamined prior to discharge.
[2021-02-09] MEDS ORDERED: IV FLUID CONTINUATION 1,000 ML IV ONE (09:30)
[2021-02-09 09:34] VITALS: RESP 18
[2021-02-09] MEDS ORDERED: .fentaNYL (PF) 50 MCG/ML 2 ML AMP ONE (09:39)
[2021-02-09] MEDS ORDERED: IOPAMIDOL M200 10 ML VIAL ONE (09:39)
[2021-02-09] MEDS ORDERED: methylPREDNISolone ACETATE 40 MG/ML 1 ML VIAL ONE (09:39)
[2021-02-09] MEDS ORDERED: MIDAZOLAM 2 MG/2 ML VIAL ONE (09:39)
--- NOTE | 2021-02-09 09:48 | FL ---
EXAMINATION TYPE: FL guided pain mgmt statistic DATE OF EXAM: 02/09/2021 CLINICAL HISTORY: Low back pain. TECHNIQUE: Fluoroscopy. COMPARISON: None. FINDINGS: Fluoroscopic guidance was provided during pain relief procedure performed by Dr. Mishra . A total of 2 seconds of fluoroscopic time was utilized during the procedure and 1 spot images are acquired. Single image acquired shows needle localization at roughly L4 level. IMPRESSION: As Above.
[2021-02-09 09:53] VITALS: BP 118/75; PULSE 67
== END 2021-02-09 10:02 | disposition home or self-care (01) ==
LOC: ORPAIN 08:06
PROVIDERS: ATTEND Specialist
DX: M47.26 Other spondylosis with radiculopathy, lumbar region (principal); M48.061 Spinal stenosis, lumbar region without neurogenic claudication; Z88.5 Allergy status to narcotic agent; Z88.2 Allergy status to sulfonamides; Z88.8 Allergy status to other drugs, medicaments and biological substances
CPT/HCPCS: 62323; J2250; J1030; J3010; Q9966

== ENCOUNTER 2021-03-06 09:15 | Observation (INO) | payer BC ==
[2021-03-06] MEDS ORDERED: ASPIRIN 81 MG PO STA (09:32)
[2021-03-06] MEDS ORDERED: NITROGLYCERIN SL TABS 0.4 MG TAB SUBLINGUAL STA (09:32)
--- NOTE | 2021-03-06 09:35 | ED ---
General Adult HPI - General Chief complaint: Chest Pain Stated complaint: chest pain & SOB Time Seen by Provider: 03/06/21 09:26 Source: patient, RN notes reviewed Mode of arrival: wheelchair Limitations: no limitations - History of Present Illness Initial comments: Patient is a pleasant 56-year-old male presenting to the emergency Department with chest discomfort. Discomfort is sharp in the left lower chest at onset of symptoms was this morning. Discomfort is moderate and persistent. Patient does have some mild shortness of breath over the past 4 weeks. Dyspnea increases with exertion and stops. No nausea or diaphoresis. No history of similar symptoms previously. - Related Data Home Medications Medication Instructions Recorded Confirmed Montelukast [Singulair] 10 mg PO HS 10/11/15 03/06/21 Atorvastatin [Lipitor] 20 mg PO HS 06/22/20 03/06/21 Divalproex ER [Depakote ER] 250 mg PO HS 06/22/20 03/06/21 Magnesium Chloride [Slow-Mag] 64 mg PO DAILY 06/22/20 03/06/21 Pantoprazole [Protonix] 40 mg PO DAILY 06/22/20 03/06/21 Propranolol HCl [Inderal Xl] 80 mg PO BID 06/22/20 03/06/21 Sotalol [Betapace] 80 mg PO TID 06/22/20 03/06/21 Triamcinolone Acetonide 1 spray NASAL HS 06/22/20 03/06/21 [Triamcinolone Acetonide 0.055MG Nasal] Levothyroxine Sodium 112 mcg PO DAILY 10/25/20 03/06/21 ALPRAZolam [Xanax] 0.25 mg PO HS 03/06/21 03/06/21 Fexofenadine HCl 180 mg PO HS 03/06/21 03/06/21 Allergies Allergy/AdvReac Type Severity Reaction Status Date / Time itraconazole [From Sporanox] Allergy Rash/Hives Verified 03/06/21 10:55 morphine Allergy Nausea & Verified 03/06/21 10:55 Vomiting Sulfa (Sulfonamide Allergy Unknown Verified 03/06/21 10:55 Antibiotics) Review of Systems ROS Statement: Those systems with pertinent positive or pertinent negative responses have been documented in the HPI. ROS Other: All systems not noted in ROS Statement are negative. Constitutional: Denies: fever Eyes: Denies: eye pain ENT: Denies: ear pain Respiratory: Reports: as per HPI Cardiovascular: Reports: as per HPI Endocrine: Denies: fatigue Gastrointestinal: Denies: abdominal pain Genitourinary: Denies: dysuria Musculoskeletal: Denies: back pain Skin: Denies: rash Neurological: Denies: weakness Past Medical History Past Medical History: Chest Pain / Angina, Eye Disorder, Hypertension, Osteoarthritis (OA), Pneumonia, Thyroid Disorder, Vascular Disorder Additional Past Medical History / Comment(s): Vtach with ablation, bradycardia, palpitations, "leaky heart valve", cardiomegaly, past medical record documents thoracic aortic aneurysm, bronchitis, arthritis in multiple joints, chronic low back pain, L sided sciatica, migraines, rhinitis, UTI, hemorrhoids, cataracts bilaterally, past fractures bilateral wrists and L foot., states Dr Loving changed Sotolol dose-seen changes in heart on his monitor. History of Any Multi-Drug Resistant Organisms: None Reported Past Surgical History: AICD, Cardiac Ablation, Heart Catheterization, Hernia Repair, Orthopedic Surgery, Pacemaker Additional Past Surgical History / Comment(s): EPS with VT ablation, jaw surgery, L/R arthroscopic knee surgery for meniscus, bilateral inguinal hernia repairs, colonoscopy. Past Anesthesia/Blood Transfusion Reactions: Postoperative Nausea & Vomiting (PONV) Type of Cardiac Device: Permanent Pacemaker, AICD Device Placement Date:: 2018 Past Psychological History: Anxiety Smoking Status: Former smoker Past Alcohol Use History: None Reported Past Drug Use History: None Reported - Past Family History Father Family Medical History: Cancer Additional Family Medical History / Comment(s): colon cancer. Mother History Unknown: Yes Family Medical History: Cancer Additional Family Medical History / Comment(s): melanoma General Exam Limitations: no limitations General appearance: alert, in no apparent distress Head exam: Present: normocephalic Eye exam: Present: normal appearance Neck exam: Present: normal inspection Respiratory exam: Present: normal lung sounds bilaterally. Absent: chest wall tenderness Cardiovascular Exam: Present: regular rate, normal rhythm Expanded Peripheral pulses: 2+: Radial (R), Radial (L), Posterior Tibialis (R), Posterior Tibialis (L) GI/Abdominal exam: Present: soft, tenderness (Mild tenderness left upper quadrant). Absent: distended Extremities exam: Present: normal inspection. Absent: pedal edema, calf tenderness Neurological exam: Present: alert Psychiatric exam: Present: normal affect, normal mood Skin exam: Present: normal color Course Vital Signs 03/06/21 03/06/21 09:23 11:00 Temperature 97.8 F Pulse Rate 69 62 Respiratory 20 18 Rate Blood Pressure 125/83 119/86 O2 Sat by Pulse 100 100 Oximetry EKG Findings - EKG Comments: EKG Findings:: Normal sinus rhythm with rate of 60. OK 184. QRS 88. QT 442. QTC 442. Normal axis. Normal QRS. No acute ST change. Medical Decision Making - Medical Decision Making Patient reevaluated and updated. Case also discussed with Dr. Johnston who is familiar with this patient and will admit. He should states he did get improvement of symptoms with nitroglycerin. Patient also adds that he has been having some burning in his chest. - Lab Data Result diagrams: 03/06/21 09:43 03/06/21 09:43 Lab Results 03/06/21 03/06/21 03/06/21 Range/Units 09:43 09:43 09:43 WBC 8.7 (3.8-10.6) k/uL RBC 4.17 L (4.30-5.90) m/uL Hgb 12.7 L (13.0-17.5) gm/dL Hct 39.2 (39.0-53.0) % MCV 93.8 (80.0-100.0) fL MCH 30.3 (25.0-35.0) pg MCHC 32.3 (31.0-37.0) g/dL RDW 13.6 (11.5-15.5) % Plt Count 267 (150-450) k/uL MPV 7.6 Neutrophils % 66 % Lymphocytes % 21 % Monocytes % 7 % Eosinophils % 4 % Basophils % 1 % Neutrophils # 5.8 (1.3-7.7) k/uL Lymphocytes # 1.8 (1.0-4.8) k/uL Monocytes # 0.6 (0-1.0) k/uL Eosinophils # 0.3 (0-0.7) k/uL Basophils # 0.1 (0-0.2) k/uL PT 10.1 (9.0-12.0) sec INR 0.9 (<1.2) APTT 23.6 (22.0-30.0) sec D-Dimer 0.60 H (<0.60) mg/L FEU Sodium 137 (137-145) mmol/L Potassium 4.5 (3.5-5.1) mmol/L Chloride 106 (98-107) mmol/L Carbon Dioxide 24 (22-30) mmol/L Anion Gap 7 mmol/L BUN 14 (9-20) mg/dL Creatinine 0.81 (0.66-1.25) mg/dL Est GFR (CKD-EPI)AfAm >90 (>60 ml/min/1.73 sqM) Est GFR (CKD-EPI)NonAf >90 (>60 ml/min/1.73 sqM) Glucose 93 (74-99) mg/dL Calcium 9.4 (8.4-10.2) mg/dL Magnesium 2.0 (1.6-2.3) mg/dL Total Bilirubin 0.9 (0.2-1.3) mg/dL AST 23 (17-59) U/L ALT 15 (4-49) U/L Alkaline Phosphatase 68 (38-126) U/L Troponin I (0.000-0.034) ng/mL NT-Pro-B Natriuret Pep pg/mL Total Protein 7.2 (6.3-8.2) g/dL Albumin 4.3 (3.5-5.0) g/dL Amylase 59 (30-110) U/L Lipase 73 (23-300) U/L Coronavirus (PCR) (Not Detectd) 03/06/21 03/06/21 03/06/21 Range/Units 09:43 09:43 10:25 WBC (3.8-10.6) k/uL RBC (4.30-5.90) m/uL Hgb (13.0-17.5) gm/dL Hct (39.0-53.0) % MCV (80.0-100.0) fL MCH (25.0-35.0) pg MCHC (31.0-37.0) g/dL RDW (11.5-15.5) % Plt Count (150-450) k/uL MPV Neutrophils % % Lymphocytes % % Monocytes % % Eosinophils % % Basophils % % Neutrophils # (1.3-7.7) k/uL Lymphocytes # (1.0-4.8) k/uL Monocytes # (0-1.0) k/uL Eosinophils # (0-0.7) k/uL Basophils # (0-0.2) k/uL PT (9.0-12.0) sec INR (<1.2) APTT (22.0-30.0) sec D-Dimer (<0.60) mg/L FEU Sodium (137-145) mmol/L Potassium (3.5-5.1) mmol/L Chloride (98-107) mmol/L Carbon Dioxide (22-30) mmol/L Anion Gap mmol/L BUN (9-20) mg/dL Creatinine (0.66-1.25) mg/dL Est GFR (CKD-EPI)AfAm (>60 ml/min/1.73 sqM) Est GFR (CKD-EPI)NonAf (>60 ml/min/1.73 sqM) Glucose (74-99) mg/dL Calcium (8.4-10.2) mg/dL Magnesium (1.6-2.3) mg/dL Total Bilirubin (0.2-1.3) mg/dL AST (17-59) U/L ALT (4-49) U/L Alkaline Phosphatase (38-126) U/L Troponin I <0.012 (0.000-0.034) ng/mL NT-Pro-B Natriuret Pep 121 pg/mL Total Protein (6.3-8.2) g/dL Albumin (3.5-5.0) g/dL Amylase (30-110) U/L Lipase (23-300) U/L Coronavirus (PCR) Not Detected (Not Detectd) - Radiology Data Radiology results: report reviewed (CT angiogram of the chest shows no embolism. Emphysematous changes without acute process. CT abdomen pelvis shows no significant findings. Cannot exclude right renal carcinoma.), image reviewed (Abdominal x-ray reveals no acute process. X-ray shows COPD. They density on the right.) Disposition Clinical Impression: Chest pain Disposition: ADMITTED IP TO THIS HOSP Is patient prescribed a controlled substance at d/c from ED?: No Referrals: Sammy Phillips MD [Primary Care Provider] - 1-2 days Decision Time: 13:34
[2021-03-06 10:05] LABS: Basophils # (A) 0.1 k/uL (0-0.2); Basophils % (A) 1 %; Eosinophils # (A) 0.3 k/uL (0-0.7); Eosinophils % (A) 4 %; HCT 39.2 % (39.0-53.0); HGB 12.7 gm/dL (13.0-17.5); Lymphocytes # (A) 1.8 k/uL (1.0-4.8); Lymphocytes % (A) 21 %; MCH 30.3 pg (25.0-35.0); MCHC 32.3 g/dL (31.0-37.0); MCV 93.8 fL (80.0-100.0); Mean Platelet Volume 7.6; Monocytes # (A) 0.6 k/uL (0-1.0); Monocytes % (A) 7 %; Neutrophils # (A) 5.8 k/uL (1.3-7.7); Neutrophils % (A) 66 %; Platelet Count 267 k/uL (150-450); RBC 4.17 m/uL (4.30-5.90); RDW 13.6 % (11.5-15.5); WBC 8.7 k/uL (3.8-10.6)
--- NOTE | 2021-03-06 10:12 | XR ---
Abdomen HISTORY: Pain Frontal view of the abdomen submitted on 2 images, no comparisons Calcifications in the pelvis likely represent phleboliths are noted. Degenerative disc changes are pr esent in the lumbar spine. No evident bowel obstruction or pneumoperitoneum. Leads are present in the right atrium and ventricle. Lung bases are clear. IMPRESSION: Nonobstructive bowel gas pattern. Follow-up as indicated.
--- NOTE | 2021-03-06 10:12 | XR ---
EXAMINATION TYPE: XR chest 2V DATE OF EXAM: 03/06/2021 COMPARISON: NONE TECHNIQUE: PA and lateral views submitted. HISTORY: Chest pain FINDINGS: The lungs are clear and there is no pneumothorax, pleural effusion, or focal pneumonia. Hyperinflat ion lungs. Heart size normal. Cardiac device noted. Coarsened interstitium likely reflects a degree o f chronic interstitial lung disease. Degenerative change of the spine. Vague density just seen inferi or to the right upper chest lead. IMPRESSION: 1. COPD. Correlate for chronic interstitial lung disease. Vague density just inferior to the right ch est lead may be related to chest lead rather than a vague nodule correlate clinically and if necessar y with CT of the chest to exclude pulmonary nodule..
[2021-03-06 10:17] LABS: ALT 15 U/L (4-49); AST 23 U/L (17-59); African American GFR (CKD) >90 (>60 ml/min/1.73 sqM); Albumin 4.3 g/dL (3.5-5.0); Alkaline Phosphatase 68 U/L (38-126); Amylase 59 U/L (30-110); Anion Gap 7 mmol/L; Blood Urea Nitrogen 14 mg/dL (9-20); Calcium 9.4 mg/dL (8.4-10.2); Carbon Dioxide 24 mmol/L (22-30); Chloride 106 mmol/L (98-107); Glucose 93 mg/dL (74-99); Lipase 73 U/L (23-300); Non-African American GFR(CKD) >90 (>60 ml/min/1.73 sqM); Potassium 4.5 mmol/L (3.5-5.1); Sodium 137 mmol/L (137-145); Total Bilirubin 0.9 mg/dL (0.2-1.3); Total Protein 7.2 g/dL (6.3-8.2)
[2021-03-06 10:50] LABS: INR 0.9 (<1.2)
[2021-03-06 10:51] LABS: Partial Thromboplastin Time 23.6 sec (22.0-30.0); Prothrombin Time 10.1 sec (9.0-12.0)
--- NOTE | 2021-03-06 12:52 | CT ---
EXAMINATION TYPE: CT angio chest DATE OF EXAM: 03/06/2021 COMPARISON: CTA Chest December 28, 2011. Chest x-ray earlier today HISTORY: Chest pain & SOB. Elevated d-dimer. CT DLP: 663.1 mGycm. Automated Exposure Control for Dose Reduction was Utilized. CONTRAST: CTA scan of the thorax is performed with IV Contrast, patient injected with 100 mL of Isovue 370, pul monary embolism protocol. MIP Images are created on CT scanner and reviewed. FINDINGS: LUNGS: Moderate to advanced underlying emphysematous change is redemonstrated with progression from [address] noted. Moderate posterior atelectatic change and/or parenchymal fibrosis in the lower lungs is more prominent from 2012 CT. No suspicious focal consolidation. No pleural effusion or pneumothorax is seen bilaterally. MEDIASTINUM: There is satisfactory enhancement of the pulmonary artery and its branches, there is no CT evidence for pulmonary embolism. Ascending aortic aneurysm up to 4.2 cm axial image 65. There are stable prominent right hilar lymph nodes. No cardiomegaly or pericardial effusion is seen. Dual-le ad pacemaker/defibrillator is noted. OTHER: Slight underlying scoliotic curvature. Please see same day CT abdomen and pelvis report for co mplete details on the upper abdomen. IMPRESSION: No CT evidence for acute pulmonary embolism. Moderate to advanced underlying emphysematou s change without acute pulmonary process.
--- NOTE | 2021-03-06 13:00 | CT ---
EXAMINATION TYPE: CT abdomen pelvis w con DATE OF EXAM: 03/06/2021 COMPARISON: CTA aorta November 30, 2017. Abdominal x-ray earlier today HISTORY: LUQ pain CT DLP: 516 mGycm, Automated Exposure Control for Dose Reduction was Utilized. CONTRAST: CT scan of the abdomen and pelvis is performed without oral but with IV Contrast, patient injected wi th 100 mL of Isovue 370. FINDINGS: LUNG BASES: Please refer to same-day CT chest for complete details on the lung bases. LIVER/GB: No significant abnormality is appreciated. PANCREAS: No significant abnormality is seen. SPLEEN: No significant abnormality is seen. ADRENALS: No significant abnormality is seen. KIDNEYS: Symmetric cortical medullary uptake and excretion without hydronephrosis seen bilaterally. T here are few small thin-walled cysts in the upper to mid pole of the left kidney redemonstrated. Righ t kidney shows no heterogeneous partially exophytic mass measuring 3.6 x 3.6 x 3.9 cm fluid density p osteriorly with more heterogeneous increased density anteriorly without definitive enhancement. This lesion requires follow-up as was not present on 2018 CT. BOWEL: Slightly suboptimal evaluation without enteric contrast. No suspicious small or large bowel di latation. PROSTATE/SEMINAL VESICLES: No gross abnormality seen. LYMPH NODES: No greater than 1cm abdominal or pelvic lymph nodes are appreciated. OSSEOUS STRUCTURES: Moderate disc space narrowing L4-L5 level. Multilevel facet arthropathy in the mi d to lower lumbar spine. OTHER: Mild/moderate calcified plaque of the aorta extends into branch vessels. IMPRESSION: No significant acute finding is seen to account for patient's clinical symptoms of left upper quadrant pain. Cannot exclude right sided renal carcinoma. Advise renal protocol contrast enhan corin CT and ultrasound follow-up to further evaluate. Pacemaker/defibrillator device noted making MRI follow-up nonobtainable.
[2021-03-06] MEDS ORDERED: NITROGLYCERIN SL TABS 0.4 MG TAB SUBLINGUAL PRN (13:35)
[2021-03-06] MEDS: NITROGLYCERIN OINT 1 INCH/GM PACKET TOPICAL SCH (22:19)
[2021-03-07] MEDS: NITROGLYCERIN OINT 1 INCH/GM PACKET TOPICAL SCH ×3 (00:57→12:08)
[2021-03-07 06:25] VITALS: RESP 16
[2021-03-07] MEDS ORDERED: LEVOTHYROXINE 112 MCG TAB PO SCH (06:30)
[2021-03-07] MEDS ORDERED: PANTOPRAZOLE 40 MG TABLET PO SCH (07:30)
[2021-03-07] MEDS ORDERED: ASPIRIN 325 MG TAB PO SCH (09:00)
[2021-03-07] MEDS ORDERED: PROPRANOLOL LA 80 MG CAP.SA.24H PO SCH (09:00)
[2021-03-07] MEDS ORDERED: NON FORMULARY DRUG (Magnesium Chloride 64 MG Tablet.Er) PO SCH (09:00)
--- NOTE | 2021-03-07 11:13 | P.STRESS ---
- Stress Test Note Stress Test Results/Findings: Exam Performed: stress echo exercise Exam Date: 03/07/21 Reason for Exam: cp Height: 6 ft 1 in Weight: 83.91 kg Protocol: stress echo Stage: III Duration of Exercise: 9.15 Resting Heart Rate: 69 Resting Blood Pressure: 125/74 Maximum Achieved Heart Rate: 136 Maximum Achieved Blood Pressure: 166/90 85% PMHR: 139 100% PMHR: 164 METS: 8.5 Technologist Comment: Stress Test Results/Findings: This is a 56-year-old gentleman with history of ischemic heart disease, hypertension and diabetes being evaluated for chest pain. Stress data: Baseline EKG showed sinus rhythm with diffuse ST-T changes in inferolateral leads. Blood pressure at rest is 123/74 with pulse rate of 69. Patient woke on the Robin protocol for 7 minutes achieving a maximum heart rate of 136 and a peak blood pressure of about 166/90. She complained of shortness of breath but no chest pain. EKGs taken during exercise showed baseline artifacts with about up to [address] depression in inferolateral leads. Echo data: The cause study suboptimal, especially the stress images, because of patient's inability to cooperate. There appears to be normal wall motion and thickening addressed. Overall there appears to be improvement in LV function in all the segments. On the stress images, though the study is suboptimal. Final impression: #1. Nondiagnostic stress test because of baseline EKG abnormalities. #2. Probably normal study, though there are technical limitations because of difficulty acquiring optimal images during the stress portion. #2. May consider nuclear imaging, if clinically indicated
[2021-03-07] MEDS: SOTALOL 80 MG TAB PO SCH ×2 (11:25→17:41)
--- NOTE | 2021-03-07 12:30 | P.CRDCN ---
History of Present Illness Consult date: 03/07/21 History of present illness: HISTORY OF PRESENT ILLNESS: This is a 56-year-old male with a past medical history significant for paroxysmal atrial tachycardia, sick sinus syndrome, dilated aortic root, ventricular tachycardia with previous ablation and AICD implantation. Patient follows in the office with Dr. Loving. We have been asked to see the patient in consultation for chest pain. Patient examined at the bedside. Patient states Saturday night he began having chest pain. He states he was just sitting down when the chest pain occurred. He states he was in the left side of his chest and felt like a burning sensation lasted for 2-3 minutes and then went away. He reports feeling short of breath and having some shortness of breath with exertion. This morning, the patient denies any chest pain or pressure. He denies shortness of breath. He does report a family history of heart disease with his mom and dad and sister. But denies any of them having heart attacks. The patient does state he does have some chest discomfort with chest palpation. EKG reveals sinus mechanism with no signs of acute ischemia Chest xray COPD. Correlate for chronic interstitial lung disease. Vague density just inferior to the right chest lead may be related to chest lead rather than a vague nodule correlate clinically. Laboratory data: WBC 8.7. Hemoglobin 12.7. Platelet count 267. D-dimer 0.60. Sodium 137. Potassium 4.5. BUN 14. Creatinine 0.1. Magnesium 2.0. Current home cardiac medications include sotalol 80 mg 3 times a day, Lipitor 20 mg at night, propanolol 80 mg twice a day Most recent echocardiogram obtained in 2018 revealed ejection fraction 50-55%, mild aortic regurgitation, mild mitral regurgitation, mild tricuspid regur gitation Patient underwent Lexiscan stress test in February 2020 which was negative for ischemia REVIEW OF SYSTEMS: At the time of my exam: CONSTITUTIONAL: Denies fever or chills. HEENT: Denies blurred vision, vision changes, or eye pain. Denies hemoptysis CARDIOVASCULAR: Denies chest pain. Denies orthopnea. Denies PND. Denies palpitations RESPIRATORY: Denies shortness of breath. GASTROINTESTINAL: Denies abdominal pain. Denies nausea or vomiting. HEMATOLOGIC: Denies bleeding disorders. GENITOURINARY: Denies any blood in urine. SKIN: Denies pruitis. Denies rash. PHYSICAL EXAM: VITAL SIGNS: Reviewed. GENERAL: Well-developed in no acute distress. HEENT: Head is normocephalic. Pupils are equal, round. Sclerae anicteric. Mucous membranes of the mouth are moist. Neck supple. No JVD or thyromegaly LUNGS: Respirations even and unlabored. Lungs essentially clear to auscultation bilaterally. HEART: Regular rate and rhythm. S1 and S2 heard. ABDOMEN: Soft. Nondistended. Nontender. EXTREMITIES: Normal range of motion. No clubbing or cyanosis. Peripheral pulses intact. No lower extremity edema NEUROLOGIC: Awake and alert. Oriented x 3. ASSESSMENT: Chest pain, troponins negative 3 Paroxysmal atrial tachycardia History of sick sinus syndrome Dilated aortic root History of ventricular tachycardia with previous ablation and AICD implantation PLAN: Continue home cardiac medications Patient will undergo stress echocardiogram today. If negative, the patient may be discharged home and follow up on an outpatient basis Nurse practitioner note has been reviewed by physician. Signing provider agrees with the documented findings, assessment, and plan of care. Past Medical History Past Medical History: Chest Pain / Angina, Eye Disorder, Hypertension, Osteoarthritis (OA), Pneumonia, Thyroid Disorder, Vascular Disorder Additional Past Medical History / Comment(s): Vtach with ablation, bradycardia, palpitations, "leaky heart valve", cardiomegaly, past medical record documents thoracic aortic aneurysm, bronchitis, arthritis in multiple joints, chronic low back pain, L sided sciatica, migraines, rhinitis, UTI, hemorrhoids, cataracts bilaterally, past fractures bilateral wrists and L foot., states Dr Loving changed Sotolol dose-seen changes in heart on his monitor. History of Any Multi-Drug Resistant Organisms: None Reported Past Surgical History: AICD, Cardiac Ablation, Heart Catheterization, Hernia Repair, Orthopedic Surgery, Pacemaker Additional Past Surgical History / Comment(s): EPS with VT ablation, jaw surgery, L/R arthroscopic knee surgery for meniscus, bilateral inguinal hernia repairs, colonoscopy. Past Anesthesia/Blood Transfusion Reactions: Postoperative Nausea & Vomiting (PONV) Type of Cardiac Device: Permanent Pacemaker, AICD Device Placement Date:: 2018 Past Psychological History: Anxiety Additional Psychological History / Comment(s): Pt resides with his parents and assists them. He is independent. Smoking Status: Former smoker Past Alcohol Use History: None Reported Additional Past Alcohol Use History / Comment(s): Pt started smoking in 1987 and was a half a ppd smoker. He quit in November of 2017. Past Drug Use History: None Reported - Past Family History Father Family Medical History: Cancer Additional Family Medical History / Comment(s): colon cancer. Mother History Unknown: Yes Family Medical History: Cancer Additional Family Medical History / Comment(s): melanoma Medications and Allergies Home Medications Medication Instructions Recorded Confirmed Type Montelukast [Singulair] 10 mg PO HS 10/11/15 03/06/21 History Atorvastatin [Lipitor] 20 mg PO HS 06/22/20 03/06/21 History Divalproex ER [Depakote ER] 250 mg PO HS 06/22/20 03/06/21 History Magnesium Chloride [Slow-Mag] 64 mg PO DAILY 06/22/20 03/06/21 History Pantoprazole [Protonix] 40 mg PO DAILY 06/22/20 03/06/21 History Propranolol HCl [Inderal Xl] 80 mg PO BID 06/22/20 03/06/21 History Sotalol [Betapace] 80 mg PO TID 06/22/20 03/06/21 History Triamcinolone Acetonide 1 spray NASAL HS 06/22/20 03/06/21 History [Triamcinolone Acetonide 0.055MG Nasal] Levothyroxine Sodium 112 mcg PO DAILY 10/25/20 03/06/21 History ALPRAZolam [Xanax] 0.25 mg PO HS 03/06/21 03/06/21 History Fexofenadine HCl 180 mg PO HS 03/06/21 03/06/21 History Allergies Allergy/AdvReac Type Severity Reaction Status Date / Time itraconazole [From Sporanox] Allergy Rash/Hives Verified 03/06/21 10:55 morphine Allergy Nausea & Verified 03/06/21 10:55 Vomiting Sulfa (Sulfonamide Allergy Unknown Verified 03/06/21 10:55 Antibiotics) Physical Exam Vitals: Vital Signs Temp Pulse Pulse Resp BP BP Pulse Ox 03/07/21 07:00 97.9 F 55 L 16 143/89 98 03/07/21 02:55 98.1 F 77 16 126/78 97 03/07/21 01:49 62 18 03/06/21 21:54 18 03/06/21 21:05 97.4 F L 62 17 142/89 97 03/06/21 19:00 97.6 F 67 18 113/85 97 Intake and Output 03/06/21 03/07/21 03/07/21 22:59 06:59 14:59 Intake Total 500 0 Balance 500 0 Intake: Oral 500 0 Other: Voiding Method Toilet Toilet Toilet # Voids 2 Weight 83.915 kg 83.91 kg Results 03/06/21 09:43 03/06/21 09:43 Cardiac Enzymes 03/06/21 03/06/21 Range/Units 15:04 18:55 Troponin I <0.012 <0.012 (0.000-0.034) ng/mL Current Medications Generic Name Dose Route Start Last Admin Trade Name Freq PRN Reason Stop Dose Admin Alprazolam 0.25 mg 03/07/21 21:00 Alprazolam 0.25 Mg Tab PO HS PENDING SALE TO [facility] Aspirin 81 mg 03/08/21 09:00 Aspirin 81 Mg PO DAILY PENDING SALE TO [facility] Atorvastatin Calcium 20 mg 03/07/21 21:00 Atorvastatin 20 Mg Tab PO HS PENDING SALE TO [facility] Divalproex Sodium 250 mg 03/07/21 21:00 Divalproex Er 250 Mg Tab.Er.24h PO HS PENDING SALE TO [facility] Fluticasone Propionate 1 spray 03/07/21 21:00 Fluticasone 50mcg/[place] Nasal 16gm EA NOSTRIL HS PENDING SALE TO [facility] Levothyroxine Sodium 112 mcg 03/07/21 06:30 03/07/21 05:33 Levothyroxine 112 Mcg Tab PO 112 mcg DAILY@0630 PENDING SALE TO [facility] Administration Loratadine 10 mg 03/07/21 21:00 Loratadine 10 Mg Tab PO HS PENDING SALE TO [facility] Montelukast Sodium 10 mg 03/07/21 21:00 Montelukast 10 Mg Tab PO HS PENDING SALE TO [facility] Nitroglycerin 0.4 mg 03/06/21 13:35 Nitroglycerin Sl Tabs 0.4 Mg Tab SUBLINGUAL Q5M PRN Chest Pain Nitroglycerin 1 inch 03/06/21 18:00 03/07/21 12:08 Nitroglycerin Oint 1 Inch/Gm Packet TOPICAL Not Given Q6HR PENDING SALE TO [facility] Pantoprazole Sodium 40 mg 03/07/21 07:30 03/07/21 08:35 Pantoprazole 40 Mg Tablet PO 40 mg [id number] PENDING SALE TO [facility] Administration Propranolol HCl 80 mg 03/07/21 09:00 03/07/21 11:25 Propranolol La 80 Mg Cap.Sa.24h PO 80 mg BID RODOLFO Administration Sodium Chloride 10 ml 03/06/21 21:00 03/07/21 08:37 Sodium Chloride 0.9% Flush 10 Ml Syringe IV 10 ml BID RODOLFO Administration Sotalol HCl 80 mg 03/07/21 09:00 03/07/21 11:25 Sotalol 80 Mg Tab PO 80 mg TID RODOLFO Administration Intake and Output 03/06/21 03/07/21 03/07/21 22:59 06:59 14:59 Intake Total 500 0 Balance 500 0 Intake: Oral 500 0 Other: Voiding Method Toilet Toilet Toilet # Voids 2 Weight 83.915 kg 83.91 kg Patient Weight 03/08/21 06:59 Weight 83.91 kg 03/06/21 09:43 03/06/21 09:43
[2021-03-07 12:42] LABS: Chol/HDL Ratio 3.23 Ratio; LDL Cholesterol,Calculated 96.9 mg/dL (0.0-131.0); VLDL Calculation 16.98 mg/dL (5.00-40.00)
[2021-03-07 15:48] VITALS: BP 123/75; PULSE 79; TEMP 98
--- NOTE | 2021-03-07 16:16 | P.HPIM ---
History of Present Illness H&P Date: 03/07/21 Chief Complaint: Chest pain History and Physical and Discharge Summary This is a 56-year-old gentleman with history of V. tach, status post ablation ,presented to the ER with complaints of persistent left lower burning chest discomfort worsening overnight accompanied by shortness of breath, at rest, lasting for a few minutes. Chest pain reproducible with palpation.Denies nausea vomiting or diarrhea. Reports family history of CAD. Mild left upper quadrant abdominal tenderness per exam in the ER.CT of abdomen and pelvis reported right kidney mass measuring 3.6 x 3.6 x 3.9 cm which was not present on 2018 CT. Unable to proceed with MRI as patient has AICD. Currently denies any chest pain, palpitations or chest pressure or shortness of breath. EKG reported normal sinus rhythm, troponins negative 3. Vital signs stable. Afebrile, normal WBC. Hematology panel unremarkable with the exception of hemoglobin 12.7-at baseline, coagulation panel unremarkable with the exception of d-dimer elevated 0.6.CT chest reported no embolism, emphysematous changes, nonacute. Chemistry panel unremarkable. Lipid panel reporting triglycerides 84, cholesterol 165, LDH 96.9 HDL 51. Coronavirus not detected. Evaluated by cardiology, patient is scheduled for a stress echo. Review of Systems ROS Statement: Those systems with pertinent positive or pertinent negative responses have been documented in the HPI. ROS Other: All systems not noted in ROS Statement are negative. Past Medical History Past Medical History: Chest Pain / Angina, Eye Disorder, Hypertension, Osteoarthritis (OA), Pneumonia, Thyroid Disorder, Vascular Disorder Additional Past Medical History / Comment(s): Vtach with ablation, bradycardia, palpitations, "leaky heart valve", cardiomegaly, past medical record documents thoracic aortic aneurysm, bronchitis, arthritis in multiple joints, chronic low back pain, L sided sciatica, migraines, rhinitis, UTI, hemorrhoids, cataracts bilaterally, past fractures bilateral wrists and L foot., states Dr Loving changed Sotolol dose-seen changes in heart on his monitor. History of Any Multi-Drug Resistant Organisms: None Reported Past Surgical History: AICD, Cardiac Ablation, Heart Catheterization, Hernia Repair, Orthopedic Surgery, Pacemaker Additional Past Surgical History / Comment(s): EPS with VT ablation, jaw surgery, L/R arthroscopic knee surgery for meniscus, bilateral inguinal hernia repairs, colonoscopy. Past Anesthesia/Blood Transfusion Reactions: Postoperative Nausea & Vomiting (PONV) Type of Cardiac Device: Permanent Pacemaker, AICD Device Placement Date:: 2018 Past Psychological History: Anxiety Additional Psychological History / Comment(s): Pt resides with his parents and assists them. He is independent. Smoking Status: Former smoker Past Alcohol Use History: None Reported Additional Past Alcohol Use History / Comment(s): Pt started smoking in 1987 and was a half a ppd smoker. He quit in November of 2017. Past Drug Use History: None Reported - Past Family History Father Family Medical History: Cancer Additional Family Medical History / Comment(s): colon cancer. Mother History Unknown: Yes Family Medical History: Cancer Additional Family Medical History / Comment(s): melanoma Medications and Allergies Home Medications Medication Instructions Recorded Confirmed Type Montelukast [Singulair] 10 mg PO HS 10/11/15 03/06/21 History Atorvastatin [Lipitor] 20 mg PO HS 06/22/20 03/06/21 History Divalproex ER [Depakote ER] 250 mg PO HS 06/22/20 03/06/21 History Magnesium Chloride [Slow-Mag] 64 mg PO DAILY 06/22/20 03/06/21 History Pantoprazole [Protonix] 40 mg PO DAILY 06/22/20 03/06/21 History Propranolol HCl [Inderal Xl] 80 mg PO BID 06/22/20 03/06/21 History Sotalol [Betapace] 80 mg PO TID 06/22/20 03/06/21 History Triamcinolone Acetonide 1 spray NASAL HS 06/22/20 03/06/21 History [Triamcinolone Acetonide 0.055MG Nasal] Levothyroxine Sodium 112 mcg PO DAILY 10/25/20 03/06/21 History ALPRAZolam [Xanax] 0.25 mg PO HS 03/06/21 03/06/21 History Fexofenadine HCl 180 mg PO HS 03/06/21 03/06/21 History Allergies Allergy/AdvReac Type Severity Reaction Status Date / Time itraconazole [From Sporanox] Allergy Rash/Hives Verified 03/06/21 10:55 morphine Allergy Nausea & Verified 03/06/21 10:55 Vomiting Sulfa (Sulfonamide Allergy Unknown Verified 03/06/21 10:55 Antibiotics) Physical Exam Vitals: Vital Signs Temp Pulse Pulse Resp BP BP Pulse Ox 03/07/21 07:00 97.9 F 55 L 16 143/89 98 03/07/21 02:55 98.1 F 77 16 126/78 97 03/07/21 01:49 62 18 03/06/21 21:54 18 03/06/21 21:05 97.4 F L 62 17 142/89 97 03/06/21 19:00 97.6 F 67 18 113/85 97 03/06/21 11:00 62 18 119/86 100 Intake and Output 03/06/21 03/07/21 03/07/21 22:59 06:59 14:59 Intake Total 500 0 Balance 500 0 Intake: Oral 500 0 Other: Voiding Method Toilet Toilet Toilet # Voids 2 Weight 83.915 kg 83.91 kg PHYSICAL EXAM: VITAL SIGNS: As above GENERAL: Sitting up in bed, no acute distress HEENT: Conjunctivae normal. eyes normal. Oral mucosa moist NECK: No JVD. No thyroid enlargement. No LNs CARDIOVASCULAR: S1, S2 regular.Diastolic murmur RESPIRATION: Breath sounds diminished in the bases. No rhonchi or crackles. No bronchial breathing. ABDOMEN: Soft, nontender . No guarding. no masses palpable. No ascites, No hepatosplenomegaly.Bowel sounds heard. LEGS: No edema. no swelling PSYCHIATRY: Alert and oriented X3, mood and affect normal. NERVOUS SYSTEM: Cranial N 2-12 grossly normal. Moves all 4 limbs. Diffuse weakness No focal deficits. Strength and sensation grossly intact.. Skin: no lesions, no rash Joints: No active swelling. No inflammation. Lymphatic system. No LN neck axilla or groin. Results CBC & Chem 7: 03/06/21 09:43 03/06/21 09:43 Labs: Abnormal Lab Results - Last 24 Hours (Table) 03/06/21 Range/Units 09:43 D-Dimer 0.60 H (<0.60) mg/L FEU Thrombosis Risk Factor Assmnt - Choose All That Apply Each Factor Represents 1 point: Age 41-60 years Thrombosis Risk Factor Assessment Total Risk Factor Score: 1 Thrombosis Risk Factor Assessment Level: Low Risk Assessment and Plan Assessment: Chest pain, troponins neg. X 3 Paroxysmal atrial tachycardia Abnormal CT, possible right-sided renal CA, urology following History of V. tach, prior ablation, sick sinus syndrome with AICD placement Hypothyroidism Chronic ascending aortic aneurysm, continues outpatient monitoring Plan: Continue on current medication regime ,monitoring and symptomatic treatment. Patient may be discharged home today in a stable condition with guarded prognosis pending stress echo, final DC recommendations and clearance per cardiology, evaluation with final DC recommendations and clearance per urology. Discharge Medication List Montelukast [Singulair] 10 mg PO HS 10/11/15 [History] Atorvastatin [Lipitor] 20 mg PO HS 06/22/20 [History] Divalproex ER [Depakote ER] 250 mg PO HS 06/22/20 [History] Magnesium Chloride [Slow-Mag] 64 mg PO DAILY 06/22/20 [History] Pantoprazole [Protonix] 40 mg PO DAILY 06/22/20 [History] Propranolol HCl [Inderal Xl] 80 mg PO BID 06/22/20 [History] Sotalol [Betapace] 80 mg PO TID 06/22/20 [History] Triamcinolone Acetonide [Triamcinolone Acetonide 0.055MG Nasal] 1 spray NASAL HS 06/22/20 [History] Levothyroxine Sodium 112 mcg PO DAILY 10/25/20 [History] ALPRAZolam [Xanax] 0.25 mg PO HS 03/06/21 [History] Fexofenadine HCl 180 mg PO HS 03/06/21 [History] The impression and plan of care has been dictated as directed. : I performed a history and examination of this patient, discussed the same with the dictator. I agree with the dictator's note ,documented as a scribe. Any additional findings or plans will be noted.
--- NOTE | 2021-03-07 19:35 | P.GSCN ---
History of Present Illness Consult date: 03/07/21 Reason for Consult: Right renal mass Requesting physician: Gretchen Pedraza History of present illness: The patient is a 56-year-old white male who presented to the ER with left-sided chest burning discomfort associated with dyspnea. He was found to have left upper abdominal tenderness on examination, and a CT scan was obtained revealing a 3.6 x 3.9 cm right lower pole heterogenous renal mass. A CT scan in November 26 showed no evidence of a renal mass. He has an unremarkable urologic history. Review of Systems - Constitutional Denies chills, Denies fever - Respiratory Reports dyspnea - Genitourinary Denies dysuria, Denies flank pain, Denies hematuria Past Medical History Past Medical History: Chest Pain / Angina, Eye Disorder, Hypertension, Osteoarthritis (OA), Pneumonia, Thyroid Disorder, Vascular Disorder Additional Past Medical History / Comment(s): Vtach with ablation, bradycardia, palpitations, "leaky heart valve", cardiomegaly, past medical record documents thoracic aortic aneurysm, bronchitis, arthritis in multiple joints, chronic low back pain, L sided sciatica, migraines, rhinitis, UTI, hemorrhoids, cataracts bilaterally, past fractures bilateral wrists and L foot., states Dr Loving changed Sotolol dose-seen changes in heart on his monitor. History of Any Multi-Drug Resistant Organisms: None Reported Past Surgical History: AICD, Cardiac Ablation, Heart Catheterization, Hernia Repair, Orthopedic Surgery, Pacemaker Additional Past Surgical History / Comment(s): EPS with VT ablation, jaw surgery, L/R arthroscopic knee surgery for meniscus, bilateral inguinal hernia repairs, colonoscopy. Past Anesthesia/Blood Transfusion Reactions: Postoperative Nausea & Vomiting (PONV) Type of Cardiac Device: Permanent Pacemaker, AICD Device Placement Date:: 2018 Past Psychological History: Anxiety Additional Psychological History / Comment(s): Pt resides with his parents and assists them. He is independent. Smoking Status: Former smoker Past Alcohol Use History: None Reported Additional Past Alcohol Use History / Comment(s): Pt started smoking in 1987 and was a half a ppd smoker. He quit in November of 2017. Past Drug Use History: None Reported - Past Family History Father Family Medical History: Cancer Additional Family Medical History / Comment(s): colon cancer. Mother History Unknown: Yes Family Medical History: Cancer Additional Family Medical History / Comment(s): melanoma Medications and Allergies Home Medications Medication Instructions Recorded Confirmed Type Montelukast [Singulair] 10 mg PO HS 10/11/15 03/06/21 History Atorvastatin [Lipitor] 20 mg PO HS 06/22/20 03/06/21 History Divalproex ER [Depakote ER] 250 mg PO HS 06/22/20 03/06/21 History Magnesium Chloride [Slow-Mag] 64 mg PO DAILY 06/22/20 03/06/21 History Pantoprazole [Protonix] 40 mg PO DAILY 06/22/20 03/06/21 History Propranolol HCl [Inderal Xl] 80 mg PO BID 06/22/20 03/06/21 History Sotalol [Betapace] 80 mg PO TID 06/22/20 03/06/21 History Triamcinolone Acetonide 1 spray NASAL HS 06/22/20 03/06/21 History [Triamcinolone Acetonide 0.055MG Nasal] Levothyroxine Sodium 112 mcg PO DAILY 10/25/20 03/06/21 History ALPRAZolam [Xanax] 0.25 mg PO HS 03/06/21 03/06/21 History Fexofenadine HCl 180 mg PO HS 03/06/21 03/06/21 History Allergies Allergy/AdvReac Type Severity Reaction Status Date / Time itraconazole [From Sporanox] Allergy Rash/Hives Verified 03/06/21 10:55 morphine Allergy Nausea & Verified 03/06/21 10:55 Vomiting Sulfa (Sulfonamide Allergy Unknown Verified 03/06/21 10:55 Antibiotics) Surgical - Exam Vital Signs Temp Pulse Resp BP Pulse Ox 97.8 F 69 20 125/83 100 03/06/21 09:23 03/06/21 09:23 03/06/21 09:23 03/06/21 09:23 03/06/21 09:23 - General well developed, well nourished, no distress - Respiratory normal respiratory effort - Abdomen Abdomen: soft, tender (Mild left upper quadrant tenderness), no guarding, no rigid, no rebound, no distended - Genitourinary normal penis with no external lesions, testicles non-tender - Psychiatric oriented to time, oriented to person, oriented to place, speech is normal, memory intact Results - Labs 03/06/21 09:43 03/06/21 09:43 Diabetes panel 03/07/21 Range/Units 07:03 Triglycerides 84.90 (0.00-149.00) mg/dL HDL Cholesterol 51.10 (40.00-60.00) mg/dL - Imaging CT scan - abdomen: report reviewed, image reviewed Assessment and Plan (1) Neoplasm of uncertain behavior of right kidney Current Visit: Yes Status: Acute Code(s): D41.01 - NEOPLASM OF UNCERTAIN BEHAVIOR OF RIGHT KIDNEY SNOMED Code(s): [id number] Plan: I have reviewed Mr. Rider's CT scan, and I had a lengthy discussion with him regarding his right lower pole renal mass. I explained to him that this is suspicious for renal cell carcinoma. I have recommended he undergo a robotic-assisted laparoscopic right partial nephrectomy, though he would first require cardiac clearance. He is being discharged home this evening, and I have given him contact information to follow up in our office with Dr. Dutton. Time with Patient: Greater than 30
[2021-03-07] MEDS ORDERED: DIVALPROEX ER 250 MG TAB.ER.24H PO SCH (21:00)
[2021-03-07] MEDS ORDERED: MONTELUKAST 10 MG TAB PO SCH (21:00)
[2021-03-07] MEDS ORDERED: ATORVASTATIN 20 MG TAB PO SCH (21:00)
[2021-03-07] MEDS ORDERED: FLUTICASONE 50MCG/SPRAY NASAL 16GM EA NOSTRIL SCH (21:00)
[2021-03-07] MEDS ORDERED: LORATADINE 10 MG TAB PO SCH (21:00)
[2021-03-07] MEDS ORDERED: ALPRAZolam 0.25 MG TAB PO SCH (21:00)
[2021-03-08] MEDS ORDERED: ASPIRIN 81 MG PO SCH (09:00)
--- NOTE | 2021-03-09 08:40 | EST ---
Stress Test Results/Findings: Exam Performed: stress echo exercise Exam Date: 03/07/21 Reason for Exam: cp Height: 6 ft 1 in Weight: 83.91 kg Protocol: stress echo Stage: III Duration of Exercise: 9.15 Resting Heart Rate: 69 Resting Blood Pressure: 125/74 Maximum Achieved Heart Rate: 136 Maximum Achieved Blood Pressure: 166/90 85% PMHR: 139 100% PMHR: 164 METS: 8.5 Technologist Comment: Stress Test Results/Findings: This is a 56-year-old gentleman with history of ischemic heart disease, hypertension and diabetes being evaluated for chest pain. Stress data: Baseline EKG showed sinus rhythm with diffuse ST-T changes in inferolateral leads. Blood pressure at rest is 123/74 with pulse rate of 69. Patient woke on the Robin protocol for 7 minutes achieving a maximum heart rate of 136 and a peak blood pressure of about 166/90. She complained of shortness of breath but no chest pain. EKGs taken during exercise showed baseline artifacts with about up to [address] depression in inferolateral leads. Echo data: The cause study suboptimal, especially the stress images, because of patient's inability to cooperate. There appears to be normal wall motion and thickening addressed. Overall there appears to be improvement in LV function in all the segments. On the stress images, though the study is suboptimal. Final Impression: #1. Nondiagnostic stress test because of baseline EKG abnormalities. #2. Probably normal study, though there are technical limitations because of difficulty acquiring optimal images during the stress portion. #2. May consider nuclear imaging, if clinically indicated MTDD
== END 2021-03-07 20:08 | disposition home or self-care (01) ==
LOC: EC 09:15 → 6NMEDSUR 13:36
PROVIDERS: ADMIT Family Medicine; ATTEND Family Medicine
DX: R07.89 Other chest pain (principal); R06.02 Shortness of breath; I49.5 Sick sinus syndrome; I71.2 Thoracic aortic aneurysm, without rupture; E03.9 Hypothyroidism, unspecified; D41.01 Neoplasm of uncertain behavior of right kidney; I47.1 Supraventricular tachycardia; Z20.822 Contact with and (suspected) exposure to COVID-19; I10 Essential (primary) hypertension; M54.32 Sciatica, left side; M47.816 Spondylosis without myelopathy or radiculopathy, lumbar region; K40.20 Bilateral inguinal hernia, without obstruction or gangrene, not specified as recurrent; M19.90 Unspecified osteoarthritis, unspecified site; K64.9 Unspecified hemorrhoids; F41.9 Anxiety disorder, unspecified; J31.0 Chronic rhinitis; Z88.2 Allergy status to sulfonamides; Z88.5 Allergy status to narcotic agent; Z95.810 Presence of automatic (implantable) cardiac defibrillator; Z88.8 Allergy status to other drugs, medicaments and biological substances; Z79.899 Other long term (current) drug therapy; Z79.890 Hormone replacement therapy; Z98.41 Cataract extraction status, right eye; Z98.42 Cataract extraction status, left eye; Z86.69 Personal history of other diseases of the nervous system and sense organs; Z87.01 Personal history of pneumonia (recurrent); Z87.440 Personal history of urinary (tract) infections; Z96.1 Presence of intraocular lens; Z86.79 Personal history of other diseases of the circulatory system; Z87.891 Personal history of nicotine dependence; Z80.0 Family history of malignant neoplasm of digestive organs; Z80.8 Family history of malignant neoplasm of other organs or systems; Z82.49 Family history of ischemic heart disease and other diseases of the circulatory system
CPT/HCPCS: 99285; 36415; 93005; 93351; 85379; 83880; 80061; 80053; 82150; 83690; 83735; 84484; 85025; 85610; 85730; 87635; 71046; 74018; 71275; 74177; G0378 ×2; Q9967

== ENCOUNTER 2022-02-18 08:37 | Inpatient (IN) | payer BC ==
[2022-02-18] MEDS ORDERED: Alteplase PER PHARMACY Stroke 1 EACH MISC MISCELLANE PRN (08:41)
[2022-02-18] MEDS ORDERED: ALTEPLASE 66 MG in EMPTY BAG 1 BAG IV STA (08:42)
[2022-02-18] MEDS ORDERED: ALTEPLASE BOLUS FOR STROKE 7 MG in EMPTY SYRINGE 1 SYR IV STA (08:42)
--- NOTE | 2022-02-18 08:51 | ED ---
General Adult HPI - General Stated complaint: Code stroke Time Seen by Provider: 02/18/22 08:37 Source: patient, RN notes reviewed, old records reviewed - History of Present Illness Initial comments: This is a 57-year-old male with past medical history significant for cardiac issues such that he needed to have a pacemaker defibrillator placed. Patient states one of the card stripper told him that he probably has an ulcer but there was no testing done that he knows of. Patient states he woke up at 4:00 this morning and had no symptoms. Patient states his first symptom was left-sided pain. After the pain started patient states he at about 6:30 he started having some left-sided weakness to the point where he didn't feel like he can't get up and walk. Patient states those symptoms persisted so he called EMS. EMS confi rmed that the patient was having left-sided weakness. Patient states the weakness was so profound he didn't feel as though he can walk. Patient denies any chest pain or palpitations. Patient denies any shortness of breath or difficulty breathing. Patient denies any abdominal pain patient denies nausea vomiting diarrhea per patient denies any headache patient denies any area of numbness. - Related Data Home Medications Medication Instructions Recorded Confirmed Montelukast [Singulair] 10 mg PO HS 10/11/15 03/06/21 Atorvastatin [Lipitor] 20 mg PO HS 06/22/20 03/06/21 Divalproex ER [Depakote ER] 250 mg PO HS 06/22/20 03/06/21 Magnesium Chloride [Slow-Mag] 64 mg PO DAILY 06/22/20 03/06/21 Pantoprazole [Protonix] 40 mg PO DAILY 06/22/20 03/06/21 Propranolol HCl [Inderal Xl] 80 mg PO BID 06/22/20 03/06/21 Sotalol [Betapace] 80 mg PO TID 06/22/20 03/06/21 Triamcinolone Acetonide 1 spray NASAL HS 06/22/20 03/06/21 [Triamcinolone Acetonide 0.055MG Nasal] Levothyroxine Sodium 112 mcg PO DAILY 10/25/20 03/06/21 ALPRAZolam [Xanax] 0.25 mg PO HS 03/06/21 03/06/21 Fexofenadine HCl 180 mg PO HS 03/06/21 03/06/21 Allergies Allergy/AdvReac Type Severity Reaction Status Date / Time itraconazole [From Sporanox] Allergy Rash/Hives Verified 03/06/21 10:55 morphine Allergy Nausea & Verified 03/06/21 10:55 Vomiting Sulfa (Sulfonamide Allergy Unknown Verified 03/06/21 10:55 Antibiotics) Review of Systems ROS Statement: Those systems with pertinent positive or pertinent negative responses have been documented in the HPI. ROS Other: All systems not noted in ROS Statement are negative. Past Medical History Past Medical History: Chest Pain / Angina, Eye Disorder, Hypertension, Osteoarthritis (OA), Pneumonia, Thyroid Disorder, Vascular Disorder Additional Past Medical History / Comment(s): Vtach with ablation, bradycardia, palpitations, "leaky heart valve", cardiomegaly, past medical record documents thoracic aortic aneurysm, bronchitis, arthritis in multiple joints, chronic low back pain, L sided sciatica, migraines, rhinitis, UTI, hemorrhoids, cataracts bilaterally, past fractures bilateral wrists and L foot., states Dr Loving changed Sotolol dose-seen changes in heart on his monitor. History of Any Multi-Drug Resistant Organisms: None Reported Past Surgical History: AICD, Cardiac Ablation, Heart Catheterization, Hernia Repair, Orthopedic Surgery, Pacemaker Additional Past Surgical History / Comment(s): EPS with VT ablation, jaw surgery, L/R arthroscopic knee surgery for meniscus, bilateral inguinal hernia repairs, colonoscopy. Past Anesthesia/Blood Transfusion Reactions: Postoperative Nausea & Vomiting (PONV) Type of Cardiac Device: Permanent Pacemaker, AICD Device Placement Date:: 2018 Past Psychological History: Anxiety Additional Psychological History / Comment(s): Pt resides with his parents and assists them. He is independent. Smoking Status: Former smoker Past Alcohol Use History: None Reported Additional Past Alcohol Use History / Comment(s): Pt started smoking in 1987 and was a half a ppd smoker. He quit in November of 2017. Past Drug Use History: None Reported - Past Family History Father Family Medical History: Cancer Additional Family Medical History / Comment(s): colon cancer. Mother History Unknown: Yes Family Medical History: Cancer Additional Family Medical History / Comment(s): melanoma General Exam - General Exam Comments Initial Comments: GENERAL: Patient is well-developed and well-nourished. Patient is nontoxic and well- hydrated and is in mild distress. ENT: Neck is soft and supple. No significant lymphadenopathy is noted. Oropharynx is clear. Moist mucous membranes. Neck has full range of motion without eliciting any pain. EYES: The sclera were anicteric and conjunctiva were pink and moist. Extraocular movements were intact and pupils were equal round and reactive to light. Eyelids were unremarkable. PULMONARY: Unlabored respirations. Good breath sounds bilaterally. No audible rales rhonchi or wheezing was noted. CARDIOVASCULAR: There is a regular rate and rhythm without any murmurs gallops or rubs. ABDOMEN: Soft and nontender with normal bowel sounds. SKIN: Skin is clear with no lesions or rashes and otherwise unremarkable. NEUROLOGIC: Patient is alert and oriented x3. Cranial nerves II through XII are grossly intact. Patient had decreased maintenance team member on the left as well as decreased dorsal and plantar flexion. Patient was unable to lift the leg off the bed more than 3 inches. Patient's cerebellar testing finger to nose was off slightly with the left side. MUSCULOSKELETAL: Normal extremities with adequate strength and full range of motion. No lower extremity swelling or edema. No calf tenderness. LYMPHATICS: No significant lymphadenopathy is noted PSYCHIATRIC: Normal psychiatric evaluation. Course Vital Signs 02/18/22 02/18/22 08:56 09:09 Temperature 97.8 F Pulse Rate 61 63 Respiratory 14 18 Rate Blood Pressure 140/97 O2 Sat by Pulse 100 98 Oximetry Medical Decision Making - Medical Decision Making I spoke with Dr. Stout about the alteplase and he was in agreement if the pat ient was in agreement that he should get it. CT was interpreted by myself. CT showed no acute hemorrhage. EKG was interpreted by me EKG shows sinus rhythm at 56 bpm QRS is 90 QT intervals 431 QTC is 422 per patient's EKG shows no ST segment elevation or depression. I discussed alteplase with the patient patient did not want. I waited approximately 5 minutes and discussed the possibility of giving alteplase again patient however stated he still did not want to because of the risk of bleed. At this point in time I talk with Dr. Stout and let him know that the patient did not want the alteplase and he was obviously in agreement with not giving alteplase. Was pt. sent in by a medical professional or institution? @ -No Did you speak to anyone other than the patient for history? @ -EMS Did you review nursing and triage notes? @ -Agree with nursing notes and triage notes Were old charts reviewed? @ -Multiple old EKGs were reviewed Differential Diagnosis? @ -Considered patient have an ischemic stroke, considered patient having a hemorrhagic stroke. Patient may be malingering. Patient could have hypoglycemia. EKG interpreted by me (3pts min.)? @ -As above X-rays interpreted by me (1pt min.)? @ -X-ray of the chest was interpreted by me showed no acute abnormality. CT interpreted by me (1pt min.)? @ -CT of brain was interpreted by me showed no acute abnormality. CT angiogram of the brain and neck was read by radiology showed no acute abnormality. U/S interpreted by me (1pt. min.)? @ -None What testing was considered but not performed? (CT, X-rays, U/S, labs)? Why? @No What meds were considered but not given? Why? @ -Alteplase was considered however patient refused to take the alteplase Did you discuss the management of the patient with other professionals? @ -I discussed this case twice with the neurointerventionalist Dr. Stout and the primary medical care doctor who admitted the patient. Did you reconcile home meds? @ -No Was smoking cessation discussed for >3mins.? @ -No Was critical care preformed (if so, how long)? @ -The consideration of alteplase and the final decision not to give it qualifies this patient for critical care critical care time was approximately 35 minutes. Were there social determinants of health that impacted care today? How? (Homelessness, low income, unemployed, alcoholism, drug addiction, transportation, low edu. Level, literacy, decrease access to med. care, skilled nursing, rehab)? @ -No Was there de-escalation of care discussed even if they declined? (Discuss DNR or withdrawal of care, Hospice)? @ -No What co-morbidities impacted this encounter? (DM, HTN, Smoking, COPD, CAD, Cancer, CVA, Hep., AIDS, mental health diagnosis, sleep apnea, morbid obesity)? @ -Patient has a history of cancer and with that consideration metastases to the brain is something that could significantly impact this encounter patient will be admitted neurology will see the patient and an MRI will be ordered. Was patient admitted / discharged? @ -Patient was admitted I spoke with Dr. barrett he agreed to admit the patient I consult neurology. Patient continued to refuse any alteplase as did the family when they arrived. Patient's symptoms seemed to improve throughout his ED course and seemed to be intermittent with distraction patient seemed to be able to move his extremities without problem but when he specifically asking to move it he appeared to have difficulty Undiagnosed new problem with uncertain prognosis? @ -CVA Drug Therapy requiring intensive monitoring for toxicity (Heparin, Nitro, Insulin, Cardizem)? @ -None Were any procedures done? @ -None Diagnosis/symptom? @ -CVA Acute, or Chronic, or Acute on Chronic? @ -Acute Uncomplicated (without systemic symptoms) or Complicated (systemic symptoms)? @ -Complicated Side effects of treatment? @ -None Exacerbation, Progression, or Severe Exacerbation] @ -No Poses a threat to life or bodily function? @ -This stroke poses a threat to neurologic function - Lab Data Result diagrams: 02/18/22 09:58 02/18/22 09:13 Lab Results 02/18/22 02/18/22 02/18/22 Range/Units 09:12 09:13 09:13 WBC (3.8-10.6) k/uL RBC (4.30-5.90) m/uL Hgb (13.0-17.5) gm/dL Hct (39.0-53.0) % MCV (80.0-100.0) fL MCH (25.0-35.0) pg MCHC (31.0-37.0) g/dL RDW (11.5-15.5) % Plt Count (150-450) k/uL MPV Neutrophils % % Lymphocytes % % Monocytes % % Eosinophils % % Basophils % % Neutrophils # (1.3-7.7) k/uL Lymphocytes # (1.0-4.8) k/uL Monocytes # (0-1.0) k/uL Eosinophils # (0-0.7) k/uL Basophils # (0-0.2) k/uL PT 11.2 (9.0-12.0) sec INR 1.1 (<1.2) APTT 19.8 L (22.0-30.0) sec Sodium 133 L (137-145) mmol/L Potassium 5.5 H (3.5-5.1) mmol/L Chloride 100 (98-107) mmol/L Carbon Dioxide 26 (22-30) mmol/L Anion Gap 7 mmol/L BUN 15 (9-20) mg/dL Creatinine 0.84 (0.66-1.25) mg/dL Est GFR (CKD-EPI)AfAm >90 (>60 ml/min/1.73 sqM) Est GFR (CKD-EPI)NonAf >90 (>60 ml/min/1.73 sqM) Glucose 92 (74-99) mg/dL POC Glucose (mg/dL) 97 (70-110) mg/dL POC Glu Rn Surgery Icu ID [place], Guero Calcium 9.1 (8.4-10.2) mg/dL Total Bilirubin 0.7 (0.2-1.3) mg/dL AST 38 (17-59) U/L ALT 40 (4-49) U/L Alkaline Phosphatase 61 (38-126) U/L Troponin I (0.000-0.034) ng/mL Total Protein 7.0 (6.3-8.2) g/dL Albumin 4.4 (3.5-5.0) g/dL 02/18/22 02/18/22 Range/Units 09:13 09:58 WBC 9.1 (3.8-10.6) k/uL RBC 4.15 L (4.30-5.90) m/uL Hgb 13.1 (13.0-17.5) gm/dL Hct 38.6 L (39.0-53.0) % MCV 93.2 (80.0-100.0) fL MCH 31.7 (25.0-35.0) pg MCHC 34.0 (31.0-37.0) g/dL RDW 13.9 (11.5-15.5) % Plt Count 257 (150-450) k/uL MPV 7.7 Neutrophils % 78 % Lymphocytes % 14 % Monocytes % 4 % Eosinophils % 2 % Basophils % 1 % Neutrophils # 7.1 (1.3-7.7) k/uL Lymphocytes # 1.3 (1.0-4.8) k/uL Monocytes # 0.4 (0-1.0) k/uL Eosinophils # 0.2 (0-0.7) k/uL Basophils # 0.1 (0-0.2) k/uL PT (9.0-12.0) sec INR (<1.2) APTT (22.0-30.0) sec Sodium (137-145) mmol/L Potassium (3.5-5.1) mmol/L Chloride (98-107) mmol/L Carbon Dioxide (22-30) mmol/L Anion Gap mmol/L BUN (9-20) mg/dL Creatinine (0.66-1.25) mg/dL Est GFR (CKD-EPI)AfAm (>60 ml/min/1.73 sqM) Est GFR (CKD-EPI)NonAf (>60 ml/min/1.73 sqM) Glucose (74-99) mg/dL POC Glucose (mg/dL) (70-110) mg/dL POC Glu Rn Surgery Icu ID Calcium (8.4-10.2) mg/dL Total Bilirubin (0.2-1.3) mg/dL AST (17-59) U/L ALT (4-49) U/L Alkaline Phosphatase (38-126) U/L Troponin I <0.012 (0.000-0.034) ng/mL Total Protein (6.3-8.2) g/dL Albumin (3.5-5.0) g/dL Critical Care Time Critical Care Time: Yes Total Critical Care Time: 35 Disposition Clinical Impression: Cerebrovascular accident (CVA) Disposition: ADMITTED IP TO THIS HOSP Referrals: Sammy Barrett MD [Primary Care Provider] - 1-2 days Time of Disposition: 10:54
[2022-02-18 09:14] LABS: Glucose,Whole Blood 97 mg/dL (70-110)
--- NOTE | 2022-02-18 09:21 | CT ---
EXAMINATION TYPE: CT brain wo con for TPA DATE OF EXAM: 02/18/2022 COMPARISON: None HISTORY: 57-year-old male Left sided weakness TECHNIQUE: Examination was done in axial plane without intravenous contrast. Coronal and sagittal r econstructions performed. CT DLP: 1294.9 mGycm Automated exposure control for dose reduction was used. FINDINGS: There is no evidence of acute intracranial hemorrhage, acute ischemic changes, mass, mass-effect, or extra-axial fluid collection. There is no effacement of cerebral sulci or basal subarachnoid cister ns. There is no hydrocephalus. There is no midline shift. Dean-white matter distinction is preserv ed. Prominent skull base artifact through the posterior fossa. Leftward nasal septal deviation. Otherwise , paranasal sinuses and mastoid air cells well pneumatized. Orbits and globes appear intact. IMPRESSION: No acute intracranial abnormality seen.
[2022-02-18 09:32] LABS: ALT 40 U/L (4-49); AST 38 U/L (17-59); African American GFR (CKD) >90 (>60 ml/min/1.73 sqM); Albumin 4.4 g/dL (3.5-5.0); Alkaline Phosphatase 61 U/L (38-126); Anion Gap 7 mmol/L; Blood Urea Nitrogen 15 mg/dL (9-20); Calcium 9.1 mg/dL (8.4-10.2); Carbon Dioxide 26 mmol/L (22-30); Chloride 100 mmol/L (98-107); Glucose 92 mg/dL (74-99); Non-African American GFR(CKD) >90 (>60 ml/min/1.73 sqM); Potassium 5.5 mmol/L (3.5-5.1); Sodium 133 mmol/L (137-145); Total Bilirubin 0.7 mg/dL (0.2-1.3)
--- NOTE | 2022-02-18 09:36 | CT ---
EXAMINATION TYPE: CT angio head neck DATE OF EXAM: 02/18/2022 COMPARISON: None HISTORY: 57-year-old male with neurologic deficit, acute, stroke suspected, Left sided weakness TECHNIQUE: Contiguous axial scanning of the head and neck performed with IV Contrast, patient injecte d with 65 mL of Isovue 370. Coronal/sagittal MIP reconstructions performed. 3-D reconstructions gener ated on a dedicated independent workstation. CT DLP: 462.6 mGycm Automated exposure control for dose reduction was used. FINDINGS: Neck: Severe emphysematous change in the visualized upper lungs. Visualized proximal arch is mildly aneurysmal at 4.0 cm. Distal arch ectatic at 3.4 cm. Bovine confi guration to the aortic arch. Both vertebral arteries are patent throughout their course. The right common and internal carotid arteries are widely patent right NASCET criteria. The left common and internal carotid arteries are widely patent by NASCET criteria. HEAD: The V4 segment right vertebral artery becomes hypoplastic after the right PICA takeoff. Otherwise, the vertebral and basilar arteries are patent. Small bilateral posterior communicating art eries. Remainder of the posterior circulation is patent. The internal carotid arteries and remainder of the anterior circulation are patent. Dural venous sinuses are patent though the left transverse sinus is asymmetrically hypoplastic. No aneurysmal change is seen. IMPRESSION: 1. NECK: WIDELY PATENT VERTEBRAL AND CAROTID ARTERIES OF THE NECK. INCIDENTAL SEVERE EMPHYSEMA IN THE VISUALIZED UPPER LUNGS. 2. HEAD: NO LARGE VESSEL INTRACRANIAL ARTERIAL OCCLUSION, SIGNIFICANT STENOSIS, OR ANEURYSMAL CHANGE IS SEEN.
--- NOTE | 2022-02-18 09:41 | XR ---
EXAMINATION TYPE: XR chest 2V DATE OF EXAM: 02/18/2022 COMPARISON: 03/06/2021 HISTORY: 57-year-old male confusion, altered mental status, stroke symptoms. TECHNIQUE: AP and lateral views FINDINGS: Left anterior chest wall AICD generator with right atrial and right ventricular leads. Heart borderli ne in size. Diffuse interstitial density with hyperinflation and bullous change at the apices. No ple ural effusion. IMPRESSION: AICD generator on the left. COPD with bullous emphysema at the apices. Interstitial changes in the lo wer lungs appear largely chronic.
[2022-02-18] MEDS ORDERED: SODIUM CHLORIDE 0.9% 50 ML MINI-BAG IV ONE (09:42)
[2022-02-18 09:44] LABS: INR 1.1 (<1.2); Prothrombin Time 11.2 sec (9.0-12.0)
[2022-02-18 09:47] LABS: Partial Thromboplastin Time 19.8 sec (22.0-30.0)
[2022-02-18 10:02] LABS: Basophils # (A) 0.1 k/uL (0-0.2); Basophils % (A) 1 %; Eosinophils # (A) 0.2 k/uL (0-0.7); Eosinophils % (A) 2 %; HCT 38.6 % (39.0-53.0); HGB 13.1 gm/dL (13.0-17.5); Lymphocytes # (A) 1.3 k/uL (1.0-4.8); Lymphocytes % (A) 14 %; MCH 31.7 pg (25.0-35.0); MCV 93.2 fL (80.0-100.0); Mean Platelet Volume 7.7; Monocytes # (A) 0.4 k/uL (0-1.0); Monocytes % (A) 4 %; Neutrophils # (A) 7.1 k/uL (1.3-7.7); Neutrophils % (A) 78 %; Platelet Count 257 k/uL (150-450); RBC 4.15 m/uL (4.30-5.90); RDW 13.9 % (11.5-15.5); WBC 9.1 k/uL (3.8-10.6)
--- NOTE | 2022-02-18 12:44 | P.HPIM ---
History of Present Illness H&P Date: 02/18/22 Chief Complaint: Left-sided weakness Siva is a 57-year-old male well-known to me. He has multiple medical problems who has a AICD, history of ventricular tachycardia with ablation, renal cell carcinoma history, history of partial nephrectomy, copd, bipolar depression, reports sleeping poorly and only approximately 3 hours per night. He woke early this morning with the inability to move his left arm and left leg. He also said that he had some issues the left side of his face. He reports that the symptoms have since resolved. He denied any significant nausea or vomiting. He complained of some mild chest pains but no significant shortness of breath during this episode. Review of Systems All systems: negative Past Medical History Past Medical History: Cancer (Renal cell carcinoma), Chest Pain / Angina, Eye Disorder, Hypertension, Osteoarthritis (OA), Pneumonia, Thyroid Disorder, Vascular Disorder Additional Past Medical History / Comment(s): Vtach with ablation, bradycardia, palpitations, "leaky heart valve", cardiomegaly, past medical record documents thoracic aortic aneurysm, bronchitis, arthritis in multiple joints, chronic low back pain, L sided sciatica, migraines, rhinitis, UTI, hemorrhoids, cataracts bilaterally, past fractures bilateral wrists and L foot., states Dr Loving changed Sotolol dose-seen changes in heart on his monitor. History of Any Multi-Drug Resistant Organisms: None Reported Past Surgical History: AICD, Cardiac Ablation, Heart Catheterization, Hernia Repair, Orthopedic Surgery, Pacemaker Additional Past Surgical History / Comment(s): Partial nephrectomy , EPS with VT ablation, jaw surgery, L/R arthroscopic knee surgery for meniscus, bilateral inguinal hernia repairs, colonoscopy. Past Anesthesia/Blood Transfusion Reactions: Postoperative Nausea & Vomiting (PONV) Type of Cardiac Device: Permanent Pacemaker, AICD Device Placement Date:: 2018 Past Psychological History: Anxiety Additional Psychological History / Comment(s): Pt resides with his parents and assists them. He is independent. Smoking Status: Former smoker Past Alcohol Use History: None Reported Additional Past Alcohol Use History / Comment(s): Pt started smoking in 1987 and was a half a ppd smoker. He quit in November of 2017. Past Drug Use History: None Reported - Past Family History Father Family Medical History: Cancer Additional Family Medical History / Comment(s): colon cancer. Mother History Unknown: Yes Family Medical History: Cancer Additional Family Medical History / Comment(s): melanoma Medications and Allergies Home Medications Medication Instructions Recorded Confirmed Type Montelukast [Singulair] 10 mg PO HS 10/11/15 02/18/22 History Atorvastatin [Lipitor] 20 mg PO HS 06/22/20 02/18/22 History Divalproex ER [Depakote ER] 250 mg PO HS 06/22/20 02/18/22 History Magnesium Chloride [Slow-Mag] 64 mg PO DAILY 06/22/20 02/18/22 History Pantoprazole [Protonix] 40 mg PO DAILY 06/22/20 02/18/22 History Sotalol [Betapace] 80 mg PO TID 06/22/20 02/18/22 History Levothyroxine Sodium 112 mcg PO DAILY 10/25/20 02/18/22 History Alfuzosin HCl [Alfuzosin HCl ER] 10 mg PO DAILY 02/18/22 02/18/22 History Metoprolol Succinate (ER) [Toprol 50 mg PO BID 02/18/22 02/18/22 History Xl] buPROPion XL [Wellbutrin XL] 150 mg PO DAILY 02/18/22 02/18/22 History Allergies Allergy/AdvReac Type Severity Reaction Status Date / Time itraconazole [From Sporanox] Allergy Rash/Hives Verified 02/18/22 11:14 morphine Allergy Nausea & Verified 02/18/22 11:14 Vomiting Sulfa (Sulfonamide Allergy Unknown Verified 02/18/22 11:14 Antibiotics) Physical Exam Vitals: Vital Signs Temp Pulse Resp BP Pulse Ox 02/18/22 09:09 63 18 98 02/18/22 08:56 97.8 F 61 14 140/97 100 Intake and Output 02/17/22 02/18/22 02/18/22 22:59 06:59 14:59 Other: Weight 81.647 kg GENERAL: Well-appearing, well-nourished and in no acute distress. HEAD: Atraumatic, normocephalic. EYES: Pupils equal round and reactive to light, extraocular movements intact, sclera anicteric, conjunctiva are normal. ENT:nares patent, oropharynx clear without exudates. Moist mucous membranes. NECK: Normal range of motion, supple without lymphadenopathy or JVD, no thyromegaly LUNGS: Breath sounds clear to auscultation bilaterally and equal. No wheezes rales or rhonchi. HEART: Regular rate and rhythm without murmurs, rubs or gallops.S1S2 Normal ABDOMEN: Soft, nontender, normoactive bowel sounds. No guarding, no rebound. No masses appreciated. EXTREMITIES: Normal range of motion, no pitting or edema. No clubbing or cyanosis. NEUROLOGICAL: Cranial nerves II through XII grossly intact. Normal speech, right-sided hand and arm leg strength are normal, left side shows minimal weak ness with left plantar flexion PSYCH: Normal mood, normal affect. SKIN: Warm, Dry, normal turgor, no rashes or lesions noted. Results CBC & Chem 7: 02/18/22 09:58 02/18/22 09:13 Labs: Abnormal Lab Results - Last 24 Hours (Table) 02/18/22 02/18/22 02/18/22 Range/Units 09:13 09:13 09:58 RBC 4.15 L (4.30-5.90) m/uL Hct 38.6 L (39.0-53.0) % APTT 19.8 L (22.0-30.0) sec Sodium 133 L (137-145) mmol/L Potassium 5.5 H (3.5-5.1) mmol/L Chest x-ray: report reviewed CT scan - chest: report reviewed CT Scan - head: report reviewed Thrombosis Risk Factor Assmnt - DVT/VTE Prophylaxis DVT/VTE Prophylaxis: Low risk, early ambulation encouraged - Choose All That Apply Any of the Below Risk Factors Present?: Yes Each Factor Represents 1 point: Abnormal pulmonary function (COPD), Age 41-60 years Other congenital or acquired thrombophilia - If yes, enter type in comment: No Thrombosis Risk Factor Assessment Total Risk Factor Score: 2 Thrombosis Risk Factor Assessment Level: Low Risk Assessment and Plan (1) TIA (transient ischemic attack) Current Visit: Yes Status: Acute Code(s): G45.9 - TRANSIENT CEREBRAL ISCHEMIC ATTACK, UNSPECIFIED SNOMED Code(s): 349924001 (2) H/O right nephrectomy Current Visit: Yes Status: Acute Code(s): Z90.5 - ACQUIRED ABSENCE OF KIDNEY SNOMED Code(s): 88668211163204 (3) H/O renal cell carcinoma Current Visit: Yes Status: Acute Code(s): Z85.528 - PERSONAL HISTORY OF OTHER MALIGNANT NEOPLASM OF KIDNEY SNOMED Code(s): 081669527 (4) Bipolar depression Current Visit: Yes Status: Acute Code(s): F31.9 - BIPOLAR DISORDER, UNSPECIFIED SNOMED Code(s): 713764201 (5) Acquired hypothyroidism Current Visit: Yes Status: Acute Code(s): E03.9 - HYPOTHYROIDISM, UNSPECIFIED SNOMED Code(s): 775809993 (6) Essential (primary) hypertension Current Visit: Yes Status: Acute Code(s): I10 - ESSENTIAL (PRIMARY) HYPERTENSION SNOMED Code(s): 39062320 (7) History of ventricular tachycardia Current Visit: No Status: Acute Code(s): Z86.79 - PERSONAL HISTORY OF OTHER DISEASES OF THE CIRCULATORY SYSTEM SNOMED Code(s): 217753564007347 (8) Hypothyroidism Current Visit: No Status: Acute Code(s): E03.9 - HYPOTHYROIDISM, UNSPECIFIED SNOMED Code(s): 02325282 (9) Thoracic aortic aneurysm Current Visit: No Status: Acute Code(s): I71.2 - THORACIC AORTIC ANEURYSM, WITHOUT RUPTURE * DO NOT USE * SNOMED Code(s): 259027889 Plan: Consult cardiology neurology, and psychiatry. ER feels this maybe Cnversion disorder I recently increased his bupropion and turn Telex to 20 mg and 300 mg a day. He is obviously having some insomnia, will recheck labs, reevaluate him in the next 24 hours.
[2022-02-18] MEDS ORDERED: VORTIOXETINE HYDROBROMIDE 20 MG TABLET PO SCH (13:00)
[2022-02-18] MEDS ORDERED: buPROPion XL 300 MG TAB.ER.24H PO SCH (13:00)
[2022-02-18] MEDS ORDERED: buPROPion XL 150 MG TAB.ER.24H PO SCH (13:00)
[2022-02-18] MEDS: ATORVASTATIN 80 MG TAB PO SCH (14:07)
[2022-02-18] MEDS: MAGNESIUM OXIDE 400 MG TAB PO SCH (14:07)
[2022-02-18] MEDS: PANTOPRAZOLE 40 MG TABLET PO SCH (14:08)
[2022-02-18 14:10] LABS: T4, Free (Free Thyroxine) 0.53 ng/dL (0.78-2.19)
[2022-02-18] MEDS: VORTIOXETINE HYDROBROMIDE 10 MG TABLET PO SCH (14:46)
[2022-02-18] MEDS: SOTALOL 80 MG TAB PO SCH ×4 (14:46→23:20)
[2022-02-18] MEDS: IPRATROPIUM 0.5 MG/2.5 ML NEBU INHALATION SCH ×2 (16:50→20:11)
[2022-02-18] MEDS ORDERED: buPROPion XL 150 MG TAB.ER.24H PO ONE (18:00)
[2022-02-18] MEDS: SYMBICORT 160-4.5 MCG INHALER INHALATION SCH (20:11)
[2022-02-18] MEDS: METOPROLOL SUCCINATE (ER) 50 MG TAB.ER.24H PO SCH (21:05)
[2022-02-18] MEDS: DIVALPROEX ER 250 MG TAB.ER.24H PO SCH (21:05)
[2022-02-18] MEDS: MONTELUKAST 10 MG TAB PO SCH (21:05)
--- NOTE | 2022-02-19 02:40 | CONS ---
DATE OF SERVICE 02/18/2022 CONSULTATION PURPOSE FOR CONSULTATION: Evaluate for anxiety and mood-related issues along with possible psychosomatic symptoms. HISTORY OF PRESENTING ILLNESS: The patient was able to provide a history of long-term mental health problems that he has had. He has not had a past psychiatric hospitalization. He currently is prescribed Wellbutrin 150 mg a day and Depakote 250 mg a day by his primary care physician, Dr. Phillips, for anxiety and depression issues. His current situation is that he came to the ED with complaint of "left-sided weakness." Nursing in the ED observed that there seemed to be inconsistency in how he presented. At one point, he said he was having weakness on his left side to where he had much difficulty moving his left arm. During the course of monitoring and examining the patient, there were times where he moved his left arm completely fluidly without any limitations at all. Also, he had been described a lot of generalized weakness he was having, though in the ED, staff observed that there was a family visit and when the family left, he very quickly after that was able to walk out in the [place] area without any difficulty at all. According to the patient, his most immediate problem that he has had is poor sleep. He describes lifelong problems with anxiety and depression. He did not clearly give any insights or indications as to what in the past or present has contributed to this. He is single. He has not been . He seemed to minimize any long-term issues that he has had and appears to have fairly limited social supports. He said he has been struggling at work and was recently laid off on February 02. He said the main reason for being laid off was that he was missing work frequently due to migraines and sinus problems. He was working doing I guess [employer] work. The patient lives with his mother and says that he takes care of his mother what he described as symptoms that brought him to the hospital was that he was having left leg tingling, right arm tingling, and left face tingling. Apparently, this had just recently started up and was something that was quite distressing to him. According to the admission note of Dr. Phillips, Dr. Phillips described the following; "he woke early this morning with inability to move his left arm and left leg, he also said that he had some issues in the left side of his face. He reports that the symptoms have since resolved." He does have a complicated medical history. I would refer the reader to Dr. Phillips's admission note for details. Dr. Phillips diagnosed TIA. He also indicated a diagnosis of bipolar disorder with bipolar depression. No further details are noted. When I reviewed possible mood-related symptoms, the patient indicated that he has been sleeping poorly. He feels that his energy is in a reasonable state, though somewhat lower than it should be. He did not report any hallucinations, but does note that he has ringing in the ears. It is noted that he on his own described that he just recently put 6 cameras throughout the house so that he could watch for any potential intrusions. When I asked if he had any concerns about any of these issues going on, he said no, but "it's better to be safe than sorry." Whether that is any indication of some mild paranoid thinking that remains to be seen. He does describe anxiety and will get panic attacks. He says there are times were frequently he may try to be doing deep breathing to slow his heart down when he gets into a panic. He has had a history of tachycardia with heart rates over 200. He was vague about whether he has experienced significant past trauma or any posttraumatic issues. He denied any thoughts of harm to self or others. He reports no substance use issues. He does not drink, smoke marijuana, or do other abusive substances. It is noted on this admission that his TSH was 74. He did not have thyroid replacement listed as a home medication, but currently he is on Synthroid 112 mcg daily. MENTAL STATUS EXAMINATION: Patient sat on the side of the bed facing me. He gave a good eye contact. It is noteworthy that when I first went into the room and talked to him, he had some abnormal buccolingual movements. He seemed to show some asymmetry where one side of his mouth would tighten and curl some and then the other that seem to settle down early in the conversation and then I did not observe any more of that. He did not show any other significant abnormal psychomotor activity. He appeared to show fluid movements in both his arms. He sat in a reasonable posture and did not show restlessness. There were no tremors observed. He answered questions with brief responses. His thoughts were clear, though at times he seemed a little disconnected in his responses compared to the questions asked. At times, there was mild degree of hesitancy in responding. For the most part, his thoughts were coherent and goal-directed. He had a somewhat anxious affect, though did present in a friendly manner. His mood was somewhat reserved. It was difficult to say that he was showing depressed mood. He did have a somewhat worried manner, though did not seem to be significantly distressed. There was no indication of his responding to internal stimuli. He did not report any auditory hallucinations. He voiced no thoughts of harm. On cognitive exam, he was oriented x3 and alert. He could give 3/3 objects after 4 minutes and was able to note that when he gave them back, he gave them in a different order from what he was given initially. He was able to give the days of the week in reverse order quite rapidly. He was able to do serial subtraction. He knew the President and [employer] present and previous President. It is noted that in the range of cognitive questions I asked him, he responded more quickly and accurately compared to how he responded during the general conversation. ASSESSMENT: This 57-year-old male was diagnosed with mood disorder. Dr. Phillips has diagnosed bipolar disorder, though I do not have a history of that. Given that the patient is on Wellbutrin, it is reasonable at this point to consider titrating up. I will increase his dose from 150 mg a day to 300 mg a day. He is on Depakote 250 mg a day at bedtime. We do not have a valproic acid level, though it is likely that the level will be low. There are issues with his being on Wellbutrin. If he does have a clear diagnosis of bipolar disorder, there can be aggravation to cycling and manic episodes with his being on any antidepressant and potentially with the increase in his Wellbutrin, this will need to be monitored. If he is showing any indications of manic or hypomanic symptoms, Psychiatry should be notified right away. There maybe more issues that need to be addressed based on Neurology evaluation. At this point, it is not clear that regular or ongoing psychiatric care is needed, so I will defer at this point. If further psychiatric issues arise, please re-consult Psychiatry. MMИРИНАL / IJN: [id number] / TITO
[2022-02-19] MEDS: PANTOPRAZOLE 40 MG TABLET PO SCH (06:16)
[2022-02-19] MEDS ORDERED: LEVOTHYROXINE 112 MCG TAB PO SCH (06:30)
[2022-02-19] MEDS: SYMBICORT 160-4.5 MCG INHALER INHALATION SCH ×2 (07:43→19:40)
[2022-02-19] MEDS: IPRATROPIUM 0.5 MG/2.5 ML NEBU INHALATION SCH ×4 (07:43→19:39)
[2022-02-19 08:10] LABS: Basophils # (A) 0.1 k/uL (0-0.2); Basophils % (A) 0 %; Eosinophils # (A) 0.2 k/uL (0-0.7); Eosinophils % (A) 1 %; HCT 40.9 % (39.0-53.0); HGB 13.8 gm/dL (13.0-17.5); Lymphocytes # (A) 1.3 k/uL (1.0-4.8); Lymphocytes % (A) 8 %; MCH 31.6 pg (25.0-35.0); MCHC 33.6 g/dL (31.0-37.0); MCV 94.1 fL (80.0-100.0); Monocytes # (A) 0.5 k/uL (0-1.0); Monocytes % (A) 3 %; Neutrophils # (A) 13.5 k/uL (1.3-7.7); Neutrophils % (A) 86 %; Platelet Count 279 k/uL (150-450); RBC 4.35 m/uL (4.30-5.90); RDW 13.8 % (11.5-15.5); WBC 15.7 k/uL (3.8-10.6)
[2022-02-19] MEDS ORDERED: ONDANSETRON 4 MG/2 ML VIAL IVP PRN (08:12)
[2022-02-19 08:23] LABS: African American GFR (CKD) >90 (>60 ml/min/1.73 sqM); Anion Gap 6 mmol/L; Blood Urea Nitrogen 17 mg/dL (9-20); Carbon Dioxide 25 mmol/L (22-30); Chloride 103 mmol/L (98-107); Glucose 109 mg/dL (74-99); Non-African American GFR(CKD) >90 (>60 ml/min/1.73 sqM); Sodium 134 mmol/L (137-145)
--- NOTE | 2022-02-19 09:55 | P.CRDCN ---
History of Present Illness Consult date: 02/19/22 Reason for Consult (text): TIA History of present illness: HISTORY OF PRESENT ILLNESS: This is a 57-year-old male with a past medical history significant for paroxysmal atrial tachycardia, sick sinus syndrome, dilated aortic root, ventricular tachycardia with previous ablation and AICD implantation. Patient follows in the office with Dr. Loving. We have been asked to see the patient in consultation for TIA. Patient examined at the bedside. Patient states he presented to the hospital due to left leg and arm as well as had numbness that lasted approximately 3 hours. He also had some slurred speech. Patient states all symptoms have resolved. He denies having any chest pain, shortness of breath, palpitations, lightheadedness or dizziness. He denies AICD firing. EKG reveals sinus mechanism with no signs of acute ischemia Chest xray reveals AICD generator on the left. COPD with bullous emphysema at the apices. Interstitial changes in the lower lungs appear largely chronic. Laboratory data: WBC 15.7, hemoglobin 13.8, platelet count 279. Sodium 134, electrolytes and renal function within normal limits. TSH 74.5 and free T4 0.53. Current home cardiac medications include sotalol 80 mg 3 times a day, Lipitor 20 mg at night, Toprol-XL 50 mg twice daily Most recent echocardiogram obtained in 2019 revealed ejection fraction 50-55%, mild aortic regurgitation, mild mitral regurgitation, mild tricuspid regurgitation Stress echocardiogram 03/07/2021 revealed nondiagnostic stress test because of baseline EKG abnormalities, probable normal study. May consider nuclear imaging. REVIEW OF SYSTEMS: At the time of my exam: CONSTITUTIONAL: Denies fever or chills. HEENT: Denies blurred vision, vision changes, or eye pain. Denies hemoptysis CARDIOVASCULAR: Denies chest pain. Denies orthopnea. Denies PND. Denies palpitations RESPIRATORY: Denies shortness of breath. GASTROINTESTINAL: Denies abdominal pain. Denies nausea or vomiting. HEMATOLOGIC: Denies bleeding disorders. GENITOURINARY: Denies any blood in urine. SKIN: Denies pruitis. Denies rash. PHYSICAL EXAM: VITAL SIGNS: Reviewed. GENERAL: Well-developed in no acute distress. HEENT: Head is normocephalic. Pupils are equal, round. Sclerae anicteric. Mucous membranes of the mouth are moist. Neck supple. No JVD or thyromegaly LUNGS: Respirations even and unlabored. Lungs essentially clear to auscultation bilaterally. HEART: Regular rate and rhythm. S1 and S2 heard. ABDOMEN: Soft. Nondistended. Nontender. EXTREMITIES: Normal range of motion. No clubbing or cyanosis. Peripheral pulses intact. No lower extremity edema NEUROLOGIC: Awake and alert. Oriented x 3. ASSESSMENT: TIA Paroxysmal atrial tachycardia History of sick sinus syndrome Dilated aortic root History of ventricular tachycardia with previous ablation and AICD implantation PLAN: Continue home cardiac medications Obtain 2-D echocardiogram and depending on results, patient may undergo HUGH. Nurse practitioner note has been reviewed by physician. Signing provider agrees with the documented findings, assessment, and plan of care. Past Medical History Past Medical History: Cancer, Chest Pain / Angina, Eye Disorder, Hypertension, Osteoarthritis (OA), Pneumonia, Thyroid Disorder, Vascular Disorder Additional Past Medical History / Comment(s): Vtach with ablation, bradycardia, palpitations, "leaky heart valve", cardiomegaly, past medical record documents thoracic aortic aneurysm, bronchitis, arthritis in multiple joints, chronic low back pain, L sided sciatica, migraines, rhinitis, UTI, hemorrhoids, cataracts bilaterally, past fractures bilateral wrists and L foot., states Dr Loving changed Sotolol dose-seen changes in heart on his monitor. History of Any Multi-Drug Resistant Organisms: None Reported Past Surgical History: AICD, Cardiac Ablation, Heart Catheterization, Hernia Repair, Orthopedic Surgery, Pacemaker Additional Past Surgical History / Comment(s): Partial nephrectomy , EPS with VT ablation, jaw surgery, L/R arthroscopic knee surgery for meniscus, bilateral inguinal hernia repairs, colonoscopy. Past Anesthesia/Blood Transfusion Reactions: Postoperative Nausea & Vomiting (PONV) Type of Cardiac Device: Permanent Pacemaker, AICD Device Placement Date:: 2018 Past Psychological History: ADD/ADHD, Anxiety, Bipolar, Depression Additional Psychological History / Comment(s): Pt resides with his parents and assists them. He is independent. Smoking Status: Former smoker Past Alcohol Use History: None Reported Additional Past Alcohol Use History / Comment(s): Pt started smoking in 1987 and was a half a ppd smoker. He quit in November of 2017. Past Drug Use History: None Reported - Past Family History Father Family Medical History: Cancer Additional Family Medical History / Comment(s): colon cancer. Mother History Unknown: Yes Family Medical History: Cancer Additional Family Medical History / Comment(s): melanoma Medications and Allergies Home Medications Medication Instructions Recorded Confirmed Type Montelukast [Singulair] 10 mg PO HS 10/11/15 02/18/22 History Atorvastatin [Lipitor] 20 mg PO HS 06/22/20 02/18/22 History Divalproex ER [Depakote ER] 250 mg PO HS 06/22/20 02/18/22 History Magnesium Chloride [Slow-Mag] 64 mg PO DAILY 06/22/20 02/18/22 History Pantoprazole [Protonix] 40 mg PO DAILY 06/22/20 02/18/22 History Sotalol [Betapace] 80 mg PO TID 06/22/20 02/18/22 History Levothyroxine Sodium 112 mcg PO DAILY 10/25/20 02/18/22 History Alfuzosin HCl [Alfuzosin HCl ER] 10 mg PO DAILY 02/18/22 02/18/22 History Metoprolol Succinate (ER) [Toprol 50 mg PO BID 02/18/22 02/18/22 History Xl] buPROPion XL [Wellbutrin XL] 150 mg PO DAILY 02/18/22 02/18/22 History Allergies Allergy/AdvReac Type Severity Reaction Status Date / Time itraconazole [From Sporanox] Allergy Rash/Hives Verified 02/18/22 11:14 morphine Allergy Nausea & Verified 02/18/22 11:14 Vomiting Sulfa (Sulfonamide Allergy Unknown Verified 02/18/22 11:14 Antibiotics) Physical Exam Vitals: Vital Signs Temp Pulse Pulse Resp BP BP Pulse Ox 02/19/22 07:55 64 02/19/22 07:46 96 02/19/22 07:43 66 02/19/22 04:36 98.1 F 60 18 121/79 98 02/19/22 02:00 60 02/19/22 00:21 98.2 F 57 L 18 126/77 97 02/18/22 20:23 64 02/18/22 20:12 60 02/18/22 20:00 60 02/18/22 19:46 98.0 F 58 L 18 119/72 97 02/18/22 17:53 98.3 F 71 18 131/86 93 L 02/18/22 16:59 59 L 02/18/22 16:50 60 98 12/25/22 16:01 59 L 16 114/93 96 02/18/22 14:47 58 L 16 111/79 95 02/18/22 09:09 63 18 98 02/18/22 08:56 97.8 F 61 14 140/97 100 Intake and Output 02/18/22 02/19/22 02/19/22 22:59 06:59 14:59 Intake Total 540 240 Balance 540 240 Intake: Oral 540 240 Other: Weight 81.647 kg Results 02/19/22 07:52 02/19/22 07:52 Cardiac Enzymes 02/18/22 02/18/22 Range/Units 09:13 09:13 AST 38 (17-59) U/L Troponin I <0.012 (0.000-0.034) ng/mL Coagulation 02/18/22 Range/Units 09:13 PT 11.2 (9.0-12.0) sec APTT 19.8 L (22.0-30.0) sec CBC 02/18/22 Range/Units 09:58 WBC 9.1 (3.8-10.6) k/uL RBC 4.15 L (4.30-5.90) m/uL Hgb 13.1 (13.0-17.5) gm/dL Hct 38.6 L (39.0-53.0) % Plt Count 257 (150-450) k/uL Comprehensive Metabolic Panel 02/18/22 Range/Units 09:13 Sodium 133 L (137-145) mmol/L Potassium 5.5 H (3.5-5.1) mmol/L Chloride 100 (98-107) mmol/L Carbon Dioxide 26 (22-30) mmol/L BUN 15 (9-20) mg/dL Creatinine 0.84 (0.66-1.25) mg/dL Glucose 92 (74-99) mg/dL Calcium 9.1 (8.4-10.2) mg/dL AST 38 (17-59) U/L ALT 40 (4-49) U/L Alkaline Phosphatase 61 (38-126) U/L Total Protein 7.0 (6.3-8.2) g/dL Albumin 4.4 (3.5-5.0) g/dL Current Medications Generic Name Dose Route Start Last Admin Trade Name Freq PRN Reason Stop Dose Admin Atorvastatin Calcium 80 mg 02/18/22 13:00 02/18/22 14:07 Atorvastatin 80 Mg Tab PO 80 mg DAILY RODOLFO Administration Budesonide/Formoterol Fumarate 2 puff 02/18/22 20:00 02/19/22 07:43 Symbicort 160-4.5 Mcg Inhaler INHALATION 2 puff RT-BID RODOLFO Administration Bupropion HCl 300 mg 02/19/22 09:00 Bupropion Xl 300 Mg Tab.Er.24h PO DAILY RODOLFO Divalproex Sodium 250 mg 02/18/22 21:00 02/18/22 21:05 Divalproex Er 250 Mg Tab.Er.24h PO 250 mg HS RODOLFO Administration Ipratropium [place] 0.5 mg 02/18/22 16:00 02/19/22 07:43 Ipratropium 0.5 Mg/2.5 Ml Nebu INHALATION 0.5 mg RT-QID RODOLFO Administration Levothyroxine Sodium 112 mcg 02/19/22 06:30 02/19/22 06:16 Levothyroxine 112 Mcg Tab PO 112 mcg DAILY@0630 RODOLFO Administration Magnesium Oxide 400 mg 02/18/22 13:00 02/18/22 14:07 Magnesium Oxide 400 Mg Tab PO 400 mg DAILY RODOLFO Administration Metoprolol Succinate 50 mg 02/18/22 21:00 02/18/22 21:05 Metoprolol Succinate (Er) 50 Mg Tab.Er.24h PO 50 mg BID RODOLFO Administration Montelukast Sodium 10 mg 02/18/22 21:00 02/18/22 21:05 Montelukast 10 Mg Tab PO 10 mg HS RODOLFO Administration Pantoprazole Sodium 40 mg 02/18/22 13:00 02/19/22 06:16 Pantoprazole 40 Mg Tablet PO 40 mg [id number] RODOLFO Administration Sotalol HCl 80 mg 02/18/22 13:00 02/18/22 23:20 Sotalol 80 Mg Tab PO Not Given TID RODOLFO Tamsulosin HCl 0.4 mg 02/19/22 09:00 Tamsulosin 0.4 Mg Cap.Er.24h PO DAILY RODOLFO Vortioxetine 10 mg 02/18/22 13:00 02/18/22 14:46 Vortioxetine Hydrobromide 10 Mg Tablet PO 10 mg DAILY RODOLFO Administration Intake and Output 02/18/22 02/19/2202/19/22 22:59 06:59 14:59 Intake Total 540 240 Balance 540 240 Intake: Oral 540 240 Other: Weight 81.647 kg 02/18/22 09:58 02/18/22 09:13
[2022-02-19] MEDS ORDERED: ASPIRIN 81 MG PO STA (10:37)
[2022-02-19] MEDS: SOTALOL 80 MG TAB PO SCH ×3 (10:58→21:19)
[2022-02-19] MEDS: buPROPion XL 300 MG TAB.ER.24H PO SCH (10:58)
[2022-02-19] MEDS: ATORVASTATIN 80 MG TAB PO SCH (10:58)
[2022-02-19] MEDS: MAGNESIUM OXIDE 400 MG TAB PO SCH (10:58)
[2022-02-19] MEDS: TAMSULOSIN 0.4 MG CAP.ER.24H PO SCH (10:58)
[2022-02-19] MEDS: METOPROLOL SUCCINATE (ER) 50 MG TAB.ER.24H PO SCH ×2 (11:06→21:18)
--- NOTE | 2022-02-19 12:11 | P.CNNES ---
History of Present Illness Consult date: 02/19/22 Requesting physician: Shimon Tee Reason for Consult: CVA History of Present Illness: Patient is a 57-year-old right-handed male came to the hospital by ambulance yesterday at 8:37 AM for acute onset of left-sided numbness and weakness. Patient states that he woke up at 4:30 AM yesterday and was feeling fine. At around 6:30 AM to 7 AM, he developed acute onset of numbness and weakness of the left side including arm and leg. His states his left side of the face was numb. He states that he couldn't move his left side. He states he was slurring "a little". He has some blurred vision but no loss of vision. Patient denied any chest pain, abdominal pain. He does not take any blood thinners or antiplatelet medications at home. He came to the hospital by ambulance. As per EMS flow sheet, when they arrived, found patient complaining of left- sided weakness and numbness. Patient mentioned that he woke up at 4:30 AM and felt fine, but at about 6:30 AM he began to have pain and numbness on his left side. When EMS arrived, he was sitting in the recliner chair and could not move his left side. Patient's speech was a bit slurred and he was still awake and able to answer questions. environmental monitoring technician showed normal sinus rhythm. Patient's vitals at the scene was blood pressure 157/100, pulse rate 68, respiration 18 saturation 96% and blood sugar 130. Vital signs currently blood pressure 140/97 pulse rate 61 temperature 97.8. Blood test shows WBC 9.1 hemoglobin 13.1, normal platelets. PT/PTT normal. Sodium 133 potassium 5.5, normal renal and hepatic panel and troponin. TSH is 74.5, and free T4 decreased 0.53. CT head normal. I personally reviewed CT head, agree with the findings. CTA of head and neck are normal. Chest x-ray showed AICD generator on the left. COPD with bullous emphysema at the apices. Interstitial changes in the lower lungs appeared largely chronic. EKG reported as atrial fibrillation with slow ventricular response. However it appears that ED physician reviewed EKG and felt normal sinus rhythm. Patient was not given TPA, as patient declined. Patient states that his symptoms has completely resolved in about 2-3 hours from the time of onset of symptoms. At present he has no symptoms. Patient has history of hypertension, but denies diabetes. He states that he was diagnosed with "fast heart rate", one time it was 220/m and the time was 200/m. He had a pacemaker placed in May 2019. Denies any previous history of strokes or TIA. He smoked 1 pack per day for 20 years, quit 6 years ago. Denies any alcohol or drug use. Patient's home medications include Singulair, Depakote 250 mg at bedtime, Lipitor 20 mg, magnesium, Protonix, sotalol 80 mg 3 times a day, levothyroxine, Wellbutrin XL 150 mg daily, metoprolol and alfuzosin 10 mg. Review of Systems Constitutional: Denies chills, Denies fever Eyes: bilateral blurred vision (Now resolved), denies diplopia, denies pain Ears: deny: ear discharge, earache Ears, nose, mouth and throat: Denies headache, Denies sore throat Cardiovascular: Denies chest pain, Denies shortness of breath Respiratory: Denies cough Gastrointestinal: Denies abdominal pain, Denies diarrhea, Denies nausea, Denies vomiting Musculoskeletal: Reports myalgias, Reports neck pain Musculoskeletal: right: ankle pain (All these pains from arthritis. Also finger pain.), bilateral: elbow pain, knee pain, shoulder pain Integumentary: Denies pruritus, Denies rash Neurological: Reports as per HPI Psychiatric: Reports anxiety, Reports depression Endocrine: Denies fatigue, Denies weight change Hematologic/Lymphatic: Denies easy bruising Allergic/Immunologic: Denies persistent infections Past Medical History Past Medical History: Cancer, Chest Pain / Angina, Eye Disorder, Hypertension, Osteoarthritis (OA), Pneumonia, Thyroid Disorder, Vascular Disorder Additional Past Medical History / Comment(s): Vtach with ablation, bradycardia, palpitations, "leaky heart valve", cardiomegaly, past medical record documents thoracic aortic aneurysm, bronchitis, arthritis in multiple joints, chronic low back pain, L sided sciatica, migraines, rhinitis, UTI, hemorrhoids, cataracts bilaterally, past fractures bilateral wrists and L foot., states Dr Loving changed Sotolol dose-seen changes in heart on his monitor. History of Any Multi-Drug Resistant Organisms: None Reported Past Surgical History: AICD, Cardiac Ablation, Heart Catheterization, Hernia Repair, Orthopedic Surgery, Pacemaker Additional Past Surgical History / Comment(s): Partial nephrectomy , EPS with VT ablation, jaw surgery, L/R arthroscopic knee surgery for meniscus, bilateral inguinal hernia repairs, colonoscopy. Past Anesthesia/Blood Transfusion Reactions: Postoperative Nausea & Vomiting (PONV) Type of Cardiac Device: Permanent Pacemaker, AICD Device Placement Date:: 2018 Past Psychological History: ADD/ADHD, Anxiety, Bipolar, Depression Additional Psychological History / Comment(s): Pt resides with his parents and assists them. He is independent. Smoking Status: Former smoker Past Alcohol Use History: None Reported Additional Past Alcohol Use History / Comment(s): Pt started smoking in 1987 and was a half a ppd smoker. He quit in November of 2017. Past Drug Use History: None Reported - Past Family History Father Family Medical History: Cancer Additional Family Medical History / Comment(s): colon cancer. Mother History Unknown: Yes Family Medical History: Cancer Additional Family Medical History / Comment(s): melanoma Medications and Allergies Home Medications Medication Instructions Recorded Confirmed Type Montelukast [Singulair] 10 mg PO HS 10/11/15 02/18/22 History Atorvastatin [Lipitor] 20 mg PO HS 06/22/20 02/18/22 History Divalproex ER [Depakote ER] 250 mg PO HS 06/22/20 02/18/22 History Magnesium Chloride [Slow-Mag] 64 mg PO DAILY 06/22/20 02/18/22 History Pantoprazole [Protonix] 40 mg PO DAILY 06/22/20 02/18/22 History Sotalol [Betapace] 80 mg PO TID 06/22/20 02/18/22 History Levothyroxine Sodium 112 mcg PO DAILY 10/25/20 02/18/22 History Alfuzosin HCl [Alfuzosin HCl ER] 10 mg PO DAILY 02/18/22 02/18/22 History Metoprolol Succinate (ER) [Toprol 50 mg PO BID 02/18/22 02/18/22 History Xl] buPROPion XL [Wellbutrin XL] 150 mg PO DAILY 02/18/22 02/18/22 History Allergies Allergy/AdvReac Type Severity Reaction Status Date / Time itraconazole [From Sporanox] Allergy Rash/Hives Verified 02/18/22 11:14 morphine Allergy Nausea & Verified 02/18/22 11:14 Vomiting Sulfa (Sulfonamide Allergy Unknown Verified 02/18/22 11:14 Antibiotics) Physical Examination - Vital Signs Vital Signs: Vital Signs Temp Pulse Pulse Resp BP BP Pulse Ox 02/19/22 07:55 64 02/19/22 07:46 96 02/19/22 07:43 66 02/19/22 04:36 98.1 F 60 18 121/79 98 02/19/22 02:00 60 02/19/22 00:21 98.2 F 57 L 18 126/77 97 02/18/22 20:23 64 02/18/22 20:12 60 02/18/22 20:00 60 02/18/22 19:46 98.0 F 58 L 18 119/72 97 02/18/22 17:53 98.3 F 71 18 131/86 93 L 02/18/22 16:59 59 L 02/18/22 16:50 60 98 02/18/22 16:01 59 L 16 114/93 96 02/18/22 14:47 58 L 16 111/79 95 02/18/22 09:09 63 18 98 02/18/22 08:56 97.8 F 61 14 140/97 100 Intake and Output 02/18/22 02/19/22 02/19/22 22:59 06:59 14:59 Intake Total 540 240 Balance 540 240 Intake: Oral 540 240 Other: Weight 81.647 kg Patient is a middle aged male, in no acute distress. Patient is alert awake oriented to time place and person. Speech and language functions are normal. Patient can name and repeat very well. No aphasia or dysarthria. Attention, concentration and fund of knowledge is adequate. On cranial nerve examination, pupils are equal, round and reacting to light, visual charlton are full on confrontation, with no neglect on double simultaneous stimulation. Extraocular muscles are intact with no nystagmus. Face is symmetric, tongue protrudes to the midline. Palatal elevation and sensation normal, hearing and shoulder shrug normal, facial sensation normal. On muscle strength testing, there is no pronator drift and the strength is normal in arms and legs distally and proximally, except left toe extension which is 4+5-. Deep tendon reflexes are symmetric 1 in the upper limbs, 2 in the lower limbs and plantars downgoing bilaterally. Sensory to touch is equal with no neglect on double simultaneous stimulation. Cerebellar function showed no ataxia for [id number] testing. No dysdiadochokinesia. No ataxia for [id number] testing on either side. Tone and bulk of muscles normal. Rapid finger tapping are normal bilaterally. Gait deferred.. On general examination, there is no carotid bruit or murmur, S1-S2 audible. Chest is clear on consultation. Abdomen is soft nontender. No organomegaly, bowel sounds present. Peripheral pulses are present. No edema. Results - Laboratory Findings CBC and BMP: 02/19/22 07:52 02/19/22 07:52 Abnormal Lab Findings: Abnormal Labs 02/18/22 02/18/22 02/18/22 09:13 09:13 09:13 WBC RBC Hct Neutrophils # APTT 19.8 L Sodium 133 L Potassium 5.5 H Glucose TSH 74.500 H Free T4 0.53 L 02/18/22 02/19/22 02/19/22 09:58 07:52 07:52 WBC 15.7 H RBC 4.15 L Hct 38.6 L Neutrophils # 13.5 H APTT Sodium 134 L Potassium Glucose 109 H TSH Free T4 Assessment and Plan Assessment: * Probable TIA manifesting with transient left-sided weakness and numbness, that resolved in 2-3 hours. At present his NIH stroke scale is 0. * Hypertension * Hyperlipidemia * Hypothyroidism * X tobacco use * Anxiety, depression * Arthritis Plan: * Patient will be given aspirin loading dose 324 mg 1 dose. Thereafter he will be placed on aspirin 81 mg daily. * Fasting a.m. lipid panel, hemoglobin A1c * CTA of head showed no large vessel intracranial arterial occlusion, significant stenosis or aneurysmal change. * CTA of the neck showed widely patent vertebral and carotid arteries. * Patient cannot have MRI due to presence of pacemaker. * 2-D echo rule out embolic source. * Telemetry monitoring * Optimize control of blood pressure * Neurology will follow. Thank you for the consult.
[2022-02-19] MEDS: ACETAMINOPHEN TAB 325 MG TAB PO PRN (12:21)
--- NOTE | 2022-02-19 12:24 | P.PN ---
Subjective 02/18/22:Siva is a 57-year-old male well-known to me. He has multiple medical problems who has a AICD, history of ventricular tachycardia with ablation, renal cell carcinoma history, history of partial nephrectomy, copd, bipolar depression, reports sleeping poorly and only approximately 3 hours per night. He woke early this morning with the inability to move his left arm and left leg. He also said that he had some issues the left side of his face. He reports that the symptoms have since resolved. He denied any significant nausea or vomi ting. He complained of some mild chest pains but no significant shortness of breath during this episode. 02/19/2022: Patient has complaints of a migraine headache today. He also had some nausea was resolved with Zofran earlier today. He describes the headache is left-sided periorbital. This is common for him. He denies any chest pains, shortness breath, vomiting, diarrhea or constipation. He has not had a bowel movement today. Vital signs are stable today with a normal heart rate rest her rate and blood pressure. His pulse ox 99% on room air. Labs show a slight leukocytosis that obese count 15.7 and absolute neutrophil count 13.5. Chemistry shows sodium 134 potassium 5. TSH is 74.5 with a free T4 of 0.53. Neurology and cardiology notes reviewed. Waiting on a 2-D echo at this time. Objective - Vital Signs Vital signs: Vital Signs Temp 98.1 F 02/19/22 04:36 Pulse 62 02/19/22 11:58 Resp 18 02/19/22 08:00 BP 113/74 02/19/22 08:00 Pulse Ox 99 02/19/22 08:00 FiO2 Intake & Output 02/18/22 02/19/22 02/19/22 18:59 06:59 18:59 Intake Total 540 240 Balance 540 240 Weight 81.647 kg Intake: Oral 540 240 Other: Voiding Method Toilet - Exam General: The patient is awake and alert, in no distress, and does not appear acutely ill. Neck: The neck is supple, there is no thyromegaly, lymphadenopathy, tenderness or JVD. Cardiovascular: S1S2 is normal, There is a regular rate and rhythm. No murmur, rub or gallop is appreciated. AICD is in place in his left chest wall Respiratory: Lungs are clear to auscultation bilaterally, respirations are non-labored, breath sounds are equal. Gastrointestinal: Soft, non-distended, non-tender abdomen without masses or organomegaly noted. There is no rebound or guarding present. Bowel sounds are unremarkable. Musculoskeletal: Normal ROM, no tenderness, There is no pedal edema. There is no calf tenderness or swelling. No cords were appreciated. Neurological: CN II-XII intact, there are no obvious motor or sensory deficits. Coordination appears grossly intact. Speech is normal. Skin: Skin is warm and dry and no rashes or lesions are noted. - Labs CBC & Chem 7: 02/19/22 07:52 02/19/22 07:52 Labs: Abnormal Lab Results - Last 24 Hours (Table) 02/18/22 02/19/22 02/19/22 Range/Units 09:13 07:52 07:52 WBC 15.7 H (3.8-10.6) k/uL Neutrophils # 13.5 H (1.3-7.7) k/uL Sodium 134 L (137-145) mmol/L Glucose 109 H (74-99) mg/dL TSH 74.500 H (0.465-4.680) mIU/L Free T4 0.53 L (0.78-2.19) ng/dL Assessment and Plan (1) TIA (transient ischemic attack) Current Visit: Yes Status: Acute Code(s): G45.9 - TRANSIENT CEREBRAL ISCH EMIC ATTACK, UNSPECIFIED SNOMED Code(s): 536427372 (2) H/O right nephrectomy Current Visit: Yes Status: Acute Code(s): Z90.5 - ACQUIRED ABSENCE OF KIDNEY SNOMED Code(s): 74930762944294 (3) H/O renal cell carcinoma Current Visit: Yes Status: Acute Code(s): Z85.528 - PERSONAL HISTORY OF OTHER MALIGNANT NEOPLASM OF KIDNEY SNOMED Code(s): 207488761 (4) Bipolar depression Current Visit: Yes Status: Acute Code(s): F31.9 - BIPOLAR DISORDER, UNSPECIFIED SNOMED Code(s): 162670510 (5) Acquired hypothyroidism Current Visit: Yes Status: Acute Code(s): E03.9 - HYPOTHYROIDISM, UNSPECIFIED SNOMED Code(s): 121301312 (6) Essential (primary) hypertension Current Visit: Yes Status: Acute Code(s): I10 - ESSENTIAL (PRIMARY) HYPERTENSION SNOMED Code(s): 13141905 (7) History of ventricular tachycardia Current Visit: No Status: Acute Code(s): Z86.79 - PERSONAL HISTORY OF OTHER DISEASES OF THE CIRCULATORY SYSTEM SNOMED Code(s): 564569978317558 (8) Thoracic aortic aneurysm Current Visit: No Status: Acute Code(s): I71.2 - THORACIC AORTIC ANEURYSM, WITHOUT RUPTURE * DO NOT USE * SNOMED Code(s): 000104866 (9) Atrial paroxysmal tachycardia Current Visit: Yes Status: Acute Code(s): I47.1 - SUPRAVENTRICULAR TACHYCARDIA SNOMED Code(s): 353525035 (10) H/O cardiac radiofrequency ablation Current Visit: Yes Status: Acute Code(s): Z98.890 - OTHER SPECIFIED POSTPROCEDURAL STATES SNOMED Code(s): 299767334 (11) AICD (automatic cardioverter/defibrillator) present Current Visit: Yes Status: Acute Code(s): Z95.810 - PRESENCE OF AUTOMATIC (IMPLANTABLE) CARDIAC DEFIBRILLATOR SNOMED Code(s): 002217070 Plan: Wait further recommendations cardiology and neurology. Due to these ongoing significant depression, asked psych to see him. He has significantly abnormal thyroid function. We will increase his thyroid medication appropriately. He'll continue on his current medications treatments. We'll wait on his upcoming 2-D echo. Repeat labs in a.m., however evaluated in the next 24 hours.
[2022-02-19] MEDS: MONTELUKAST 10 MG TAB PO SCH (21:19)
[2022-02-19] MEDS: DIVALPROEX ER 250 MG TAB.ER.24H PO SCH (21:19)
[2022-02-19] MEDS: ZOLPIDEM 5 MG TAB PO PRN (23:17)
[2022-02-20] MEDS: LEVOTHYROXINE 75 MCG TAB PO SCH (06:05)
[2022-02-20] MEDS: PANTOPRAZOLE 40 MG TABLET PO SCH (06:05)
[2022-02-20] MEDS: IPRATROPIUM 0.5 MG/2.5 ML NEBU INHALATION SCH ×4 (07:35→19:58)
[2022-02-20] MEDS: SYMBICORT 160-4.5 MCG INHALER INHALATION SCH ×2 (07:35→19:57)
[2022-02-20 08:40] LABS: Basophils # (A) 0.1 k/uL (0-0.2); Basophils % (A) 0 %; Eosinophils # (A) 0.1 k/uL (0-0.7); Eosinophils % (A) 1 %; HCT 41.1 % (39.0-53.0); HGB 13.9 gm/dL (13.0-17.5); Lymphocytes # (A) 1.6 k/uL (1.0-4.8); Lymphocytes % (A) 15 %; MCH 31.6 pg (25.0-35.0); MCHC 33.8 g/dL (31.0-37.0); MCV 93.6 fL (80.0-100.0); Monocytes # (A) 0.5 k/uL (0-1.0); Monocytes % (A) 5 %; Neutrophils % (A) 77 %; Platelet Count 267 k/uL (150-450); RBC 4.39 m/uL (4.30-5.90); RDW 13.9 % (11.5-15.5); WBC 10.4 k/uL (3.8-10.6)
[2022-02-20 08:54] LABS: African American GFR (CKD) >90 (>60 ml/min/1.73 sqM); Anion Gap 8 mmol/L; Blood Urea Nitrogen 20 mg/dL (9-20); Calcium 9.1 mg/dL (8.4-10.2); Carbon Dioxide 25 mmol/L (22-30); Chloride 102 mmol/L (98-107); Glucose 99 mg/dL (74-99); Magnesium 2.1 mg/dL (1.6-2.3); Non-African American GFR(CKD) >90 (>60 ml/min/1.73 sqM); Potassium 4.9 mmol/L (3.5-5.1); Sodium 135 mmol/L (137-145)
[2022-02-20] MEDS: VORTIOXETINE HYDROBROMIDE 10 MG TABLET PO SCH (08:54)
[2022-02-20] MEDS: buPROPion XL 300 MG TAB.ER.24H PO SCH (08:54)
[2022-02-20] MEDS: ATORVASTATIN 80 MG TAB PO SCH (08:54)
[2022-02-20] MEDS: MAGNESIUM OXIDE 400 MG TAB PO SCH (08:54)
[2022-02-20] MEDS: TAMSULOSIN 0.4 MG CAP.ER.24H PO SCH (08:54)
[2022-02-20] MEDS: ACETAMINOPHEN TAB 325 MG TAB PO PRN ×2 (08:55→14:59)
[2022-02-20] MEDS: SOTALOL 80 MG TAB PO SCH ×3 (08:55→20:56)
[2022-02-20] MEDS ORDERED: ASPIRIN 81 MG PO SCH (09:00)
--- NOTE | 2022-02-20 11:18 | CA ---
Transthoracic Echo Report Name: Jonathan Rider Age: 57 Gender: M : 1965 Exam Date: 02/20/2022 09:47 Exam Location: [facility] Ht (in): 73 Wt (lb): 180 Ordering Physician: Qian Hammonds Attending/Referring Phys: [id number], [employer] Systems Engineer Nancy Lockwood RDCS Procedure CPT: Indications: CVA, possible need for HUGH Cardiac Hx: Technical Quality: Fair Contrast 1: Total Dose (mL): Contrast 2: Total Dose (mL): MEASUREMENTS (Male / Female) Normal Values 2D ECHO LV Diastolic Diameter PLAX 4.6 cm 4.2 - 5.9 / 3.9 - 5.3 cm LV Systolic Diameter PLAX 3.2 cm IVS Diastolic Thickness 1.4 cm 0.6 - 1.0 / 0.6 - 0.9 cm LVPW Diastolic Thickness 1.3 cm 0.6 - 1.0 / 0.6 - 0.9 cm LV Relative Wall Thickness 0.6 RV Internal Dim ED PLAX 2.9 cm LA Volume 50.8 cm??? 18 - 58 / 22 - 52 cm??? M-MODE Aortic Root Diameter MM 2.9 cm LA Systolic Diameter MM 3.1 cm LA Ao Ratio MM 1.1 AV Cusp Separation MM 2.5 cm DOPPLER AV Peak Velocity 74.6 cm/s AV Peak Gradient 2.2 mmHg AI Peak Velocity 222.0 cm/s AI Peak Gradient 19.7 mmHg AI Pressure Half Time 685.9 ms LVOT Peak Velocity 61.4 cm/s LVOT Peak Gradient 1.5 mmHg MV Area PHT 4.6 cm??? Mitral E Point Velocity 43.8 cm/s Mitral A Point Velocity 35.7 cm/s Mitral E to A Ratio 1.2 MV Deceleration Time 166.0 ms TR Peak Velocity 280.5 cm/s TR Peak Gradient 31.5 mmHg Right Ventricular Systolic Press 36.5 mmHg FINDINGS Left Ventricle Mildly increased septal wall thickness. Normal left ventricular systolic function with no obvious regional wall motion abnormalities. Left ventricular ejection fraction is estimated at 50-55 %. Right Ventricle Normal right ventricular size and function. Mild pulmonary hypertension.catheter/pacemaker wire in the right ventricular cavity. Right Atrium Normal right atrial size. Left Atrium Normal left atrial size. Mitral Valve Structurally normal mitral valve. Mild mitral regurgitation. Aortic Valve Trileaflet aortic valve. Trace to mild aortic regurgitation. Tricuspid Valve Structurally normal tricuspid valve. Mild tricuspid regurgitation. Pulmonic Valve Pulmonic valve not well visualized. Pericardium No pericardial effusion. Aorta Normal size aortic root and proximal ascending aorta. CONCLUSIONS 1. Left ventricle systolic function borderline normal 2. A wire was noted in the right ventricle 3. Mild mitral and tricuspid regurgitation 4. Trace to mild aortic regurgitation Previewed by: Dr. Evonne Gaston MD (Electronically Signed) Final Date: 20 February 2022 11:17
--- NOTE | 2022-02-20 14:03 | P.PN ---
Subjective Progress Note Date: 02/20/22 Principal diagnosis: TIA symptoms resolved 57-year-old male admitted with left-sided weakness which has subsequently resolved patient is awake oriented 3 frontal signs are stable no apparent deficits Objective - Vital Signs Vital signs: Vital Signs Temp 97.4 F L 02/20/22 12:16 Pulse 69 02/20/22 12:16 Resp 14 02/20/22 12:16 BP 148/91 02/20/22 12:16 Pulse Ox 100 02/20/22 12:16 FiO2 Intake & Output 02/19/22 02/20/22 02/20/22 18:59 06:59 18:59 Intake Total 360 540 420 Output Total 1 Balance 359 540 420 Intake: Oral 360 540 420 Output: Urine 1 Other: Voiding Method Toilet Toilet Toilet # Voids 2 1 - Exam General: [Patient awake, alert and oriented times 3. Patient in no acute distr ess.] HEENT: [PERRL. EOMI. No pharyngeal erythema or exudate.] Neck: [No adenopathy.] Cardiac: [Heart regular in rate and rhythm. No S3. No S4. No clicks, rubs. No murmur.] Lungs: [Clear to auscultation bilaterally.] Abdomen: [No mass. No organomegaly. Bowel sounds presnt and normoactive in all 4 quadrants.] Extremes: [No edema no cyanosis no claudication normal pulses] : Normal male genitalia Musculoskeletal: [No joint erythema, edema or tenderness.] Skin: [No rash.] Neurologic: [No lateralizing deficits. CN II - XII grossly intact.] Lymphatic: [No adenopathy.] - Labs CBC & Chem 7: 02/20/22 08:06 02/20/22 08:06 Labs: Abnormal Lab Results - Last 24 Hours (Table) 02/20/22 02/20/22 Range/Units 08:06 08:06 Neutrophils # 8.0 H (1.3-7.7) k/uL Sodium 135 L (137-145) mmol/L Assessment and Plan (1) AICD (automatic cardioverter/defibrillator) present Current Visit: Yes Status: Acute Code(s): Z95.810 - PRESENCE OF AUTOMATIC (IMPLANTABLE) CARDIAC DEFIBRILLATOR SNOMED Code(s): 270487207 (2) Acquired hypothyroidism Current Visit: Yes Status: Acute Code(s): E03.9 - HYPOTHYROIDISM, UNSPECIFIED SNOMED Code(s): 046583433 (3) Atrial paroxysmal tachycardia Current Visit: Yes Status: Acute Code(s): I47.1 - SUPRAVENTRICULAR TACHYCARDIA SNOMED Code(s): 232155535 (4) Bipolar depression Current Visit: Yes Status: Acute Code(s): F31.9 - BIPOLAR DISORDER, UNSPECIFIED SNOMED Code(s): 645748484 (5) Cerebrovascular accident (CVA) Current Visit: Yes Status: Acute Code(s): I63.9 - CEREBRAL INFARCTION, UNSPECIFIED SNOMED Code(s): 276320100 (6) Essential (primary) hypertension Current Visit: Yes Status: Acute Code(s): I10 - ESSENTIAL (PRIMARY) HYPERTENSION SNOMED Code(s): 62749504 Plan: Reviewed with patient Will obtain carotid Dopplers for completion We'll reevaluate tomorrow Time with Patient: Greater than 30
[2022-02-20] MEDS: METOPROLOL SUCCINATE (ER) 50 MG TAB.ER.24H PO SCH ×2 (14:59→20:57)
--- NOTE | 2022-02-20 15:08 | US ---
EXAMINATION TYPE: US carotid duplex BILAT DATE OF EXAM: 02/20/2022 COMPARISON: CTA head and neck 02/18/2022. CLINICAL HISTORY: TIA. TECHNIQUE: Carotid duplex ultrasound examination. Indirect Doppler criteria was utilized. FINDINGS: EXAM MEASUREMENTS: RIGHT: Peak Systolic Velocity (PSV) cm/sec ----- Right CCA: 52.2 ----- Right ICA: 60.9 ----- Right ECA: 75.4 ICA/CCA ratio: 1.2 RIGHT: End Diastole cm/sec ----- Right CCA: 15.9 ----- Right ICA: 21.7 ----- Right ECA: 10 LEFT: Peak Systolic Velocity (PSV) cm/sec ----- Left CCA: 56.5 ----- Left ICA: 85.6 ----- Left ECA: 97.3 ICA/CCA ratio: 1.5 LEFT: End Diastole cm/sec ----- Left CCA: 18.8 ----- Left ICA: 34.7 ----- Left ECA: 21.7 VERTEBRALS (direction of flow): Right Vertebral: Antegrade Left Vertebral: Antegrade Rhythm: Normal WASHER REPAIRMAN NOTES: No significant stenosis seen IMPRESSION: No ultrasound evidence for clinically significant stenosis. Criteria for Assigning % of Stenosis / Diameter reduction (Estimation based on the indirect measurements of the internal carotid artery velocities (ICA PSV). 1. Normal (no stenosis)=ICA PSV < 125 cm/s: ratio < 2.0: ICA EDV<40 cm/s. 2. Less than 50% stenosis=ICA PSV < 125 cm/s: ratio < 2.0: ICA EDV<40 cm/s. 3. 50 to 69% stenosis=ICA PSV of 125 to 230 cm/s: ration 2.0 ? 4.0: ICA EDV 40-100 cm/s. 4. Greater than 70% stenosis to near occlusion= ICA PSV > 230 cm/s: ratio > 4.0: ICA EDV > 100 cm/s. 5. Near occlusion= ICA PSV velocities may be low or undetectable: variable ratio and ICA EDV. 6. Total occlusion=unable to detect flow.
--- NOTE | 2022-02-20 16:23 | P.PN ---
Subjective Progress Note Date: 02/20/22 Patient states he had a recurrence of symptoms at around 1:30 PM today consisting of numbness of left side of the face, arm and leg. Symptoms lasted for 20-30 minutes and then went away. Patient had a carotid Doppler which was negative. Patient undergoing HUGH in the morning. Patient mentions that he has evident dysphagia for last couple months, slightly getting worse. It is for eating gurjit cracker, or ham sandwich. Patient underwent barium swallow. Objective - Vital Signs Vital signs: Vital Signs Temp 97.4 F L 02/20/22 12:16 Pulse 69 02/20/22 12:16 Resp 14 02/20/22 12:16 BP 148/91 02/20/22 12:16 Pulse Ox 100 02/20/22 12:16 FiO2 Intake & Output 02/19/22 02/20/22 02/20/22 18:59 06:59 18:59 Intake Total 360 540 600 Output Total 1 Balance 359 540 600 Intake: Oral 360 540 600 Output: Urine 1 Other: Voiding Method Toilet Toilet Toilet # Voids 2 1 - Exam Mental status, speech and language functions are normal. Cranial nerves are normal. Visual charlton are full, face is symmetric. No pronator drift and the strength is normal in arms and legs distally and proximally. Sensory touch is equal on the face and legs bilaterally, but patient feels slightly less sensation in the left arm as compared to the right. No ataxia for ujexok-aa-vryy or ifew-pn-zfyz testing. - Labs CBC & Chem 7: 02/20/22 08:06 02/20/22 08:06 Labs: Abnormal Lab Results - Last 24 Hours (Table) 02/20/22 02/20/22 Range/Units 08:06 08:06 Neutrophils # 8.0 H (1.3-7.7) k/uL Sodium 135 L (137-145) mmol/L Assessment and Plan Assessment: * Probable TIA manifesting with transient left-sided weakness and numbness, that resolved in 2-3 hours. * Patient had recurrence of numbness of left of the body today that lasted for 20-30 minutes. Possible other TIA. Patient still has some numbness of the left arm as compared to the right. Rest of the examination is nonfocal. * Hypertension * Hyperlipidemia * Hypothyroidism * X tobacco use * Anxiety, depression * Arthritis Plan: * Patient received aspirin loading dose 324 mg 1 dose 02/19/2022. As patient had recurrence of possible TIA few hours ago, we will place on DAP for 21 days, then stop Plavix and continue aspirin indefinitely. * Fasting a.m. lipid panel, hemoglobin A1c 5.6 * CTA of head showed no large vessel intracranial arterial occlusion, significant stenosis or aneurysmal change. * CTA of the neck showed widely patent vertebral and carotid arteries. * Patient cannot have MRI due to presence of pacemaker. * 2-D echo revealed mildly increased left ventricular wall thickness. EF is 50- 55%. Wire in the right ventricle. Mild MR, mild TR.. * Telemetry monitoring so far showing sinus rhythm, sinus bradycardia, sometimes atrial paced in the 50s. * Optimize control of blood pressure * Patient's TSH is 74.5, free T4 0.53. Will defer to IM to address hypothyroidism. * Patient had undergone barium swallow, will follow the results. * Patient undergoing HUGH in the morning.
[2022-02-20] MEDS: CLOPIDOGREL 75 MG TAB PO SCH (17:35)
[2022-02-20] MEDS: MONTELUKAST 10 MG TAB PO SCH (20:56)
[2022-02-20] MEDS: ASPIRIN 81 MG PO SCH (20:56)
[2022-02-20] MEDS: ZOLPIDEM 5 MG TAB PO PRN (20:56)
[2022-02-20] MEDS: DIVALPROEX ER 250 MG TAB.ER.24H PO SCH (20:57)
--- NOTE | 2022-02-20 21:26 | FL ---
EXAMINATION TYPE: FL barium swallow w video DATE OF EXAM: 02/20/2022 CLINICAL HISTORY: 57-year-old male Dysphagia. Sensation of food sticking in the throat and upper ches t. TECHNIQUE: Deglutition study is performed utilizing thin liquid barium, nectar thick liquid barium, barium thick applesauce, and barium coated cracker. COMPARISON: None. Total fluoroscopy time: 1 minute 40 seconds. Total images: None. Real-time fluoroscopy support was provided to speech pathology. FINDINGS: The oral and pharyngeal phases show satisfactory initiation and propagation with all modalities teste d. Normal mastication is seen with solid modalities tested. There is no evidence of penetration or aspiration with any modality tested. No significant pharyngeal residue was appreciated. However, we note a prominent solid residuals remaining throughout the thoracic esophagus. This partia lly and very gradually clears after multiple liquid bolus washes. Suspect underlying esophageal dysmo tility. This may be further evaluated with a conventional esophagram. IMPRESSION: No evidence for penetration or aspiration. Prominent solid residuals remain throughout the thoracic e sophagus. It takes multiple boluses of thin liquid wash to even partially clear the esophagus. Suspec t underlying esophageal dysmotility which can be further evaluated with a conventional esophagram exa mination. Please refer to speech therapist notes for further details if necessary.
[2022-02-20 23:19] LABS: LDL Cholesterol,Calculated 84.4 mg/dL (0.0-131.0); VLDL Calculation 17.66 mg/dL (5.00-40.00)
[2022-02-21] MEDS: PANTOPRAZOLE 40 MG TABLET PO SCH (06:11)
[2022-02-21] MEDS: LEVOTHYROXINE 75 MCG TAB PO SCH (06:11)
[2022-02-21] MEDS: IPRATROPIUM 0.5 MG/2.5 ML NEBU INHALATION SCH ×4 (07:46→19:07)
[2022-02-21] MEDS: SYMBICORT 160-4.5 MCG INHALER INHALATION SCH ×2 (07:46→19:07)
--- NOTE | 2022-02-21 08:17 | PN ---
PROGRESS NOTE SUBJECTIVE: Mr. Rider has a history of ventricular tachycardia, had a previous ablation, also has an ICD. He has been admitted to the hospital with what seems to be a CVA with left-sided weakness. CT angiogram was negative. MRI could not be performed. He does have underlying ICD. He is going to have a transesophageal echo. The patient was somewhat ambivalent, but he has decided to proceed with transesophageal echo, and Dr. Fried will perform procedure tomorrow. The patient understands the rationale, risks, benefits, and options. PHYSICAL EXAMINATION: VITAL SIGNS: Stable. NECK: No JVD. HEART: S1, S2 heard normally, short systolic murmur in left sternal border. LUNGS: Reveal improved air entry. ABDOMEN: Soft. LOWER EXTREMITIES: Reveal diminished pulses. CENTRAL NERVOUS SYSTEM: Exam limited was performed. Some weakness is noted on the left side. No speech disturbance. MMODL / IJN: [id number] /
[2022-02-21] MEDS ORDERED: fentaNYL (PF) 50 MCG/ML 2 ML AMP ONE (12:37)
[2022-02-21] MEDS ORDERED: BENZOCAINE SPRAY 1 CAN MUCOUS MEM ONE (12:46)
[2022-02-21] MEDS ORDERED: fentaNYL (PF) 50 MCG/1 ML VIAL IVP ONE (12:48)
[2022-02-21] MEDS ORDERED: MIDAZOLAM 2 MG/2 ML VIAL IVP ONE (12:48)
[2022-02-21] MEDS ORDERED: SODIUM CHLORIDE 0.9% 500 ML 500 ML IV ONE (12:55)
[2022-02-21] MEDS: MAGNESIUM OXIDE 400 MG TAB PO SCH (14:21)
[2022-02-21] MEDS: SOTALOL 80 MG TAB PO SCH ×3 (14:21→21:18)
[2022-02-21] MEDS: CLOPIDOGREL 75 MG TAB PO SCH (14:21)
[2022-02-21] MEDS: METOPROLOL SUCCINATE (ER) 50 MG TAB.ER.24H PO SCH ×2 (14:21→21:18)
[2022-02-21] MEDS: TAMSULOSIN 0.4 MG CAP.ER.24H PO SCH (14:21)
[2022-02-21] MEDS: buPROPion XL 300 MG TAB.ER.24H PO SCH (14:21)
[2022-02-21] MEDS: ASPIRIN 81 MG PO SCH (14:21)
[2022-02-21] MEDS: ATORVASTATIN 80 MG TAB PO SCH (14:22)
[2022-02-21] MEDS: VORTIOXETINE HYDROBROMIDE 10 MG TABLET PO SCH (14:22)
--- NOTE | 2022-02-21 17:08 | P.PN ---
Subjective Progress Note Date: 02/21/22 Principal diagnosis: TIA symptoms recurred approximately 1:30 septum is 57-year-old male admitted with left-sided weakness which has subsequently resolved patient is awake oriented 3 frontal signs are stable no apparent deficits TIA symptoms left-sided numbness weakness recurred around 1:30 PM today Patient has HUGH scheduled for tomorrow Swallow study today was unremarkable, carotid Dopplers unremarkable, vascular studies unremarkable Objective - Vital Signs Vital signs: Vital Signs Temp 97.4 F L 02/21/22 16:00 Pulse 62 02/21/22 16:00 Resp 18 02/21/22 16:00 BP 134/78 02/21/22 16:00 Pulse Ox 96 02/21/22 16:00 FiO2 Intake & Output 02/20/22 02/21/22 02/21/22 18:59 06:59 18:59 Intake Total 840 100 Balance 840 100 Intake: IV 100 Oral 840 0 Other: Voiding Method Toilet Toilet Toilet # Voids 1 2 1 # Bowel Movements 0 - Labs CBC & Chem 7: 02/20/22 08:06 02/20/22 08:06 Assessment and Plan (1) AICD (automatic cardioverter/defibrillator) present Current Visit: Yes Status: Acute Code(s): Z95.810 - PRESENCE OF AUTOMATIC (IMPLANTABLE) CARDIAC DEFIBRILLATOR SNOMED Code(s): 138016015 (2) Acquired hypothyroidism Current Visit: Yes Status: Acute Code(s): E03.9 - HYPOTHYROIDISM, UNSPECIFIED SNOMED Code(s): 297391748 (3) Atrial paroxysmal tachycardia Current Visit: Yes Status: Acute Code(s): I47.1 - SUPRAVENTRICULAR TACHYCARDIA SNOMED Code(s): 671929140 (4) Bipolar depression Current Visit: Yes Status: Acute Code(s): F31.9 - BIPOLAR DISORDER, UNSPECIFIED SNOMED Code(s): 425701826 (5) Cerebrovascular accident (CVA) Current Visit: Yes Status: Acute Code(s): I63.9 - CEREBRAL INFARCTION, UNSPECIFIED SNOMED Code(s): 903103227 (6) Essential (primary) hypertension Current Visit: Yes Status: Acute Code(s): I10 - ESSENTIAL (PRIMARY) HYPERTENSION SNOMED Code(s): 14847852 Plan: Reviewed with patient HUGH tomorrow We'll reevaluate tomorrow Time with Patient: Greater than 30
--- NOTE | 2022-02-21 18:33 | PN ---
PROGRESS NOTE SUBJECTIVE: Mr. Rider is a patient with ventricular tachycardia and nonischemic cardiomyopathy, had what seems to be a TIA with decent recovery. He is going for a transesophageal echo sometime today, and if this is unremarkable, he can be discharged at the discretion of the admitting doctor and neurologist. No other intervention from a cardiac standpoint is necessary. OBJECTIVE: VITAL SIGNS: Stable. NECK: No JVD. HEART: S1 and S2 heard normally. Short systolic murmur noted. LUNGS: Clear. ABDOMEN: Soft and nontender. EXTREMITIES: Lower extremities reveal palpable pulses. No edema. CENTRAL NERVOUS SYSTEM: Normal. MMODL / IJN: [id number] /
[2022-02-21] MEDS ORDERED: MELATONIN 5 MG TABLET PO SCH (21:00)
[2022-02-21] MEDS: DIVALPROEX ER 250 MG TAB.ER.24H PO SCH (21:18)
[2022-02-21] MEDS: MONTELUKAST 10 MG TAB PO SCH (21:18)
[2022-02-21] MEDS: SENNOSIDES-DOCUSATE SODIUM 1 EACH TAB PO SCH (21:18)
--- NOTE | 2022-02-21 23:00 | ECHOT ---
TRANSESOPHAGEAL ECHOCARDIOGRAM INDICATION: CVA, rule out cardiac source of thromboembolic phenomenon. PROCEDURE NOTE: After obtaining informed consent, transesophageal echocardiogram was performed in left lateral position using an Omniplane probe. Local and IV sedation were obtained using 2 mg of Versed and 50 mcg of fentanyl. The patient tolerated the procedure well without any obvious immediate complications. FINDINGS: 1. There is no intracardiac thrombus within the left atrial appendage, left atrium, right atrium, right ventricle. 2. Left ventricle has normal size and systolic function. 3. Left atrium appears mildly enlarged. 4. Right atrium appears mildly enlarged. 5. Interatrial septum: There is no evidence of fguw-uh-hgzua shunt by color-flow Doppler or krcmx-sy-fqxo shunt by agitated saline contrast study. AICD leads are noted in the right side of the heart. 6. Mitral valve is anatomically normal. There is mild to moderate central mitral regurgitation noted. Aortic valve shows mild aortic regurgitation. There is mild tricuspid regurgitation. 7. Aortic root appears aneurysmally dilated measuring 4.3 cm. CONCLUSIONS: 1. No intracardiac thrombus. 2. No evidence of shunting across the septum. 3. Normal ejection fraction. 4. Ascending aortic aneurysm. MMODL / IJN: [id number] /
[2022-02-22] MEDS: LEVOTHYROXINE 75 MCG TAB PO SCH (06:22)
[2022-02-22] MEDS: PANTOPRAZOLE 40 MG TABLET PO SCH (06:22)
[2022-02-22] MEDS: SYMBICORT 160-4.5 MCG INHALER INHALATION SCH (08:27)
[2022-02-22] MEDS: IPRATROPIUM 0.5 MG/2.5 ML NEBU INHALATION SCH ×3 (08:27→15:50)
[2022-02-22] MEDS ORDERED: ASPIRIN 81 MG PO SCH (09:00)
[2022-02-22 09:33] VITALS: RESP 16
[2022-02-22] MEDS: SENNOSIDES-DOCUSATE SODIUM 1 EACH TAB PO SCH (09:35)
[2022-02-22] MEDS: VORTIOXETINE HYDROBROMIDE 10 MG TABLET PO SCH (09:35)
[2022-02-22] MEDS: MAGNESIUM OXIDE 400 MG TAB PO SCH (09:35)
[2022-02-22] MEDS: CLOPIDOGREL 75 MG TAB PO SCH (09:35)
[2022-02-22] MEDS: buPROPion XL 300 MG TAB.ER.24H PO SCH (09:35)
[2022-02-22] MEDS: ATORVASTATIN 80 MG TAB PO SCH (09:36)
[2022-02-22] MEDS: TAMSULOSIN 0.4 MG CAP.ER.24H PO SCH (09:36)
[2022-02-22] MEDS: METOPROLOL SUCCINATE (ER) 50 MG TAB.ER.24H PO SCH (09:36)
[2022-02-22] MEDS: SOTALOL 80 MG TAB PO SCH ×2 (09:36→15:45)
--- NOTE | 2022-02-22 11:07 | P.PN ---
Subjective Progress Note Date: 02/21/22 02/21/2022: Patient was seen for a follow-up. Patient states he is doing better. No further spells of TIA. Patient is laying comfortably in the bed. Patient had undergone HUGH, the results are pending. 02/20/2022: Patient states he had a recurrence of symptoms at around 1:30 PM today consisting of numbness of left side of the face, arm and leg. Symptoms lasted for 20-30 minutes and then went away. Patient had a carotid Doppler which was negative. Patient undergoing HUGH in the morning. Patient mentions that he has evident dysphagia for last couple months, slightly getting worse. It is for eating gurjit cracker, or ham sandwich. Patient underwent barium swallow. Objective - Vital Signs Vital signs: Vital Signs Temp 98.3 F 02/21/22 11:54 Pulse 80 02/21/22 15:43 Resp 16 02/21/22 12:57 BP 112/68 02/21/22 14:05 Pulse Ox 97 02/21/22 14:05 FiO2 Intake & Output 02/20/22 02/21/22 02/21/22 18:59 06:59 18:59 Intake Total 840 100 Balance 840 100 Intake: IV 100 Oral 840 0 Other: Voiding Method Toilet Toilet Toilet # Voids 1 2 1 # Bowel Movements 0 - Exam Mental status, speech and language functions are normal. Cranial nerves are normal. Visual charlton are full, face is symmetric. No pronator drift and the strength is normal in arms and legs distally and proximally. Sensory touch is equal on the face and legs bilaterally, but patient feels slightly less sensation in the left arm as compared to the right. No ataxia for tthpqm-ry-clll or gmfr-du-dfih testing. - Labs CBC & Chem 7: 02/20/22 08:06 02/20/22 08:06 Assessment and Plan Assessment: * Probable TIA manifesting with transient left-sided weakness and numbness, that resolved in 2-3 hours. * Patient had another TIA yesterday (in the hospital) that lasted for 20-30 minutes. Possible other TIA. Patient still has some numbness of the left arm as compared to the right. Rest of the examination is nonfocal. * Hypertension * Hyperlipidemia * Hypothyroidism * X tobacco use * Anxiety, depression * Arthritis Plan: * For recommended in TIA 2, patient will be placed on DAP for 21 days, then stop Plavix and continue aspirin indefinitely. * Fasting a.m. lipid panel with cholesterol 162, LDL 84, HDL 59 and triglycerides 88. Continue Lipitor 80 mg daily. * Hemoglobin A1c 5.6 * CTA of head showed no large vessel intracranial arterial occlusion, significant stenosis or aneurysmal change. * CTA of the neck showed widely patent vertebral and carotid arteries. * Patient cannot have MRI due to presence of pacemaker. * 2-D echo revealed mildly increased left ventricular wall thickness. EF is 50- 55%. Wire in the right ventricle. Mild MR, mild TR.. * Optimize control of blood pressure * Patient's TSH is 74.5, free T4 0.53. Will defer to IM to address hypothyroidism. * Barium swallow revealed no evidence for penetration or aspiration. Prominent solid residuals remained throughout the thoracic esophagus. It takes multiple boluses of thin liquid wash to even partially clear the esophagus. Suspect underlying esophageal dysmotility, which can be further evaluated with conventional esophagogram examination. Speech therapist also recommended esophagogram. * Patient underwent HUGH today, as recommended by the tube builder airplane. Results pending. If negative, will be clear for discharge. Informed the nurse about my recommendation at 3:45 PM. Addendum: HUGH revealed no intracardiac thrombus. No evidence of shunting across the septum. Normal ejection fraction. Ascending aortic aneurysm measuring 4.3 cm. Will defer to cardiology.
--- NOTE | 2022-02-22 14:41 | P.DS ---
Providers Date of admission: 02/18/22 11:49 Expected date of discharge: 02/22/22 Attending physician: Sammy Phillips Consults: 02/18/22 11:50 Consult Physician Routine Consulting Provider: Froylan Castillo Consult Reason/Comments: CVA Do you want consulting provider notified?: Yes 02/18/22 12:45 Consult Physician Routine Consulting Provider: Kenan Loving Consult Reason/Comments: tia Do you want consulting provider notified?: Yes 02/18/22 12:46 Consult Physician Routine Consulting Provider: Nazario Ansari Consult Reason/Comments: depression Do you want consulting provider notified?: Yes Primary care physician: Sammy Phillips - Discharge Diagnosis(es) (1) AICD (automatic cardioverter/defibrillator) present Current Visit: Yes Status: Acute (2) Acquired hypothyroidism Current Visit: Yes Status: Acute (3) Atrial paroxysmal tachycardia Current Visit: Yes Status: Acute (4) Bipolar depression Current Visit: Yes Status: Acute (5) Cerebrovascular accident (CVA) Current Visit: Yes Status: Acute (6) Essential (primary) hypertension Current Visit: Yes Status: Acute Hospital Course: TIA normal echo normal carotids all vasclar studie normal HUGH small aortic aneurysm 4,3 cm will follow as out pt Patient Condition at Discharge: Fair Plan - Discharge Summary Discharge Rx Participant: Yes New Discharge Prescriptions: No Action Montelukast [Singulair] 10 mg PO HS Divalproex ER [Depakote ER] 250 mg PO HS Atorvastatin [Lipitor] 20 mg PO HS Magnesium Chloride [Slow-Mag] 64 mg PO DAILY Levothyroxine Sodium 112 mcg PO DAILY Pantoprazole [Protonix] 40 mg PO DAILY Sotalol [Betapace] 80 mg PO TID buPROPion XL [Wellbutrin XL] 150 mg PO DAILY Metoprolol Succinate (ER) [Toprol Xl] 50 mg PO BID Alfuzosin HCl [Alfuzosin HCl ER] 10 mg PO DAILY Discharge Medication List Montelukast [Singulair] 10 mg PO HS 10/11/15 [History] Atorvastatin [Lipitor] 20 mg PO HS 06/22/20 [History] Divalproex ER [Depakote ER] 250 mg PO HS 06/22/20 [History] Magnesium Chloride [Slow-Mag] 64 mg PO DAILY 06/22/20 [History] Pantoprazole [Protonix] 40 mg PO DAILY 06/22/20 [History] Sotalol [Betapace] 80 mg PO TID 06/22/20 [History] Levothyroxine Sodium 112 mcg PO DAILY 10/25/20 [History] Alfuzosin HCl [Alfuzosin HCl ER] 10 mg PO DAILY 02/18/22 [History] Metoprolol Succinate (ER) [Toprol Xl] 50 mg PO BID 02/18/22 [History] buPROPion XL [Wellbutrin XL] 150 mg PO DAILY 02/18/22 [History] Follow up Appointment(s)/Referral(s): Sammy Phillips MD [Primary Care Provider] - 1-2 days
[2022-02-22 15:47] VITALS: BP 127/83; PULSE 54; TEMP 97.9
--- NOTE | 2022-02-23 01:58 | PN ---
PROGRESS NOTE SUBJECTIVE: Mr. Rider is in sinus rhythm, doing well. No significant ectopy. Transesophageal echo did not reveal any evidence of thrombus or shunt. He is doing well. He can be discharged whenever okay with a neurologist and follow up with Dr. Loving in the 2 to 3 weeks. OBJECTIVE: VITAL SIGNS: Stable. NECK: No JVD. HEART: S1, S2 heard normally. LUNGS: Clear. ABDOMEN: Unchanged. LOWER EXTREMITIES: Unchanged. CENTRAL NERVOUS SYSTEM: No focal deficits. MMODL / IJN: [id number] /
--- NOTE | 2022-02-25 17:47 | P.PN ---
Subjective Progress Note Date: 02/22/22 02/22/2022: Patient was seen for a follow-up. Patient complains of some blurred vision this morning. It lasted for about 5 minutes. Patient believes that the left foot drags. Left hamstring cramped up. Patient states blurred vision that comes and goes. Suspect due to medication side effect. 02/21/2022: Patient was seen for a follow-up. Patient states he is doing better. No further spells of TIA. Patient is laying comfortably in the bed. Patient had undergone HUGH, the results are pending. 02/20/2022: Patient states he had a recurrence of symptoms at around 1:30 PM today consisting of numbness of left side of the face, arm and leg. Symptoms lasted for 20-30 minutes and then went away. Patient had a carotid Doppler which was negative. Patient undergoing HUGH in the morning. Patient mentions that he has evident dysphagia for last couple months, slightly getting worse. It is for eating gurjit cracker, or ham sandwich. Patient underwent barium swallow. Objective - Vital Signs Vital signs: Vital Signs Temp 97.6 F 02/22/22 11:21 Pulse 57 L 02/22/22 11:21 Resp 16 02/22/22 11:21 BP 122/79 02/22/22 11:21 Pulse Ox 96 02/22/22 11:21 FiO2 Intake & Output 02/21/22 02/22/22 02/22/22 18:59 06:59 18:59 Intake Total 218 496 Balance 218 496 Intake: IV 100 20 Invasive Line 1 20 Oral 118 476 Other: Voiding Method Toilet Toilet Toilet # Voids 1 2 2 # Bowel Movements 0 - Exam Mental status, speech and language functions are normal. Cranial nerves are normal. Visual charlton are full, face is symmetric. No pronator drift and the strength is normal in arms and legs distally and proximally. Sensory touch is equal on the face and legs bilaterally, but patient feels slightly less sensation in the left arm as compared to the right. No ataxia for jycdno-ba-zoxn or ragm-yx-bcvq testing. Patient's gait is completely normal. - Labs CBC & Chem 7: 02/20/22 08:06 02/20/22 08:06 Assessment and Plan Assessment: * Probable TIA manifesting with transient left-sided weakness and numbness, that resolved in 2-3 hours. * Patient had another TIA 02/20/2022 (in the hospital) that lasted for 20-30 minutes. Possible other TIA. Patient still has some numbness of the left arm as compared to the right. Rest of the examination is nonfocal. * Hypertension * Hyperlipidemia * Hypothyroidism * X tobacco use * Anxiety, depression * Arthritis Plan: * For recommended in TIA 2, patient will be placed on DAP for 21 days, then stop Plavix and continue aspirin indefinitely. * Fasting a.m. lipid panel with cholesterol 162, LDL 84, HDL 59 and triglycerides 88. Continue Lipitor 80 mg daily. * Hemoglobin A1c 5.6 * CTA of head showed no large vessel intracranial arterial occlusion, significant stenosis or aneurysmal change. * CTA of the neck showed widely patent vertebral and carotid arteries. * Patient cannot have MRI due to presence of pacemaker. * 2-D echo revealed mildly increased left ventricular wall thickness. EF is 50- 55%. Wire in the right ventricle. Mild MR, mild TR.. * Optimize control of blood pressure * Patient's TSH is 74.5, free T4 0.53. Will defer to IM to address hypothyroidism. * Barium swallow revealed no evidence for penetration or aspiration. Prominent solid residuals remained throughout the thoracic esophagus. It takes multiple boluses of thin liquid wash to even partially clear the esophagus. Suspect underlying esophageal dysmotility, which can be further evaluated with conventional esophagogram examination. Speech therapist also recommended esophagogram. * HUGH revealed no intracardiac thrombus. No evidence of shunting across the septum. Normal ejection fraction. Ascending aortic aneurysm measuring 4.3 cm. Will defer to cardiology. * Neurologically clear for discharge.
== END 2022-02-22 18:38 | disposition home or self-care (01) | DRG 65 ==
LOC: EC 08:37 → 3SCARD 11:49
PROVIDERS: ADMIT Family Medicine; ATTEND Family Medicine
PROC: B24BZZ4 Ultrasonography of Heart with Aorta, Transesophageal (ICD-10-PCS; principal; 2022-02-21 12:45)
DX: I63.9 Cerebral infarction, unspecified (principal); G81.94 Hemiplegia, unspecified affecting left nondominant side; I42.8 Other cardiomyopathies; I47.1 Supraventricular tachycardia; I49.5 Sick sinus syndrome; I27.20 Pulmonary hypertension, unspecified; I71.21 Aneurysm of the ascending aorta, without rupture; I11.9 Hypertensive heart disease without heart failure; G43.909 Migraine, unspecified, not intractable, without status migrainosus; I48.91 Unspecified atrial fibrillation; E03.9 Hypothyroidism, unspecified; J43.9 Emphysema, unspecified; I08.3 Combined rheumatic disorders of mitral, aortic and tricuspid valves; F31.9 Bipolar disorder, unspecified; E78.5 Hyperlipidemia, unspecified; I25.10 Atherosclerotic heart disease of native coronary artery without angina pectoris; G89.29 Other chronic pain; M54.50 Low back pain, unspecified; R13.10 Dysphagia, unspecified; M15.9 Polyosteoarthritis, unspecified; F41.0 Panic disorder [episodic paroxysmal anxiety]; G47.00 Insomnia, unspecified; H93.13 Tinnitus, bilateral; R47.81 Slurred speech; R29.700 NIHSS score 0; Z79.899 Other long term (current) drug therapy; Z79.890 Hormone replacement therapy; Z88.8 Allergy status to other drugs, medicaments and biological substances; Z88.5 Allergy status to narcotic agent; Z88.2 Allergy status to sulfonamides; Z85.528 Personal history of other malignant neoplasm of kidney; Z90.5 Acquired absence of kidney; Z86.79 Personal history of other diseases of the circulatory system; Z95.810 Presence of automatic (implantable) cardiac defibrillator; Z87.891 Personal history of nicotine dependence
CPT/HCPCS: 36415; 70450; 70496; 70498; 71046; 74230; 80048; 80053; 80061; 83036; 83735; 84439; 84443; 84484; 85025; 85610; 85730; 93005; 93306; 93312; 93320; 93325; 93880; 94640; 94760; 99291

== ENCOUNTER 2022-03-06 12:09 | Inpatient (IN) | payer BC ==
[2022-03-06] MEDS ORDERED: DIPH,PERTUS(ACELL)TETVAC-LF 0.5 ML VIAL IM ONE (12:29)
[2022-03-06] MEDS ORDERED: BACITRACIN OINT 1 EACH PACKET TOPICAL ONE (12:29)
--- NOTE | 2022-03-06 12:33 | ED ---
Psych HPI - General Chief Complaint: Psychiatric Symptoms Stated Complaint: suicidal Time Seen by Provider: 03/06/22 12:21 Source: patient, RN notes reviewed, old records reviewed Mode of arrival: EMS - History of Present Illness Initial Comments: Nontoxic-appearing 57-year-old male presents to the emergency room with complaints of multiple superficial lacerations to bilateral forearms self inflicted. Patient denies any suicidal ideations states "if I was going to do it I wouldn't be here " recent denies any previous suicide attempts. States that he lives with his sister who is in a safe environment. Would not elaborate as to the reason why he cut himself with a knife while times. Denies any alcohol or drug use. States he does have a history of depression on multiple medications. MD Complaint: feels depressed, other (Multiple superficial lacerations bilateral forearms) -: days(s) (1) Associated Psychiatric Symptoms: depression Quality: getting worse Associated Symptoms: denies other symptoms Treatments Prior to Arrival: other (Dressings) If Self Harm: self-inflicted trauma - Related Data Home Medications Medication Instructions Recorded Confirmed Atorvastatin [Lipitor] 20 mg PO HS 06/22/20 03/06/22 Divalproex ER [Depakote ER] 250 mg PO HS 06/22/20 03/06/22 Magnesium Chloride [Slow-Mag] 64 mg PO DAILY 06/22/20 03/06/22 Pantoprazole [Protonix] 40 mg PO DAILY 06/22/20 03/06/22 Sotalol [Betapace] 80 mg PO TID 06/22/20 03/06/22 Levothyroxine Sodium 112 mcg PO DAILY 10/25/20 03/06/22 Alfuzosin HCl [Alfuzosin HCl ER] 10 mg PO DAILY 02/18/22 03/06/22 Metoprolol Succinate (ER) [Toprol 50 mg PO BID 02/18/22 03/06/22 Xl] buPROPion XL [Wellbutrin XL] 150 mg PO DAILY 02/18/22 03/06/22 Aspirin EC [Ecotrin Low Dose] 81 mg PO DAILY 03/06/22 03/06/22 Clopidogrel [Plavix] 75 mg PO HS 03/06/22 03/06/22 Allergies Allergy/AdvReac Type Severity Reaction Status Date / Time itraconazole [From Sporanox] Allergy Rash/Hives Verified 03/06/22 14:07 morphine Allergy Nausea & Verified 03/06/22 14:07 Vomiting Sulfa (Sulfonamide Allergy Unknown Verified 03/06/22 14:07 Antibiotics) Review of Systems ROS Statement: Those systems with pertinent positive or pertinent negative responses have been documented in the HPI. ROS Other: All systems not noted in ROS Statement are negative. Past Medical History Past Medical History: Cancer, Chest Pain / Angina, Eye Disorder, Hypertension, Osteoarthritis (OA), Pneumonia, Thyroid Disorder, Vascular Disorder Additional Past Medical History / Comment(s): Vtach with ablation, bradycardia, palpitations, "leaky heart valve", cardiomegaly, past medical record documents thoracic aortic aneurysm, bronchitis, arthritis in multiple joints, chronic low back pain, L sided sciatica, migraines, rhinitis, UTI, hemorrhoids, cataracts bilaterally, past fractures bilateral wrists and L foot., states Dr Loving changed Sotolol dose-seen changes in heart on his monitor. History of Any Multi-Drug Resistant Organisms: None Reported Past Surgical History: AICD, Cardiac Ablation, Heart Catheterization, Hernia Repair, Orthopedic Surgery, Pacemaker Additional Past Surgical History / Comment(s): Partial nephrectomy , EPS with VT ablation, jaw surgery, L/R arthroscopic knee surgery for meniscus, bilateral inguinal hernia repairs, colonoscopy. Past Anesthesia/Blood Transfusion Reactions: Postoperative Nausea & Vomiting (PONV) Type of Cardiac Device: Permanent Pacemaker, AICD Device Placement Date:: 2018 Past Psychological History: ADD/ADHD, Anxiety, Bipolar, Depression Smoking Status: Former smoker Past Alcohol Use History: None Reported Past Drug Use History: None Reported - Past Family History Father Family Medical History: Cancer Additional Family Medical History / Comment(s): colon cancer. Mother History Unknown: Yes Family Medical History: Cancer Additional Family Medical History / Comment(s): melanoma General Exam Limitations: no limitations General appearance: alert, in no apparent distress Head exam: Present: atraumatic Eye exam: Present: normal appearance. Absent: scleral icterus, conjunctival injection, periorbital swelling ENT exam: Present: mucous membranes moist Neck exam: Present: full ROM. Absent: tenderness, meningismus Respiratory exam: Present: normal lung sounds bilaterally. Absent: respiratory distress, accessory muscle use Cardiovascular Exam: Present: regular rate GI/Abdominal exam: Present: soft. Absent: rigid Back exam: Absent: rash noted Neurological exam: Present: alert, oriented X3, normal gait Psychiatric exam: Present: depressed. Absent: agitated, anxious, manic, homicidal ideation Skin exam: Present: warm, dry, normal color, abrasion (Multiple superficial linear abrasions and lacerations bilateral forearms, minimal bleeding). Absent: cyanosis, diaphoretic Course Vital Signs 03/06/22 03/06/22 12:10 20:07 Temperature 98.2 F Pulse Rate 74 61 Respiratory 18 18 Rate Blood Pressure 127/80 107/71 O2 Sat by Pulse 99 99 Oximetry Medical Decision Making - Medical Decision Making Patient presents. The ambulance with multiple self-inflicted superficial lacerations to both forearms. Patient denies any suicidal ideation. Denies any previous history of suicide attempts. Denies any alcohol or drug use. Due to increasing depression and self mutilation despite patient denying suicidal ideation, EPS nurse consulted and spoke with patient. Patient will be admitted to the hospital. Was pt. sent in by a medical professional or institution? @ -No Did you speak to anyone other than the patient for history? @ -No Did you review nursing and triage notes? @ -Yes I agree Were old charts reviewed? @ -No Differential Diagnosis? @ -Depression, suicidal ideation, intoxication What testing was considered but not performed? (CT, X-rays, U/S, labs)? Why? @ None What meds were considered but not given? Why? @ -None Did you discuss the management of the patient with other professionals? @ -Psych nurse Did you reconcile home meds? @ -No Was smoking cessation discussed for >3mins.? @ -No Was critical care preformed (if so, how long)? @ -No Were there social determinants of health that impacted care today? How? (Homelessness, low income, unemployed, alcoholism, drug addiction, transportation, low edu. Level, literacy, decrease access to med. care, usp, rehab)? @ -No Was there de-escalation of care discussed even if they declined? (Discuss DNR or withdrawal of care, Hospice)? @ -No What co-morbidities impacted this encounter? (DM, HTN, Smoking, COPD, CAD, Cancer, CVA, Hep., AIDS, mental health diagnosis, sleep apnea, morbid obesity)? @ -CAD, Hypertension, anxiety, bipolar Was patient admitted / discharged? @ -Admitted Undiagnosed new problem with uncertain prognosis? @ -[none] Drug Therapy requiring intensive monitoring for toxicity (Heparin, Nitro, Insulin, Cardizem)? @ -No Were any procedures done? @ -No Diagnosis/symptom? @ -Depression, self-mutilation Acute, or Chronic, or Acute on Chronic? @ -Acute Uncomplicated (without systemic symptoms) or Complicated (systemic symptoms)? @ -[default] Side effects of treatment? @ -[none] Exacerbation, Progression, or Severe Exacerbation] @ -[no] Poses a threat to life or bodily function? @ -[no] - Lab Data Lab Results 03/06/22 03/06/22 03/06/22 Range/Units 13:33 13:33 17:36 Urine Color Colorless Urine Appearance Clear (Clear) Urine pH 6.5 (5.0-8.0) Ur Specific [place] 1.005 (1.001-1.035) Urine Protein Negative (Negative) Urine Glucose (UA) Negative (Negative) Urine Ketones Negative (Negative) Urine Blood Negative (Negative) Urine Nitrite Negative (Negative) Urine Bilirubin Negative (Negative) Urine Urobilinogen <2.0 (<2.0) mg/dL Ur Leukocyte Esterase Negative (Negative) Urine Opiates Screen Not Detected (NotDetected) Ur Oxycodone Screen Not Detected (NotDetected) Urine Methadone Screen Not Detected (NotDetected) Ur Propoxyphene Screen Not Detected (NotDetected) Ur Barbiturates Screen Not Detected (NotDetected) U Tricyclic Antidepress Not Detected (NotDetected) Ur Phencyclidine Scrn Not Detected (NotDetected) Ur Amphetamines Screen Not Detected (NotDetected) U Methamphetamines Scrn Not Detected (NotDetected) U Benzodiazepines Scrn Not Detected (NotDetected) Urine Cocaine Screen Not Detected (NotDetected) U Marijuana (THC) Screen Not Detected (NotDetected) Coronavirus (PCR) Not Detected (Not Detectd) Disposition Clinical Impression: Depression, Self-mutilation Disposition: ADMITTED IP TO THIS [facility] Condition: Stable Decision Date: 03/06/22 Decision Time: 17:30
[2022-03-06 13:50] LABS: Appearance,Urine Clear (Clear); Bilirubin,Urine Negative (Negative); Blood,Urine Negative (Negative); Color,Urine Colorless; Glucose,Urine (UA) Negative (Negative); Ketones,Urine Negative (Negative); Leukocyte Esterase,Urine Negative (Negative); Nitrite,Urine Negative (Negative); PH, Urine 6.5 (5.0-8.0); Protein,Urine Negative (Negative); Specific Gravity,Urine 1.005 (1.001-1.035); Urobilinogen,Urine <2.0 mg/dL (<2.0)
[2022-03-06 14:13] LABS: Amphetamine Screen,Urine Not Detected (NotDetected); Barbiturate Screen,Urine Not Detected (NotDetected); Benzodiazepines Screen,Urine Not Detected (NotDetected); Cocaine Screen,Urine Not Detected (NotDetected); Methadone Screen, Urine Not Detected (NotDetected); Opiate Screen,Urine Not Detected (NotDetected); Oxycodone Screen, Urine Not Detected (NotDetected); Phencyclidine Screen,Urine Not Detected (NotDetected); Tricyclic Antidepressant,Urine Not Detected (NotDetected); Urn Cannabinoid Scrn Not Detected (NotDetected)
[2022-03-06] MEDS ORDERED: IBUPROFEN 400 MG TAB PO STA (18:21)
[2022-03-06] MEDS ORDERED: MAG HYDROX/AL HYDROX/SIMETH 30 ML CUP PO PRN (21:18)
[2022-03-06] MEDS ORDERED: HALOPERIDOL LACTATE 5 MG/ML 1 ML VIAL IM PRN (21:18)
[2022-03-06] MEDS ORDERED: MAGNESIUM HYDROXIDE 2,400 MG/10 ML CUP PO PRN (21:18)
[2022-03-06] MEDS ORDERED: ACETAMINOPHEN TAB 325 MG TAB PO PRN (21:18)
[2022-03-06] MEDS ORDERED: LORazepam 1 MG TAB PO PRN (21:18)
[2022-03-06] MEDS ORDERED: LORazepam 2 MG/ML INJ IM PRN (21:20)
[2022-03-06] MEDS ORDERED: haloperidoL 5 MG TAB PO PRN (21:20)
[2022-03-06] MEDS ORDERED: DIVALPROEX ER 250 MG TAB.ER.24H PO SCH (21:30)
[2022-03-06 21:53] LABS: Glucose,Whole Blood 116 mg/dL (70-110)
[2022-03-06] MEDS: SOTALOL 80 MG TAB PO SCH (22:16)
[2022-03-06] MEDS: CLOPIDOGREL 75 MG TAB PO SCH (22:16)
[2022-03-06] MEDS: ATORVASTATIN 20 MG TAB PO SCH (22:17)
[2022-03-06] MEDS ORDERED: LORazepam 1 MG TAB PO STA (22:36)
[2022-03-07] MEDS: LEVOTHYROXINE 112 MCG TAB PO SCH (06:16)
[2022-03-07] MEDS: PANTOPRAZOLE 40 MG TABLET PO SCH (09:32)
[2022-03-07] MEDS ORDERED: SERTRALINE 50 MG TAB PO STA (11:25)
[2022-03-07] MEDS: SOTALOL 80 MG TAB PO SCH ×4 (11:28→23:08)
[2022-03-07] MEDS: TAMSULOSIN 0.4 MG CAP.ER.24H PO SCH (11:28)
[2022-03-07] MEDS: METOPROLOL SUCCINATE (ER) 50 MG TAB.ER.24H PO SCH ×2 (11:28→19:52)
[2022-03-07] MEDS: MAGNESIUM OXIDE 400 MG TAB PO SCH (11:29)
[2022-03-07] MEDS: ASPIRIN 81 MG PO SCH (11:29)
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
--- NOTE | 2022-03-07 18:01 | P.CONS ---
History of Present Illness - Reason for Consult Consult date: 03/07/22 Medical H&P/management of hypertension Requesting physician: Freddy Carrillo - Chief Complaint Depression, self-mutilation - History of Present Illness This is a 57-year-old gentleman with past medical history of recent hospitalization for probable TIA, AICD, history of ventricular tachycardia with ablation, renal cell carcinoma history, history of partial nephrectomy, copd, bipolar depression, brought into the ER via EMS with multiple superficial lacerations to bilateral forearms, self-inflicted. Denies being suicidal,vague as to why he would do self-inflicted mutilation. Vague, minimal discusson at this time; did not elaborate with details. Denies lightheadedness, dizziness, focal deficits. Denies chest pain, palpitations or shortness of breath. Review of Systems ROS Statement: Those systems with pertinent positive or pertinent negative responses have been documented in the HPI. ROS Other: All systems not noted in ROS Statement are negative. Past Medical History Past Medical History: Cancer, Chest Pain / Angina, Eye Disorder, Hypertension, Osteoarthritis (OA), Pneumonia, Thyroid Disorder, Vascular Disorder Additional Past Medical History / Comment(s): Vtach with ablation, bradycardia, palpitations, "leaky heart valve", cardiomegaly, past medical record documents thoracic aortic aneurysm, bronchitis, arthritis in multiple joints, chronic low back pain, L sided sciatica, migraines, rhinitis, UTI, hemorrhoids, cataracts bilaterally, past fractures bilateral wrists and L foot., states Dr Loving changed Sotolol dose-seen changes in heart on his monitor. History of Any Multi-Drug Resistant Organisms: None Reported Past Surgical History: AICD, Cardiac Ablation, Heart Catheterization, Hernia Repair, Orthopedic Surgery, Pacemaker Additional Past Surgical History / Comment(s): Partial nephrectomy , EPS with VT ablation, jaw surgery, L/R arthroscopic knee surgery for meniscus, bilateral inguinal hernia repairs, colonoscopy. Past Anesthesia/Blood Transfusion Reactions: Postoperative Nausea & Vomiting (PONV) Type of Cardiac Device: Permanent Pacemaker, AICD Device Placement Date:: 2018 Past Psychological History: ADD/ADHD, Anxiety, Bipolar, Depression Smoking Status: Former smoker Past Alcohol Use History: None Reported Past Drug Use History: None Reported - Past Family History Father Family Medical History: Cancer Additional Family Medical History / Comment(s): colon cancer. Mother History Unknown: Yes Family Medical History: Cancer Additional Family Medical History / Comment(s): melanoma Medications and Allergies Home Medications Medication Instructions Recorded Confirmed Type Atorvastatin [Lipitor] 20 mg PO HS 06/22/20 03/06/22 History Divalproex ER [Depakote ER] 250 mg PO HS 06/22/20 03/06/22 History Magnesium Chloride [Slow-Mag] 64 mg PO DAILY 06/22/20 03/06/22 History Pantoprazole [Protonix] 40 mg PO DAILY 06/22/20 03/06/22 History Sotalol [Betapace] 80 mg PO TID 06/22/20 03/06/22 History Levothyroxine Sodium 112 mcg PO DAILY 10/25/20 03/06/22 History Alfuzosin HCl [Alfuzosin HCl ER] 10 mg PO DAILY 02/18/22 03/06/22 History Metoprolol Succinate (ER) [Toprol 50 mg PO BID 02/18/22 03/06/22 History Xl] buPROPion XL [Wellbutrin XL] 150 mg PO DAILY 02/18/22 03/06/22 History Aspirin EC [Ecotrin Low Dose] 81 mg PO DAILY 03/06/22 03/06/22 History Clopidogrel [Plavix] 75 mg PO HS 03/06/22 03/06/22 History Allergies Allergy/AdvReac Type Severity Reaction Status Date / Time itraconazole [From Sporanox] Allergy Rash/Hives Verified 03/06/22 14:07 morphine Allergy Nausea & Verified 03/06/22 14:07 Vomiting Sulfa (Sulfonamide Allergy Unknown Verified 03/06/22 14:07 Antibiotics) Physical Exam Vitals: Vital Signs Temp Pulse Pulse Resp BP BP Pulse Ox 03/07/22 11:31 81 127/88 03/07/22 06:29 97.1 F L 65 14 119/77 03/06/22 22:13 97.2 F L 62 18 133/87 99 03/06/22 20:07 61 18 107/71 99 PHYSICAL EXAM: VITAL SIGNS: [As above] GENERAL: Well-developed, alert and oriented 3, no acute distress HEENT: Conjunctivae normal. eyes normal. Oral mucosa moist NECK: Supple, No JVD. No thyroid enlargement. No LNs CARDIOVASCULAR: S1, S2 regular.No murmur RESPIRATION: Breath sounds diminished in the bases. No rhonchi or crackles. No bronchial breathing. ABDOMEN: Soft, nontender . No guarding. no masses palpable. No ascites, No hepatosplenomegaly.Bowel sounds heard. LEGS: No edema. no swelling PSYCHIATRY: Alert and oriented X3, mood and affect normal. NERVOUS SYSTEM: Cranial N 2-12 grossly normal. Moves all 4 limbs. Diffuse weakness No focal deficits. Strength and sensation grossly intact.. Skin: Bilateral forearms Joints: No active swelling. No inflammation. Lymphatic system. No LN neck axilla or groin. Results Labs: Abnormal Lab Results - Last 24 Hours (Table) 03/06/22 Range/Units 21:49 POC Glucose (mg/dL) 116 H (70-110) mg/dL Assessment and Plan Assessment: Anxiety, depression, self mutilation to bilateral forearms with a knife. Multiple superficial lacerations with minimal bleeding, no sutures Recent hospitalization for probable TIA in January 2022 History of sick sinus syndrome Paroxysmal atrial tachycardia Dilated aortic root History of V. tach, prior ablation, and AICD implantation Hypertension Hyperlipidemia Hypothyroidism Ongoing nicotine dependence Plan: Continue on current medication regime ,monitoring and symptomatic tr eatment. Home medications have been reviewed and resumed accordingly. PPI for GI prophylaxis. Thank you for the consult and please do not hesitate to call with any questions or concerns. The impression and plan of care has been dictated as directed. : I performed a history and examination of this patient, discussed the same with the dictator. I agree with the dictator's note ,documented as a scribe. Any additional findings or plans will be noted.
[2022-03-07] MEDS: CLOPIDOGREL 75 MG TAB PO SCH (19:52)
[2022-03-07] MEDS: ATORVASTATIN 20 MG TAB PO SCH (19:52)
[2022-03-07] MEDS ORDERED: lamoTRIgine 25 MG TAB PO SCH (21:00)
[2022-03-07] MEDS ORDERED: QUEtiapine 50 MG TAB PO SCH (21:00)
[2022-03-08] MEDS: LEVOTHYROXINE 112 MCG TAB PO SCH (06:44)
[2022-03-08 07:01] VITALS: TEMP 97.8
[2022-03-08] MEDS ORDERED: SERTRALINE 100 MG TAB PO SCH (09:00)
[2022-03-08] MEDS: ASPIRIN 81 MG PO SCH (09:10)
[2022-03-08] MEDS: TAMSULOSIN 0.4 MG CAP.ER.24H PO SCH (09:10)
[2022-03-08] MEDS: METOPROLOL SUCCINATE (ER) 50 MG TAB.ER.24H PO SCH (09:11)
[2022-03-08] MEDS: SOTALOL 80 MG TAB PO SCH (09:11)
[2022-03-08] MEDS: PANTOPRAZOLE 40 MG TABLET PO SCH (09:11)
[2022-03-08] MEDS: MAGNESIUM OXIDE 400 MG TAB PO SCH (09:11)
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
[2022-03-08 16:49] VITALS: BP 128/86; PULSE 72; RESP 20
[2022-03-08 19:01] LABS: Chol/HDL Ratio 2.81 Ratio; LDL Cholesterol,Calculated 64.3 mg/dL (0.0-131.0); VLDL Calculation 19.44 mg/dL (5.00-40.00)
== END 2022-03-08 16:10 | disposition home or self-care (01) | DRG 885 ==
LOC: EC 12:09 → 3MHU 20:30
PROVIDERS: ADMIT Psychiatry & Neurology Psychiatry; ATTEND Psychiatry & Neurology Psychiatry
DX: F33.3 Major depressive disorder, recurrent, severe with psychotic symptoms (principal); I47.1 Supraventricular tachycardia; E03.9 Hypothyroidism, unspecified; E78.5 Hyperlipidemia, unspecified; F17.210 Nicotine dependence, cigarettes, uncomplicated; F43.10 Post-traumatic stress disorder, unspecified; F60.3 Borderline personality disorder; F60.89 Other specific personality disorders; F90.9 Attention-deficit hyperactivity disorder, unspecified type; I10 Essential (primary) hypertension; I67.1 Cerebral aneurysm, nonruptured; I77.810 Thoracic aortic ectasia; J44.9 Chronic obstructive pulmonary disease, unspecified; S51.811A Laceration without foreign body of right forearm, initial encounter; S51.812A Laceration without foreign body of left forearm, initial encounter; X78.9XXA Intentional self-harm by unspecified sharp object, initial encounter; Z79.82 Long term (current) use of aspirin; H57.9 Unspecified disorder of eye and adnexa; M15.9 Polyosteoarthritis, unspecified; M54.32 Sciatica, left side; Z20.822 Contact with and (suspected) exposure to COVID-19; Z79.890 Hormone replacement therapy; Z79.899 Other long term (current) drug therapy; Z79.02 Long term (current) use of antithrombotics/antiplatelets; Z80.0 Family history of malignant neoplasm of digestive organs; Z85.528 Personal history of other malignant neoplasm of kidney; Z86.73 Personal history of transient ischemic attack (TIA), and cerebral infarction without residual deficits; Z90.5 Acquired absence of kidney; Z80.8 Family history of malignant neoplasm of other organs or systems; G89.29 Other chronic pain; Z88.5 Allergy status to narcotic agent; Z88.2 Allergy status to sulfonamides; Z88.8 Allergy status to other drugs, medicaments and biological substances; Z56.0 Unemployment, unspecified; Z95.810 Presence of automatic (implantable) cardiac defibrillator
CPT/HCPCS: 80061; 80306; 81003; 83036; 84443; 87635; 90471; 90715; 99285

== ENCOUNTER → 2022-11-07 | Outpatient (CLI) | payer BC | END | disposition home or self-care (01) | LOC: LABWHC1 15:56 | PROVIDERS: ATTEND Internal Medicine Cardiovascular Disease | DX: I48.0 Paroxysmal atrial fibrillation (principal) | CPT/HCPCS: 36415; 84443 ==

== ENCOUNTER → 2023-01-28 | Outpatient (CLI) | payer BC | END | disposition home or self-care (01) | LOC: LABWHC1 15:29 | PROVIDERS: ATTEND Family Medicine | DX: I47.19 Other supraventricular tachycardia (principal) | CPT/HCPCS: 36415; 84443 ==

== ENCOUNTER 2024-03-09 08:06 | Day surgery (SDC) | payer BC ==
[2024-03-03 14:39] VITALS: BMI 25.7
[~2024-03-09 08:06] MED LIST changes: +LIDOCAINE 1% (10MG/ML) FOR IV START INTRADERMA PRN
[2024-03-09 08:31] VITALS: RESP 18; TEMP 97
[2024-03-09] MEDS: SODIUM CHLORIDE 0.9% 1,000 ML IV ONE (08:34)
[2024-03-09] MEDS ORDERED: PROPOFOL 10 MG/ML 20 ML VIAL IV ONE (08:48)
[2024-03-09 09:34] VITALS: BP 109/69; PULSE 60
--- NOTE | 2024-03-09 12:37 | P.OP ---
Date of Procedure: 03/09/24 Preoperative Diagnosis: Screening Colonoscopy Postoperative Diagnosis: Normal Colon Procedure(s) Performed: Colonoscopy Anesthesia: MAC Surgeon: Yovani Tucker Pathology: none sent Condition: stable Description of Procedure: After informed consent was obtained, the patient was placed in the left lateral position and sedated. Monitoring was provided throughout the entire procedure. Digital rectal exam was performed revealing normal sphincter tone and no external hemorrhoids. The colonoscope was inserted into rectum and advanced under direct visualization, without difficulty, to the cecum, where the cecal strap, appendiceal orifice, and the ileocecal valve were identified. The quality of the preparation was good. The colonoscope was then withdrawn while carefully examining the mucosa. The colonic mucosa appeared normal with normal vascularity and haustral markings. No masses, polyps, AVM/s or diverticula were seen. The endoscope was removed and the procedure terminated. The patient tolerated the procedure well without complications.
== END 2024-03-09 10:02 | disposition home or self-care (01) ==
LOC: ORWHC2ENDO 08:06
PROVIDERS: ATTEND Surgery
DX: Z12.11 Encounter for screening for malignant neoplasm of colon (principal); I10 Essential (primary) hypertension; I97.190 Other postprocedural cardiac functional disturbances following cardiac surgery; I08.9 Rheumatic multiple valve disease, unspecified; I67.9 Cerebrovascular disease, unspecified; I20.9 Angina pectoris, unspecified; J44.9 Chronic obstructive pulmonary disease, unspecified; G47.33 Obstructive sleep apnea (adult) (pediatric); E78.5 Hyperlipidemia, unspecified; M19.90 Unspecified osteoarthritis, unspecified site; Z87.891 Personal history of nicotine dependence; Z95.0 Presence of cardiac pacemaker; Z90.79 Acquired absence of other genital organ(s); Z88.1 Allergy status to other antibiotic agents; Z88.2 Allergy status to sulfonamides; Z88.5 Allergy status to narcotic agent; Z79.890 Hormone replacement therapy; Z79.51 Long term (current) use of inhaled steroids; Z79.899 Other long term (current) drug therapy
CPT/HCPCS: 45378; J2704

== ENCOUNTER → 2024-06-30 | Outpatient (CLI) | payer BC ==
[2024-06-30 15:08] LABS: Basophils # (A) 0.07 X 10*3/uL (0.00-0.10); Eosinophils # (A) 0.14 X 10*3/uL (0.04-0.35); Eosinophils % (A) 1.9 %; HCT 43.2 % (39.6-50.0); HGB 13.9 g/dL (13.0-17.0); Lymphocytes % (A) 23.2 %; MCH 30.5 pg (27.0-32.0); MCHC 32.2 g/dL (32.0-37.0); MCV 94.7 FL (80.0-97.0); Mean Platelet Volume 10.7 FL (9.5-12.2); Monocytes # (A) 0.63 X 10*3/uL (0.20-1.00); Monocytes % (A) 8.6 %; NRBC Per 100 WBC 0 X 10*3/uL (0.00-0.01); Neutrophils # (A) 4.77 X 10*3/uL (1.80-7.70); Platelet Count 269 X 10*3/uL (140-440); RBC 4.56 X 10*6/uL (4.40-5.60); RDW 13.8 % (11.5-14.5); WBC 7.33 X 10*3/uL (4.50-10.00)
[2024-06-30 15:18] LABS: ALT 18 U/L (10-49); AST 19 U/L (14-35); Albumin 4.4 g/dL (3.8-4.9); Alkaline Phosphatase 84 U/L (41-126); Blood Urea Nitrogen 14.6 mg/dL (9.0-27.0); Calcium 9.3 mg/dL (8.7-10.3); Carbon Dioxide 24.1 mmol/L (21.6-31.8); Chloride 104 mmol/L (96-109); Globulin 2.2 g/dL (1.6-3.3); Glucose 102 mg/dL (70-110); LDL Cholesterol,Calculated 121.2 mg/dL (0.0-131.0); Potassium 4.8 mmol/L (3.5-5.5); Sodium 140 mmol/L (135-145); Total Bilirubin 0.4 mg/dL (0.3-1.2); Total Protein 6.6 g/dL (6.2-8.2); VLDL Calculation 19.44 mg/dL (5.00-40.00)
== END | disposition home or self-care (01) ==
LOC: LABWHC1 09:14
PROVIDERS: ATTEND Family Medicine
DX: I10 Essential (primary) hypertension (principal); I71.40 Abdominal aortic aneurysm, without rupture, unspecified; E03.9 Hypothyroidism, unspecified; G47.09 Other insomnia; J44.9 Chronic obstructive pulmonary disease, unspecified; Z95.0 Presence of cardiac pacemaker
CPT/HCPCS: 36415; 80053; 80061; 84443; 85025